=== PATIENT | male | born 1960 | race Caucasian/White ===

== ENCOUNTER 2016-06-20 21:42 | Emergency (ER) | payer BC ==
[2016-06-20] MEDS ORDERED: Phenergan 25 MG INJ IV ONE (21:59)
[2016-06-20] MEDS ORDERED: Hydromorphone 1 mg/ml Ampule IV ONE (21:59)
[2016-06-20] MEDS ORDERED: Sodium Chloride 0.9% 1000 ML 1,000 ML IV SCH (22:00)
--- NOTE | 2016-06-20 22:06 | ERPHSYRPT ---
- History of Present Illness Time Seen by Provider: 06/20/16 21:51 Source: patient Exam Limitations: no limitations Patient Subjective Stated Complaint: pt c/o pain in rt flank. states pain is sharp and intermittent to rt flank. Triage Nursing Assessment: pt alert and oriented, answers questions approp. skin pink warm and dry. respirations nonlabored with lungs cta. pt ambulatory with steady gait noted. bowel sounds present in all 4 quads with hypo bowel sounds. tenderness noted to rt lower back. Physician History: SINCE YESTERDAY PT HAS HAD CONSTANT SHARP/DULL RIGHT LOWER BACK/FLANK PAIN; DENIES RECENT INJURY, FEVER, CHEST PAIN, VOMITING, DIARRHEA. LAST BM WAS 2 DAYS AGO & WNL. PT ALSO C/O A SCRATCHY THROAT AND NASAL CONGESTION FOR THE PAST 2 WEEKS AND EAR FULLNESS FOR THE PAST 4 DAYS. Allergies/Adverse Reactions: cetirizine HCl [From Zyrtec] Allergy (Severe, Verified 12/01/15 18:19) Swelling of Face niacin Allergy (Intermediate, Verified 12/01/15 18:19) Hives Home Medications: Allopurinol 100 mg [Zyloprim 100 mg] 300 mg PO DAILY 09/02/12 [History] Insulin Aspart [NovoLOG Insulin] 30 unit SQ BID 09/02/12 [History] Insulin Detemir [Levemir] 75 unit SQ BID 09/02/12 [History] Lisinopril 10 mg [Zestril 10 MG] 10 mg PO DAILY 09/02/12 [History] Metformin HCl 500 mg [Glucophage 500 MG] 1,000 mg PO BID 09/02/12 [History ] Aspirin 325 mg PO DAILY 02/27/14 [History] Omeprazole [Prilosec] 40 mg PO DAILY 02/27/14 [History] Pravastatin Sodium 80 mg PO DAILY 05/29/14 [History] Hx Tetanus, Diphtheria Vaccination/Date Given: Yes Hx Influenza Vaccination/Date Given: No Hx Pneumococcal Vaccination/Date Given: No Immunizations Up to Date: Yes - Review of Systems Constitutional: No Fever Ears, Nose, & Throat: Nose Congestion, Other (SCRATCHY THROAT AND EAR FULLNESS.) Abdominal/Gastrointestinal: Other (RIGHT FLANK PAIN) Musculoskeletal: Back Pain (RIGHT LOWER BACK PAIN), Joint Swelling (ANKLE SWELLING FOR YEARS.) All Other Systems: Reviewed and Negative - Past Medical History Pertinent Past Medical History: Yes Neurological History: No Pertinent History ENT History: No Pertinent History Cardiac History: High Cholesterol, Hypertension Respiratory History: Asthma, Sleep Apnea Endocrine Medical History: Diabetes Type II Musculoskeletal History: Arthritis GI Medical History: No Pertinent History History: No Pertinent History Psycho-Social History: No Pertinent History Male Reproductive Disorders: No Pertinent History Other Medical History: IDDM - Past Surgical History Past Surgical History: No Neuro Surgical History: No Pertinent History Cardiac: No Pertinent History Respiratory: No Pertinent History Gastrointestinal: No Pertinent History Genitourinary: No Pertinent History Musculoskeletal: No Pertinent History Male Surgical History: No Pertinent History - Social History Smoking Status: Current every day smoker How long have you smoked: 40 YEARS Exposure to second hand smoke: Yes Alcohol Use: None (quit 1 month ago) Drug Use: none Patient Lives Alone: No Significant Family History: diabetes - Nursing Vital Signs Nursing Vital Signs: Initial Vital Signs Temperature 97.8 F Temperature Source Oral Pulse Rate 79 Respiratory Rate 20 Blood Pressure [Right Arm] 144/83 Pain Intensity 8 - Physical Exam General Appearance: alert Eye Exam: PERRL/EOMI Ears, Nose, Throat Exam: TMs normal, pharynx normal, moist mucous membranes Neck Exam: normal inspection Respiratory Exam: lungs clear Cardiovascular Exam: normal heart sounds Gastrointestinal/Abdomen Exam: soft, normal bowel sounds, No tenderness Back Exam: normal range of motion, other (MILD TENDERNESS OF THE RIGHT LOWER BACK WITHOUT RASH OR EDEMA) Extremity Exam: pedal edema (+1 ANKLE EDEMA BILATERALLY) Neurologic Exam: alert, cooperative Skin Exam: warm, dry SpO2 Interpretation: normal SpO2: 95 Oxygen Delivery: Room Air - Course Nursing assessment & vital signs reviewed: Yes Ordered Tests: Active Orders 24 hr Category Date Time Status Clean Catch Urine Specimen STAT Care 06/20/16 21:59 Active IV Insertion STAT Care 06/20/16 21:59 Active ABDOMEN AND PELVIS W/0 CONTRAS [CT] Stat Exams 06/20/16 22:00 Taken AMYLASE Stat Lab 06/20/16 22:08 Completed CBC W DIFF Stat Lab 06/20/16 22:08 Completed CMP Stat Lab 06/20/16 22:08 Completed LIPASE Stat Lab 06/20/16 22:08 Completed UA Stat Lab 06/20/16 22:08 Completed Medication Summary Generic Name Dose Route Start Last Admin Trade Name Freq PRN Reason Stop Dose Admin Sodium Chloride 1,000 mls @ 100 mls/hr 06/20/16 22:00 06/20/16 22:12 Sodium Chloride 0.9% 1000 Ml IV 07/20/16 21:59 100 mls/hr .Q10H DO Administration Discontinued Medications Generic Name Dose Route Start Last Admin Trade Name Sang PRN Reason Stop Dose Admin Hydromorphone HCl 1 mg 06/20/16 21:59 06/20/16 22:12 Hydromorphone 1 Mg/Ml Ampule IV 06/20/16 22:00 1 mg STAT ONE Administration Hydromorphone HCl Confirm 06/20/16 22:09 Hydromorphone 1 Mg/Ml Ampule Administered 06/20/16 22:10 Dose 1 mg .ROUTE .STK-MED ONE Sodium Chloride Confirm 06/20/16 22:09 Sodium Chloride 0.9% 1000 Ml Administered 06/20/16 22:10 Dose 1,000 mls @ ud .ROUTE .STK-MED ONE Promethazine HCl 12.5 mg 06/20/16 21:59 06/20/16 22:12 Phenergan 25 Mg Inj IV 06/20/16 22:00 12.5 mg STAT ONE Administration Promethazine HCl Confirm 06/20/16 22:09 Phenergan 25 Mg Inj Administered 06/20/16 22:10 Dose 25 mg .ROUTE .STK-MED ONE Lab/Rad Data: Laboratory Result Diagrams 06/20/16 22:08 06/20/16 22:08 Laboratory Results 06/20/16 06/20/16 06/20/16 Range/Units 22:08 22:08 22:08 WBC 12.7 H (4.0-10.5) K/mm3 RBC 5.39 (4.1-5.6) M/mm3 Hgb 16.1 (12.5-18.0) gm/dl Hct 47.6 (42-50) % MCV 88.3 (78-100) fl MCH 29.9 (26-32) pg MCHC 33.8 (32-36) g/dl RDW 14.7 H (11.5-14.0) % Plt Count 224 (150-450) K/mm3 MPV 11.9 H (6-9.5) fl Gran % 59.1 (36.0-66.0) % Lymphocytes % 30.5 (24.0-44.0) % Monocytes % 7.0 (0.0-12.0) % Eosinophils % 3.2 (0.00-5.0) % Basophils % 0.2 (0.0-0.4) % Basophils # 0.03 (0-0.4) Sodium 140 (136-145) mEq/L Potassium 4.4 (3.5-5.1) mEq/L Chloride 102 (98-107) mEq/L Carbon Dioxide 27.7 (21-32) mEq/L Anion Gap 14.8 (5-15) MEQ/L BUN 13 (9-20) mg/dL Creatinine 0.78 (0.55-1.30) mg/dl Estimated GFR > 60 ML/MIN Glucose 188 H (70-110) MG/DL Calcium 9.6 (8.5-10.1) mg/dL Total Bilirubin 0.4 (0.2-1.0) mg/dL AST 20 (15-37) U/L ALT 33 (12-78) U/L Alkaline Phosphatase 104 (46-116) U/L Serum Total Protein 7.5 (6.4-8.2) gm/dL Albumin 3.7 (3.4-5.0) g/dL Amylase 45 (25-115) U/L Lipase 221 (73-393) U/L Ur Collection Type CLEAN CATCH Urine Color YELLOW (YELLOW) Urine Appearance CLEAR (CLEAR) Urine pH 5.5 (5-6) Ur Specific [place] >=1.030 (1.005-1.025) Urine Protein NEGATIVE (Negative) Urine Glucose (UA) NEGATIVE (NEGATIVE) mg/dL Urine Ketones NEGATIVE (NEGATIVE) Urine Nitrite NEGATIVE (NEGATIVE) Urine Bilirubin NEGATIVE (NEGATIVE) Urine Urobilinogen 0.2 (0-1) mg/dL Urine WBC (Auto) NEGATIVE (NEGATIVE) Urine RBC (Auto) NEGATIVE (0-5) Lucius/ul Specimen Received 06/20/16 2200 - Departure Time of Disposition: 23:37 Departure Disposition: Home Clinical Impression: RIGHT LOWER BACK/FLANK PAIN Condition: Fair Critical Care Time: No Instructions: Abdominal Pain-Adult Additional Instructions: FOLLOW UP WITH PRIVATE DOCTOR TOMORROW. Prescriptions: Naproxen [Naprosyn] 500 mg PO [id number] PRN #20 tablet PRN Reason: Pain Cyclobenzaprine HCl [Flexeril] 10 mg PO TID #20 tablet
[2016-06-20] MEDS ORDERED: Sodium Chloride 0.9% 1000 ML 1,000 ML ONE (22:09)
[2016-06-20] MEDS ORDERED: Phenergan 25 MG INJ ONE (22:09)
[2016-06-20] MEDS ORDERED: Hydromorphone 1 mg/ml Ampule ONE (22:09)
[2016-06-20 22:11] LABS: BASOPHIL % 0.2 % (0.0-0.4); Eosinophil % 3.2 % (0.00-5.0); Granulocytes % 59.1 % (36.0-66.0); Lymphocytes % 30.5 % (24.0-44.0); Mean Cell Volume 88.3 fl (78-100); Mean Corpuscular Hemoglobin 29.9 pg (26-32); Mean Platelet Volume 11.9 fl (6-9.5); Platelet Count 224 K/mm3 (150-450); Red Blood Count 5.39 M/mm3 (4.1-5.6); Red Cell Distribution Width 14.7 % (11.5-14.0); White Blood Count 12.7 K/mm3 (4.0-10.5)
[2016-06-20 22:28] LABS: Collection Type CLEAN CATCH
[2016-06-20 22:29] LABS: COMPLETE URINE MICROSCOPIC? NO; Ph 5.5 (5-6)
[2016-06-20 22:33] LABS: ALBUMIN 3.7 g/dL (3.4-5.0); ALKALINE PHOSPHATASE 104 U/L (46-116); ANION GAP 14.8 MEQ/L (5-15); BILIRUBIN,TOTAL 0.4 mg/dL (0.2-1.0); BLOOD UREA NITROGEN 13 mg/dL (9-20); CHLORIDE 102 mEq/L (98-107); Carbon Dioxide 27.7 mEq/L (21-32); Glucose 188 MG/DL (70-110); LIPASE 221 U/L (73-393); Potassium 4.4 mEq/L (3.5-5.1); SGOT/AST 20 U/L (15-37); SGPT/ALT 33 U/L (12-78); SODIUM 140 mEq/L (136-145); Total Protein 7.5 gm/dL (6.4-8.2)
[2016-06-20] MEDS ORDERED: TORAdol 30 mg Injection IV ONE (23:38)
[2016-06-20] MEDS ORDERED: TORAdol 30 mg Injection ONE (23:41)
[2016-06-20 23:49] VITALS: BP 146/69; PULSE 67; O2SAT 97
--- NOTE | 2016-06-21 09:46 | XRAY ---
Indication: Right back pain. Multiple contiguous axial images obtained through the abdomen and pelvis without contrast using renal stone protocol. Comparison: February 27, 2014. Lung bases again demonstrates stable noncalcified nodules presumed granulomatous in this demographic. Stable right middle lobe fibrosis/scarring and old left rib fractures. Heart is not enlarged. No renal calculus or evidence for obstructive uropathy in either system. Noncontrasted stomach and bowel loops appear nonobstructed. There is now mild scattered colonic fecal debris throughout. Normal appendix. No free fluid/air. There remains scattered tiny mesenteric nodes with minimal stranding, favoring adenitis. Remaining liver, gallbladder, pancreas, spleen, adrenal glands, kidneys, ureters, and bladder appear unremarkable for noncontrast exam. There remains minimal aortoiliac calcifications without AAA. Osseous structures intact again with degenerative changes throughout the spine. Impression: 1. Negative for renal calculus or evidence for obstructive uropathy. 2. Fecal stasis without obstruction. 3. Stable tiny mesenteric nodes with minimal stranding favoring mesenteric adenitis. 4. Stable bibasilar pulmonary nodules presumed granulomatous. Comment: Preliminary interpretation was made by [facility]. No critical discrepancy. CTDI 28.13
== END 2016-06-21 00:05 | disposition home or self-care (01) ==
LOC: ED 21:42
DX: M54.5 Low back pain (principal); R10.9 Unspecified abdominal pain; R09.81 Nasal congestion
CPT/HCPCS: 36000; 36415; 74176; 80053; 81002; 82150; 83690; 85025; 96360; 96374; 96375; 99283; 99284; J1170; J1885; J2550

== ENCOUNTER 2016-09-08 21:10 | Emergency (ER) | payer BC ==
[2016-09-08] MEDS ORDERED: Sodium Chloride 0.9% 1000 ML 1,000 ML IV STA (21:54)
--- NOTE | 2016-09-08 21:59 | ERPHSYRPT ---
- History of Present Illness Time Seen by Provider: 09/08/16 21:55 Source: patient Exam Limitations: no limitations Patient Subjective Stated Complaint: states that he has had some sinus drainage and congestion for the last few weeks since having his teeth pulled and since that time has had some c/o intermittent dizzienss - reports some aching pain in the ears and nausea with dry heaving Triage Nursing Assessment: ambulatory to treatment area - steady gait to cart - moves all extremities with equal strength. alert/oriented - appropriate affect. skin pwd - no rash/injury. resps easy - non-labored Physician History: 56-year-old white male arrives with complaint of feeling dizzy for approximately 3 weeks after having his teeth pulled,. Patient states then today he's been very dizzy all day long is not having any problems moving he just feels dizzy "like he is drunk. He does state that he has been having pressure in the maxillary area bilaterally like he has a sinus infection. He has has had some nausea he has no fevers, Past medical history includes diabetes, asthma, sleep apnea, hyperlipidemia, high blood pressure. Patient states he has had a stroke in the past also history of arthritis, Past surgical history is negative. Social history occasional alcohol use Timing/Duration: week(s) (symptoms for 3 weeks worse today) Severity: moderate Modifying Factors: Improves With: nothing Associated Symptoms: nausea, other (dizziness), No vomiting, No abdominal pain, No shortness of breath, No heartburn, No diaphoresis, No cough, No chills, No chest pain, No fever, No headaches, No loss of appetite, No malaise, No rash, No syncope, No seizure, No weakness Allergies/Adverse Reactions: cetirizine HCl [From Zyrtec] Allergy (Severe, Verified 09/08/16 21:20) Swelling of Face niacin Allergy (Intermediate, Verified 09/08/16 21:20) Hives Home Medications: Allopurinol 100 mg [Zyloprim 100 mg] 300 mg PO DAILY 09/02/12 [History] Insulin Aspart [NovoLOG Insulin] 30 unit SQ BID 09/02/12 [History] Insulin Detemir [Levemir] 75 unit SQ BID 09/02/12 [History] Lisinopril 10 mg [Zestril 10 MG] 10 mg PO DAILY 09/02/12 [History] Metformin HCl 500 mg [Glucophage 500 MG] 1,000 mg PO BID 09/02/12 [History ] Aspirin 325 mg PO DAILY 02/27/14 [History] Omeprazole [Prilosec] 40 mg PO DAILY 02/27/14 [History] Pravastatin Sodium 80 mg PO DAILY 05/29/14 [History] Hx Tetanus, Diphtheria Vaccination/Date Given: No Hx Influenza Vaccination/Date Given: No Hx Pneumococcal Vaccination/Date Given: No Immunizations Up to Date: Yes - Review of Systems Constitutional: No Fever, No Chills Eyes: No Symptoms, No Discharge, No Eye Pain, No Eye Redness, No Itchy, No Photophobia, No Tearing, No Vision Changes, No Double Vision, No Foreign Body Sensation Ears, Nose, & Throat: Nose Congestion, Sinus Drainage, Other (tenderness in the maxillary sinuses), No Ear Pain, No Ear Discharge, No Hearing Changes, No Tinnitus, No Nose Pain, No Nose Discharge, No Epistaxis, No Mouth Pain, No Mouth Swelling, No Loose Teeth, No Throat Pain, No Throat Swelling, No Hoarse, No Painful Swallowing, No Snoring, No Stridor Respiratory: No Cough, No Dyspnea Cardiac: No Chest Pain, No Edema, No Syncope Abdominal/Gastrointestinal: No Abdominal Pain, No Nausea, No Vomiting, No Diarrhea Genitourinary Symptoms: No Dysuria Musculoskeletal: No Back Pain, No Neck Pain Skin: No Rash Neurological: Dizziness, No Focal Weakness, No Gait Changes, No Headache, No Irritability, No Lethargy, No Paralysis, No Parasthesia, No Seizure, No Sensory Changes, No Speech Changes, No Tics, No Tremors, No Vertigo Psychological: No Symptoms Endocrine: No Symptoms All Other Systems: Reviewed and Negative - Past Medical History Pertinent Past Medical History: Yes Neurological History: No Pertinent History ENT History: No Pertinent History Cardiac History: High Cholesterol, Hypertension Respiratory History: Asthma, Sleep Apnea Endocrine Medical History: Diabetes Type II Musculoskeletal History: Arthritis GI Medical History: No Pertinent History History: No Pertinent History Psycho-Social History: No Pertinent History Male Reproductive Disorders: No Pertinent History Other Medical History: IDDM - Past Surgical History Past Surgical History: No Neuro Surgical History: No Pertinent History Cardiac: No Pertinent History Respiratory: No Pertinent History Gastrointestinal: No Pertinent History Genitourinary: No Pertinent History Musculoskeletal: No Pertinent History Male Surgical History: No Pertinent History - Social History Smoking Status: Never smoker How long have you smoked: 40 YEARS Exposure to second hand smoke: No Alcohol Use: None (quit 1 month ago) Drug Use: none Patient Lives Alone: No Significant Family History: diabetes - Nursing Vital Signs Nursing Vital Signs: Initial Vital Signs Temperature 97.2 F Temperature Source Oral Pulse Rate 68 Respiratory Rate 20 Blood Pressure [] 131/53 Pain Intensity 0 - Physical Exam General Appearance: no apparent distress Eye Exam: PERRL/EOMI, eyes nml inspection Ears, Nose, Throat Exam: TMs normal, pharynx normal, moist mucous membranes, other (erythematous nasal mucosa, tenderness with percussion maxillary sinuses) , No dry mucous membranes, No TM abnormal (R), No TM abnormal (L), No pharyngeal erythema, No tonsillar exudate Neck Exam: normal inspection, non-tender, supple, full range of motion Respiratory Exam: normal breath sounds, lungs clear, No respiratory distress Cardiovascular Exam: regular rate/rhythm, normal heart sounds, normal peripheral pulses Gastrointestinal/Abdomen Exam: soft, normal bowel sounds, No tenderness, No mass Back Exam: normal inspection, normal range of motion, No CVA tenderness, No vertebral tenderness Extremity Exam: normal inspection, normal range of motion, pelvis stable Neurologic Exam: alert, oriented x 3, cooperative, normal mood/affect, nml cerebellar function, nml station & gait, sensation nml, No motor deficits Skin Exam: normal color, warm, dry, No rash Lymphatic Exam: No adenopathy SpO2 Interpretation: normal (96%) SpO2: 96 Oxygen Delivery: Room Air - Course Nursing assessment & vital signs reviewed: Yes EKG Interpreted by Me: RATE (64 bpm), NORMAL AXIS, Other (EKG: sinus arrhythmia , 64 bpm, axisSI/QIII pattern no acute ST or T wave changes, no acute changes as compared to December 01, 2015) - CT Exams Head CT Interpretation: Tele-radiologist Report (head CT: Impression: 1. No acute intracranial abnormality) Ordered Tests: Active Orders 24 hr Category Date Time Status Accucheck STAT Care 09/08/16 21:54 Active EKG-ER Only STAT Care 09/08/16 23:06 Active IV Insertion STAT Care 09/08/16 21:54 Active Orthostatic Vital Signs STAT Care 09/08/16 21:54 Active HEAD WITHOUT CONTRAST [CT] Stat Exams 09/08/16 21:54 Taken CBC W DIFF Stat Lab 09/08/16 22:05 Completed CMP Stat Lab 09/08/16 22:05 Completed TROPONIN Stat Lab 09/08/16 22:05 Completed Medication Summary Discontinued Medications Generic Name Dose Route Start Last Admin Trade Name Sang PRN Reason Stop Dose Admin Sodium Chloride 1,000 mls @ 999 mls/hr 09/08/16 21:54 09/08/16 22:07 Sodium Chloride 0.9% 1000 Ml IV 09/08/16 22:54 999 mls/hr .Q1H1M STA Administration Sodium Chloride Confirm 09/08/16 22:06 Sodium Chloride 0.9% 1000 Ml Administered 09/08/16 22:07 Dose 1,000 mls @ ud .ROUTE .STK-MED ONE Lab/Rad Data: Laboratory Result Diagrams 09/08/16 22:05 09/08/16 22:05 Laboratory Results 09/08/16 09/08/16 Range/Units 22:05 22:05 WBC 11.5 H (4.0-10.5) K/mm3 RBC 5.13 (4.1-5.6) M/mm3 Hgb 15.2 (12.5-18.0) gm/dl Hct 45.7 (42-50) % MCV 89.1 (78-100) fl MCH 29.6 (26-32) pg MCHC 33.3 (32-36) g/dl RDW 13.9 (11.5-14.0) % Plt Count 188 (150-450) K/mm3 MPV 11.2 H (6-9.5) fl Gran % 54.7 (36.0-66.0) % Lymphocytes % 34.6 (24.0-44.0) % Monocytes % 6.2 (0.0-12.0) % Eosinophils % 4.2 (0.00-5.0) % Basophils % 0.3 (0.0-0.4) % Basophils # 0.04 (0-0.4) Sodium 141 (136-145) mEq/L Potassium 3.3 L (3.5-5.1) mEq/L Chloride 103 (98-107) mEq/L Carbon Dioxide 27.2 (21-32) mEq/L Anion Gap 14.2 (5-15) MEQ/L BUN 16 (9-20) mg/dL Creatinine 0.86 (0.55-1.30) mg/dl Estimated GFR > 60 ML/MIN Glucose 117 H (70-110) MG/DL Calcium 9.5 (8.5-10.1) mg/dL Total Bilirubin 0.3 (0.2-1.0) mg/dL AST 23 (15-37) U/L ALT 35 (12-78) U/L Alkaline Phosphatase 85 (46-116) U/L Troponin I < 0.017 (0.000-0.056) ng/ml Serum Total Protein 6.7 (6.4-8.2) gm/dL Albumin 3.2 L (3.4-5.0) g/dL - Progress Progress: improved Progress Note: 09/08/16 23:[address] is normal EKG no acute changes chemistry was normal patient mildly orthostatic on orthostatic vital signs Patient improved after 1 L of normal saline Patient has had maxillary sinus tenderness for 2-[address] weeks[address] go ahead place patient on Zithromax Z-Derrick and Antivert. And plenty of fluids. 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 Will give patient aspirin 162 mg orally daily. 09/08/16 23:29 I had considered placing patient on Antivert however patient had a reaction with facial swelling with cetirizine so will avoid this medication - Departure Time of Disposition: 23:27 Departure Disposition: Home Clinical Impression: Dizziness Sinusitis Qualifiers: Sinusitis location: unspecified location Chronicity: unspecified Qualified Code (s): J32.9 - Chronic sinusitis, unspecified Condition: Fair Critical Care Time: No Instructions: Vertigo Additional Instructions: Return home. Plenty of fluids. Zithromax Z-DERRIKC as directed. Follow-up with your family doctor. Return for acute distress or for severe symptoms. Prescriptions: Azithromycin 250 mg [Zithromax 250 MG TABLET] 0 mg PO ZPACK #6 tablet
[2016-09-08] MEDS ORDERED: Sodium Chloride 0.9% 1000 ML 1,000 ML ONE (22:06)
[2016-09-08 22:10] LABS: BASOPHIL % 0.3 % (0.0-0.4); Eosinophil % 4.2 % (0.00-5.0); Granulocytes % 54.7 % (36.0-66.0); Lymphocytes % 34.6 % (24.0-44.0); Mean Cell Volume 89.1 fl (78-100); Mean Corpuscular Hemoglobin 29.6 pg (26-32); Mean Platelet Volume 11.2 fl (6-9.5); Monocytes % 6.2 % (0.0-12.0); Platelet Count 188 K/mm3 (150-450); Red Blood Count 5.13 M/mm3 (4.1-5.6); Red Cell Distribution Width 13.9 % (11.5-14.0); White Blood Count 11.5 K/mm3 (4.0-10.5)
[2016-09-08 22:12] VITALS: BP 131/53
[2016-09-08 22:43] LABS: ALBUMIN 3.2 g/dL (3.4-5.0); ALKALINE PHOSPHATASE 85 U/L (46-116); ANION GAP 14.2 MEQ/L (5-15); BILIRUBIN,TOTAL 0.3 mg/dL (0.2-1.0); BLOOD UREA NITROGEN 16 mg/dL (9-20); CHLORIDE 103 mEq/L (98-107); Carbon Dioxide 27.2 mEq/L (21-32); Glucose 117 MG/DL (70-110); Potassium 3.3 mEq/L (3.5-5.1); SGOT/AST 23 U/L (15-37); SGPT/ALT 35 U/L (12-78); SODIUM 141 mEq/L (136-145); Total Protein 6.7 gm/dL (6.4-8.2)
[2016-09-08 22:44] LABS: TROPONIN < 0.017 ng/ml (0.000-0.056)
[2016-09-08 23:17] VITALS: PULSE 68
[2016-09-08 23:19] VITALS: O2SAT 96
[2016-09-08] MEDS ORDERED: BABY ASPIRIN 81 MG CHEW PO ONE (23:30)
[2016-09-09] MEDS ORDERED: BABY ASPIRIN 81 MG CHEW ONE (01:25)
--- NOTE | 2016-09-09 08:46 | XRAY ---
Indication: Dizziness following dental procedure. Previous CVA. Multiple contiguous axial images obtained through the head without contrast. Comparison: December 31, 2015. Stable old right parietal infarct. No acute intracranial hemorrhage, hydrocephalus, or mass effect. Bony calvarium intact. Stable small left maxillary sinus polyp/retention cyst. Remaining visualized paranasal sinuses and mastoid air cells are pneumatized and clear. Impression: Stable old right parietal infarct. No new/acute intracranial abnormalities. Comment: Preliminary interpretation was made by [facility]. No discrepancy. CT DI 68.51
== END 2016-09-08 23:41 | disposition home or self-care (01) ==
LOC: ED 21:10
DX: J32.9 Chronic sinusitis, unspecified (principal); R42 Dizziness and giddiness
CPT/HCPCS: 36000; 36415; 70450; 80053; 82962; 84484; 85025; 93005; 96360; 99284; 99285; A9270-GY

== ENCOUNTER 2016-10-17 10:57 | Emergency (ER) | payer BC ==
[2016-10-17 11:10] VITALS: O2SAT 97
[2016-10-17] MEDS ORDERED: MORPHINE SULFATE 4 MG INJ IM ONE (11:18)
--- NOTE | 2016-10-17 11:22 | ERPHSYRPT ---
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 Patient states he fell over a lawnmower striking his ribs on the lawn more yesterday. He has pain as described as above. He has no shortness of breath he has no nausea no vomiting no fevers no other complaints. Past medical history includes high blood pressure, hypercholesterolemia, sleep apnea, asthma, diabetes, arthritis. Past surgical history is negative Timing/Duration: yesterday Severity: moderate Modifying Factors: Improves With: movement Associated Symptoms: chest pain (pain right anterior ribs with moving and deep breathing), No nausea, No vomiting, No abdominal pain, No shortness of breath, No heartburn, No diaphoresis, No cough, No chills, No fever, No headaches, No loss of appetite, No malaise, No rash, No syncope, No seizure, No weakness Allergies/Adverse Reactions: cetirizine HCl [From Zyrte] Allergy (Severe, Verified 10/17/16 11:10) Swelling of Face niacin Allergy (Intermediate, Verified 10/17/16 11:10) Hives Home Medications: Allopurinol 100 mg [Zyloprim 100 mg] 300 mg PO DAILY 09/02/12 [History] Insulin Aspart [NovoLOG Insulin] 30 unit SQ BID 09/02/12 [History] Insulin Detemir [Levemir] 75 unit SQ BID 09/02/12 [History] Lisinopril 10 mg [Zestril 10 MG] 10 mg PO DAILY 09/02/12 [History] Metformin HCl 500 mg [Glucophage 500 MG] 1,000 mg PO BID 09/02/12 [History ] Aspirin 325 mg PO DAILY 02/27/14 [History] Omeprazole [Prilosec] 40 mg PO DAILY 02/27/14 [History] Pravastatin Sodium 80 mg PO DAILY 05/29/14 [History] Hx Tetanus, Diphtheria Vaccination/Date Given: No Hx Influenza Vaccination/Date Given: No Hx Pneumococcal Vaccination/Date Given: No Immunizations Up to Date: Yes - Review of Systems Constitutional: No Fever, No Chills Eyes: No Symptoms Ears, Nose, & Throat: No Symptoms Respiratory: Other (pain right anterior chest with deep breathing and movement) , No Cough, No Dyspnea Cardiac: No Symptoms, Chest Pain (Pain right anterior chest sharp worse with deep breathing and movement), No Edema, No Syncope Abdominal/Gastrointestinal: No Abdominal Pain, No Nausea, No Vomiting, No Diarrhea Genitourinary Symptoms: No Dysuria Musculoskeletal: No Back Pain, No Neck Pain Skin: No Rash Neurological: No Dizziness, No Focal Weakness, No Sensory Changes Psychological: No Symptoms Endocrine: No Symptoms All Other Systems: Reviewed and Negative - Past Medical History Pertinent Past Medical History: Yes Neurological History: No Pertinent History ENT History: No Pertinent History Cardiac History: High Cholesterol, Hypertension Respiratory History: Asthma, Sleep Apnea Endocrine Medical History: Diabetes Type II Musculoskeletal History: Arthritis GI Medical History: No Pertinent History History: No Pertinent History Psycho-Social History: No Pertinent History Male Reproductive Disorders: No Pertinent History Other Medical History: IDDM - Past Surgical History Past Surgical History: No Neuro Surgical History: No Pertinent History Cardiac: No Pertinent History Respiratory: No Pertinent History Gastrointestinal: No Pertinent History Genitourinary: No Pertinent History Musculoskeletal: No Pertinent History Male Surgical History: No Pertinent History - Social History Smoking Status: Current every day smoker How long have you smoked: YRS Exposure to second hand smoke: Yes Alcohol Use: None (quit 1 month ago) Drug Use: none Patient Lives Alone: No Significant Family History: diabetes - Nursing Vital Signs Nursing Vital Signs: Initial Vital Signs Pulse Rate 92 Respiratory Rate 18 Blood Pressure [] 165/99 Pain Intensity 10 - Physical Exam General Appearance: mild distress Eye Exam: PERRL/EOMI, eyes nml inspection Ears, Nose, Throat Exam: normal ENT inspection, TMs normal, pharynx normal, moist mucous membranes Neck Exam: normal inspection, non-tender, supple, full range of motion Respiratory Exam: normal breath sounds, chest tenderness (tender right anterior chest with deep breathing and movement), lungs clear, airway intact, No respiratory distress, No diminished breath sounds, No accessory muscle use, No prolonged expirations, No crackles/rales, No rhonchi, No wheezing, No stridor, No pleural rub Cardiovascular Exam: regular rate/rhythm, normal heart sounds, normal peripheral pulses Gastrointestinal/Abdomen Exam: soft, normal bowel sounds, No tenderness, No mass Back Exam: normal inspection, normal range of motion, No CVA tenderness, No vertebral tenderness Extremity Exam: normal inspection, normal range of motion, pelvis stable Neurologic Exam: alert, oriented x 3, cooperative, normal mood/affect, nml cerebellar function, nml station & gait, sensation nml, No motor deficits Skin Exam: normal color, warm, dry, No rash Lymphatic Exam: No adenopathy SpO2 Interpretation: normal (97%) SpO2: 97 Oxygen Delivery: Room Air - Course Nursing assessment & vital signs reviewed: Yes - Radiology Exams Chest X-ray Interpretation: Interpreted by me, Negative, No Fracture, No Pneumonia, No Pneumothorax Right Ribs X-ray Interpretation: Interpreted by me, Negative, No Fracture Ordered Tests: Active Orders 24 hr Category Date Time Status CHEST 1 VIEW (PORTABLE) Stat Exams 10/17/16 11:16 Ordered RIBS UNILATERAL Stat Exams 10/17/16 11:16 Ordered Medication Summary Discontinued Medications Generic Name Dose Route Start Last Admin Trade Name Freq PRN Reason Stop Dose Admin Morphine Sulfate 4 mg 10/17/16 11:18 10/17/16 11:37 Morphine Sulfate 4 Mg Inj IM 10/17/16 11:19 4 mg STAT ONE Administration Morphine Sulfate Confirm 10/17/16 11:30 Morphine Sulfate 4 Mg Inj Administered 10/17/16 11:31 Dose 4 mg .ROUTE .STK-MED ONE - Progress Progress: improved Progress Note: 10/17/16 12:16 56-year-old white male arrives with complaint of right rib pain since falling over a lawnmower yesterday. Patient's x-ray right ribs negative x-ray chest no pneumothorax no pneumonias. Patient is improved after morphine IM. Will discharge with prescription for Greenbrier for pain patient also advised to take Advil cold packs and limited twisting and bending. Will discharge - Departure Time of Disposition: 12:17 Departure Disposition: Home Clinical Impression: Rib pain on right side Contusion of rib on right side Qualifiers: Encounter type: initial encounter Qualified Code(s): S20.211A - Contusion of right front wall of thorax, initial encounter Condition: Fair Critical Care Time: No Instructions: Contusion, Prevent Falls Additional Instructions: Return home. Cold packs to the right rib 24-48 hours. Avoid strenuous pushing pulling lifting more than 5 pounds 48-72 hours longer if pain persists. Greenbrier as prescribed. Advil 2 tablets orally every 6 hours as needed for pain Follow-up with your family doctor if symptoms are worse, no better in 48 hours or persist longer than one week. Your x-rays have been preliminarily read they will be reread tomorrow you will be contacted if any discrepancies are noted. Prescriptions: Hydrocodone/Acetaminophen [Greenbrier 5-325 Tablet] 1 tab PO Q4-6HPRN PRN #12 tablet PRN Reason: Pain
[2016-10-17] MEDS ORDERED: MORPHINE SULFATE 4 MG INJ ONE (11:30)
[2016-10-17 12:23] VITALS: BP 140/85; PULSE 90
--- NOTE | 2016-10-17 22:45 | XRAY ---
Indication: Right-sided pain following tripping injury. Comparison: None 2 views of the right ribs demonstrates right mid lung atelectasis/scarring and multilevel spinal degenerative changes. No acute fracture, dislocation, or suspicious bony lesions.
--- NOTE | 2016-10-17 22:45 | XRAY ---
Indication: Right-sided pain following tripping injury. Comparison: December 01, 2015. Single PA chest demonstrates new linear opacities in the midlung field bilaterally favoring subsegmental atelectasis/scarring. Remaining lungs clear. Heart is not enlarged. Bony thorax intact again with spinal degenerative changes. Impression: Bilateral atelectasis/scarring. Remaining chest nonacute.
== END 2016-10-17 12:23 | disposition home or self-care (01) ==
LOC: ED 10:57
DX: S20.211A Contusion of right front wall of thorax, initial encounter (principal); W01.198A Fall on same level from slipping, tripping and stumbling with subsequent striking against other object, initial encounter; I10 Essential (primary) hypertension; E78.00 Pure hypercholesterolemia, unspecified; E11.9 Type 2 diabetes mellitus without complications; R07.89 Other chest pain; Z79.84 Long term (current) use of oral hypoglycemic drugs; Z79.4 Long term (current) use of insulin; Z79.899 Other long term (current) drug therapy
CPT/HCPCS: 71010; 71100; 96372; 99283; 99284; J2270

== ENCOUNTER 2016-11-18 15:16 | Emergency (ER) | payer BC ==
[2016-11-18 15:41] VITALS: PULSE 86; O2SAT 96
[2016-11-18] MEDS ORDERED: Fluor-I-Strip/Ful-Flo OP ONE ×2 (15:50→15:52)
[2016-11-18] MEDS ORDERED: Eye-Stream Solution OP ONE (15:50)
[2016-11-18] MEDS ORDERED: TETRACAINE 0.5% STERI-UNIT SOL OP STA (15:50)
--- NOTE | 2016-11-18 15:51 | ERPHSYRPT ---
- History of Present Illness Time Seen by Provider: 11/18/16 15:30 Source: patient Exam Limitations: clinical condition Patient Subjective Stated Complaint: woke up with red left eye today. denies any injury Triage Nursing Assessment: ambulated to room without difficulty. skin w/d, color normal. left eye swollen and red. clear drainage. Physician History: PATIENT WITH HISTORY OF TYPE 2 DIABETES, HYPERTENSION, NONCOMPLIANT WITH BLOOD PRESSURE MEDICATIONS, STATES HE SNEEZED YESTERDAY AND AWAKENED WITH LEFT EYE REDNESS. DENIES BLURRED VISION, EYE PAIN. STATES HE HAS NOT USED HIS BLOOD PRESSURE MEDICINE FOR 3 DAYS. Timing/Duration: gradual onset Severity: moderate ENT Location: ear (L) Prearrival Treatment: no prearrival treatment Modifying Factors: Improves With: other (SNEEZING) Associated Symptoms: denies symptoms Allergies/Adverse Reactions: cetirizine HCl [From Zyrtec] Allergy (Severe, Verified 11/18/16 15:36) Swelling of Face niacin Allergy (Intermediate, Verified 11/18/16 15:36) Hives Home Medications: Allopurinol 100 mg [Zyloprim 100 mg] 300 mg PO DAILY 09/02/12 [History] Insulin Aspart [NovoLOG Insulin] 30 unit SQ BID 09/02/12 [History] Insulin Detemir [Levemir] 75 unit SQ BID 09/02/12 [History] Lisinopril 10 mg [Zestril 10 MG] 10 mg PO DAILY 09/02/12 [History] Metformin HCl 500 mg [Glucophage 500 MG] 1,000 mg PO BID 09/02/12 [History ] Aspirin 325 mg PO DAILY 02/27/14 [History] Omeprazole [Prilosec] 40 mg PO DAILY 02/27/14 [History] Pravastatin Sodium 80 mg PO DAILY 05/29/14 [History] Carvedilol 12.5 mg [Coreg 12.5 mg] 12.5 mg PO BID 11/18/16 [History] Hx Tetanus, Diphtheria Vaccination/Date Given: Yes Hx Influenza Vaccination/Date Given: No Hx Pneumococcal Vaccination/Date Given: No - Review of Systems Constitutional: No Fever, No Chills Eyes: No Symptoms, Eye Redness Ears, Nose, & Throat: No Symptoms Respiratory: No Cough, No Dyspnea Cardiac: No Chest Pain, No Edema, No Syncope Abdominal/Gastrointestinal: No Abdominal Pain, No Nausea, No Vomiting, No Diarrhea Genitourinary Symptoms: No Dysuria Musculoskeletal: No Back Pain, No Neck Pain Skin: No Rash Neurological: No Dizziness, No Focal Weakness, No Sensory Changes Psychological: No Symptoms Endocrine: No Symptoms All Other Systems: Reviewed and Negative - Past Medical History Pertinent Past Medical History: Yes Neurological History: No Pertinent History ENT History: No Pertinent History Cardiac History: High Cholesterol, Hypertension Respiratory History: Asthma, Sleep Apnea Endocrine Medical History: Diabetes Type II Musculoskeletal History: Arthritis GI Medical History: No Pertinent History History: No Pertinent History Psycho-Social History: No Pertinent History Male Reproductive Disorders: No Pertinent History Other Medical History: IDDM - Past Surgical History Past Surgical History: No Neuro Surgical History: No Pertinent History Cardiac: No Pertinent History Respiratory: No Pertinent History Gastrointestinal: No Pertinent History Genitourinary: No Pertinent History Musculoskeletal: No Pertinent History Male Surgical History: No Pertinent History - Social History Smoking Status: Current every day smoker How long have you smoked: 50 Exposure to second hand smoke: No Alcohol Use: None (quit 1 month ago) Drug Use: none Patient Lives Alone: No Significant Family History: diabetes - Nursing Vital Signs Nursing Vital Signs: Initial Vital Signs Temperature 97.6 F Temperature Source Oral Pulse Rate 86 Respiratory Rate 18 Blood Pressure [Left Arm] 182/91 Pain Intensity 0 - Physical Exam General Appearance: no apparent distress, alert Eye Exam: left eye: conjunctival hemorrhage (COMPLETELY SURROUNDING THE CORNEA) , bilateral eye: PERRL Ear Exam: bilateral ear: auricle normal, canal normal, TM normal Nasal Exam: normal inspection Cardiovascular/Respiratory Exam: chest non-tender, normal breath sounds SpO2 Interpretation: normal SpO2: 96 Oxygen Delivery: Room Air Ordered Tests: Active Orders 24 hr Category Date Time Status Visual Acuity STAT Care 11/18/16 15:50 Active Medication Summary Discontinued Medications Generic Name Dose Route Start Last Admin Trade Name Freq PRN Reason Stop Dose Admin Clonidine 0.2 mg 11/18/16 16:00 11/18/16 16:13 Catapres 0.1 Mg PO 11/18/16 16:01 0.2 mg STAT ONE Administration Clonidine Confirm 11/18/16 16:12 Catapres 0.1 Mg Administered 11/18/16 16:13 Dose 0.2 mg .ROUTE .STK-MED ONE Eye Irrigation Solution 15 ml 11/18/16 15:50 11/18/16 15:53 Eye-Stream Solution OP 11/18/16 15:51 15 ml STAT ONE Administration Eye Irrigation Solution Confirm 11/18/16 15:53 Eye-Stream Solution Administered 11/18/16 15:54 Dose 30 ml .ROUTE .STK-MED ONE Fluorescein Sodium 1 mg 11/18/16 15:50 11/18/16 15:53 Mypsd-J-Xmoop/Ful-David OP 11/18/16 15:51 1 mg STAT ONE Administration Fluorescein Sodium Confirm 11/18/16 15:52 Ygfuw-S-Zbjpc/Ful-David Administered 11/18/16 15:53 Dose 1 mg OP .STK-MED ONE Tetracaine HCl 4 ml 11/18/16 15:50 11/18/16 15:53 Tetracaine 0.5% Steri-Unit Paulette OP 11/18/16 15:51 4 ml STAT STA Administration Tetracaine HCl Confirm 11/18/16 15:52 Tetracaine 0.5% Steri-Unit Paulette Administered 11/18/16 15:53 Dose 4 ml OP .STK-MED ONE - Progress Progress Note: 11/18/16 VISUAL ACUITY WITHOUT CORRECTIVE LENSES OD 20/20, OS 20/30 OU 20/25 TETRACAINE OPHTH PAULETTE 2GTTS OS, EVERTED UPPER EYE LID, NO EVIDENCE OF FOREIGN BODY, FLURO STRIP WITHOUT EVIDENCE OF FOREIGN BODY, EYE STREAM 30ML TO LEFT EYE 11/18/16 16:42 PATIENT GIVEN CATAPRES 0.2MG ORALLY, BP 196/91 IMPROVED TO BP 182 /91 Counseled pt/family regarding: diagnosis, need for follow-up - Departure Time of Disposition: 16:45 Departure Disposition: Home Clinical Impression: LEFT SUBCONJUNCTIVAL HEMORRHAGE, HYPERTENSION Condition: Stable Critical Care Time: No Referrals: MELI HANCOCK [Primary Care Provider] - Additional Instructions: AVOID TAKING ADULT ASPIRIN FOR 1 WEEK. BEGIN TAKING YOUR BLOOD PRESSURE DAILY. HAVE YOUR BLOOD PRESSURE RECHECKED BY YOUR FAMILY PHYSICIAN THIS WEEK.
[2016-11-18] MEDS ORDERED: TETRACAINE 0.5% STERI-UNIT SOL OP ONE (15:52)
[2016-11-18] MEDS ORDERED: Eye-Stream Solution ONE (15:53)
[2016-11-18] MEDS ORDERED: Catapres 0.1 MG PO ONE (16:00)
[2016-11-18] MEDS ORDERED: Catapres 0.1 MG ONE (16:12)
[2016-11-18 16:40] VITALS: BP 182/91
== END 2016-11-18 16:52 | disposition home or self-care (01) ==
LOC: ED 15:16
DX: H11.32 Conjunctival hemorrhage, left eye (principal); I10 Essential (primary) hypertension; Z79.84 Long term (current) use of oral hypoglycemic drugs
CPT/HCPCS: 99283; A9270-GY

== ENCOUNTER 2019-05-27 00:42 | Emergency (ER) | payer BC ==
--- NOTE | 2019-05-27 01:41 | ERPHSYRPT ---
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 He complains of pain in the right lateral ribs which is well localized. Pain is worse with certain movements and with deep breathing. Occurred: yesterday Reason for Fall: unknown Injuries/Pain Location: chest Loss of Consciousness: no loss of consciousness Associated Symptoms (Fall): denies symptoms Allergies/Adverse Reactions: cetirizine HCl [From Zyrtec] Allergy (Severe, Verified 05/27/19 00:59) Swelling of Face niacin Allergy (Intermediate, Verified 05/27/19 00:59) Hives Home Medications: Allopurinol 100 mg [Zyloprim 100 mg] 300 mg PO DAILY 09/02/12 [History] Insulin Aspart [NovoLOG Insulin] 47 unit SQ BID 09/02/12 [History] Insulin Detemir [Levemir] 80 unit SQ BID 09/02/12 [History] Lisinopril 10 mg [Zestril 10 MG] 30 mg PO DAILY 09/02/12 [History] Metformin HCl 500 mg [Glucophage 500 MG] 1,000 mg PO BID 09/02/12 [History ] Aspirin 325 mg PO DAILY 02/27/14 [History] Omeprazole [Prilosec] 40 mg PO DAILY 02/27/14 [History] Pravastatin Sodium 30 mg PO DAILY 05/29/14 [History] Carvedilol 12.5 mg [Coreg 12.5 mg] 3.125 mg PO BID 11/18/16 [History] Amlodipine Besylate 10 mg PO DAILY 05/27/19 [History] Calcium Carbonate/Vitamin D3 [Oysco 500-Vit D3 200 Tablet] 1 tab PO BID [History] Docusate Sodium [Stool Softener] 100 mg PO DAILY 05/27/19 [History] Ezetimibe 10 mg PO DAILY 05/27/19 [History] Hydrochlorothiazide 25 mg PO DAILY 05/27/19 [History] Elfrida-3 Fatty Acids/Fish Oil [Fish Oil 1,000 mg Capsule] 1 cap PO DAILY [History] Piroxicam 20 mg PO DAILY 05/27/19 [History] Pyridoxine HCl (Vitamin B6) [Vitamin B-6] 100 mg PO DAILY 05/27/19 [History] Hx Tetanus, Diphtheria Vaccination/Date Given: Yes (unknown) Hx Influenza Vaccination/Date Given: No Hx Pneumococcal Vaccination/Date Given: No - Review of Systems Constitutional: No Fever, No Chills Eyes: No Symptoms Ears, Nose, & Throat: No Symptoms Respiratory: No Cough, No Dyspnea Cardiac: Chest Pain, No Edema, No Syncope Abdominal/Gastrointestinal: No Abdominal Pain, No Nausea, No Vomiting, No Diarrhea Genitourinary Symptoms: No Dysuria Musculoskeletal: No Back Pain, No Neck Pain Skin: No Rash Neurological: No Dizziness, No Focal Weakness, No Sensory Changes Psychological: No Symptoms Endocrine: No Symptoms All Other Systems: Reviewed and Negative - Past Medical History Pertinent Past Medical History: Yes Neurological History: No Pertinent History ENT History: No Pertinent History Cardiac History: High Cholesterol, Hypertension Respiratory History: Asthma, Sleep Apnea Endocrine Medical History: Diabetes Type II Musculoskeletal History: Arthritis GI Medical History: No Pertinent History History: No Pertinent History Psycho-Social History: No Pertinent History Male Reproductive Disorders: No Pertinent History Other Medical History: IDDM - Past Surgical History Past Surgical History: Yes Neuro Surgical History: No Pertinent History Cardiac: No Pertinent History Respiratory: No Pertinent History Gastrointestinal: No Pertinent History Genitourinary: No Pertinent History Musculoskeletal: No Pertinent History Male Surgical History: No Pertinent History Other Surgical History: left scrotom surgery - Social History Smoking Status: Current every day smoker How long have you smoked: 50 Exposure to second hand smoke: Yes Alcohol Use: None (quit 1 month ago) Drug Use: none Patient Lives Alone: No Significant Family History: diabetes - Nursing Vital Signs Nursing Vital Signs: Initial Vital Signs Temperature 97.6 F 05/27/19 00:46 Pulse Rate 91 H 05/27/19 00:46 Respiratory Rate 13 05/27/19 00:46 Blood Pressure 162/65 05/27/19 00:46 O2 Sat by Pulse Oximetry 96 05/27/19 00:46 Pain Scale Pain Intensity 0 - [place] Coma Score Best Eye Response ([place]): (4) open spontaneously Best Verbal Response (Jj): (5) oriented Best Motor Response ([place]): (6) obeys commands Jj Total: 15 - Physical Exam General Appearance: no apparent distress Head Injury: no evidence of injury Eye Exam: PERRL/EOMI, eyes nml inspection ENT Exam: airway nml, nml ext.inspection Neck Exam: supple, trachea midline Respiratory/Chest Exam: chest tenderness Cardiovascular Exam: normal heart sounds Gastrointestinal Exam: soft, normal bowel sounds Back Exam: normal inspection Extremity Exam: normal inspection Neurologic Exam: alert, oriented x 3 Skin Exam: normal color, warm, dry SpO2 Interpretation: normal SpO2: 96 O2 Delivery: Room Air - Course Nursing assessment & vital signs reviewed: Yes - Radiology Exams Ribs X-ray Interpretation: Interpreted by me, Other (questionable minimally displaced right fifth rib fracture) Ordered Tests: Active Orders 24 hr Category Date Time Status RIBS UNILATERAL Stat Exams 05/27/19 01:00 Taken - Progress Progress: unchanged - Departure Departure Disposition: Home Clinical Impression: Rib fracture Condition: Stable Critical Care Time: No Referrals: MELI HANCOCK [ACTIVE STAFF] - Instructions: Rib Fracture (DC)
[2019-05-27 01:50] VITALS: BP 146/92; PULSE 82; O2SAT 95
--- NOTE | 2019-05-27 08:51 | XRAY ---
Indication: Chest wall pain following injury. Comparison: October 17, 2016. 2 views of the right ribs again demonstrates right mid lung subsegmental atelectasis/scarring, right shoulder degenerative arthropathy, and multilevel degenerative changes throughout the spine. No new/acute bony, articular, or soft tissue abnormalities.
== END 2019-05-27 01:50 | disposition home or self-care (01) ==
LOC: ED 00:42
DX: S22.31XA Fracture of one rib, right side, initial encounter for closed fracture (principal); Z79.899 Other long term (current) drug therapy; Z79.4 Long term (current) use of insulin; Z79.84 Long term (current) use of oral hypoglycemic drugs; R07.9 Chest pain, unspecified; E78.00 Pure hypercholesterolemia, unspecified; I10 Essential (primary) hypertension; E11.9 Type 2 diabetes mellitus without complications
CPT/HCPCS: 71100; 99283

== ENCOUNTER 2019-07-08 10:26 | Emergency (ER) | payer BC ==
[2019-07-08 10:31] VITALS: BP 179/92; PULSE 89; O2SAT 97
--- NOTE | 2019-07-08 11:12 | ERPHSYRPT ---
- History of Present Illness Time Seen by Provider: 07/08/19 10:50 Source: patient Patient Subjective Stated Complaint: Pt states that back in February he got something in his right palm of his hand and it has continued to hurt and is now bothering his fingers and causing his hand to lock up Triage Nursing Assessment: Pt walked into the ER, has been drinking heavily and drove himself to the ER, hypertensive, rates pain in right hand 01/17, right hand locking up, painful to touch, no other issues at this time Physician History: 58 years old male with history of heavy alcohol use every day after work presented in the ER with chief complaint of right hand palm thickening and nodule formation for the last few weeks to months which is progressively worsening associated with dull aching to sharp mild to moderate pain and flexion of ring finger where he has to snap it and hears a click before it straightens up. 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 Denies any weakness in the hand or fingers. No numbness or tingling in the fingers. No swelling of hand or finger noticed. No fever or chills reported. Timing/Duration: week(s), gradual onset, worse Severity: moderate Modifying Factors: Improves With: movement Associated Symptoms: denies symptoms Allergies/Adverse Reactions: cetirizine HCl [From Zyrtec] Allergy (Severe, Verified 07/08/19 10:36) Swelling of Face niacin Allergy (Intermediate, Verified 07/08/19 10:36) Hives Home Medications: Allopurinol 100 mg [Zyloprim 100 mg] 300 mg PO DAILY 09/02/12 [History] Insulin Aspart [NovoLOG Insulin] 47 unit SQ BID 09/02/12 [History] Insulin Detemir [Levemir] 80 unit SQ BID 09/02/12 [History] Lisinopril 10 mg [Zestril 10 MG] 30 mg PO DAILY 09/02/12 [History] Metformin HCl 500 mg [Glucophage 500 MG] 1,000 mg PO BID 09/02/12 [History ] Aspirin 325 mg PO DAILY 02/27/14 [History] Omeprazole [Prilosec] 40 mg PO DAILY 02/27/14 [History] Pravastatin Sodium 30 mg PO DAILY 05/29/14 [History] Carvedilol 12.5 mg [Coreg 12.5 mg] 3.125 mg PO BID 11/18/16 [History] Amlodipine Besylate 10 mg PO DAILY 05/27/19 [History] Calcium Carbonate/Vitamin D3 [[place] 500-Vit D3 200 Tablet] 1 tab PO BID [History] Docusate Sodium [Stool Softener] 100 mg PO DAILY 05/27/19 [History] Ezetimibe 10 mg PO DAILY 05/27/19 [History] Hydrochlorothiazide 25 mg PO DAILY 05/27/19 [History] [place]-3 Fatty Acids/Fish Oil [Fish Oil 1,000 mg Capsule] 1 cap PO DAILY [History] Piroxicam 20 mg PO DAILY 05/27/19 [History] Pyridoxine HCl (Vitamin B6) [Vitamin B-6] 100 mg PO DAILY 05/27/19 [History] Hx Tetanus, Diphtheria Vaccination/Date Given: Yes (unknown) Hx Influenza Vaccination/Date Given: No Hx Pneumococcal Vaccination/Date Given: No - Review of Systems Constitutional: No Symptoms Eyes: No Symptoms Ears, Nose, & Throat: No Symptoms Respiratory: No Symptoms Cardiac: No Symptoms Abdominal/Gastrointestinal: No Symptoms Skin: No Symptoms Neurological: No Symptoms Psychological: No Symptoms Endocrine: No Symptoms Hematologic/Lymphatic: No Symptoms - Past Medical History Pertinent Past Medical History: Yes Neurological History: No Pertinent History ENT History: No Pertinent History Cardiac History: High Cholesterol, Hypertension Respiratory History: Asthma, Sleep Apnea Endocrine Medical History: Diabetes Type II Musculoskeletal History: Arthritis GI Medical History: No Pertinent History History: No Pertinent History Psycho-Social History: No Pertinent History Male Reproductive Disorders: No Pertinent History Other Medical History: IDDM - Past Surgical History Past Surgical History: Yes Neuro Surgical History: No Pertinent History Cardiac: No Pertinent History Respiratory: No Pertinent History Gastrointestinal: No Pertinent History Genitourinary: No Pertinent History Musculoskeletal: No Pertinent History Male Surgical History: No Pertinent History Other Surgical History: left scrotom surgery - Social History Smoking Status: Current every day smoker How long have you smoked: 50 Exposure to second hand smoke: Yes Alcohol Use: None (quit 1 month ago) Drug Use: none Patient Lives Alone: No Significant Family History: diabetes - Nursing Vital Signs Nursing Vital Signs: Initial Vital Signs Pulse Rate 89 07/08/19 10:27 Blood Pressure 179/92 07/08/19 10:27 O2 Sat by Pulse Oximetry 97 07/08/19 10:27 Pain Scale Pain Intensity 9 - Physical Exam General Appearance: no apparent distress Eye Exam: eyes nml inspection Ears, Nose, Throat Exam: normal ENT inspection Neck Exam: normal inspection Respiratory Exam: normal breath sounds, lungs clear Cardiovascular Exam: regular rate/rhythm, normal heart sounds Gastrointestinal/Abdomen Exam: soft Back Exam: normal inspection Extremity Exam: swelling (Nodular swelling in the palm in flexor tendon sheath of fourth finger with some tenderness, firm to hard on palpation. Fourth finger is partially flexed. Intact distal neurovascular.), tenderness Neurologic Exam: alert, cooperative Skin Exam: normal color SpO2 Interpretation: normal SpO2: 97 O2 Delivery: Room Air Ordered Tests: Active Orders 24 hr Category Date Time Status HAND (2 VIEW) Stat Exams 07/08/19 11:09 Taken WRIST (2 VIEW) Stat Exams 07/08/19 11:09 Taken - Progress Progress: pain not gone completely Progress Note: 07/08/19 x-rays ruled out any foreign body, fracture or dislocation. Patient drinks alcohol heavily which is a risk factor for Dupuytren contracture which patient is developing. Recommended outpatient follow-up with orthopedic/hand surgery for reevaluation and further management. Patient did drink prior to arrival but no signs of alteration. Patient does admit drinking every day. We have called family member and patient is leaving with the family not driving himself back home. Counseled on alcohol drinking. - Departure Departure Disposition: Home Clinical Impression: Dupuytren's contracture of hand, Alcohol abuse Condition: Stable Critical Care Time: No Referrals: DOCTOR,NO FAMILY [Primary Care Provider] - WES CESAR [ACTIVE STAFF] - Follow Up with PCP/3 days MANISH SWIFT MD [COURTESY STAFF] - (call for appointment/re evaluation and management) Instructions: Contractures (DC) Additional Instructions: Take Tylenol/ibuprofen as needed. Follow-up with orthopedic surgery for reevaluation and may need injection therapy are surgical intervention. Cut down on your drinking. Return to ER for any worsening.
--- NOTE | 2019-07-08 19:08 | XRAY ---
Indication: Pain since February 08. No known injury. Comparison: None 2 views of the right wrist demonstrates mild radiocarpal joint space narrowing. No other bony, articular, or soft tissue abnormalities.
--- NOTE | 2019-07-08 19:10 | XRAY ---
Indication: Pain since February 08. No known injury. Comparison: None 2 views of the right hand demonstrates mild radiocarpal joint space narrowing. No other bony, articular, or soft tissue abnormalities.
== END 2019-07-08 11:20 | disposition home or self-care (01) ==
LOC: ED 10:26
DX: M72.0 Palmar fascial fibromatosis [Dupuytren] (principal); F10.10 Alcohol abuse, uncomplicated; M79.641 Pain in right hand; Z79.899 Other long term (current) drug therapy; E78.00 Pure hypercholesterolemia, unspecified; I10 Essential (primary) hypertension
CPT/HCPCS: 73100; 73120; 99283

== ENCOUNTER 2020-08-16 13:01 | Emergency (ER) | payer BC ==
--- NOTE | 2020-08-16 13:06 | ERPHSYRPT ---
- History of Present Illness Time Seen by Provider: 08/16/20 13:06 Source: patient Exam Limitations: no limitations Physician History: This is a 60-year-old morbidly obese white male who is diabetic, has hypertension and gastroesophageal reflux disease who fell and hit his head 2 days ago. He did not lose consciousness but he has left facial numbness and bruising present since his fall. He also complains of neck pain left shoulder pain and left knee pain. He is able to move about but has the pain in those locations. He is not on any anticoagulation therapy. Occurred: days ago (2) Reason for Fall: slipped Injuries/Pain Location: head, face, neck, upper extremity (Left shoulder), lower extremity (Left anterior knee) Loss of Consciousness: no loss of consciousness Quality: aching Severity of Pain-Max: moderate Severity of Pain-Current: moderate Modifying Factors: Improves With: nothing Associated Symptoms (Fall): denies symptoms, extremity injury (Left shoulder and left knee) Allergies/Adverse Reactions: cetirizine HCl [From Zyrtec] Allergy (Severe, Verified 08/16/20 13:13) Swelling of Face niacin Allergy (Intermediate, Verified 08/16/20 13:13) Hives Home Medications: Allopurinol 100 mg [Zyloprim 100 mg] 300 mg PO DAILY 09/02/12 [History] Insulin Aspart [NovoLOG Insulin] 47 unit SQ BID 09/02/12 [History] Insulin Detemir [Levemir] 80 unit SQ BID 09/02/12 [History] Lisinopril 10 mg [Zestril 10 MG] 30 mg PO DAILY 09/02/12 [History] Metformin HCl 500 mg [Glucophage 500 MG] 1,000 mg PO BID 09/02/12 [History] Aspirin 325 mg PO DAILY 02/27/14 [History] Omeprazole [Prilosec] 40 mg PO DAILY 02/27/14 [History] Pravastatin Sodium 30 mg PO DAILY 05/29/14 [History] Carvedilol 12.5 mg [Coreg 12.5 mg] 3.125 mg PO BID 11/18/16 [History] Amlodipine Besylate 10 mg PO DAILY 05/27/19 [History] Calcium Carbonate/Vitamin D3 [[place] 500-Vit D3 200 Tablet] 1 tab PO BID 05/27/19 [History] Docusate Sodium [Stool Softener] 100 mg PO DAILY 05/27/19 [History] Ezetimibe 10 mg PO DAILY 05/27/19 [History] Hydrochlorothiazide 25 mg PO DAILY 05/27/19 [History] [place]-3 Fatty Acids/Fish Oil [Fish Oil 1,000 mg Capsule] 1 cap PO DAILY 05/27/19 [History] Piroxicam 20 mg PO DAILY 05/27/19 [History] Pyridoxine HCl (Vitamin B6) [Vitamin B-6] 100 mg PO DAILY 05/27/19 [History] Hx Tetanus, Diphtheria Vaccination/Date Given: Yes (unknown) Hx Influenza Vaccination/Date Given: No Hx Pneumococcal Vaccination/Date Given: No Travel Risk - International Travel Have you traveled outside of the country in past 3 weeks: No - Coronavirus Screening Are you exhibiting any of the following symptoms?: No Close contact with a COVID-19 positive Pt in past 14-21 Days: No - Vaccine Status Have you recieved a Covid-19 vaccination: No - Review of Systems Constitutional: No Symptoms Eyes: No Symptoms Ears, Nose, & Throat: Other (Left facial numbness after the fall) Respiratory: No Symptoms Cardiac: No Symptoms Abdominal/Gastrointestinal: No Symptoms Genitourinary Symptoms: No Symptoms Musculoskeletal: Injury (Left shoulder and left knee) Skin: No Symptoms Neurological: Other (Left facial numbness after the fall) Psychological: No Symptoms Endocrine: No Symptoms Hematologic/Lymphatic: No Symptoms Immunological/Allergic: No Symptoms All Other Systems: Reviewed and Negative - Past Medical History Pertinent Past Medical History: Yes Neurological History: No Pertinent History ENT History: No Pertinent History Cardiac History: High Cholesterol, Hypertension Respiratory History: Asthma, Sleep Apnea Endocrine Medical History: Diabetes Type II Musculoskeletal History: Arthritis GI Medical History: No Pertinent History History: No Pertinent History Psycho-Social History: No Pertinent History Male Reproductive Disorders: No Pertinent History Other Medical History: IDDM - Past Surgical History Past Surgical History: Yes Neuro Surgical History: No Pertinent History Cardiac: No Pertinent History Respiratory: No Pertinent History Gastrointestinal: No Pertinent History Genitourinary: No Pertinent History Musculoskeletal: No Pertinent History Male Surgical History: No Pertinent History Other Surgical History: left scrotom surgery - Social History Smoking Status: Current every day smoker How long have you smoked: 50 Exposure to second hand smoke: Yes Alcohol Use: None (quit 1 month ago) Drug Use: none Patient Lives Alone: No Significant Family History: diabetes - Nursing Vital Signs Nursing Vital Signs: Initial Vital Signs Temperature 98.2 F 08/16/20 13:14 Pulse Rate 86 08/16/20 13:14 Respiratory Rate 19 08/16/20 13:14 Blood Pressure 197/86 08/16/20 13:14 O2 Sat by Pulse Oximetry 95 08/16/20 13:14 Pain Scale Pain Intensity 0 - [place] Coma Score Best Eye Response (Jj): (4) open spontaneously Best Verbal Response (Jj): (5) oriented Best Motor Response ([place]): (6) obeys commands [place] Total: 15 - Physical Exam General Appearance: no apparent distress, alert, anxiety, obese Head Injury: contusions (Left cheek left infraorbital region) Eye Exam: PERRL/EOMI, eyes nml inspection ENT Exam: airway nml, nml ext.inspection, No evidence of ENT injury Neck Exam: supple, trachea midline, full range of motion, normal alignment, normal inspection Respiratory/Chest Exam: normal breath sounds, No chest tenderness, No respiratory distress, No ecchymosis, No crepitus Cardiovascular Exam: normal heart sounds, regular rate/rhythm, normal peripheral pulses Gastrointestinal Exam: soft, normal bowel sounds, No tenderness Rectal Exam: not done Back Exam: normal inspection, normal range of motion, No CVA tenderness, No vertebral tenderness Extremity Exam: normal inspection, normal range of motion, capillary refill <3 sec, pelvis stable, tenderness (Anterior knee and the left shoulder) Neurologic Exam: alert, oriented x 3, cooperative, social media editor II-XII nml as tested, normal mood/affect, nml cerebellar function, nml station & gait, sensation nml Skin Exam: normal color, warm, dry SpO2 Interpretation: normal O2 Delivery: Room Air Ordered Tests: Active Orders 24 hr Category Date Time Status CERVICAL SPINE WO CONTRAST [CT] Stat Exams 08/16/20 13:24 Completed CLAVICLE Stat Exams 08/16/20 14:00 Completed FACIAL BONES WO CONTRAST [CT] Stat Exams 08/16/20 13:24 Completed HEAD WITHOUT CONTRAST [CT] Stat Exams 08/16/20 13:24 Completed SHOULDER Stat Exams 08/16/20 13:25 Completed POCT GLUCOSE Stat Lab 08/16/20 13:26 Completed POCT GLUCOSE Stat Lab 08/16/20 13:28 Completed Lab/Rad Data: Laboratory Results 08/16/20 08/16/20 Range/Units 13:28 13:26 POC Glucometer 93 94 (74 to 106) mg/dL - Progress Progress: unchanged, pain not gone completely, re-examined Progress Note: 08/16/20 14:23 Patient refused left knee x-ray Left shoulder x-ray shows degenerative changes but no acute fracture or dislocation. 08/16/20 14:25 Left clavicle x-ray shows degenerative changes but no acute fracture or dislocation. CAT scan of the cervical spine shows no acute fracture or subluxation. CAT scan of the head without contrast shows no acute intracranial abnormality. No bony cranial fractures. CAT scan of the facial bones shows minimally depressed left orbital floor fracture. Medical decision making: This patient does not want any narcotic pain medicine. Patient does not have any clinical evidence of any nerve entrapment. His left eye and extraocular muscles appear to be intact and moving fine. He does complain of some numbness. Will refer him to a plastic surgeon for further evaluation and management. Counseled pt/family regarding: diagnosis, need for follow-up, rad results - Departure Departure Disposition: Home Clinical Impression: Fall with injury, Fracture of left orbital floor Condition: Stable Critical Care Time: No Referrals: KRISTINA MCCLELLAN RESEARCH NUTRITIONIST [Primary Care Provider] - Additional Instructions: Ice pack to area 3 times a day for the next 48 hours. Follow-up with plastic surgeon at the appointment time in place arranged for you. Use Tylenol and ibuprofen for pain control.
--- NOTE | 2020-08-16 14:01 | XRAY ---
Indication: Left head/face trauma following fall 2 days ago. Multiple contiguous axial images obtained through the head without contrast. Comparison: September 08, 2016. 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 No acute intracranial hemorrhage, hydrocephalus, or mass effect. Remaining faulkner-white matter differentiation is preserved. Fourth ventricle is midline. Bony calvarium intact. Visualized paranasal sinuses and mastoid air cells are clear. 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 No new or acute intracranial abnormalities.
--- NOTE | 2020-08-16 14:07 | XRAY ---
Indication: Left head/face trauma following fall 2 days ago. Multiple contiguous axial images obtained through the facial bones. Sagittal and coronal reformatted images obtained. Comparison: September 07, 2012. Again no acute fracture, suspicious bony lesions, or radiopaque foreign body. Floor left orbit demonstrates new minimally depressed fracture without extraocular muscular entrapment. Remaining orbits including roof, price, and floors intact. There is minimal/mild mucosal thickening of both ethmoid and both maxillary sinuses without fluid leveling. Nasal passages are clear. Stable minimal nasoseptal deviation to the left. Visualized noncontrasted soft tissues including orbits are unremarkable. CT head and CT cervical spine reported separately. Impression: 1. New minimally depressed left orbit floor fracture. 2. Incidental paranasal sinus disease.
--- NOTE | 2020-08-16 14:11 | XRAY ---
Indication: Neck pain. Left head/face trauma following fall 2 days ago. Multiple contiguous axial images obtained through the cervical spine. Sagittal and coronal reformatted images obtained. Comparison: October 02, 2010. Axial images negative for acute fracture, suspicious bony lesions, or spinal canal stenosis. There remains minimal multilevel endplate spurring, mild multilevel bilateral degenerative facet arthropathy, and mild atlantoaxial degenerative arthropathy. Sagittal and coronal reformatted images again demonstrate lordotic straightening, positional versus paraspinal spasm. Vertebral body heights/disc spaces maintained. No acute compression fracture, sublocation, or jumped facet. Normal appearing craniocervical junction. Visualized noncontrasted soft tissues demonstrates worsening moderate bilateral carotid calcifications. CT head and CT facial bones reported separately. Impression: 1. Again cervical lordotic straightening, positional versus paraspinal spasm. 2. Continue negative for acute fracture/subluxation. 3. Again incidental multilevel degenerative spondylosis.
--- NOTE | 2020-08-16 14:16 | XRAY ---
Indication: Pain following fall 2 days ago. Comparison: March 10, 2016 3 view left shoulder demonstrates worsening moderate AC degenerative and mild glenohumeral degenerative arthropathy. No other bony, articular, or soft tissue abnormalities.
--- NOTE | 2020-08-16 14:16 | XRAY ---
Indication: Pain following fall 2 days ago. Comparison: None 2 view left clavicle demonstrates moderate AC degenerative and mild glenohumeral degenerative arthropathy. No other bony, articular, or soft tissue abnormalities.
[2020-08-16 14:17] VITALS: BP 176/84; PULSE 67; O2SAT 94
== END 2020-08-16 14:59 | disposition home or self-care (01) ==
LOC: ED 13:01
DX: S02.32XA Fracture of orbital floor, left side, initial encounter for closed fracture (principal); M54.2 Cervicalgia; M25.512 Pain in left shoulder; W19.XXXA Unspecified fall, initial encounter; I10 Essential (primary) hypertension; E11.9 Type 2 diabetes mellitus without complications; E66.01 Morbid (severe) obesity due to excess calories; K21.9 Gastro-esophageal reflux disease without esophagitis; R52 Pain, unspecified; M25.562 Pain in left knee; Z79.4 Long term (current) use of insulin; Z79.810 Long term (current) use of selective estrogen receptor modulators (SERMs); R20.0 Anesthesia of skin
CPT/HCPCS: 70450; 70486; 72125; 73000; 73030; 82947; 99284

== ENCOUNTER 2020-08-21 05:22 | Emergency (ER) | payer BC ==
[2020-08-21] MEDS ORDERED: Sodium Chloride 0.9% 1000 ML 1,000 ML IV SCH (06:00)
[2020-08-21] MEDS ORDERED: Sodium Chloride 0.9% 1000 ML 1,000 ML ONE (06:01)
--- NOTE | 2020-08-21 06:05 | ERPHSYRPT ---
- History of Present Illness Time Seen by Provider: 08/21/20 05:45 Source: patient Exam Limitations: no limitations Patient Subjective Stated Complaint: pt states, "I was at work, about 15 minutes before quiiting time, and I got light headed and tunnel vision, and felt like I was going to pass out". Triage Nursing Assessment: pt arrived via ambulance, pt was at work, c/o feeling light headed and had tunnel vision, felt like going to pass out. 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 Pt denies any loss of consciousness. Pt denies headache, but c/o soreness to the top of his head, but fell last week and hit his head on a concrete step, was treated in this ER on Wednesday. Physician History: Patient is a 60-year-old male presents to our ED via EMS for evaluation of a near syncopal episode. Patient has a history of a stroke. 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 Patient became very lightheaded he stated he felt a coldness sensation in his head and became acutely weak but states he did not collapse. The episode was not associated with chest pain. No shortness of breath. No nausea or vomiting. No diaphoresis. Symptoms lasted less than a minute. Patient advises that he was in our ED last Wednesday. He had a fall which he attributed to d rinking alcohol. Patient states that he is an alcoholic. No history of withdrawals. Patient has history of diabetes. Patient states he had a stroke in 2014. Patient does not have a primary care doctor that he follows up with at this time. No associated numbness tingling or weakness at this time. Patient voices no other complaints at this time. Timing/Duration: today Severity: moderate Modifying Factors: Improves With: nothing Associated Symptoms: denies symptoms Allergies/Adverse Reactions: cetirizine HCl [From Zyrtec] Allergy (Severe, Verified 08/21/20 05:38) Swelling of Face niacin Allergy (Intermediate, Verified 08/21/20 05:38) Hives Home Medications: Allopurinol 100 mg [Zyloprim 100 mg] 300 mg PO DAILY 09/02/12 [History] Insulin Aspart [NovoLOG Insulin] 47 unit SQ BID 09/02/12 [History] Insulin Detemir [Levemir] 80 unit SQ BID 09/02/12 [History] Lisinopril 10 mg [Zestril 10 MG] 30 mg PO BID 09/02/12 [History] Metformin HCl 500 mg [Glucophage 500 MG] 1,000 mg PO BID 09/02/12 [History] Aspirin 325 mg PO DAILY 02/27/14 [History] Omeprazole [Prilosec] 40 mg PO DAILY 02/27/14 [History] Pravastatin Sodium 30 mg PO DAILY 05/29/14 [History] Carvedilol 12.5 mg [Coreg 12.5 mg] 3.125 mg PO BID 11/18/16 [History] Amlodipine Besylate 10 mg PO DAILY 05/27/19 [History] Calcium Carbonate/Vitamin D3 [Oysco 500-Vit D3 200 Tablet] 1 tab PO BID 05/27/19 [History] Docusate Sodium [Stool Softener] 100 mg PO BID 05/27/19 [History] Ezetimibe 10 mg PO DAILY 05/27/19 [History] Hydrochlorothiazide 25 mg PO DAILY 05/27/19 [History] Piroxicam 20 mg PO DAILY 05/27/19 [History] Pyridoxine HCl (Vitamin B6) [Vitamin B-6] 100 mg PO DAILY 05/27/19 [History] Hx Tetanus, Diphtheria Vaccination/Date Given: Yes Hx Influenza Vaccination/Date Given: No Hx Pneumococcal Vaccination/Date Given: No Immunizations Up to Date: Yes Travel Risk - International Travel Have you traveled outside of the country in past 3 weeks: No - Coronavirus Screening Are you exhibiting any of the following symptoms?: No Close contact with a COVID-19 positive Pt in past 14-21 Days: No - Vaccine Status Have you recieved a Covid-19 vaccination: No - Review of Systems Constitutional: No Symptoms, No Fever, No Chills Eyes: No Symptoms Ears, Nose, & Throat: No Symptoms Respiratory: No Symptoms, No Cough, No Dyspnea Cardiac: No Symptoms, No Chest Pain, No Edema, No Syncope Abdominal/Gastrointestinal: No Symptoms, No Abdominal Pain, No Nausea, No Vomiting, No Diarrhea Genitourinary Symptoms: No Symptoms, No Dysuria Musculoskeletal: No Symptoms, No Back Pain, No Neck Pain Skin: No Symptoms, No Rash Neurological: No Symptoms, No Dizziness, No Focal Weakness, No Sensory Changes Psychological: No Symptoms Endocrine: No Symptoms Hematologic/Lymphatic: No Symptoms Immunological/Allergic: No Symptoms All Other Systems: Reviewed and Negative - Past Medical History Pertinent Past Medical History: Yes Neurological History: No Pertinent History ENT History: No Pertinent History Cardiac History: High Cholesterol, Hypertension Respiratory History: Asthma, Sleep Apnea Endocrine Medical History: Diabetes Type II Musculoskeletal History: Arthritis GI Medical History: No Pertinent History History: No Pertinent History Psycho-Social History: No Pertinent History Male Reproductive Disorders: No Pertinent History Other Medical History: IDDM - Past Surgical History Past Surgical History: Yes Neuro Surgical History: No Pertinent History Cardiac: No Pertinent History Respiratory: No Pertinent History Gastrointestinal: No Pertinent History Genitourinary: No Pertinent History Musculoskeletal: No Pertinent History Male Surgical History: No Pertinent History Other Surgical History: left scrotom surgery - Social History Smoking Status: Current every day smoker How long have you smoked: 50 Exposure to second hand smoke: Yes Alcohol Use: None (quit 1 month ago) Drug Use: none Patient Lives Alone: No Significant Family History: diabetes - Nursing Vital Signs Nursing Vital Signs: Initial Vital Signs Temperature 97.9 F 08/21/20 05:26 Pulse Rate 84 08/21/20 05:26 Respiratory Rate 22 08/21/20 05:26 Blood Pressure 184/99 08/21/20 05:26 O2 Sat by Pulse Oximetry 95 08/21/20 05:26 Pain Scale Pain Intensity 0 - Physical Exam General Appearance: no apparent distress, alert Eye Exam: PERRL/EOMI, eyes nml inspection Ears, Nose, Throat Exam: normal ENT inspection, TMs normal, pharynx normal, moist mucous membranes Neck Exam: normal inspection, non-tender, supple, full range of motion Respiratory Exam: normal breath sounds, lungs clear, No respiratory distress Cardiovascular Exam: regular rate/rhythm, normal heart sounds, normal peripheral pulses Gastrointestinal/Abdomen Exam: soft, normal bowel sounds, No tenderness, No mass Back Exam: normal inspection, normal range of motion, No CVA tenderness, No vertebral tenderness Extremity Exam: normal inspection, normal range of motion, pelvis stable Neurologic Exam: alert, oriented x 3, cooperative, normal mood/affect, nml cerebellar function, No motor deficits Skin Exam: normal color, warm, dry, No rash Lymphatic Exam: No adenopathy SpO2 Interpretation: normal SpO2: 95 O2 Delivery: Room Air - Course Nursing assessment & vital signs reviewed: Yes EKG Interpreted by Me: RATE, Sinus Rhythm, NORMAL AXIS, NORMAL INTERVALS - CT Exams Head CT Interpretation: Tele-radiologist Report (No intracranial hemorrhage. No CT findings of acute territorial infarct.) Ordered Tests: Active Orders 24 hr Category Date Time Status Turbine Subassembler STAT Care 08/21/20 05:54 Active EKG-ER Only STAT Care 08/21/20 05:53 Active IV Insertion STAT Care 08/21/20 05:53 Active Pulse Oximetry (ED) STAT Care 08/21/20 05:53 Active HEAD WITHOUT CONTRAST [CT] Stat Exams 08/21/20 06:14 Taken CBC W DIFF Stat Lab 08/21/20 06:05 Completed CMP Stat Lab 08/21/20 06:05 Completed ETHYL ALCOHOL Stat Lab 08/21/20 06:05 Completed MAGNESIUM Stat Lab 08/21/20 06:05 Completed NT PRO BNP Stat Lab 08/21/20 06:05 Completed TROPONIN Q3H Lab 08/21/20 06:05 Received TROPONIN Q3H Lab 08/21/20 09:00 Ordered TROPONIN Q3H Lab 08/21/20 12:00 Ordered TROPONIN Q3H Lab 08/21/20 15:00 Ordered TROPONIN Q3H Lab 08/21/20 18:00 Ordered UA W/RFX UR CULTURE Stat Lab 08/21/20 06:35 Received Urine Triage Profile Stat Lab 08/21/20 06:35 Completed Medication Summary Generic Name Dose Route Start Last Admin Trade Name Freq PRN Reason Stop Dose Admin Sodium Chloride 1,000 mls @ 75 mls/hr 08/21/20 06:00 08/21/20 06:03 Sodium Chloride 0.9% 1000 Ml IV 09/20/20 05:59 75 mls/hr .[id number] DO Administration Lab/Rad Data: Laboratory Result Diagrams 08/21/20 06:05 08/21/20 06:05 Laboratory Results 08/21/20 08/21/20 Range/Units 06:05 06:05 WBC 13.6 H (4.0-10.5) K/mm3 RBC 5.36 (4.1-5.6) M/mm3 Hgb 15.6 (12.5-18.0) gm/dl Hct 47.8 (42-50) % MCV 89.2 (78-100) fl MCH 29.1 (26-32) pg MCHC 32.6 (32-36) g/dl RDW 14.3 H (11.5-14.0) % Plt Count 170 (150-450) K/mm3 MPV 11.9 H (7.5-11.0) fl Gran % 75.8 H (36.0-66.0) % Eos # (Auto) 0.32 (0-0.5) Absolute Lymphs (auto) 2.15 (1.0-4.6) Absolute Monos (auto) 0.77 (0.0-1.3) Lymphocytes % 15.8 L (24.0-44.0) % Monocytes % 5.7 (0.0-12.0) % Eosinophils % 2.4 (0.00-5.0) % Basophils % 0.3 (0.0-0.4) % Absolute Granulocytes 10.33 H (1.4-6.9) Basophils # 0.04 (0-0.4) Sodium 137 (137-145) mmol/L Potassium 4.0 (3.5-5.1) mmol/L Chloride 95 L (98-107) mmol/L Carbon Dioxide 34 H (22-30) mmol/L Anion Gap 11.8 (5-15) MEQ/L BUN 15 (9-20) mg/dL Creatinine 0.60 L (0.66-1.25) mg/dL Estimated GFR > 60.0 ML/MIN Glucose 212 H (74-106) mg/dL Calcium 9.6 (8.4-10.2) mg/dL Magnesium 1.5 L (1.6-2.3) mg/dL Total Bilirubin 0.50 (0.2-1.3) mg/dL AST 40 (17-59) U/L ALT 33 (0-50) U/L Alkaline Phosphatase 89 (38-126) U/L NT-Pro-B Natriuret Pep 196 (0-900) pg/mL Serum Total Protein 7.3 (6.3-8.2) g/dL Albumin 4.1 (3.5-5.0) g/dL Ethyl Alcohol < 10 (0-10) mg/dL - Progress Progress: improved Progress Note: Patient reassessed. Repeat neuro exam within normal limits. NIH score is 0. Labs pending. Patient will likely require admission for possible syncope versus TIA. Patient endorsed to Dr. Grossman for final disposition. 08/21/20 06:53 08/21/20 07:01 Counseled pt/family regarding: lab results, diagnosis, rad results - Departure Clinical Impression: TIA (transient ischemic attack), Near syncope Condition: Stable Critical Care Time: No Referrals: KRISTINA MCCLELLAN [facility]PER[facility] [Primary Care Provider] -
[2020-08-21 06:15] LABS: Absolute Neutrophil Ct (ANC) 10.33 (1.4-6.9); BASOPHIL % 0.3 % (0.0-0.4); Basophil (Absolute #) 0.04 (0-0.4); Eosinophil % 2.4 % (0.00-5.0); Eosinophil (Absolute #) 0.32 (0-0.5); Hematocrit 47.8 % (42-50); Hemoglobin 15.6 gm/dl (12.5-18.0); Lymphocyte (Absolute #) 2.15 (1.0-4.6); Lymphocytes % 15.8 % (24.0-44.0); Mean Cell Volume 89.2 fl (78-100); Mean Corpuscular Hemoglobin 29.1 pg (26-32); Mean Corpuscular Hgb Concent. 32.6 g/dl (32-36); Mean Platelet Volume 11.9 fl (7.5-11.0); Monocyte (Absolute #) 0.77 (0.0-1.3); Monocytes % 5.7 % (0.0-12.0); Neutrophil % 75.8 % (36.0-66.0); Platelet Count 170 K/mm3 (150-450); Red Blood Count 5.36 M/mm3 (4.1-5.6); Red Cell Distribution Width 14.3 % (11.5-14.0); White Blood Count 13.6 K/mm3 (4.0-10.5)
[2020-08-21 06:51] LABS: ALBUMIN 4.1 g/dL (3.5-5.0); ALKALINE PHOSPHATASE 89 U/L (38-126); ANION GAP 11.8 MEQ/L (5-15); BLOOD UREA NITROGEN 15 mg/dL (9-20); CHLORIDE 95 mmol/L (98-107); Calcium 9.6 mg/dL (8.4-10.2); Carbon Dioxide 34 mmol/L (22-30); EST GLOMERULAR FILTRATION RATE > 60.0 ML/MIN; ETHYL ALCOHOL < 10 mg/dL (0-10); Glucose 212 mg/dL (74-106); MAGNESIUM 1.5 mg/dL (1.6-2.3); NT PRO BNP 196 pg/mL (0-900); SGOT/AST 40 U/L (17-59); SGPT/ALT 33 U/L (0-50); SODIUM 137 mmol/L (137-145); Total Protein 7.3 g/dL (6.3-8.2)
[2020-08-21 07:00] LABS: Amphetamine,Urine NEGATIVE (NEGATIVE); Barbiturate,Urine NEGATIVE (NEGATIVE); Benzodiazepine,Urine NEGATIVE (NEGATIVE); Cocaine,Urine NEGATIVE (NEGATIVE); Methadone,Urine NEGATIVE (NEGATIVE); Opiate,Urine NEGATIVE (NEGATIVE); PCP,Urine NEGATIVE (NEGATIVE); THC,Urine NEGATIVE (NEGATIVE)
[2020-08-21 07:02] LABS: Appearance CLEAR (CLEAR); Bilirubin NEGATIVE (NEGATIVE); Blood NEGATIVE Ery/ul (0-5); Glucose 150 mg/dL (NEGATIVE); Ketones TRACE (NEGATIVE); Leukocyte Esterase NEGATIVE (NEGATIVE); Mucus SLIGHT /HPF (NEGATIVE); Nitrite NEGATIVE (NEGATIVE); Protein,Urine Dip 100 (Negative); RBC 0-2 /HPF (0-2); Specific Gravity 1.019 (1.005-1.025); Urobilinogen NEGATIVE mg/dL (0-1); WBC 0-2 /HPF (0-5)
[2020-08-21] MEDS ORDERED: BABY ASPIRIN 81 MG CHEW PO ONE (07:27)
[2020-08-21] MEDS ORDERED: BABY ASPIRIN 81 MG CHEW ONE (07:29)
[2020-08-21] MEDS ORDERED: Heparin 5000 UNITS/0.5 ML (HIGH RISK MED) ONE (07:30)
[2020-08-21] MEDS ORDERED: Magnesium 1 Gm / 100 Ml D5W*** 100 ML IV ONE ×2 (07:30→07:48)
[2020-08-21] MEDS ORDERED: Heparin 25,000 units/D5W 250ML PREMIX 25,000 UNITS/250 ML BAG IV ONE (07:30)
[2020-08-21] MEDS ORDERED: Ntg 0.2MG/Ml in D5W GLASS*** 250 ML IV PRN (07:30)
[2020-08-21] MEDS: Magnesium 1 Gm / 100 Ml D5W*** 100 ML IV SCH ×2 (07:31→07:49)
[2020-08-21 07:38] VITALS: O2SAT 98
[2020-08-21] MEDS ORDERED: Ntg 0.2MG/Ml in D5W GLASS*** 250 ML IV ONE (08:36)
[2020-08-21 08:48] VITALS: BP 190/81; PULSE 81
--- NOTE | 2020-08-21 09:02 | XRAY ---
Indication: Dizziness. High blood pressure. History stroke 2015. Multiple contiguous axial images obtained through the head without contrast. Comparison: August 16, 2020. Stable old right temporoparietal infarct. Again no acute intracranial hemorrhage, hydrocephalus, or mass effect. Fourth ventricle is midline without hydrocephalus. Bony calvarium intact. Visualized paranasal sinuses and mastoid air cells are clear. Impression: Stable old right temporoparietal infarct. No new or acute intracranial abnormalities. Comment: Preliminary interpretation was made by [facility]. No critical discrepancy.
== END 2020-08-21 09:19 | disposition short-term general hospital (02) ==
LOC: ED 05:22
DX: G45.9 Transient cerebral ischemic attack, unspecified (principal)
CPT/HCPCS: 36000; 36415; 70450; 80053; 80307; 81001; 83735; 83880; 84484; 85025; 93005; 93041; 94760; 96360; 96361; 96365; 96366; 99285; J1644; J3475; A9270-GY; G0480

== ENCOUNTER 2021-09-27 18:48 | Emergency (ER) | payer BC ==
[2021-09-27] MEDS ORDERED: Sodium Chloride 0.9% 1000 ML 1,000 ML ONE (18:56)
[2021-09-27] MEDS ORDERED: Cardizem IV 50 MG/10 ML IV ONE ×2 (19:00→19:08)
[2021-09-27] MEDS ORDERED: Sodium Chloride 0.9% 1000 ML 1,000 ML IV SCH (19:00)
--- NOTE | 2021-09-27 19:06 | ERPHSYRPT ---
- History of Present Illness Time Seen by Provider: 09/27/21 19:03 Source: patient Exam Limitations: no limitations Patient Subjective Stated Complaint: SOB Triage Nursing Assessment: Patient ambulated back to ED and transferred self to bed per self. Patient A+O X3. Patient's skin pink, warm and dry. Patient complains of SOB for the past 3 days. Patient complains of non productive cough. Lungs noted to be dimininshed throughout. Patient denies pain or discomfort. Physician History: Patient is 61-year-old male morbidly obese has been getting short of breath for last 3 days. He could not catch the breath but he continued to work and today was at work he got extremely short of breath as well as he started feeling palpitations so he came to the emergency room. He denies any chest pain nausea vomiting headache. Patient did not have the same type of problem before. Timing/Duration: day(s) (three days) Severity of Dyspnea-Max: moderate Severity of Dyspnea-Current: moderate Possible Cause: no prior episodes Associated Symptoms: denies symptoms, No chest pain/discomfort, No lightheaded ness, No leg swelling, No muscle spasms feet, No productive cough, No tightness Allergies/Adverse Reactions: cetirizine HCl [From Zyrtec] Allergy (Severe, Verified 09/27/21 18:53) Swelling of Face niacin Allergy (Intermediate, Verified 09/27/21 18:53) Hives Home Medications: Allopurinol 100 mg [Zyloprim 100 mg] 300 mg PO DAILY 09/02/12 [History] Insulin Aspart [NovoLOG Insulin] 47 unit SQ BID 09/02/12 [History] Insulin Detemir [Levemir] 80 unit SQ BID 09/02/12 [History] Lisinopril 10 mg [Zestril 10 MG] 30 mg PO BID 09/02/12 [History] Metformin HCl 500 mg [Glucophage 500 MG] 1,000 mg PO BID 09/02/12 [History] Aspirin 325 mg PO DAILY 02/27/14 [History] Omeprazole [Prilosec] 40 mg PO DAILY 02/27/14 [History] Pravastatin Sodium 30 mg PO DAILY 05/29/14 [History] Carvedilol 12.5 mg [Coreg 12.5 mg] 3.125 mg PO BID 11/18/16 [History] Amlodipine Besylate 10 mg PO DAILY 05/27/19 [History] Calcium Carbonate/Vitamin D3 [Oysco 500-Vit D3 200 Tablet] 1 tab PO BID 05/27/19 [History] Docusate Sodium [Stool Softener] 100 mg PO BID 05/27/19 [History] Ezetimibe 10 mg PO DAILY 05/27/19 [History] Piroxicam 20 mg PO DAILY 05/27/19 [History] Pyridoxine HCl (Vitamin B6) [Vitamin B-6] 100 mg PO DAILY 05/27/19 [History] hydroCHLOROthiazide [Hydrochlorothiazide] 25 mg PO DAILY 05/27/19 [History] Hx Tetanus, Diphtheria Vaccination/Date Given: Yes Hx Influenza Vaccination/Date Given: No Hx Pneumococcal Vaccination/Date Given: No Immunizations Up to Date: Yes Travel Risk - International Travel Have you traveled outside of the country in past 3 weeks: No - Coronavirus Screening Are you exhibiting any of the following symptoms?: No Close contact with a COVID-19 positive Pt in past 14-21 Days: No - Vaccine Status Have you recieved a Covid-19 vaccination: No - Review of Systems Constitutional: No Fever, No Chills Eyes: No Symptoms Ears, Nose, & Throat: No Symptoms Respiratory: Dyspnea, Dyspnea on Exertion (NAIR), No Cough Cardiac: Palpitations, No Chest Pain, No Edema, No Syncope Abdominal/Gastrointestinal: No Abdominal Pain, No Nausea, No Vomiting, No Diarrhea Genitourinary Symptoms: No Dysuria Musculoskeletal: No Back Pain, No Neck Pain Skin: No Rash Neurological: No Dizziness, No Focal Weakness, No Sensory Changes Psychological: No Symptoms Endocrine: No Symptoms All Other Systems: Reviewed and Negative - Past Medical History Pertinent Past Medical History: Yes Neurological History: No Pertinent History ENT History: No Pertinent History Cardiac History: High Cholesterol, Hypertension Respiratory History: Asthma, Sleep Apnea Endocrine Medical History: Diabetes Type II Musculoskeletal History: Arthritis GI Medical History: No Pertinent History History: No Pertinent History Psycho-Social History: No Pertinent History Male Reproductive Disorders: No Pertinent History Other Medical History: IDDM - Past Surgical History Past Surgical History: Yes Neuro Surgical History: No Pertinent History Cardiac: No Pertinent History Respiratory: No Pertinent History Gastrointestinal: No Pertinent History Genitourinary: No Pertinent History Musculoskeletal: No Pertinent History Male Surgical History: No Pertinent History Other Surgical History: left scrotom surgery - Social History Smoking Status: Current every day smoker How long have you smoked: 50 Exposure to second hand smoke: Yes Alcohol Use: None (quit 1 month ago) Drug Use: none Patient Lives Alone: No Significant Family History: diabetes - Nursing Vital Signs Nursing Vital Signs: Initial Vital Signs Temperature 96.5 F 09/27/21 18:54 Pulse Rate 146 H 09/27/21 18:54 Respiratory Rate 24 09/27/21 18:54 Blood Pressure 169/100 09/27/21 18:54 O2 Sat by Pulse Oximetry 95 09/27/21 18:54 Pain Scale Pain Intensity 0 - Physical Exam General Appearance: moderate distress, alert Eye Exam: PERRL/EOMI Neck Exam: normal inspection, supple Respiratory Exam: diminished breath sounds Cardiovascular/Chest Exam: tachycardia Abdominal/Gastrointestinal Exam: soft, No tenderness, No distention, No mass Extremity Exam: non-tender, normal range of motion, normal inspection, no calf tenderness, no pedal edema Neurologic Exam: alert, oriented x 3, cooperative, cutter plastics rolls II-XII nml as tested, sensation nml, No motor deficits Skin Exam: normal color, warm, No dry SpO2 Interpretation: normal SpO2: 95 O2 Delivery: Room Air - Course Nursing assessment & vital signs reviewed: Yes EKG Interpreted by Me: Sinus Tach Rhythm Strip: Atrial Flutter, Sinus Tachycardia - Radiology Exams Chest X-ray Interpretation: Reviewed by me Ordered Tests: Active Orders 24 hr Category Date Time Status EKG-ER Only STAT Care 09/27/21 18:52 Active Oxygen-ED Only Nasal Cannula 2 lpm Care 09/27/21 18:52 Active CHEST 1 VIEW (PORTABLE) Stat Exams 09/27/21 18:52 Ordered BLOOD CULTURE Stat Lab 09/27/21 18:52 Received CBC W DIFF Stat Lab 09/27/21 19:14 Completed CMP Stat Lab 09/27/21 19:14 Completed D-DIMER QUANTITATIVE Stat Lab 09/27/21 19:14 Completed NT PRO BNP Stat Lab 09/27/21 19:14 Completed TROPONIN Q3H Lab 09/27/21 19:14 Completed TROPONIN Q3H Lab 09/27/21 22:00 Ordered TROPONIN Q3H Lab 09/28/21 01:00 Ordered TROPONIN Q3H Lab 09/28/21 04:00 Ordered TROPONIN Q3H Lab 09/28/21 07:00 Ordered Medication Summary Generic Name Dose Route Start Last Admin Trade Name Sang PRN Reason Stop Dose Admin Sodium Chloride 1,000 mls @ 100 mls/hr 09/27/21 19:00 09/27/21 18:58 Sodium Chloride 0.9% 1000 Ml IV 10/27/21 18:59 100 mls/hr .Q10H DO Administration Diltiazem HCl 100 mls @ 10 mls/hr 09/27/21 19:24 09/27/21 19:34 Cardizem Drip 100 Mg/100 Ml D5w IV 10/27/21 19:23 10 mg/hr .Q10H PRN 10 mls/hr HEART RATE/ A-FIB Titration Protocol 10 MG/HR Discontinued Medications Generic Name Dose Route Start Last Admin Trade Name Sang PRN Reason Stop Dose Admin Adenosine 6 mg 09/27/21 19:44 09/27/21 19:45 Adenosine 6 Mg/2 Ml Vial IV 09/27/21 19:45 6 mg STAT ONE Administration Adenosine Confirm 09/27/21 19:44 Adenosine 6 Mg/2 Ml Vial Administered 09/27/21 19:45 Dose 6 mg IV .STK-MED ONE Diltiazem HCl 10 mg 09/27/21 19:00 09/27/21 19:09 Diltiazem Hcl Iv 5 Mg/Ml Vial IV 09/27/21 19:01 10 mg STAT ONE Administration Diltiazem HCl Confirm 09/27/21 19:08 Diltiazem Hcl Iv 5 Mg/Ml Vial Administered 09/27/21 19:09 Dose 50 mg IV .STK-MED ONE Labetalol HCl 10 mg 09/27/21 19:24 09/27/21 19:30 Labetalol Hcl 20 Mg/4 Ml Disp.Syringe IV 09/27/21 19:25 10 mg STAT ONE Administration Labetalol HCl Confirm 09/27/21 19:27 Labetalol Hcl 20 Mg/4 Ml Disp.Syringe Administered 09/27/21 19:28 Dose 20 mg IV .STK-MED ONE Lab/Rad Data: Laboratory Result Diagrams 09/27/21 19:14 09/27/21 19:14 Laboratory Results 05/21/22 05/21/22 05/21/22 Range/Units 19:14 19:14 19:14 WBC (4.0-10.5) x10^3/uL RBC (4.1-5.6) x10^6/uL Hgb (12.5-18.0) g/dL Hct (42-50) % MCV (78-100) fL MCH (26-32) pg MCHC (32-36) g/dL RDW (11.5-14.0) % Plt Count (150-450) x10^3/uL MPV (7.5-11.0) fL Gran % (36.0-66.0) % Immature Gran % (Auto) (0.00-0.4) % Nucleat RBC Rel Count (0.00-0.1) % Eos # (Auto) (0-0.5) x10^3/uL Immature Gran # (Auto) (0.00-0.03) x10^3u/L Absolute Lymphs (auto) (1.0-4.6) x10^3/uL Absolute Monos (auto) (0.0-1.3) x10^3/uL Absolute Nucleated RBC (0.00-0.01) x10^3u/L Lymphocytes % (24.0-44.0) % Monocytes % (0.0-12.0) % Eosinophils % (0.00-5.0) % Basophils % (0.0-0.4) % Absolute Granulocytes (1.4-6.9) x10^3/uL Basophils # (0-0.4) x10^3/uL D-Dimer 0.57 H (0.0-0.50) ng/mL Sodium 134 L (137-145) mmol/L Potassium 4.1 (3.5-5.1) mmol/L Chloride 98 (98-107) mmol/L Carbon Dioxide 26 (22-30) mmol/L Anion Gap 14.2 (5-15) MEQ/L BUN 17 (9-20) mg/dL Creatinine 0.77 (0.66-1.25) mg/dL Estimated GFR > 60.0 ML/MIN Glucose 199 H (74-106) mg/dL Calcium 9.4 (8.4-10.2) mg/dL Total Bilirubin 1.40 H (0.2-1.3) mg/dL AST 28 (17-59) U/L ALT 25 (0-50) U/L Alkaline Phosphatase 81 (38-126) U/L Troponin I 0.050 H* (0.000-0.034) ng/mL NT-Pro-B Natriuret Pep 1210 H (0-900) pg/mL Serum Total Protein 6.4 (6.3-8.2) g/dL Albumin 3.5 (3.5-5.0) g/dL Influenza Type A Ag (NEGATIVE) Influenza Type B Ag (NEGATIVE) RSV (PCR) (Negative) SARS-CoV-2 (PCR) (NEGATIVE) 09/27/21 09/27/21 Range/Units 19:14 19:03 WBC 9.7 (4.0-10.5) x10^3/uL RBC 4.79 (4.1-5.6) x10^6/uL Hgb 13.8 (12.5-18.0) g/dL Hct 42.2 (42-50) % MCV 88.1 (78-100) fL MCH 28.8 (26-32) pg MCHC 32.7 (32-36) g/dL RDW 13.4 (11.5-14.0) % Plt Count 203 (150-450) x10^3/uL MPV 12.3 H (7.5-11.0) fL Gran % 60.7 (36.0-66.0) % Immature Gran % (Auto) 0.2 (0.00-0.4) % Nucleat RBC Rel Count 0.0 (0.00-0.1) % Eos # (Auto) 0.17 (0-0.5) x10^3/uL Immature Gran # (Auto) 0.02 (0.00-0.03) x10^3u/L Absolute Lymphs (auto) 2.76 (1.0-4.6) x10^3/uL Absolute Monos (auto) 0.80 (0.0-1.3) x10^3/uL Absolute Nucleated RBC 0.00 (0.00-0.01) x10^3u/L Lymphocytes % 28.4 (24.0-44.0) % Monocytes % 8.2 (0.0-12.0) % Eosinophils % 1.8 (0.00-5.0) % Basophils % 0.7 (0.0-0.4) % Absolute Granulocytes 5.89 (1.4-6.9) x10^3/uL Basophils # 0.07 (0-0.4) x10^3/uL D-Dimer (0.0-0.50) ng/mL Sodium (137-145) mmol/L Potassium (3.5-5.1) mmol/L Chloride (98-107) mmol/L Carbon Dioxide (22-30) mmol/L Anion Gap (5-15) MEQ/L BUN (9-20) mg/dL Creatinine (0.66-1.25) mg/dL Estimated GFR ML/MIN Glucose (74-106) mg/dL Calcium (8.4-10.2) mg/dL Total Bilirubin (0.2-1.3) mg/dL AST (17-59) U/L ALT (0-50) U/L Alkaline Phosphatase (38-126) U/L Troponin I (0.000-0.034) ng/mL NT-Pro-B Natriuret Pep (0-900) pg/mL Serum Total Protein (6.3-8.2) g/dL Albumin (3.5-5.0) g/dL Influenza Type A Ag NEGATIVE (NEGATIVE) Influenza Type B Ag NEGATIVE (NEGATIVE) RSV (PCR) NEGATIVE (Negative) SARS-CoV-2 (PCR) NEGATIVE (NEGATIVE) - Progress Progress: improved Air Movement: good Progress Note: 09/27/21 19:53 Patient initially given 10 mg IV Cardizem. Patient heart rate did not change remained in the range of 140. Afterward patient was given Cardizem IV drip 10 mg/h after 5 to 10 minutes heart rate did not improve. Patient was given labetalol 10 mg IV push x1 and that also did not decrease his heart rate so patient was given Adenocard 6 mg IV push with date change patient rhythm into atrial flutter with heart rate around 120s. Given the patient's heart rate has been high but patient is feeling much better since he came in and his shortness of breath has improved. Blood Culture(s) Obtained: Yes Discussed with .: Other (Dr Escobar at [facility]) Counseled pt/family regarding: lab results, diagnosis, need for follow-up, rad results, smoking cessation - Departure Departure Disposition: Transfer ([facility]) Clinical Impression: New onset atrial flutter, Non-ST elevation [place] (NSTEMI) Condition: Stable Critical Care Time: Yes Critical Care Time(excluding separately billable procedures): Critical 30-74 mins Referrals: KRISTINA MCCLELLAN, MERCHANDISE DIRECTOR [Primary Care Provider] - Follow up/PCP as directed
[2021-09-27 19:18] LABS: Absolute Neutrophil Ct (ANC) 5.89 x10^3/uL (1.4-6.9); Basophil (Absolute #) 0.07 x10^3/uL (0-0.4); Eosinophil % 1.8 % (0.00-5.0); Eosinophil (Absolute #) 0.17 x10^3/uL (0-0.5); Hematocrit 42.2 % (42-50); Hemoglobin 13.8 g/dL (12.5-18.0); Lymphocyte (Absolute #) 2.76 x10^3/uL (1.0-4.6); Lymphocytes % 28.4 % (24.0-44.0); Mean Cell Volume 88.1 fL (78-100); Mean Corpuscular Hemoglobin 28.8 pg (26-32); Mean Corpuscular Hgb Concent. 32.7 g/dL (32-36); Mean Platelet Volume 12.3 fL (7.5-11.0); Monocytes % 8.2 % (0.0-12.0); Neutrophil % 60.7 % (36.0-66.0); Platelet Count 203 x10^3/uL (150-450); Red Blood Count 4.79 x10^6/uL (4.1-5.6); Red Cell Distribution Width 13.4 % (11.5-14.0); White Blood Count 9.7 x10^3/uL (4.0-10.5)
[2021-09-27] MEDS ORDERED: TRANDATE 20 MG/4 ML SYRINGE IV ONE ×2 (19:24→19:27)
[2021-09-27] MEDS ORDERED: CARDIZEM DRIP 100 MG/100 ML D5W 100 ML IV PRN (19:24)
[2021-09-27] MEDS ORDERED: Adenocard IV 6 MG/2 ML IV ONE ×2 (19:44)
[2021-09-27 19:57] LABS: ALBUMIN 3.5 g/dL (3.5-5.0); ALKALINE PHOSPHATASE 81 U/L (38-126); ANION GAP 14.2 MEQ/L (5-15); BLOOD UREA NITROGEN 17 mg/dL (9-20); CHLORIDE 98 mmol/L (98-107); Calcium 9.4 mg/dL (8.4-10.2); Carbon Dioxide 26 mmol/L (22-30); Creatinine 1 0.77 mg/dL (0.66-1.25); EST GLOMERULAR FILTRATION RATE > 60.0 ML/MIN; Glucose 199 mg/dL (74-106); NT PRO BNP 1210 pg/mL (0-900); Potassium 4.1 mmol/L (3.5-5.1); SGOT/AST 28 U/L (17-59); SGPT/ALT 25 U/L (0-50); SODIUM 134 mmol/L (137-145); Total Protein 6.4 g/dL (6.3-8.2)
[2021-09-27 19:59] LABS: INFLUENZA A NEGATIVE (NEGATIVE); INFLUENZA B NEGATIVE (NEGATIVE); RESPIRATORY SYNCTIAL VIRUS NEGATIVE (Negative); SARS-CoV-2 Xpert Express NEGATIVE (NEGATIVE)
[2021-09-27 20:05] VITALS: BP 147/67; PULSE 101
[2021-09-27 20:17] VITALS: O2SAT 95
[2021-09-27] MEDS ORDERED: ENOXAPARIN SODIUM SQ STA (20:22)
[2021-09-27] MEDS ORDERED: ENOXAPARIN SODIUM SQ ONE (20:25)
--- NOTE | 2021-09-28 08:24 | XRAY ---
Indication: Short of breath and chest pain. Comparison: March 24, 2018. Portable apical lordotic chest now demonstrates cardiomegaly and mild central vascular prominence possible mild cardiac decompensation/CHF. Superimposed pneumonia not completely excluded. Bony thorax intact again with mild degenerative changes.
== END 2021-09-27 20:55 | disposition short-term general hospital (02) ==
LOC: ED 18:48
DX: I21.4 Non-ST elevation (NSTEMI) myocardial infarction (principal); I48.92 Unspecified atrial flutter; R06.02 Shortness of breath; E78.5 Hyperlipidemia, unspecified; I10 Essential (primary) hypertension; E11.9 Type 2 diabetes mellitus without complications; Z72.0 Tobacco use; Z79.4 Long term (current) use of insulin; Z79.899 Other long term (current) drug therapy
CPT/HCPCS: 0241U; 36000; 36415; 71045; 80053; 83880; 84484; 85025; 85379; 87040; 93005; 96365; 96372; 96374; 96375; 99285; 99291; J0153; J1650

== ENCOUNTER 2022-04-14 14:37 | Emergency (ER) | payer BC ==
[2022-04-14 14:50] VITALS: BP 180/82; PULSE 96; O2SAT 95
--- NOTE | 2022-04-14 15:06 | XRAY ---
Indication: Pain and swelling. Comparison: None 3 view left hand demonstrates mild 1st metacarpal multangular degenerative changes. No other bony, articular, or soft tissue abnormalities.
--- NOTE | 2022-04-14 15:06 | XRAY ---
Indication: Pain and swelling. Comparison: None 3 view left wrist demonstrates mild 1st metacarpal multangular degenerative changes. No other bony, articular, or soft tissue abnormalities.
--- NOTE | 2022-04-14 15:22 | ERPHSYRPT ---
- History of Present Illness Time Seen by Provider: 04/14/22 15:15 Source: patient Exam Limitations: no limitations Patient Subjective Stated Complaint: Left hand/wrist injury Triage Nursing Assessment: Patient ambulated back to ED and transferred self to bed. Patient A+O x 3. Patient's skin pink, warm and dry. Patient complains of left hand/wrist pain. 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 Patient complains of pain 2/10 when moving it. 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 He has had pain throughout the day. Occurred: this morning Quality: constant, aching Severity of Pain-Max: mild (To moderate) Severity of Pain-Current: mild (To moderate) Extremities Pain Location: wrist: left, hand: left Modifying Factors: Improves With: movement Associated Symptoms: none Allergies/Adverse Reactions: cetirizine HCl [From Zyrtec] Allergy (Severe, Verified 04/14/22 14:44) Swelling of Face niacin Allergy (Intermediate, Verified 04/14/22 14:44) Hives Home Medications: Allopurinol 100 mg [Zyloprim 100 mg] 300 mg PO DAILY 09/02/12 [History] Insulin Aspart [NovoLOG Insulin] 47 unit SQ BID 09/02/12 [History] Insulin Detemir [Levemir] 80 unit SQ BID 09/02/12 [History] Lisinopril 10 mg [Zestril 10 MG] 30 mg PO BID 09/02/12 [History] Metformin HCl 500 mg [Glucophage 500 MG] 1,000 mg PO BID 09/02/12 [H istory] Aspirin 325 mg PO DAILY 02/27/14 [History] Omeprazole [Prilosec] 40 mg PO DAILY 02/27/14 [History] Pravastatin Sodium 30 mg PO DAILY 05/29/14 [History] Carvedilol 12.5 mg [Coreg 12.5 mg] 3.125 mg PO BID 11/18/16 [History] Amlodipine Besylate 10 mg PO DAILY 05/27/19 [History] Calcium Carbonate/Vitamin D3 [Oysco 500-Vit D3 200 Tablet] 1 tab PO BID 05/27/19 [History] Docusate Sodium [Stool Softener] 100 mg PO BID 05/27/19 [History] Ezetimibe 10 mg PO DAILY 05/27/19 [History] Piroxicam 20 mg PO DAILY 05/27/19 [History] Pyridoxine HCl (Vitamin B6) [Vitamin B-6] 100 mg PO DAILY 05/27/19 [History] hydroCHLOROthiazide [Hydrochlorothiazide] 25 mg PO DAILY 05/27/19 [History] Hx Tetanus, Diphtheria Vaccination/Date Given: Yes Hx Influenza Vaccination/Date Given: No Hx Pneumococcal Vaccination/Date Given: No Immunizations Up to Date: Yes Travel Risk - International Travel Have you traveled outside of the country in past 3 weeks: No - Coronavirus Screening Are you exhibiting any of the following symptoms?: No Close contact with a COVID-19 positive Pt in past 14-21 Days: No - Vaccine Status Have you recieved a Covid-19 vaccination: No - Review of Systems Constitutional: No Symptoms Eyes: No Symptoms Ears, Nose, & Throat: No Symptoms Respiratory: No Symptoms Cardiac: No Symptoms Abdominal/Gastrointestinal: No Symptoms Genitourinary Symptoms: No Symptoms Musculoskeletal: Injury (Left hand and wrist) Skin: No Symptoms Neurological: No Symptoms Psychological: No Symptoms Endocrine: No Symptoms Hematologic/Lymphatic: No Symptoms Immunological/Allergic: No Symptoms All Other Systems: Reviewed and Negative - Past Medical History Pertinent Past Medical History: Yes Neurological History: No Pertinent History ENT History: No Pertinent History Cardiac History: High Cholesterol, Hypertension Respiratory History: Asthma, Sleep Apnea Endocrine Medical History: Diabetes Type II Musculoskeletal History: Arthritis GI Medical History: No Pertinent History History: No Pertinent History Psycho-Social History: No Pertinent History Male Reproductive Disorders: No Pertinent History Other Medical History: IDDM - Past Surgical History Past Surgical History: Yes Neuro Surgical History: No Pertinent History Cardiac: No Pertinent History Respiratory: No Pertinent History Gastrointestinal: No Pertinent History Genitourinary: No Pertinent History Musculoskeletal: No Pertinent History Male Surgical History: No Pertinent History Other Surgical History: left scrotom surgery - Social History Smoking Status: Current every day smoker How long have you smoked: 50 Exposure to second hand smoke: Yes Alcohol Use: None (quit 1 month ago) Drug Use: none Patient Lives Alone: No Significant Family History: diabetes - Nursing Vital Signs Nursing Vital Signs: Initial Vital Signs Temperature 97.9 F 04/14/22 14:45 Pulse Rate 96 H 04/14/22 14:45 Respiratory Rate 18 04/14/22 14:45 Blood Pressure 180/82 04/14/22 14:45 O2 Sat by Pulse Oximetry 95 04/14/22 14:45 Pain Scale Pain Intensity 2 - Physical Exam General Appearance: no apparent distress, alert Eyes, Ears, Nose, Throat Exam: normal ENT inspection, moist mucous membranes Neck Exam: normal inspection, non-tender, supple, full range of motion Cardiovascular/Respiratory Exam: chest non-tender, no respiratory distress Abdominal Exam: non-tender Back Exam: normal inspection, normal range of motion, No CVA tenderness, No vertebral tenderness Shoulder Exam: normal inspection, non-tender, no evidence of injury, normal ROM Elbow/Forearm Exam: normal inspection, non-tender, no evidence of injury, normal ROM Wrist Exam: normal inspection, no evidence of injury, normal ROM, soft tissue tenderness (Left wrist) Hand Exam: normal inspection, no evidence of injury, normal ROM, soft tissue tenderness (Left thenar eminence) Neuro/Tendon Exam: normal sensation, normal motor functions, normal tendon functions, no evidence tendon injury Mental Status Exam: alert, oriented x 3, cooperative Skin Exam: normal color, warm, dry SpO2 Interpretation: normal SpO2: 95 O2 Delivery: Room Air - Course Nursing assessment & vital signs reviewed: Yes Ordered Tests: Active Orders 24 hr Category Date Time Status HAND (MINIMUM 3 VIEWS) Stat Exams 04/14/22 14:58 Completed WRIST (MIN 3 VIEWS) Stat Exams 04/14/22 14:43 Completed - Progress Progress: unchanged Progress Note: 04/14/22 15:33 X-ray left wrist shows no acute fracture or dislocation. X-ray left hand shows no acute fracture or dislocation Counseled pt/family regarding: diagnosis, need for follow-up, rad results - Departure Departure Disposition: Home Clinical Impression: Sprain of left hand, Left wrist sprain Condition: Stable Critical Care Time: No Referrals: KRISTINA MCCLELLAN [facility] CONSULT[facility] [Primary Care Provider] - Follow up/PCP as directed Additional Instructions: Use ice bath/pack 3 times a day for next 48 hours. Take your medication as prescribed. Follow-up with your primary care physician for persistent symptoms. Prescriptions: Oxycodone HCl/Acetaminophen [Percocet 5-325 mg Tablet] 1 each PO Q8H PRN PRN #6 tablet MDD 3 PRN Reason: Moderate To Severe Pain
== END 2022-04-14 15:51 | disposition home or self-care (01) ==
LOC: ED 14:37
DX: S63.92XA Sprain of unspecified part of left wrist and hand, initial encounter (principal); S63.502A Unspecified sprain of left wrist, initial encounter; X50.0XXA Overexertion from strenuous movement or load, initial encounter; Y99.0 Civilian activity done for income or pay; E78.5 Hyperlipidemia, unspecified; I10 Essential (primary) hypertension; E11.9 Type 2 diabetes mellitus without complications; Z79.4 Long term (current) use of insulin; Z79.84 Long term (current) use of oral hypoglycemic drugs; Z79.891 Long term (current) use of opiate analgesic; Z79.899 Other long term (current) drug therapy; Z28.310 Unvaccinated for COVID-19; Z72.0 Tobacco use
CPT/HCPCS: 73110; 73130; 99283

== ENCOUNTER 2022-06-07 11:14 | Emergency (ER) | payer BC ==
[2022-06-07 11:29] VITALS: BP 177/97; PULSE 84; O2SAT 97
--- NOTE | 2022-06-07 11:34 | ERPHSYRPT ---
- History of Present Illness Time Seen by Provider: 06/07/22 11:30 Source: patient Exam Limitations: no limitations Patient Subjective Stated Complaint: Right sided flank pain Triage Nursing Assessment: Patient ambulated back to ED and transferred self to bed. Patient A+O X3. Patient's skin pink, warm and dry. Patient complains of right sided flank/back pain for one week. Patient denies dysuria, frequency or urgency, N/V. Patient complains of intermittent sharp pain 5/[address] Physician History: Patient complains of right sided flank/back pain for one week. Patient denies dysuria, frequency or urgency, N/V. Patient complains of intermittent sharp pain 5/[address] Timing/Duration: day(s) (3-4 days) Method of Injury: twisted Quality: cramping Back Pain Location: lumbar spine Severity of Pain-Max: mild Severity of Pain-Current: mild Modifying Factors: Improves With: other (hot bath) Associated Symptoms: denies symptoms, muscle spasms (right side), No fever, No chills, No sweating, No urinary incontinence, No loss of bowel control, No constipation, No nausea, No vomiting, No problems urinating, No light- headedness, No dizziness, No numbness in legs/feet, No weakness, No sensory/motor loss, No tingling in legs/feet Allergies/Adverse Reactions: cetirizine HCl [From Zyrtec] Allergy (Severe, Verified 06/07/22 11:19) Swelling of Face niacin Allergy (Intermediate, Verified 06/07/22 11:19) Hives Home Medications: Allopurinol 100 mg [Zyloprim 100 mg] 300 mg PO DAILY 09/02/12 [History] Insulin Aspart [NovoLOG Insulin] 47 unit SQ BID 09/02/12 [History] Insulin Detemir [Levemir] 80 unit SQ BID 09/02/12 [History] Lisinopril 10 mg [Zestril 10 MG] 30 mg PO BID 09/02/12 [History] Metformin HCl 500 mg [Glucophage 500 MG] 1,000 mg PO BID 09/02/12 [History] Aspirin 325 mg PO DAILY 02/27/14 [History] Omeprazole [Prilosec] 40 mg PO DAILY 02/27/14 [History] Pravastatin Sodium 30 mg PO DAILY 05/29/14 [History] Carvedilol 12.5 mg [Coreg 12.5 mg] 3.125 mg PO BID 11/18/16 [History] Amlodipine Besylate 10 mg PO DAILY 05/27/19 [History] Calcium Carbonate/Vitamin D3 [Oysco 500-Vit D3 200 Tablet] 1 tab PO BID 05/27/19 [History] Docusate Sodium [Stool Softener] 100 mg PO BID 05/27/19 [History] Ezetimibe 10 mg PO DAILY 05/27/19 [History] Piroxicam 20 mg PO DAILY 05/27/19 [History] Pyridoxine HCl (Vitamin B6) [Vitamin B-6] 100 mg PO DAILY 05/27/19 [History] hydroCHLOROthiazide [Hydrochlorothiazide] 25 mg PO DAILY 05/27/19 [History] Hx Tetanus, Diphtheria Vaccination/Date Given: Yes Hx Influenza Vaccination/Date Given: No Hx Pneumococcal Vaccination/Date Given: No Immunizations Up to Date: Yes Travel Risk - International Travel Have you traveled outside of the country in past 3 weeks: No - Coronavirus Screening Are you exhibiting any of the following symptoms?: No Close contact with a COVID-19 positive Pt in past 14-21 Days: No - Vaccine Status Have you recieved a Covid-19 vaccination: No - Review of Systems Constitutional: No Fever, No Chills Eyes: No Symptoms Ears, Nose, & Throat: No Symptoms Respiratory: No Cough, No Dyspnea Cardiac: No Chest Pain, No Edema, No Syncope Abdominal/Gastrointestinal: No Abdominal Pain, No Nausea, No Vomiting, No Diarrhea Genitourinary Symptoms: No Dysuria Musculoskeletal: Back Pain, No Neck Pain, No Deformity, No Fall, No Injury, No Joint Redness, No Joint Pain Skin: No Rash Neurological: No Dizziness, No Focal Weakness, No Sensory Changes Psychological: No Symptoms Endocrine: No Symptoms All Other Systems: Reviewed and Negative - Past Medical History Pertinent Past Medical History: Yes Neurological History: No Pertinent History ENT History: No Pertinent History Cardiac History: High Cholesterol, Hypertension Respiratory History: Asthma, Sleep Apnea Endocrine Medical History: Diabetes Type II Musculoskeletal History: Arthritis GI Medical History: No Pertinent History History: No Pertinent History Psycho-Social History: No Pertinent History Male Reproductive Disorders: No Pertinent History Other Medical History: IDDM - Past Surgical History Past Surgical History: Yes Neuro Surgical History: No Pertinent History Cardiac: No Pertinent History Respiratory: No Pertinent History Gastrointestinal: No Pertinent History Genitourinary: No Pertinent History Musculoskeletal: No Pertinent History Male Surgical History: No Pertinent History Other Surgical History: left scrotom surgery - Social History Smoking Status: Current every day smoker How long have you smoked: 50 Exposure to second hand smoke: Yes Alcohol Use: None (quit 1 month ago) Drug Use: none Patient Lives Alone: No Significant Family History: diabetes - Nursing Vital Signs Nursing Vital Signs: Initial Vital Signs Temperature 96.8 F 06/07/22 11:20 Pulse Rate 84 06/07/22 11:20 Respiratory Rate 19 06/07/22 11:20 Blood Pressure 177/97 06/07/22 11:20 O2 Sat by Pulse Oximetry 97 06/07/22 11:20 Pain Scale Pain Intensity 5 - Physical Exam General Appearance: no apparent distress, alert Eye Exam: PERRL/EOMI, eyes nml inspection Neck Exam: normal inspection, non-tender, supple, full range of motion, No meningismus, No midline tenderness Respiratory Exam: normal breath sounds, lungs clear, No respiratory distress Cardiovascular Exam: regular rate/rhythm, normal heart sounds Gastrointestinal Exam: soft, No tenderness, No mass Back Exam: muscle spasm (right side mid back) Extremity Exam: normal inspection, normal range of motion, No calf tenderness, No pedal edema Neurologic Exam: alert, oriented x 3, 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, 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, normal mood/affect, nml station & gait, sensation nml, No motor deficits Skin Exam: normal color, warm, dry, No rash SpO2: 97 - Course Nursing assessment & vital signs reviewed: Yes - Progress Progress: unchanged Counseled pt/family regarding: diagnosis, need for follow-up - Departure Departure Disposition: Home Clinical Impression: Lumbalgia Qualifiers: Chronicity: acute Back pain laterality: right Sciatica presence: without sciatica Qualified Code(s): M54.50 - Low back pain, unspecified Condition: Stable Critical Care Time: No Referrals: KRISTINA MCCLELLAN COUPLES THERAPIST [Primary Care Provider] - Follow up/PCP as directed Instructions: Back Muscle Strain (DC) Additional Instructions: Discharge/Care Plan PRIMO ROUSSEAU was seen on 06/07/22 in the Emergency Room. The patient was counseled regarding Diagnosis,Lab results, Imaging studies, need for follow up and when to return to the Emergency Room. Prescriptions given: Discharge Note I have spoken with the patient and/or caregivers. I have explained the patient's condition, diagnosis and treatment plan based on the information available to me at this time. I have answered the patient's and/or caregiver's questions and addressed any concerns. The patient and/or caregivers have as good understanding of the patient's diagnosis, condition and treatment plan as can be expected at this point. The vital signs have been stable. The patient's condition is stable and appropriate for discharge from the emergency department. The patient will pursue further outpatient evaluation with the primary care physician or other designated or consulting physician as outlined in the discharge instructions. The patient and/or caregivers are agreeable to this plan of care and follow-up instructions have been explained in detail. The patient and/or caregivers have received these instruction. The patient/and or caregivers are aware that any significant change in condition or worsening of symptoms should prompt an immediate return to this or the closest emergency department or call 911. PRIMO ROUSSEAU was seen on 06/07/22 n the Emergency Room. At that time you were treated for an emergent condition, during your visit Laboratory, Radiology and/or other procedures may have been ordered. It is very important that you follow-up with your Primary Care Physician KRISTINA MCCLELLAN within the next 24-48 hours to review your Emergency Room visit and the final results of testing that was ordered. Some test results such as Urine Cultures, Blood Cultures, and other cultures if ordered will not be finalized for 24-48 hours. If you do not have a Primary Care Provider please call the medical records department at [phone] to obtain a copy of your results or you may sign into our patient portal to obtain these results by visiting us @ [email or web address] and completing the following steps: 1. Click on the Patient Portal link 2. Click the Patient Self Enrollment Link to complete the enrollment form and entering your 3. Once the enrollment form is completed you will receive an email with a temporary ID and password at the email address you provided. 4. Next choose a user name and password. Your user name must be at least 4 c haracters long and your password must be at least 4 characters long. 5. Choose a security question from the list and provide your answer to the question. If you already have signed into the Health Portal you may access your Health Care Information 30/11 by the following steps: 1. Login to our website @ [email or web address] 2. Enter your original user name and password. FAQS The [facility] Health Portal is an online tool that contains your Lab Results, Radiology Reports, Visit History, Discharge Instructions and Health Summary Lab and Radiology Results will not be available for 72 hours on the portal. The Portal is a secure site, passwords are encryted and URLs are re-written so they cannot be copied and pasted. You and authorized family members are the only ones who can access your Portal. Also there is a timeout feature that protects your information if you leave the Portal page open. If you have technical difficulty please use the Contact Us link on the page this will allow you to submit any questions you have regarding the Portal or you may contact the Medical Record Department at [phone]. Prescriptions: Tizanidine HCl 4 mg [Zanaflex 4 MG] 4 mg PO QHS #10 tablet
== END 2022-06-07 11:40 | disposition home or self-care (01) ==
LOC: ED 11:14
DX: M54.50 Low back pain, unspecified (principal); R10.9 Unspecified abdominal pain; E78.5 Hyperlipidemia, unspecified; I10 Essential (primary) hypertension; E11.9 Type 2 diabetes mellitus without complications; Z79.4 Long term (current) use of insulin; Z79.84 Long term (current) use of oral hypoglycemic drugs; Z79.899 Other long term (current) drug therapy; Z28.310 Unvaccinated for COVID-19; Z72.0 Tobacco use
CPT/HCPCS: 99281

== ENCOUNTER 2023-05-16 17:02 | Inpatient (IN) | payer BC ==
[2023-05-16 17:27] LABS: A-aADO2 182; ABG HEMOGLOBIN 14.9; ABG POTASSIUM 4.1 (3.5-5.1); ARTERIAL BLD GAS O2 SATURATION 87.5 % (95-100); ARTERIAL BLOOD GAS BASE EXCESS 4.1 (-2.0-2.0); ARTERIAL BLOOD GAS FIO2 40 %; ARTERIAL BLOOD GAS PCO2 36 mmHg (35-45); ARTERIAL BLOOD GAS PO2 58 mmHg (75-100); ARTERIAL BLOOD GAS pH 7.49 (7.35-7.45); CARBOXYHEMOGLOBIN 1.8 % THgb (0.0-6.9); HCO3- 27.4 (22-28); HGB O2 SAT 85.2 g/dF (94-100); Methhemoglobin 0.8 % (1.4-1.5); paO2 pAO1 0.24
[2023-05-16 17:28] LABS: ABG SITE RIGHT RADIAL; ALLEN TEST OK? YES
[2023-05-16 17:29] LABS: Absolute Neutrophil Ct (ANC) 7.64 x10^3/uL (1.4-6.9); BASOPHIL % 0.5 % (0.0-0.4); Basophil (Absolute #) 0.05 x10^3/uL (0-0.4); Eosinophil % 0.1 % (0.00-5.0); Eosinophil (Absolute #) 0.01 x10^3/uL (0-0.5); Hemoglobin 15.1 g/dL (12.5-18.0); IMMATURE GRAN # 0.09 x10^3u/L (0.00-0.03); IMMATURE GRAN % 0.9 % (0.00-0.4); Lymphocyte (Absolute #) 1.77 x10^3/uL (1.0-4.6); Lymphocytes % 16.8 % (24.0-44.0); Mean Cell Volume 92.5 fL (78-100); Mean Corpuscular Hemoglobin 29.7 pg (26-32); Mean Corpuscular Hgb Concent. 32.1 g/dL (32-36); Mean Platelet Volume 11.6 fL (7.5-11.0); Monocyte (Absolute #) 0.98 x10^3/uL (0.0-1.3); Monocytes % 9.3 % (0.0-12.0); Neutrophil % 72.4 % (36.0-66.0); Platelet Count 165 x10^3/uL (150-450); Red Blood Count 5.08 x10^6/uL (4.1-5.6); Red Cell Distribution Width 13.1 % (11.5-14.0); White Blood Count 10.5 x10^3/uL (4.0-10.5)
--- NOTE | 2023-05-16 17:39 | ERPHSYRPT ---
- History of Present Illness Source: patient Exam Limitations: no limitations Patient Subjective Stated Complaint: shortness of breath since last night, sick since Apr 18 Triage Nursing Assessment: Pt was brought to the ER by EMS, hypoxic, hypertensive, denies pain, medics stated that pt oxygen was in the 70's upon arrival, pt began getting SOB last night and states that he couldn't sleep due to not having any air, lungs are wheezy, pulses normal, skin n/w/d Timing/Duration: yesterday, worse Cough Quality/Degree: moderate, dry cough Possible Cause: occasional episodes Modifying Factors: Improves With: activity, deep breath, exertion Associated Symptoms: cough, nasal congestion, nasal drainage, shortness of breath, No fever, No chills, No chest pain/soreness Hx Tetanus, Diphtheria Vaccination/Date Given: Yes Hx Influenza Vaccination/Date Given: No Hx Pneumococcal Vaccination/Date Given: No <Jose Greenberg - Last Filed: 05/16/23 19:05> <GEOVANNA VILLAVICENCIO - Last Filed: 05/16/23 21:54> - History of Present Illness Time Seen by Provider: 05/16/23 17:05 Physician History: 62yo m pmhx afib on eliquis, COPD, presents for SOB x 1d, progressively worsening. Pt reports conversational dyspnea at home, per EMS - pt O2 sat in 70s at home, pt received 125 solumedrol en route, 1 duoneb tx as well. Pt reports recent URI sx of sinus congestion, cough. Pt denies wearing O2 at home but states "he was supposed to get some 2 yrs ago." Pt denies cp, n/v/abdominal pain, denies sick contacts. (Jose Greenberg) Allergies/Adverse Reactions: cetirizine HCl [From Zyrtec] Allergy (Severe, Verified 05/16/23 17:16) Swelling of Face niacin Allergy (Intermediate, Verified 05/16/23 17:16) Hives Home Medications: Allopurinol 100 mg [Zyloprim 100 mg] 300 mg PO DAILY 09/02/12 [History] Insulin Aspart [NovoLOG Insulin] 47 unit SQ BID 09/02/12 [History] Insulin Detemir [Levemir] 80 unit SQ BID 09/02/12 [History] Lisinopril 10 mg [Zestril 10 MG] 20 mg PO BID 09/02/12 [History] Metformin HCl 500 mg [Glucophage 500 MG] 1,000 mg PO BID 09/02/12 [History] Aspirin 325 mg PO DAILY 02/27/14 [History] Omeprazole [Prilosec] 40 mg PO DAILY 02/27/14 [History] Pravastatin Sodium 30 mg PO DAILY 05/29/14 [History] Carvedilol 12.5 mg [Coreg 12.5 mg] 3.125 mg PO BID 11/18/16 [History] Amlodipine Besylate 10 mg PO DAILY 05/27/19 [History] Calcium Carbonate/Vitamin D3 [Oysco 500-Vit D3 200 Tablet] 1 tab PO BID 05/27/19 [History] Docusate Sodium [Stool Softener] 100 mg PO BID 05/27/19 [History] Ezetimibe 10 mg PO DAILY 05/27/19 [History] Piroxicam 20 mg PO DAILY 05/27/19 [History] Pyridoxine HCl (Vitamin B6) [Vitamin B-6] 100 mg PO DAILY 05/27/19 [History] hydroCHLOROthiazide [Hydrochlorothiazide] 25 mg PO DAILY 05/27/19 [History] Apixaban [Eliquis] 5 mg PO BID 05/16/23 [History] Clonidine HCl 0.1 mg [Clonidine 0.1 mg Tablet] 0.1 mg PO BID 05/16/23 [History] Folic Acid 1 mg [Folate 1 mg] 1 mg PO DAILY 05/16/23 [History] Furosemide 40 mg [Lasix 40 MG] 40 mg PO BID 05/16/23 [History] HydrALAzine HCL 25 MG TAB [Apresoline 25 MG TABLET] 25 mg PO TID 05/16/23 [History] Potassium Chloride [Klor-Con M20] 20 meq PO DAILY 05/16/23 [History] Travel Risk - International Travel Have you traveled outside of the country in past 3 weeks: No - Coronavirus Screening Are you exhibiting any of the following symptoms?: Yes Symptoms: Cough: New Onset, Shortness of Breath Close contact with a COVID-19 positive Pt in past 14-21 Days: No - Vaccine Status Have you recieved a Covid-19 vaccination: No <Jose Greenberg - Last Filed: 05/16/23 19:05> - Review of Systems Constitutional: No Fever, No Chills, No Fatigue Respiratory: Cough, Dyspnea, Dyspnea on Exertion (NAIR), Wheezing Cardiac: No Symptoms, No Chest Pain, No Edema, No Syncope Abdominal/Gastrointestinal: No Symptoms Neurological: No Symptoms <Jose Greenberg - Last Filed: 05/16/23 19:05> - Past Medical History Pertinent Past Medical History: Yes Neurological History: No Pertinent History ENT History: No Pertinent History Cardiac History: High Cholesterol, Hypertension Respiratory History: Asthma, Sleep Apnea Endocrine Medical History: Diabetes Type II Musculoskeletal History: Arthritis GI Medical History: No Pertinent History History: No Pertinent History Psycho-Social History: No Pertinent History Male Reproductive Disorders: No Pertinent History Other Medical History: IDDM - Past Surgical History Past Surgical History: Yes Neuro Surgical History: No Pertinent History Cardiac: No Pertinent History Respiratory: No Pertinent History Gastrointestinal: No Pertinent History Genitourinary: No Pertinent History Musculoskeletal: No Pertinent History Male Surgical History: No Pertinent History Other Surgical History: left scrotom surgery - Social History Smoking Status: Current every day smoker How long have you smoked: 50 Exposure to second hand smoke: Yes Alcohol Use: None (quit 1 month ago) Drug Use: none Patient Lives Alone: No Significant Family History: diabetes <Jose Greenberg - Last Filed: 05/16/23 19:05> - Physical Exam General Appearance: no apparent distress, obese (on venti mask 10L, seated upright talking to staff) Respiratory Exam: prolonged expirations, rhonchi, wheezing (diffusely) Cardiovascular Exam: normal heart sounds, normal peripheral pulses SpO2 Interpretation: hypoxic, ABG ordered, O2 applied SpO2: 81 O2 Delivery: Venti-Mask <Jose Greenberg Last Filed: 05/16/23 19:05> - Nursing Vital Signs Nursing Vital Signs: Initial Vital Signs Temperature 98.6 F 05/16/23 17:05 Pulse Rate 88 05/16/23 17:05 Blood Pressure 149/75 05/16/23 17:05 O2 Sat by Pulse Oximetry 88 L 05/16/23 17:05 Pain Scale Pain Intensity 0 - Course EKG Interpreted by Me: RATE (81), Sinus Rhythm, NORMAL AXIS, NORMAL INTERVALS, Other (not suggestive of ischemia) <Jose Greenberg - Last Filed: 05/16/23 19:05> - Course Nursing assessment & vital signs reviewed: Yes <RABIA VILLAVICENCIOJANNET - Last Filed: 05/16/23 21:54> Ordered Tests: Active Orders 24 hr Category Date Time Status EKG-ER Only STAT Care 05/16/23 17:06 Completed IV Insertion STAT Care 05/16/23 17:32 Completed Pulse Oximetry (ED) STAT Care 05/16/23 17:06 Completed CHEST 1 VIEW (PORTABLE) Stat Exams 05/16/23 17:50 Taken ARTERIAL BLOOD GASES Urgent Lab 05/16/23 17:23 Completed CBC W DIFF Stat Lab 05/16/23 17:15 Completed CMP Stat Lab 05/16/23 17:15 Completed PROCALCITONIN Stat Lab 05/16/23 17:15 Completed TROPONIN Q4H Lab 05/16/23 17:15 Completed TROPONIN Q4H Lab 05/16/23 20:00 Completed TROPONIN Q4H Lab 05/17/23 01:15 Ordered Medication Summary Discontinued Medications Generic Name Dose Route Start Last Admin Trade Name Freq PRN Reason Stop Dose Admin Ceftriaxone Sodium/Dextrose 1 g in 50 mls @ 100 mls/hr 05/17/23 10:00 05/16/23 18:48 Rocephin 1 Gm-D5w 50 Ml Bag IV 05/20/23 09:59 Infused Q24H10 DO Infusion Ceftriaxone Sodium/Dextrose Confirm 05/16/23 18:16 Rocephin 1 Gm-D5w 50 Ml Bag Administered 05/16/23 18:17 Dose 1 g in 50 mls @ ud IV .STK-MED ONE Lab/Rad Data: Laboratory Result Diagrams 05/16/23 17:15 05/16/23 17:15 Laboratory Results 05/16/23 05/16/23 05/16/23 Range/Units 17:23 17:15 17:15 WBC (4.0-10.5) x10^3/uL RBC (4.1-5.6) x10^6/uL Hgb (12.5-18.0) g/dL Hct (42-50) % MCV (78-100) fL MCH (26-32) pg MCHC (32-36) g/dL RDW (11.5-14.0) % Plt Count (150-450) x10^3/uL MPV (7.5-11.0) fL Gran % (36.0-66.0) % Immature Gran % (Auto) (0.00-0.4) % Nucleat RBC Rel Count (0.00-0.1) % Eos # (Auto) (0-0.5) x10^3/uL Immature Gran # (Auto) (0.00-0.03) x10^3u/L Absolute Lymphs (auto) (1.0-4.6) x10^3/uL Absolute Monos (auto) (0.0-1.3) x10^3/uL Absolute Nucleated RBC (0.00-0.01) x10^3u/L Lymphocytes % (24.0-44.0) % Monocytes % (0.0-12.0) % Eosinophils % (0.00-5.0) % Basophils % (0.0-0.4) % Absolute Granulocytes (1.4-6.9) x10^3/uL Basophils # (0-0.4) x10^3/uL Puncture Site RIGHT RADIAL pCO2 36 (35-45) mmHg pO2 58 L (75-100) mmHg Base Excess 4.1 H (-2.0-2.0) O2 Saturation 85.2 L (94-100) g/dF ABG pH 7.49 H (7.35-7.45) ABG HCO3 27.4 (22-28) ABG O2 Sat (Measured) 87.5 L (95-100) % Ten Test YES A-a Gradient 182 a/A Ratio 0.24 Hemoglobin 14.9 Carboxyhemoglobin 1.8 (0.0-6.9) % THgb Methemoglobin 0.8 L (1.4-1.5) % Temperature 37.0 C POC O2 Flow Rate 40 % Sodium (137-145) mmol/L Potassium 4.1 (3.5-5.1) mmol/L Chloride (98-107) mmol/L Carbon Dioxide (22-30) mmol/L Anion Gap (5-15) MEQ/L BUN (9-20) mg/dL Creatinine (0.66-1.25) mg/dL Estimated GFR ML/MIN Glucose (74-106) mg/dL Calcium (8.4-10.2) mg/dL Total Bilirubin (0.2-1.3) mg/dL AST (17-59) U/L ALT (0-50) U/L Alkaline Phosphatase (38-126) U/L Troponin I 0.068 H* (0.000-0.034) ng/mL Serum Total Protein (6.3-8.2) g/dL Albumin (3.5-5.0) g/dL Procalcitonin (0.030-0.080) ng/mL Influenza Type A Ag NEGATIVE (NEGATIVE) Influenza Type B Ag NEGATIVE (NEGATIVE) RSV (PCR) POSITIVE (NEGATIVE) SARS-CoV-2 (PCR) NEGATIVE (NEGATIVE) 05/16/23 05/16/23 05/16/23 Range/Units 17:15 17:15 17:15 WBC 10.5 (4.0-10.5) x10^3/uL RBC 5.08 (4.1-5.6) x10^6/uL Hgb 15.1 (12.5-18.0) g/dL Hct 47.0 (42-50) % MCV 92.5 (78-100) fL MCH 29.7 (26-32) pg MCHC 32.1 (32-36) g/dL RDW 13.1 (11.5-14.0) % Plt Count 165 (150-450) x10^3/uL MPV 11.6 H (7.5-11.0) fL Gran % 72.4 H (36.0-66.0) % Immature Gran % (Auto) 0.9 H (0.00-0.4) % Nucleat RBC Rel Count 0.0 (0.00-0.1) % Eos # (Auto) 0.01 (0-0.5) x10^3/uL Immature Gran # (Auto) 0.09 H (0.00-0.03) x10^3u/L Absolute Lymphs (auto) 1.77 (1.0-4.6) x10^3/uL Absolute Monos (auto) 0.98 (0.0-1.3) x10^3/uL Absolute Nucleated RBC 0.00 (0.00-0.01) x10^3u/L Lymphocytes % 16.8 L (24.0-44.0) % Monocytes % 9.3 (0.0-12.0) % Eosinophils % 0.1 (0.00-5.0) % Basophils % 0.5 (0.0-0.4) % Absolute Granulocytes 7.64 H (1.4-6.9) x10^3/uL Basophils # 0.05 (0-0.4) x10^3/uL Puncture Site pCO2 (35-45) mmHg pO2 (75-100) mmHg Base Excess (-2.0-2.0) O2 Saturation (94-100) g/dF ABG pH (7.35-7.45) ABG HCO3 (22-28) ABG O2 Sat (Measured) (95-100) % Ten Test A-a Gradient a/A Ratio Hemoglobin Carboxyhemoglobin (0.0-6.9) % THgb Methemoglobin (1.4-1.5) % Temperature C POC O2 Flow Rate % Sodium 132 L (137-145) mmol/L Potassium 3.9 (3.5-5.1) mmol/L Chloride 99 (98-107) mmol/L Carbon Dioxide 24 (22-30) mmol/L Anion Gap 12.6 (5-15) MEQ/L BUN 12 (9-20) mg/dL Creatinine 0.80 (0.66-1.25) mg/dL Estimated GFR 100.7 ML/MIN Glucose 162 H (74-106) mg/dL Calcium 9.0 (8.4-10.2) mg/dL Total Bilirubin 1.10 (0.2-1.3) mg/dL AST 45 (17-59) U/L ALT 64 H (0-50) U/L Alkaline Phosphatase 92 (38-126) U/L Troponin I (0.000-0.034) ng/mL Serum Total Protein 7.3 (6.3-8.2) g/dL Albumin 4.0 (3.5-5.0) g/dL Procalcitonin 0.393 H (0.030-0.080) ng/mL Influenza Type A Ag (NEGATIVE) Influenza Type B Ag (NEGATIVE) RSV (PCR) (NEGATIVE) SARS-CoV-2 (PCR) (NEGATIVE) - Progress Blood Culture(s) Obtained: No Antibiotics given: Yes (rocephin) <Jose Greenberg - Last Filed: 05/16/23 19:05> - Progress Progress: improved <GEOVANNA VILLAVICENCIO - Last Filed: 05/16/23 21:54> - Progress Progress Note: 05/16/23 18:17 RSV + right sided pna on cxr - started on 1g rocephin IV trop I .068 on initial draw, repeat pending ekg normal sinus rhythm saturating 85-92% on 10L venti mask ABG showed pO2 58, basic pH, SpO2 87.5 05/16/23 19:05 pt discussed w/ and signed out to Dr Carlson (Jose Greenberg) 05/16/23 20:00 62 years old male with past medical history of type 2 diabetes, COPD not on home oxygen, tobacco use, hypertension, A-fib on Eliquis, sleep apnea, obesity. The patient was brought by EMS to the emergency room because of chief complaint of shortness of breath that he has been having for 1 day and getting progressively worse. The patient was initially seen and managed by Dr. Greenberg please refer to his detailed history and physical. The patient received DuoNeb treatment and IV steroids in route to the hospital. He had a workup including an EKG which revealed sinus rhythm at rate of 80 bpm, his initial troponin was mildly elevated 0.068. He is RSV positive, right lower lobe infiltrate. Dr. Greenberg, treated him with IV Rocephin, currently is on 10 L Ventimask saturating in the mid 90s. The patient is feeling better wishing that he can go home. Dr. Greenberg has ordered a second troponin which is still pending. 05/16/23 21:00 The patient's second troponin is up from 0.068-0.079. The patient remained stable denying any chest pain, he is breathing better with the Ventimask oxygen. The above elevated troponin findings were discussed with the news videotape editor Dr. Gu at [facility] in [place]. believes that his elevated troponin is secondary to his hypoxemia and believes that the patient should be treated at our facility. 05/16/23, 21:45 PM The case is discussed with the hospitalist on-call, Dr. Sherwood and the patient has been accepted. The patient be admitted to the hospital as a case of Dyspnea Hypoxemia requiring oxygen Right lower lobe pneumonia RSV bronchiolitis COPD exacerbation Elevated troponin. Critical care time for this patient is 60 minutes. (GEOVANNA VILLAVICENCIO) <Jose Greenberg - Last Filed: 05/16/23 19:05> - Departure Departure Disposition: In-patient Admission Critical Care Time: Yes Critical Care Time(excluding separately billable procedures): Critical 30-74 mins <GEOVANNA VILLAVICENCIO - Last Filed: 05/16/23 21:54> - Departure Clinical Impression: Dyspnea, Hypoxemia, Right lower lobe pneumonia, RSV (respiratory syncytial virus pneumonia), COPD exacerbation Condition: Stable
[2023-05-16 17:43] LABS: ANION GAP 12.6 MEQ/L (5-15); BILIRUBIN,TOTAL 1.1 mg/dL (0.2-1.3); Creatinine 1 0.8 mg/dL (0.66-1.25); EST GLOMERULAR FILTRATION RATE 100.7 ML/MIN; Potassium 3.9 mmol/L (3.5-5.1); Total Protein 7.3 g/dL (6.3-8.2)
[2023-05-16 18:06] LABS: INFLUENZA A NEGATIVE (NEGATIVE); INFLUENZA B NEGATIVE (NEGATIVE); SARS-CoV-2 Xpert Express NEGATIVE (NEGATIVE)
[2023-05-16 18:07] LABS: RESPIRATORY SYNCTIAL VIRUS POSITIVE (NEGATIVE)
[2023-05-16] MEDS ORDERED: ROCEPHIN 1 Gm-D5w 50 ml Bag** 1 G/50 ML IVPB IV ONE (18:16)
--- NOTE | 2023-05-16 22:08 | PCM.HP ---
History of Present Illness - Chief Complaint Chief Complaint: SOB, COPD Exacerbation History of Present Illness: is a 62 year old male with CHF, COPD who presented with sob, wheezing and hypoxia, consistent with a COPD exacerbation. Improved in the ED with duonebs, oxygen. Denies chest pain, nausea, vomiting, fever, chills. Medications & Allergies Home Medications: Home Medication List Allopurinol 100 mg [Zyloprim 100 mg] 300 mg PO DAILY 09/02/12 [History Confirmed 05/16/23] Insulin Aspart [NovoLOG Insulin] 47 unit SQ BID 09/02/12 [History Confirmed 05/16/23] Insulin Detemir [Levemir] 80 unit SQ BID 09/02/12 [History Confirmed 05/16/23] Lisinopril 10 mg [Zestril 10 MG] 20 mg PO BID 09/02/12 [History Confirmed 05/16/23] Metformin HCl 500 mg [Glucophage 500 MG] 1,000 mg PO BID 09/02/12 [History Confirmed 05/16/23] Aspirin 325 mg PO DAILY 02/27/14 [History Confirmed 05/16/23] Omeprazole [Prilosec] 40 mg PO DAILY 02/27/14 [History Confirmed 05/16/23] Pravastatin Sodium 30 mg PO DAILY 05/29/14 [History Confirmed 05/16/23] Carvedilol 12.5 mg [Coreg 12.5 mg] 3.125 mg PO BID 11/18/16 [History Confirmed 05/16/23] Amlodipine Besylate 10 mg PO DAILY 05/27/19 [History Confirmed 05/16/23] Calcium Carbonate/Vitamin D3 [Oysco 500-Vit D3 200 Tablet] 1 tab PO BID 05/27/19 [History Confirmed 05/16/23] Docusate Sodium [Stool Softener] 100 mg PO BID 05/27/19 [History Confirmed 05/16/23] Ezetimibe 10 mg PO DAILY 05/27/19 [History Confirmed 05/16/23] Piroxicam 20 mg PO DAILY 05/27/19 [History Confirmed 05/16/23] Pyridoxine HCl (Vitamin B6) [Vitamin B-6] 100 mg PO DAILY 05/27/19 [History Confirmed 05/16/23] hydroCHLOROthiazide [Hydrochlorothiazide] 25 mg PO DAILY 05/27/19 [History Confirmed 05/16/23] Apixaban [Eliquis] 5 mg PO BID 05/16/23 [History Confirmed 05/16/23] Clonidine HCl 0.1 mg [Clonidine 0.1 mg Tablet] 0.1 mg PO BID 05/16/23 [History Confirmed 05/16/23] Folic Acid 1 mg [Folate 1 mg] 1 mg PO DAILY 05/16/23 [History Confirmed 05/16/23] Furosemide 40 mg [Lasix 40 MG] 40 mg PO BID 05/16/23 [History Confirmed 05/16/23] HydrALAzine HCL 25 MG TAB [Apresoline 25 MG TABLET] 25 mg PO TID 05/16/23 [History Confirmed 05/16/23] Potassium Chloride [Klor-Con M20] 20 meq PO DAILY 05/16/23 [History Confirmed 05/16/23] Allergies/Adverse Reactions: Allergies Allergy/AdvReac Type Severity Reaction Status Date / Time cetirizine HCl [From [facility]] Allergy Severe Swelling Verified 05/16/23 17:16 of Face niacin Allergy Intermediate Hives Verified 05/16/23 17:16 - Past Medical History Past Medical History: Yes Neurological History: No Pertinent History ENT History: No Pertinent History Cardiac History: High Cholesterol, Hypertension Respiratory History: Asthma, Sleep Apnea Endocrine Medical History: Diabetes Type II Musculoskelatal History: Arthritis GI Medical History: No Pertinent History History: No Pertinent History Pyscho-Social History: No Pertinent History Male Reproductive Disorders: No Pertinent History Comment: IDDM - Past Surgical History Past Surgical History: Yes Neuro Surgical History: No Pertinent History Cardiac History: No Pertinent History Respiratory Surgery: No Pertinent History GI Surgical History: No Pertinent History Genitourinary Surgical Hx: No Pertinent History Musculskeletal Surgical Hx: No Pertinent History Male Surgical History: No Pertinent History Other Surgical History: left scrotom surgery - Social History Smoking Status: Current every day smoker How long have you smoked: 50 Exposure to second hand smoke: Yes Alcohol: Weekly Drug Use: none Significant Family History: diabetes - Physical Exam Vital Signs: Vital Signs - 24 hr Temp Pulse Resp BP BP Pulse Ox 05/16/23 21:31 77 14 138/69 92 L 05/16/23 21:00 79 32 H 133/61 95 05/16/23 20:30 73 26 H 129/68 93 L 05/16/23 20:00 75 30 H 124/63 93 L 05/16/23 19:30 78 30 H 118/60 93 L 05/16/23 19:05 81 L 05/16/23 19:00 78 31 H 117/58 94 L 05/16/23 18:31 63 11 L 108/54 93 L 05/16/23 18:00 83 32 H 125/61 93 L 05/16/23 17:31 80 28 H 106/65 89 L 05/16/23 17:28 81 L 05/16/23 17:07 84 17 149/75 82 L 05/16/23 17:05 98.6 F 88 149/75 89 L General Appearance: no apparent distress, alert Neurologic Exam: alert, oriented x 3, cooperative, normal mood/affect, nml cerebellar function, nml station & gait, sensation nml, No motor deficits Eye Exam: PERRL/EOMI, eyes nml inspection Ears, Nose, Throat Exam: normal ENT inspection, TMs normal, pharynx normal, moist mucous membranes Neck Exam: normal inspection, non-tender, supple, full range of motion Respiratory Exam: normal breath sounds, lungs clear, No respiratory distress Cardiovascular Exam: regular rate/rhythm, normal heart sounds, normal peripheral pulses Gastrointestinal/Abdomen Exam: soft, normal bowel sounds, No tenderness, No mass Back Exam: normal inspection, normal range of motion, No CVA tenderness, No vertebral tenderness Extremity Exam: normal inspection, normal range of motion, pelvis stable Skin Exam: normal color, warm, dry, No rash Lymphatic Exam: No adenopathy Results - Labs Lab/Micro Results: Lab Results-Last 24 Hours 05/16/23 05/16/23 05/16/23 Range/Units 17:15 17:15 17:15 WBC 10.5 (4.0-10.5) x10^3/uL RBC 5.08 (4.1-5.6) x10^6/uL Hgb 15.1 (12.5-18.0) g/dL Hct 47.0 (42-50) % MCV 92.5 (78-100) fL MCH 29.7 (26-32) pg MCHC 32.1 (32-36) g/dL RDW 13.1 (11.5-14.0) % Plt Count 165 (150-450) x10^3/uL MPV 11.6 H (7.5-11.0) fL Gran % 72.4 H (36.0-66.0) % Immature Gran % (Auto) 0.9 H (0.00-0.4) % Nucleat RBC Rel Count 0.0 (0.00-0.1) % Eos # (Auto) 0.01 (0-0.5) x10^3/uL Immature Gran # (Auto) 0.09 H (0.00-0.03) x10^3u/L Absolute Lymphs (auto) 1.77 (1.0-4.6) x10^3/uL Absolute Monos (auto) 0.98 (0.0-1.3) x10^3/uL Absolute Nucleated RBC 0.00 (0.00-0.01) x10^3u/L Lymphocytes % 16.8 L (24.0-44.0) % Monocytes % 9.3 (0.0-12.0) % Eosinophils % 0.1 (0.00-5.0) % Basophils % 0.5 (0.0-0.4) % Absolute Granulocytes 7.64 H (1.4-6.9) x10^3/uL Basophils # 0.05 (0-0.4) x10^3/uL Puncture Site pCO2 (35-45) mmHg pO2 (75-100) mmHg Base Excess (-2.0-2.0) O2 Saturation (94-100) g/dF ABG pH (7.35-7.45) ABG HCO3 (22-28) ABG O2 Sat (Measured) (95-100) % Ten Test A-a Gradient a/A Ratio Hemoglobin Carboxyhemoglobin (0.0-6.9) % THgb Methemoglobin (1.4-1.5) % Temperature C POC O2 Flow Rate % Sodium 132 L (137-145) mmol/L Potassium 3.9 (3.5-5.1) mmol/L Chloride 99 (98-107) mmol/L Carbon Dioxide 24 (22-30) mmol/L Anion Gap 12.6 (5-15) MEQ/L BUN 12 (9-20) mg/dL Creatinine 0.80 (0.66-1.25) mg/dL Estimated GFR 100.7 ML/MIN Glucose 162 H (74-106) mg/dL Calcium 9.0 (8.4-10.2) mg/dL Total Bilirubin 1.10 (0.2-1.3) mg/dL AST 45 (17-59) U/L ALT 64 H (0-50) U/L Alkaline Phosphatase 92 (38-126) U/L Troponin I (0.000-0.034) ng/mL Serum Total Protein 7.3 (6.3-8.2) g/dL Albumin 4.0 (3.5-5.0) g/dL Procalcitonin 0.393 H (0.030-0.080) ng/mL Influenza Type A Ag (NEGATIVE) Influenza Type B Ag (NEGATIVE) RSV (PCR) (NEGATIVE) SARS-CoV-2 (PCR) (NEGATIVE) 05/16/23 05/16/23 05/16/23 Range/Units 17:15 17:15 17:23 WBC (4.0-10.5) x10^3/uL RBC (4.1-5.6) x10^6/uL Hgb (12.5-18.0) g/dL Hct (42-50) % MCV (78-100) fL MCH (26-32) pg MCHC (32-36) g/dL RDW (11.5-14.0) % Plt Count (150-450) x10^3/uL MPV (7.5-11.0) fL Gran % (36.0-66.0) % Immature Gran % (Auto) (0.00-0.4) % Nucleat RBC Rel Count (0.00-0.1) % Eos # (Auto) (0-0.5) x10^3/uL Immature Gran # (Auto) (0.00-0.03) x10^3u/L Absolute Lymphs (auto) (1.0-4.6) x10^3/uL Absolute Monos (auto) (0.0-1.3) x10^3/uL Absolute Nucleated RBC (0.00-0.01) x10^3u/L Lymphocytes % (24.0-44.0) % Monocytes % (0.0-12.0) % Eosinophils % (0.00-5.0) % Basophils % (0.0-0.4) % Absolute Granulocytes (1.4-6.9) x10^3/uL Basophils # (0-0.4) x10^3/uL Puncture Site RIGHT RADIAL pCO2 36 (35-45) mmHg pO2 58 L (75-100) mmHg Base Excess 4.1 H (-2.0-2.0) O2 Saturation 85.2 L (94-100) g/dF ABG pH 7.49 H (7.35-7.45) ABG HCO3 27.4 (22-28) ABG O2 Sat (Measured) 87.5 L (95-100) % Ten Test YES A-a Gradient 182 a/A Ratio 0.24 Hemoglobin 14.9 Carboxyhemoglobin 1.8 (0.0-6.9) % THgb Methemoglobin 0.8 L (1.4-1.5) % Temperature 37.0 C POC O2 Flow Rate 40 % Sodium (137-145) mmol/L Potassium 4.1 (3.5-5.1) mmol/L Chloride (98-107) mmol/L Carbon Dioxide (22-30) mmol/L Anion Gap (5-15) MEQ/L BUN (9-20) mg/dL Creatinine (0.66-1.25) mg/dL Estimated GFR ML/MIN Glucose (74-106) mg/dL Calcium (8.4-10.2) mg/dL Total Bilirubin (0.2-1.3) mg/dL AST (17-59) U/L ALT (0-50) U/L Alkaline Phosphatase (38-126) U/L Troponin I 0.068 H* (0.000-0.034) ng/mL Serum Total Protein (6.3-8.2) g/dL Albumin (3.5-5.0) g/dL Procalcitonin (0.030-0.080) ng/mL Influenza Type A Ag NEGATIVE (NEGATIVE) Influenza Type B Ag NEGATIVE (NEGATIVE) RSV (PCR) POSITIVE (NEGATIVE) SARS-CoV-2 (PCR) NEGATIVE (NEGATIVE) 05/16/23 Range/Units 20:00 WBC (4.0-10.5) x10^3/uL RBC (4.1-5.6) x10^6/uL Hgb (12.5-18.0) g/dL Hct (42-50) % MCV (78-100) fL MCH (26-32) pg MCHC (32-36) g/dL RDW (11.5-14.0) % Plt Count (150-450) x10^3/uL MPV (7.5-11.0) fL Gran % (36.0-66.0) % Immature Gran % (Auto) (0.00-0.4) % Nucleat RBC Rel Count (0.00-0.1) % Eos # (Auto) (0-0.5) x10^3/uL Immature Gran # (Auto) (0.00-0.03) x10^3u/L Absolute Lymphs (auto) (1.0-4.6) x10^3/uL Absolute Monos (auto) (0.0-1.3) x10^3/uL Absolute Nucleated RBC (0.00-0.01) x10^3u/L Lymphocytes % (24.0-44.0) % Monocytes % (0.0-12.0) % Eosinophils % (0.00-5.0) % Basophils % (0.0-0.4) % Absolute Granulocytes (1.4-6.9) x10^3/uL Basophils # (0-0.4) x10^3/uL Puncture Site pCO2 (35-45) mmHg pO2 (75-100) mmHg Base Excess (-2.0-2.0) O2 Saturation (94-100) g/dF ABG pH (7.35-7.45) ABG HCO3 (22-28) ABG O2 Sat (Measured) (95-100) % Ten Test A-a Gradient a/A Ratio Hemoglobin Carboxyhemoglobin (0.0-6.9) % THgb Methemoglobin (1.4-1.5) % Temperature C POC O2 Flow Rate % Sodium (137-145) mmol/L Potassium (3.5-5.1) mmol/L Chloride (98-107) mmol/L Carbon Dioxide (22-30) mmol/L Anion Gap (5-15) MEQ/L BUN (9-20) mg/dL Creatinine (0.66-1.25) mg/dL Estimated GFR ML/MIN Glucose (74-106) mg/dL Calcium (8.4-10.2) mg/dL Total Bilirubin (0.2-1.3) mg/dL AST (17-59) U/L ALT (0-50) U/L Alkaline Phosphatase (38-126) U/L Troponin I 0.079 H* (0.000-0.034) ng/mL Serum Total Protein (6.3-8.2) g/dL Albumin (3.5-5.0) g/dL Procalcitonin (0.030-0.080) ng/mL Influenza Type A Ag (NEGATIVE) Influenza Type B Ag (NEGATIVE) RSV (PCR) (NEGATIVE) SARS-CoV-2 (PCR) (NEGATIVE) - Radiology Impressions Radiology Exams & Impressions: Radiology Procedures Category Date Time Status CHEST 1 VIEW (PORTABLE) Stat Exams 05/16/23 17:50 Taken Assessment/Plan (1) COPD exacerbation Current Visit: Yes Status: Acute Assessment & Plan: 1. Likely due to RSV as well. Continue Duonebs PRN 2. Supplemental oxygen 3. Can start prednisone 40 mg daily tomorrow 4. Stop abx Code(s): J44.1 - CHRONIC OBSTRUCTIVE PULMONARY DISEASE W (ACUTE) EXACERBATION Telemedicine Encounter - Telemedicine Encounter Telemedicine Encounter: The entirety of this encounter was performed via Telemedicine"
[2023-05-16] MEDS ORDERED: DUONEB 0.5-3 MG/3 ml Neb IH ONE (23:09)
[2023-05-17] MEDS: DUONEB 0.5-3 MG/3 ml Neb IH SCH ×4 (00:15→18:45)
--- NOTE | 2023-05-17 05:21 | PCM.NOTE ---
Date and Time: 05/17/23517 Subjective Assessment: Mr Brice is a 62 year old male with a pmhx of COPD, AFIB (Eliquis), HLD, HTN, JIA, SMII, and arthritis who presented to ED 05/16/23 via EMS with complaints of shortness of breath, congestion, cough with progressive worsening. On presentation to ED patient was hypoxic and hypertensive with spo2 in the 70s on RA. Patient RSV positive with CXR showing right-sided pneumonia. Patient received Rocephin in ED. Patient admitted for acute respiratory failure secondary to RSV/Pnuemonia/Copd exacerbation. Ceftriaxone/azithromycin started on the floor. 05/17/23: Met with patient bedside. Endorses continued shortness of breath and wheezing. Continues on the oxymizer 8L. Patient sees Rebecca OP, states he recommended home oxygen but was never set up. Will consult pulm during hospitalization. Discussed elevated glucose levels and poor glycemic control. A1c at 9.5. Patient states he has been unable to get his blood glucose levels under control, he mostly runs in the 300's. Advised follow up with endocrinology on discharge. Patient will need glucometer for home use on discharge as well. <CRIS COOL - Last Filed: 05/17/23 14:33> Date and Time: 05/17/232128 <LUPE DIETRICH - Last Filed: 05/17/23 21:31> - Review of Systems Constitutional: No Symptoms Eyes: No Symptoms Ears, Nose, & Throat: No Symptoms Respiratory: Cough, Short Of Breath Cardiac: No Symptoms Abdominal/Gastrointestinal: No Symptoms Genitourinary Symptoms: No Symptoms Musculoskeletal: No Symptoms Skin: No Symptoms Neurological: No Symptoms Psychological: No Symptoms Endocrine: No Symptoms Hematologic/Lymphatic: No Symptoms Immunological/Allergic: No Symptoms <CRIS COOL - Last Filed: 05/17/23 14:33> Objective Exam General Appearance: no apparent distress Neurologic Exam: alert, oriented x 3, cooperative Skin Exam: normal color Eye Exam: PERRL Ears, Nose, Throat Exam: normal ENT inspection Neck Exam: normal inspection Respiratory Exam: crackles/rales, wheezing Cardiovascular Exam: regular rate/rhythm, normal heart sounds Gastrointestinal/Abdomen Exam: soft, normal bowel sounds Extremity Exam: normal inspection Back Exam: normal inspection <CRIS COOL - Last Filed: 05/17/23 14:33> OBJECTIVE DATA Vital Signs: Vital Signs - 24 hr Temp Pulse Resp BP BP Pulse Ox 05/17/23 04:00 80 23 95 05/17/23 00:15 80 22 95 05/16/23 23:26 97.7 F 75 22 142/79 96 05/16/23 22:00 74 22 146/70 92 L 05/16/23 21:31 77 14 138/69 92 L 05/16/23 21:00 79 32 H 133/61 95 05/16/23 20:30 73 26 H 129/68 93 L 05/16/23 20:00 75 30 H 124/63 93 L 05/16/23 19:30 78 30 H 118/60 93 L 05/16/23 19:05 81 L 05/16/23 19:00 78 31 H 117/58 94 L 05/16/23 18:31 63 11 L 108/54 93 L 05/16/23 18:00 83 32 H 125/61 93 L 05/16/23 17:31 80 28 H 106/65 89 L 05/16/23 17:28 81 L 05/16/23 17:07 84 17 149/75 82 L 05/16/23 17:05 98.6 F 88 149/75 89 L Pain Assessment - Last Documented Pain Intensity 0 Intake and Output: Intake & Output 05/14/23 05/15/23 05/16/23 05/17/23 11:59 11:59 11:59 11:59 Weight 147.9 kg Lab Results: Lab Results-Last 24 Hours 05/16/23 05/16/23 05/16/23 Range/Units 17:15 17:15 17:15 WBC 10.5 (4.0-10.5) x10^3/uL RBC 5.08 (4.1-5.6) x10^6/uL Hgb 15.1 (12.5-18.0) g/dL Hct 47.0 (42-50) % MCV 92.5 (78-100) fL MCH 29.7 (26-32) pg MCHC 32.1 (32-36) g/dL RDW 13.1 (11.5-14.0) % Plt Count 165 (150-450) x10^3/uL MPV 11.6 H (7.5-11.0) fL Gran % 72.4 H (36.0-66.0) % Immature Gran % (Auto) 0.9 H (0.00-0.4) % Nucleat RBC Rel Count 0.0 (0.00-0.1) % Eos # (Auto) 0.01 (0-0.5) x10^3/uL Immature Gran # (Auto) 0.09 H (0.00-0.03) x10^3u/L Absolute Lymphs (auto) 1.77 (1.0-4.6) x10^3/uL Absolute Monos (auto) 0.98 (0.0-1.3) x10^3/uL Absolute Nucleated RBC 0.00 (0.00-0.01) x10^3u/L Lymphocytes % 16.8 L (24.0-44.0) % Monocytes % 9.3 (0.0-12.0) % Eosinophils % 0.1 (0.00-5.0) % Basophils % 0.5 (0.0-0.4) % Absolute Granulocytes 7.64 H (1.4-6.9) x10^3/uL Basophils # 0.05 (0-0.4) x10^3/uL Puncture Site pCO2 (35-45) mmHg pO2 (75-100) mmHg Base Excess (-2.0-2.0) O2 Saturation (94-100) g/dF ABG pH (7.35-7.45) ABG HCO3 (22-28) ABG O2 Sat (Measured) (95-100) % Ten Test A-a Gradient a/A Ratio Hemoglobin Carboxyhemoglobin (0.0-6.9) % THgb Methemoglobin (1.4-1.5) % Temperature C POC O2 Flow Rate % Sodium 132 L (137-145) mmol/L Potassium 3.9 (3.5-5.1) mmol/L Chloride 99 (98-107) mmol/L Carbon Dioxide 24 (22-30) mmol/L Anion Gap 12.6 (5-15) MEQ/L BUN 12 (9-20) mg/dL Creatinine 0.80 (0.66-1.25) mg/dL Estimated GFR 100.7 ML/MIN Glucose 162 H (74-106) mg/dL Calcium 9.0 (8.4-10.2) mg/dL Total Bilirubin 1.10 (0.2-1.3) mg/dL AST 45 (17-59) U/L ALT 64 H (0-50) U/L Alkaline Phosphatase 92 (38-126) U/L Troponin I (0.000-0.034) ng/mL Serum Total Protein 7.3 (6.3-8.2) g/dL Albumin 4.0 (3.5-5.0) g/dL Procalcitonin 0.393 H (0.030-0.080) ng/mL Influenza Type A Ag (NEGATIVE) Influenza Type B Ag (NEGATIVE) RSV (PCR) (NEGATIVE) SARS-CoV-2 (PCR) (NEGATIVE) 05/16/23 05/16/23 05/16/23 Range/Units 17:15 17:15 17:23 WBC (4.0-10.5) x10^3/uL RBC (4.1-5.6) x10^6/uL Hgb (12.5-18.0) g/dL Hct (42-50) % MCV (78-100) fL MCH (26-32) pg MCHC (32-36) g/dL RDW (11.5-14.0) % Plt Count (150-450) x10^3/uL MPV (7.5-11.0) fL Gran % (36.0-66.0) % Immature Gran % (Auto) (0.00-0.4) % Nucleat RBC Rel Count (0.00-0.1) % Eos # (Auto) (0-0.5) x10^3/uL Immature Gran # (Auto) (0.00-0.03) x10^3u/L Absolute Lymphs (auto) (1.0-4.6) x10^3/uL Absolute Monos (auto) (0.0-1.3) x10^3/uL Absolute Nucleated RBC (0.00-0.01) x10^3u/L Lymphocytes % (24.0-44.0) % Monocytes % (0.0-12.0) % Eosinophils % (0.00-5.0) % Basophils % (0.0-0.4) % Absolute Granulocytes (1.4-6.9) x10^3/uL Basophils # (0-0.4) x10^3/uL Puncture Site RIGHT RADIAL pCO2 36 (35-45) mmHg pO2 58 L (75-100) mmHg Base Excess 4.1 H (-2.0-2.0) O2 Saturation 85.2 L (94-100) g/dF ABG pH 7.49 H (7.35-7.45) ABG HCO3 27.4 (22-28) ABG O2 Sat (Measured) 87.5 L (95-100) % Ten Test YES A-a Gradient 182 a/A Ratio 0.24 Hemoglobin 14.9 Carboxyhemoglobin 1.8 (0.0-6.9) % THgb Methemoglobin 0.8 L (1.4-1.5) % Temperature 37.0 C POC O2 Flow Rate 40 % Sodium (137-145) mmol/L Potassium 4.1 (3.5-5.1) mmol/L Chloride (98-107) mmol/L Carbon Dioxide (22-30) mmol/L Anion Gap (5-15) MEQ/L BUN (9-20) mg/dL Creatinine (0.66-1.25) mg/dL Estimated GFR ML/MIN Glucose (74-106) mg/dL Calcium (8.4-10.2) mg/dL Total Bilirubin (0.2-1.3) mg/dL AST (17-59) U/L ALT (0-50) U/L Alkaline Phosphatase (38-126) U/L Troponin I 0.068 H* (0.000-0.034) ng/mL Serum Total Protein (6.3-8.2) g/dL Albumin (3.5-5.0) g/dL Procalcitonin (0.030-0.080) ng/mL Influenza Type A Ag NEGATIVE (NEGATIVE) Influenza Type B Ag NEGATIVE (NEGATIVE) RSV (PCR) POSITIVE (NEGATIVE) SARS-CoV-2 (PCR) NEGATIVE (NEGATIVE) 05/16/23 05/17/23 Range/Units 20:00 02:12 WBC (4.0-10.5) x10^3/uL RBC (4.1-5.6) x10^6/uL Hgb (12.5-18.0) g/dL Hct (42-50) % MCV (78-100) fL MCH (26-32) pg MCHC (32-36) g/dL RDW (11.5-14.0) % Plt Count (150-450) x10^3/uL MPV (7.5-11.0) fL Gran % (36.0-66.0) % Immature Gran % (Auto) (0.00-0.4) % Nucleat RBC Rel Count (0.00-0.1) % Eos # (Auto) (0-0.5) x10^3/uL Immature Gran # (Auto) (0.00-0.03) x10^3u/L Absolute Lymphs (auto) (1.0-4.6) x10^3/uL Absolute Monos (auto) (0.0-1.3) x10^3/uL Absolute Nucleated RBC (0.00-0.01) x10^3u/L Lymphocytes % (24.0-44.0) % Monocytes % (0.0-12.0) % Eosinophils % (0.00-5.0) % Basophils % (0.0-0.4) % Absolute Granulocytes (1.4-6.9) x10^3/uL Basophils # (0-0.4) x10^3/uL Puncture Site pCO2 (35-45) mmHg pO2 (75-100) mmHg Base Excess (-2.0-2.0) O2 Saturation (94-100) g/dF ABG pH (7.35-7.45) ABG HCO3 (22-28) ABG O2 Sat (Measured) (95-100) % Ten Test A-a Gradient a/A Ratio Hemoglobin Carboxyhemoglobin (0.0-6.9) % THgb Methemoglobin (1.4-1.5) % Temperature C POC O2 Flow Rate % Sodium (137-145) mmol/L Potassium (3.5-5.1) mmol/L Chloride (98-107) mmol/L Carbon Dioxide (22-30) mmol/L Anion Gap (5-15) MEQ/L BUN (9-20) mg/dL Creatinine (0.66-1.25) mg/dL Estimated GFR ML/MIN Glucose (74-106) mg/dL Calcium (8.4-10.2) mg/dL Total Bilirubin (0.2-1.3) mg/dL AST (17-59) U/L ALT (0-50) U/L Alkaline Phosphatase (38-126) U/L Troponin I 0.079 H* 0.045 H* (0.000-0.034) ng/mL Serum Total Protein (6.3-8.2) g/dL Albumin (3.5-5.0) g/dL Procalcitonin (0.030-0.080) ng/mL Influenza Type A Ag (NEGATIVE) Influenza Type B Ag (NEGATIVE) RSV (PCR) (NEGATIVE) SARS-CoV-2 (PCR) (NEGATIVE) Radiology Exams: Radiology Procedures Category Date Time Status CHEST 1 VIEW (PORTABLE) Stat Exams 05/16/23 17:50 Taken <CRIS COOL - Last Filed: 05/17/23 14:33> Vital Signs: Vital Signs - 24 hr Temp Pulse Resp BP BP Pulse Ox 05/17/23 19:28 97.8 F 70 20 131/66 05/17/23 18:45 80 18 93 L 05/17/23 16:00 97.8 F 56 L 16 122/50 94 L 05/17/23 13:57 56 L 16 94 L 05/17/23 12:00 97.8 F 75 26 H 122/50 96 05/17/23 08:00 69 20 129/66 96 05/17/23 05:45 76 18 93 L 05/17/23 04:00 80 23 95 05/17/23 00:15 80 22 95 05/16/23 23:26 97.7 F 75 22 142/79 96 05/16/23 22:00 74 22 146/70 92 L 05/16/23 21:31 77 14 138/69 92 L Pain Assessment - Last Documented Pain Intensity 5 Intake and Output: Intake & Output 05/15/23 05/16/23 05/17/23 05/18/23 11:59 11:59 11:59 11:59 Intake Total 120 848 Balance 120 848 Weight 147.9 kg Lab Results: Lab Results-Last 24 Hours 05/17/23 05/17/23 05/17/23 Range/Units 02:00 02:12 05:47 WBC 7.9 (4.0-10.5) x10^3/uL RBC 4.81 (4.1-5.6) x10^6/uL Hgb 14.1 (12.5-18.0) g/dL Hct 44.9 (42-50) % MCV 93.3 (78-100) fL MCH 29.3 (26-32) pg MCHC 31.4 L (32-36) g/dL RDW 13.2 (11.5-14.0) % Plt Count 172 (150-450) x10^3/uL MPV 12.4 H (7.5-11.0) fL Sodium 129 L (137-145) mmol/L Potassium 4.2 (3.5-5.1) mmol/L Chloride 97 L (98-107) mmol/L Carbon Dioxide 24 (22-30) mmol/L Anion Gap 12.2 (5-15) MEQ/L BUN 28 H (9-20) mg/dL Creatinine 0.88 (0.66-1.25) mg/dL Estimated GFR 97.8 ML/MIN Glucose 382 H (74-106) mg/dL POC Glucometer (74 to 106) mg/dL Hemoglobin A1c (4.5-6.0) % Calcium 8.3 L (8.4-10.2) mg/dL Magnesium 2.0 (1.6-2.3) mg/dL Total Bilirubin 0.80 (0.2-1.3) mg/dL AST 37 (17-59) U/L ALT 56 H (0-50) U/L Alkaline Phosphatase 80 (38-126) U/L Troponin I 0.045 H* (0.000-0.034) ng/mL Serum Total Protein 6.3 (6.3-8.2) g/dL Albumin 3.4 L (3.5-5.0) g/dL 05/17/23 05/17/23 05/17/23 Range/Units 05:47 05:47 08:41 WBC (4.0-10.5) x10^3/uL RBC (4.1-5.6) x10^6/uL Hgb (12.5-18.0) g/dL Hct (42-50) % MCV (78-100) fL MCH (26-32) pg MCHC (32-36) g/dL RDW (11.5-14.0) % Plt Count (150-450) x10^3/uL MPV (7.5-11.0) fL Sodium (137-145) mmol/L Potassium (3.5-5.1) mmol/L Chloride (98-107) mmol/L Carbon Dioxide (22-30) mmol/L Anion Gap (5-15) MEQ/L BUN (9-20) mg/dL Creatinine (0.66-1.25) mg/dL Estimated GFR ML/MIN Glucose (74-106) mg/dL POC Glucometer 339 H (74 to 106) mg/dL Hemoglobin A1c 9.50 H (4.5-6.0) % Calcium (8.4-10.2) mg/dL Magnesium (1.6-2.3) mg/dL Total Bilirubin (0.2-1.3) mg/dL AST (17-59) U/L ALT (0-50) U/L Alkaline Phosphatase (38-126) U/L Troponin I 0.031 (0.000-0.034) ng/mL Serum Total Protein (6.3-8.2) g/dL Albumin (3.5-5.0) g/dL 05/17/23 05/17/23 05/17/23 Range/Units 12:07 16:52 21:13 WBC (4.0-10.5) x10^3/uL RBC (4.1-5.6) x10^6/uL Hgb (12.5-18.0) g/dL Hct (42-50) % MCV (78-100) fL MCH (26-32) pg MCHC (32-36) g/dL RDW (11.5-14.0) % Plt Count (150-450) x10^3/uL MPV (7.5-11.0) fL Sodium (137-145) mmol/L Potassium (3.5-5.1) mmol/L Chloride (98-107) mmol/L Carbon Dioxide (22-30) mmol/L Anion Gap (5-15) MEQ/L BUN (9-20) mg/dL Creatinine (0.66-1.25) mg/dL Estimated GFR ML/MIN Glucose (74-106) mg/dL POC Glucometer 422 H 471 H 411 H (74 to 106) mg/dL Hemoglobin A1c (4.5-6.0) % Calcium (8.4-10.2) mg/dL Magnesium (1.6-2.3) mg/dL Total Bilirubin (0.2-1.3) mg/dL AST (17-59) U/L ALT (0-50) U/L Alkaline Phosphatase (38-126) U/L Troponin I (0.000-0.034) ng/mL Serum Total Protein (6.3-8.2) g/dL Albumin (3.5-5.0) g/dL Radiology Exams: Radiology Procedures Category Date Time Status CHEST 1 VIEW (PORTABLE) Stat Exams 05/16/23 17:50 Completed CHEST WITH CONTRAST [CT] Stat Exams 05/17/23 08:05 Completed <LUPE DIETRICH - Last Filed: 05/17/23 21:31> Assessment/Plan (1) RSV (respiratory syncytial virus pneumonia) Current Visit: Yes Status: Acute Assessment & Plan: -Supplemental oxygen as needed to target spo2 >92% -CT negative for PE demonstrating New patchy bilateral consolidating/nonconsolidating airspace disease. suspicious for Covid 19 pneumonia -Covid testing negative -Supportive treatments Code(s): J12.1 - RESPIRATORY SYNCYTIAL VIRUS PNEUMONIA (2) COPD exacerbation Current Visit: Yes Status: Acute Assessment & Plan: -Superimposed pneumonia showing on CT -CT findings: negative for PE demonstrating New patchy bilateral consolidating/nonconsolidating airspace disease. suspicious for Covid 19 pneumonia -Supplemental oxygen as needed to target spo2 >92% -DuoNebs Q4H prn -RT consult -Consider pulm consult -Prednisone 40mg daily -Ceftriaxone/azithromycin -CXR pending Code(s): J44.1 - CHRONIC OBSTRUCTIVE PULMONARY DISEASE W (ACUTE) EXACERBATION (3) Acute respiratory failure with hypoxia Current Visit: Yes Status: Acute Assessment & Plan: -2/2 to RSV/Pnuemonia/COPD exac -see above Code(s): J96.01 - ACUTE RESPIRATORY FAILURE WITH HYPOXIA (4) Elevated troponin Current Visit: Yes Status: Acute Assessment & Plan: -Most likely secondary to RSV/COPD exac/pneumonia, downtrending 0.045<0.079>0.068 -Repeat EKG/trops this morning Code(s): R79.89 - OTHER SPECIFIED ABNORMAL FINDINGS OF BLOOD CHEMISTRY (5) Right lower lobe pneumonia Current Visit: Yes Status: Acute Assessment & Plan: -CT chest negative for PE demonstrating New patchy bilateral consolidating/nonconsolidating airspace disease. suspicious for Covid 19 pneumonia -Procal elevated -Consider CT -Ceftriaxone/azithromycin Code(s): J18.9 - PNEUMONIA, UNSPECIFIED ORGANISM (6) Diabetes mellitus Current Visit: Yes Status: Acute Assessment & Plan: -ADA diet -A1c 9.5 -Home insulin, will hold metformin during IP, may want scan -Add high dose SSI Code(s): E11.9 - TYPE 2 DIABETES MELLITUS WITHOUT COMPLICATIONS (7) Hyponatremia Current Visit: Yes Status: Acute Assessment & Plan: -In the setting of hyperglycemia, most likely psuedohyponatremia, should correct as blood glucose levels normalize Code(s): E87.1 - HYPO-OSMOLALITY AND HYPONATREMIA <CRIS COOL - Last Filed: 05/17/23 14:33> VINCENT Encounter - VINCENT Encounter Attestation VINCENT Encounter Attestation: "[facility]PRIMO DWYER andhavediscussed pertinent aspects of their care with Cris Bustamante agree with the history, physical exam (any modifications based on my personal exam will be noted below), assessment, and plan as outlined in original note. Please see immediately below for my summary of findings and additional assessment and plan along with any meaningful corrections/explanations to the Subjective/Objective portions of the VINCENT note will be noted." My portion of the encounter took place via telemedicine. -COPD exacerbation with RSV pneumonia. On antibiotics as can not reliably rule out a secondary bacterial pneumonia in a patient with COPD and high oxygen requirement (10L). Change oral steroids to IV <LUPE DIETRICH - Last Filed: 05/17/23 21:31>
[2023-05-17 05:26] LABS: Hematocrit 44.9 % (42-50); Hemoglobin 14.1 g/dL (12.5-18.0); Mean Cell Volume 93.3 fL (78-100); Mean Corpuscular Hemoglobin 29.3 pg (26-32); Mean Corpuscular Hgb Concent. 31.4 g/dL (32-36); Mean Platelet Volume 12.4 fL (7.5-11.0); Platelet Count 172 x10^3/uL (150-450); Red Blood Count 4.81 x10^6/uL (4.1-5.6); Red Cell Distribution Width 13.2 % (11.5-14.0); White Blood Count 7.9 x10^3/uL (4.0-10.5)
[2023-05-17 06:07] LABS: ALBUMIN 3.4 g/dL (3.5-5.0); BILIRUBIN,TOTAL 0.8 mg/dL (0.2-1.3); Calcium 8.3 mg/dL (8.4-10.2); Creatinine 1 0.88 mg/dL (0.66-1.25); EST GLOMERULAR FILTRATION RATE 97.8 ML/MIN; Total Protein 6.3 g/dL (6.3-8.2)
[2023-05-17 06:37] LABS: Potassium 4.2 mmol/L (3.5-5.1)
[2023-05-17 06:38] LABS: ANION GAP 12.2 MEQ/L (5-15)
[2023-05-17] MEDS ORDERED: Glucophage 500 MG PO SCH (08:00)
--- NOTE | 2023-05-17 08:44 | XRAY ---
Indication: Hypoxia. Cough and congestion. Comparison: September 27, 2021 Portable chest demonstrates new right upper lung and lesser degree left mid to lower lung infiltrates/atelectasis. Heart remains enlarged without large effusion. Bony thorax intact again with degenerative changes. Comment: Lung findings not reported by interpreting ER clinician. Telephone report given to Dr. Acuña at 0836 hrs. on May 17, 2023.
[2023-05-17] MEDS: Lantus Insulin SQ SCH ×2 (08:49→21:36)
--- NOTE | 2023-05-17 09:48 | XRAY ---
Indication: Hypoxia. Pulmonary embolus. Multiple contiguous images obtained through the chest using 80 cc Isovue 370 contrast and PE protocol. Comparison: June 14, 2013 Adequate opacification pulmonary arteries. There is mild respiration artifact limiting evaluation of the more distal lobar and segmental branches. No pulmonary embolus. Heart not enlarged. Aorta is normal in course and caliber. There are now mild scattered prominent mediastinal lymph nodes, largest subcarinal measuring 1.5 x 1.8 cm presumed reactive. Lungs demonstrate new diffuse bilateral patchy consolidating/nonconsolidating airspace disease, greatest right upper lobe. Also new scattered bilateral discoid atelectasis/scarring. No effusion. Previous posterior left lower lobe noncalcified nodule now appears calcified favoring granulomatous etiology. Bony thorax intact with mild degenerative changes throughout the spine. Limited upper abdomen again demonstrates fatty liver. Impression: 1. Respiration artifact limits pulmonary embolus evaluation. No obvious pulmonary embolus. 2. New patchy bilateral consolidating/nonconsolidating airspace disease. Rule out Covid 19 pneumonia. 3. Prominent mediastinal lymph nodes presumed reactive. 4. Chronic findings including atelectasis/scarring, multilevel degenerative spondylosis, fatty liver, and left lower lobe calcified granuloma.
[2023-05-17] MEDS: HUMALOG SQ SCH ×2 (09:58→17:28)
[2023-05-17] MEDS ORDERED: Zestril 10 MG PO SCH (10:00)
[2023-05-17] MEDS ORDERED: DELTASONE 20 MG PO SCH (10:00)
[2023-05-17] MEDS ORDERED: NON-FORMULARY ITEM (Insulin Aspart** [Novolog Insulin**] 1 UNIT Unit) SQ SCH (10:00)
[2023-05-17] MEDS ORDERED: COREG 12.5 MG PO SCH (10:00)
[2023-05-17] MEDS ORDERED: NON-FORMULARY ITEM (Potassium Chloride [Klor-Con M20] 20 MEQ Tab.Er.Prt) PO SCH (10:00)
[2023-05-17] MEDS ORDERED: NON-FORMULARY ITEM (Pravastatin Sodium [Pravastatin Sodium] 80 MG Tablet) PO SCH (10:00)
[2023-05-17] MEDS ORDERED: ZYLOPRIM 100 MG PO SCH (10:00)
[2023-05-17] MEDS ORDERED: ROCEPHIN 1 Gm-D5w 50 ml Bag** 1 G/50 ML IVPB IV SCH (10:00)
[2023-05-17] MEDS ORDERED: NON-FORMULARY ITEM (Apixaban [Eliquis] 5 MG Tablet) PO SCH (10:00)
[2023-05-17] MEDS ORDERED: NON-FORMULARY ITEM (Amlodipine Besylate [Amlodipine Besylate] 10 MG Tablet) PO SCH (10:00)
[2023-05-17] MEDS ORDERED: NON-FORMULARY ITEM (Omeprazole [Prilosec] 40 MG Capsule.Dr) PO SCH (10:00)
[2023-05-17] MEDS ORDERED: INSULIN DETEMIR SQ SCH (10:00)
[2023-05-17] MEDS ORDERED: NON-FORMULARY ITEM (Aspirin [Aspirin] 325 MG Tablet) PO SCH (10:00)
[2023-05-17] MEDS: ELIQUIS 2.5 MG TABLET PO SCH ×2 (10:43→21:37)
[2023-05-17] MEDS: FOLATE 1 MG PO SCH (10:44)
[2023-05-17] MEDS: Apresoline 25 MG TABLET PO SCH ×3 (10:44→21:37)
[2023-05-17] MEDS: Ecotrin 325 MG PO SCH (10:44)
[2023-05-17] MEDS: Zetia 10 MG PO SCH (10:44)
[2023-05-17] MEDS: Zocor 10MG PO SCH (10:44)
[2023-05-17] MEDS: Klor Con PO SCH (10:44)
[2023-05-17] MEDS: Calcium 500MG W/Vit D Tablet PO SCH ×2 (10:45→21:37)
[2023-05-17] MEDS: Zestril 20 MG PO SCH ×2 (10:45→21:37)
[2023-05-17] MEDS: Coreg 3.125 MG PO SCH ×2 (10:45→21:37)
[2023-05-17] MEDS: CLONIDINE 0.1 MG TABLET PO SCH ×2 (10:45→21:37)
[2023-05-17] MEDS: Docusate Sodium 100 MG PO SCH ×2 (10:45→21:37)
[2023-05-17] MEDS: Protonix 40MG Tablet PO SCH (10:45)
[2023-05-17] MEDS: Lasix 40 MG PO SCH ×2 (10:45→17:27)
[2023-05-17] MEDS: NORVASC 5 MG PO SCH (10:45)
[2023-05-17] MEDS: Vitamin B-6 (Pyridoxine) 100 MG PO SCH (10:46)
[2023-05-17] MEDS: hydroDIURIL 25 MG PO SCH (10:46)
[2023-05-17] MEDS: ZYLOPRIM 300 MG PO SCH (10:46)
[2023-05-17] MEDS: ROCEPHIN 1 Gm-D5w 50 ml Bag** 1 G/50 ML IVPB IV SCH (11:03)
[2023-05-17] MEDS: Zithromax 500 MG/ 250 ML NaCl Premix 500 MG/250 ML IVPB IV SCH (11:32)
[2023-05-17] MEDS: HOLD METFORMIN PRODUCTS FOR 48 HOURS MC SCH (12:32)
[2023-05-17] MEDS ORDERED: HUMALOG SQ PRN (12:32)
[2023-05-17] MEDS ORDERED: HUMALOG ONE (21:27)
[2023-05-17] MEDS: HUMALOG SQ PRN (21:36)
[2023-05-17] MEDS: solu-MEDROL 40 MG, Sterile H2O 10 ml 1 ML IV SCH ×2 (21:37)
[2023-05-18] MEDS: DUONEB 0.5-3 MG/3 ml Neb IH SCH ×4 (01:06→18:13)
[2023-05-18 04:49] LABS: Hematocrit 42.1 % (42-50); Hemoglobin 13.1 g/dL (12.5-18.0); Mean Cell Volume 93.1 fL (78-100); Mean Corpuscular Hgb Concent. 31.1 g/dL (32-36); Mean Platelet Volume 12.1 fL (7.5-11.0); Platelet Count 190 x10^3/uL (150-450); Red Blood Count 4.52 x10^6/uL (4.1-5.6); Red Cell Distribution Width 13.3 % (11.5-14.0); White Blood Count 12.6 x10^3/uL (4.0-10.5)
[2023-05-18 05:09] LABS: ALBUMIN 3.6 g/dL (3.5-5.0); ANION GAP 12.5 MEQ/L (5-15); BILIRUBIN,TOTAL 0.7 mg/dL (0.2-1.3); Calcium 8.4 mg/dL (8.4-10.2); Creatinine 1 1.3 mg/dL (0.66-1.25); EST GLOMERULAR FILTRATION RATE 62.5 ML/MIN; MAGNESIUM 2.4 mg/dL (1.6-2.3); Total Protein 6.9 g/dL (6.3-8.2)
[2023-05-18] MEDS: solu-MEDROL 40 MG, Sterile H2O 10 ml 1 ML IV SCH ×4 (05:31→14:56)
--- NOTE | 2023-05-18 05:47 | PCM.NOTE ---
Date and Time: 05/18/23 5558 Subjective Assessment: Mr Brice is a 62 year old male with a pmhx of COPD, AFIB (Eliquis), HLD, HTN, JIA, SMII, and arthritis who presented to ED 05/16/23 via EMS with complaints of shortness of breath, congestion, cough with progressive worsening. On presentation to ED patient was hypoxic and hypertensive with spo2 in the 70s on RA. Patient RSV positive with CXR showing right-sided pneumonia. Patient received Rocephin in ED. Patient admitted for acute respiratory failure secondary to RSV/Pnuemonia/Copd exacerbation. Ceftriaxone/azithromycin started on the floor. 05/17/23: Met with patient bedside. Endorses continued shortness of breath and wheezing. Continues on the oxymizer 8L. Patient sees Rebecca OP, states he recommended home oxygen but was never set up. Will consult pulm during hospitalization. Discussed elevated glucose levels and poor glycemic control. A1c at 9.5. Patient states he has been unable to get his blood glucose levels under control, he mostly runs in the 300's. Advised follow up with endocrinology on discharge. Patient will need glucometer for home use on discharge as well. 05/18/23: Met with patient bedside. Endorses improvement of shortness of breath, no longer wheezing. Continues on oxymizer now at 6L. Pulm consult pending. RN reports that patient was refusing SSI with meal time dose. Discussed the importance of glycemic control with patient and that he may require continuation of the SSI when he returns home due to the steroid. Patient states his blood glucose levels are never under 300 and it has been that way for years. Reiterated the importance of glycemic control, advised endocrinology appt as OP, patient is agreeable to this. Reports he will allow SSI today. Denies fever, cp, abdominal pain, JADE, dizziness, N/V/D. <CRIS COOL - Last Filed: 05/18/23 09:29> Date and Time: 05/18/232154 <LUPE DIETRICH - Last Filed: 05/18/23 21:56> - Review of Systems Constitutional: No Symptoms Eyes: No Symptoms Ears, Nose, & Throat: No Symptoms Respiratory: Cough, Short Of Breath Cardiac: No Symptoms Abdominal/Gastrointestinal: No Symptoms Genitourinary Symptoms: No Symptoms Musculoskeletal: No Symptoms Skin: No Symptoms Neurological: No Symptoms Psychological: No Symptoms Endocrine: No Symptoms Hematologic/Lymphatic: No Symptoms <CRIS COOL - Last Filed: 05/18/23 09:29> Objective Exam General Appearance: no apparent distress Neurologic Exam: alert, oriented x 3, cooperative Skin Exam: normal color Eye Exam: PERRL Ears, Nose, Throat Exam: normal ENT inspection, moist mucous membranes Neck Exam: normal inspection Respiratory Exam: diminished breath sounds Cardiovascular Exam: regular rate/rhythm, normal heart sounds Gastrointestinal/Abdomen Exam: soft, normal bowel sounds Extremity Exam: normal inspection Back Exam: normal inspection <CRIS COOL - Last Filed: 05/18/23 09:29> OBJECTIVE DATA Vital Signs: Vital Signs - 24 hr Temp Pulse Resp BP Pulse Ox 05/18/23 01:06 60 18 93 L 05/18/23 00:00 97.8 F 54 L 20 134/67 94 L 05/17/23 19:28 97.8 F 70 20 131/66 05/17/23 18:45 80 18 93 L 05/17/23 16:00 97.8 F 56 L 16 122/50 94 L 05/17/23 13:57 56 L 16 94 L 05/17/23 12:00 97.8 F 75 26 H 122/50 96 05/17/23 08:00 69 20 129/66 96 Pain Assessment - Last Documented Pain Intensity 0 Intake and Output: Intake & Output 05/15/23 05/16/23 05/17/23 05/18/23 11:59 11:59 11:59 11:59 Intake Total 120 848 Balance 120 848 Weight 147.9 kg Lab Results: Lab Results-Last 24 Hours 05/17/23 05/17/23 05/17/23 Range/Units 05:47 05:47 05:47 WBC (4.0-10.5) x10^3/uL RBC (4.1-5.6) x10^6/uL Hgb (12.5-18.0) g/dL Hct (42-50) % MCV (78-100) fL MCH (26-32) pg MCHC (32-36) g/dL RDW (11.5-14.0) % Plt Count (150-450) x10^3/uL MPV (7.5-11.0) fL Sodium 129 L (137-145) mmol/L Potassium 4.2 (3.5-5.1) mmol/L Chloride 97 L (98-107) mmol/L Carbon Dioxide 24 (22-30) mmol/L Anion Gap 12.2 (5-15) MEQ/L BUN 28 H (9-20) mg/dL Creatinine 0.88 (0.66-1.25) mg/dL Estimated GFR 97.8 ML/MIN Glucose 382 H (74-106) mg/dL POC Glucometer (74 to 106) mg/dL Hemoglobin A1c 9.50 H (4.5-6.0) % Calcium 8.3 L (8.4-10.2) mg/dL Magnesium 2.0 (1.6-2.3) mg/dL Total Bilirubin 0.80 (0.2-1.3) mg/dL AST 37 (17-59) U/L ALT 56 H (0-50) U/L Alkaline Phosphatase 80 (38-126) U/L Troponin I 0.031 (0.000-0.034) ng/mL Serum Total Protein 6.3 (6.3-8.2) g/dL Albumin 3.4 L (3.5-5.0) g/dL 05/17/23 05/17/23 05/17/23 Range/Units 08:41 12:07 16:52 WBC (4.0-10.5) x10^3/uL RBC (4.1-5.6) x10^6/uL Hgb (12.5-18.0) g/dL Hct (42-50) % MCV (78-100) fL MCH (26-32) pg MCHC (32-36) g/dL RDW (11.5-14.0) % Plt Count (150-450) x10^3/uL MPV (7.5-11.0) fL Sodium (137-145) mmol/L Potassium (3.5-5.1) mmol/L Chloride (98-107) mmol/L Carbon Dioxide (22-30) mmol/L Anion Gap (5-15) MEQ/L BUN (9-20) mg/dL Creatinine (0.66-1.25) mg/dL Estimated GFR ML/MIN Glucose (74-106) mg/dL POC Glucometer 339 H 422 H 471 H (74 to 106) mg/dL Hemoglobin A1c (4.5-6.0) % Calcium (8.4-10.2) mg/dL Magnesium (1.6-2.3) mg/dL Total Bilirubin (0.2-1.3) mg/dL AST (17-59) U/L ALT (0-50) U/L Alkaline Phosphatase (38-126) U/L Troponin I (0.000-0.034) ng/mL Serum Total Protein (6.3-8.2) g/dL Albumin (3.5-5.0) g/dL 05/17/23 05/18/23 05/18/23 Range/Units 21:13 04:30 04:30 WBC 12.6 H (4.0-10.5) x10^3/uL RBC 4.52 (4.1-5.6) x10^6/uL Hgb 13.1 (12.5-18.0) g/dL Hct 42.1 (42-50) % MCV 93.1 (78-100) fL MCH 29.0 (26-32) pg MCHC 31.1 L (32-36) g/dL RDW 13.3 (11.5-14.0) % Plt Count 190 (150-450) x10^3/uL MPV 12.1 H (7.5-11.0) fL Sodium 131 L (137-145) mmol/L Potassium 4.0 (3.5-5.1) mmol/L Chloride 96 L (98-107) mmol/L Carbon Dioxide 27 (22-30) mmol/L Anion Gap 12.5 (5-15) MEQ/L BUN 52 H (9-20) mg/dL Creatinine 1.30 H (0.66-1.25) mg/dL Estimated GFR 62.5 ML/MIN Glucose 382 H (74-106) mg/dL POC Glucometer 411 H (74 to 106) mg/dL Hemoglobin A1c (4.5-6.0) % Calcium 8.4 (8.4-10.2) mg/dL Magnesium 2.4 H (1.6-2.3) mg/dL Total Bilirubin 0.70 (0.2-1.3) mg/dL AST 27 (17-59) U/L ALT 47 (0-50) U/L Alkaline Phosphatase 76 (38-126) U/L Troponin I (0.000-0.034) ng/mL Serum Total Protein 6.9 (6.3-8.2) g/dL Albumin 3.6 (3.5-5.0) g/dL Radiology Exams: Radiology Procedures Category Date Time Status CHEST 1 VIEW (PORTABLE) Stat Exams 05/16/23 17:50 Completed CHEST WITH CONTRAST [CT] Stat Exams 05/17/23 08:05 Completed <CRIS COOL - Last Filed: 05/18/23 09:29> Vital Signs: Vital Signs - 24 hr Temp Pulse Resp BP BP Pulse Ox 05/18/23 21:01 49 L 16 136/62 94 L 05/18/23 20:01 98.3 F 68 14 117/53 93 L 05/18/23 20:00 67 05/18/23 19:01 62 19 131/77 96 05/18/23 18:16 60 20 98 05/18/23 18:09 49 L 18 136/54 95 05/18/23 16:59 65 20 129/57 96 05/18/23 13:33 70 18 94 L 05/18/23 12:00 97.6 F 66 19 119/50 93 L 05/18/23 08:40 72 18 93 L 05/18/23 08:00 97.9 F 72 16 133/62 95 05/18/23 04:00 97.6 F 61 20 128/64 94 L 05/18/23 01:06 60 18 93 L 05/18/23 00:00 97.8 F 54 L 20 134/67 94 L Pain Assessment - Last Documented Pain Intensity 0 Intake and Output: Intake & Output 05/16/23 05/17/23 05/18/23 05/19/23 11:59 11:59 11:59 11:59 Intake Total 120 1628 480 Output Total 375 Balance 120 1628 105 Weight 147.9 kg 149.5 kg Lab Results: Lab Results-Last 24 Hours 05/18/23 05/18/23 05/18/23 Range/Units 04:30 04:30 07:31 WBC 12.6 H (4.0-10.5) x10^3/uL RBC 4.52 (4.1-5.6) x10^6/uL Hgb 13.1 (12.5-18.0) g/dL Hct 42.1 (42-50) % MCV 93.1 (78-100) fL MCH 29.0 (26-32) pg MCHC 31.1 L (32-36) g/dL RDW 13.3 (11.5-14.0) % Plt Count 190 (150-450) x10^3/uL MPV 12.1 H (7.5-11.0) fL Sodium 131 L (137-145) mmol/L Potassium 4.0 (3.5-5.1) mmol/L Chloride 96 L (98-107) mmol/L Carbon Dioxide 27 (22-30) mmol/L Anion Gap 12.5 (5-15) MEQ/L BUN 52 H (9-20) mg/dL Creatinine 1.30 H (0.66-1.25) mg/dL Estimated GFR 62.5 ML/MIN Glucose 382 H (74-106) mg/dL POC Glucometer 354 H (74 to 106) mg/dL Calcium 8.4 (8.4-10.2) mg/dL Magnesium 2.4 H (1.6-2.3) mg/dL Total Bilirubin 0.70 (0.2-1.3) mg/dL AST 27 (17-59) U/L ALT 47 (0-50) U/L Alkaline Phosphatase 76 (38-126) U/L Serum Total Protein 6.9 (6.3-8.2) g/dL Albumin 3.6 (3.5-5.0) g/dL 05/18/23 05/18/23 05/18/23 Range/Units 14:09 15:28 15:33 WBC (4.0-10.5) x10^3/uL RBC (4.1-5.6) x10^6/uL Hgb (12.5-18.0) g/dL Hct (42-50) % MCV (78-100) fL MCH (26-32) pg MCHC (32-36) g/dL RDW (11.5-14.0) % Plt Count (150-450) x10^3/uL MPV (7.5-11.0) fL Sodium (137-145) mmol/L Potassium (3.5-5.1) mmol/L Chloride (98-107) mmol/L Carbon Dioxide (22-30) mmol/L Anion Gap (5-15) MEQ/L BUN (9-20) mg/dL Creatinine (0.66-1.25) mg/dL Estimated GFR ML/MIN Glucose (74-106) mg/dL POC Glucometer 451 H 524 H* 462 H (74 to 106) mg/dL Calcium (8.4-10.2) mg/dL Magnesium (1.6-2.3) mg/dL Total Bilirubin (0.2-1.3) mg/dL AST (17-59) U/L ALT (0-50) U/L Alkaline Phosphatase (38-126) U/L Serum Total Protein (6.3-8.2) g/dL Albumin (3.5-5.0) g/dL 05/18/23 05/18/23 05/18/23 Range/Units 15:45 17:15 18:07 WBC (4.0-10.5) x10^3/uL RBC (4.1-5.6) x10^6/uL Hgb (12.5-18.0) g/dL Hct (42-50) % MCV (78-100) fL MCH (26-32) pg MCHC (32-36) g/dL RDW (11.5-14.0) % Plt Count (150-450) x10^3/uL MPV (7.5-11.0) fL Sodium (137-145) mmol/L Potassium (3.5-5.1) mmol/L Chloride (98-107) mmol/L Carbon Dioxide (22-30) mmol/L Anion Gap (5-15) MEQ/L BUN (9-20) mg/dL Creatinine (0.66-1.25) mg/dL Estimated GFR ML/MIN Glucose 505 H* (74-106) mg/dL POC Glucometer 471 H 411 H (74 to 106) mg/dL Calcium (8.4-10.2) mg/dL Magnesium (1.6-2.3) mg/dL Total Bilirubin (0.2-1.3) mg/dL AST (17-59) U/L ALT (0-50) U/L Alkaline Phosphatase (38-126) U/L Serum Total Protein (6.3-8.2) g/dL Albumin (3.5-5.0) g/dL 05/18/23 05/18/23 05/18/23 Range/Units 18:42 19:43 20:43 WBC (4.0-10.5) x10^3/uL RBC (4.1-5.6) x10^6/uL Hgb (12.5-18.0) g/dL Hct (42-50) % MCV (78-100) fL MCH (26-32) pg MCHC (32-36) g/dL RDW (11.5-14.0) % Plt Count (150-450) x10^3/uL MPV (7.5-11.0) fL Sodium (137-145) mmol/L Potassium (3.5-5.1) mmol/L Chloride (98-107) mmol/L Carbon Dioxide (22-30) mmol/L Anion Gap (5-15) MEQ/L BUN (9-20) mg/dL Creatinine (0.66-1.25) mg/dL Estimated GFR ML/MIN Glucose (74-106) mg/dL POC Glucometer 394 H 340 H 342 H (74 to 106) mg/dL Calcium (8.4-10.2) mg/dL Magnesium (1.6-2.3) mg/dL Total Bilirubin (0.2-1.3) mg/dL AST (17-59) U/L ALT (0-50) U/L Alkaline Phosphatase (38-126) U/L Serum Total Protein (6.3-8.2) g/dL Albumin (3.5-5.0) g/dL 05/18/23 Range/Units 21:39 WBC (4.0-10.5) x10^3/uL RBC (4.1-5.6) x10^6/uL Hgb (12.5-18.0) g/dL Hct (42-50) % MCV (78-100) fL MCH (26-32) pg MCHC (32-36) g/dL RDW (11.5-14.0) % Plt Count (150-450) x10^3/uL MPV (7.5-11.0) fL Sodium (137-145) mmol/L Potassium (3.5-5.1) mmol/L Chloride (98-107) mmol/L Carbon Dioxide (22-30) mmol/L Anion Gap (5-15) MEQ/L BUN (9-20) mg/dL Creatinine (0.66-1.25) mg/dL Estimated GFR ML/MIN Glucose (74-106) mg/dL POC Glucometer 282 H (74 to 106) mg/dL Calcium (8.4-10.2) mg/dL Magnesium (1.6-2.3) mg/dL Total Bilirubin (0.2-1.3) mg/dL AST (17-59) U/L ALT (0-50) U/L Alkaline Phosphatase (38-126) U/L Serum Total Protein (6.3-8.2) g/dL Albumin (3.5-5.0) g/dL Radiology Exams: Radiology Procedures Category Date Time Status CHEST WITH CONTRAST [CT] Stat Exams 05/17/23 08:05 Completed Multi-Disciplinary Progress Notes: Multi-Disciplinary Progress Notes 05/18/23 09:57 Case Management Note by Ruchi Simmons S/W PATIENT- HE CONTINUES TO PLAN TO DC HOME TO HIS PLF AT TIME OF DC. PATIENT NOTIFIED HE CAN USE ANY PROVIDER FOR DME AT DC. PATIENT WOULD LIKE TO USE [facility] FOR OXYGEN AT DC. PATIENT ALSO DOES NOT HAVE A NEB MACHINE- IF NEEDED THIS WILL NEED ORDERED AT DC. Initialized on 05/18/23 09:57 - END OF NOTE <LUPE DIETRICH - Last Filed: 05/18/23 21:56> Assessment/Plan (1) RSV (respiratory syncytial virus pneumonia) Current Visit: Yes Status: Acute Assessment & Plan: -Supplemental oxygen as needed to target spo2 >92% -CT negative for PE demonstrating New patchy bilateral consolidating/nonconsolidating airspace disease. suspicious for Covid 19 pneumonia -Covid testing negative -Supportive treatments Code(s): J12.1 - RESPIRATORY SYNCYTIAL VIRUS PNEUMONIA (2) COPD exacerbation Current Visit: Yes Status: Acute Assessment & Plan: -Superimposed pneumonia showing on CT -CT findings: negative for PE demonstrating New patchy bilateral consolidating/nonconsolidating airspace disease. suspicious for Covid 19 pneumonia -Supplemental oxygen as needed to target spo2 >92% -DuoNebs Q4H prn -RT consult -Consider pulm consult -Prednisone 40mg daily -Ceftriaxone/azithromycin 05/18: -Pulm consult pending, continue solumedrol, cetriaxone/azithromycin Code(s): J44.1 - CHRONIC OBSTRUCTIVE PULMONARY DISEASE W (ACUTE) EXACERBATION (3) Acute respiratory failure with hypoxia Current Visit: Yes Status: Acute Assessment & Plan: -2/2 to RSV/Pnuemonia/COPD exac -see above Code(s): J96.01 - ACUTE RESPIRATORY FAILURE WITH HYPOXIA (4) Elevated troponin Current Visit: Yes Status: Acute Assessment & Plan: -Most likely secondary to RSV/COPD exac/pneumonia, downtrending 0.045<0.079>0.068 -Repeat EKG/trops this morning Code(s): R79.89 - OTHER SPECIFIED ABNORMAL FINDINGS OF BLOOD CHEMISTRY (5) Right lower lobe pneumonia Current Visit: Yes Status: Acute Assessment & Plan: -CT chest negative for PE demonstrating New patchy bilateral consolidating/nonconsolidating airspace disease. suspicious for Covid 19 pneumonia -Procal elevated -Ceftriaxone/azithromycin 05/18: -Continue ceftriaxone/azithromycin -oxymizer now at 6L -Pulm consult pending Code(s): J18.9 - PNEUMONIA, UNSPECIFIED ORGANISM (6) Diabetes mellitus Current Visit: Yes Status: Acute Assessment & Plan: -ADA diet -A1c 9.5 -Home insulin, will hold metformin during IP, may want scan -Add high dose SSI Code(s): E11.9 - TYPE 2 DIABETES MELLITUS WITHOUT COMPLICATIONS (7) Hyponatremia Current Visit: Yes Status: Acute Assessment & Plan: -In the setting of hyperglycemia, most likely psuedohyponatremia, should correct as blood glucose levels normalize Code(s): E87.1 - HYPO-OSMOLALITY AND HYPONATREMIA Code(s): J12.1 - RESPIRATORY SYNCYTIAL VIRUS PNEUMONIA (2) COPD exacerbation Current Visit: Yes Status: Acute Code(s): J44.1 - CHRONIC OBSTRUCTIVE PULMONARY DISEASE W (ACUTE) EXACERBATION (3) Acute respiratory failure with hypoxia Current Visit: Yes Status: Acute Code(s): J96.01 - ACUTE RESPIRATORY FAILURE WITH HYPOXIA (4) Elevated troponin Current Visit: Yes Status: Acute Code(s): R79.89 - OTHER SPECIFIED ABNORMAL FINDINGS OF BLOOD CHEMISTRY (5) Right lower lobe pneumonia Current Visit: Yes Status: Acute Code(s): J18.9 - PNEUMONIA, UNSPECIFIED ORGANISM (6) Diabetes mellitus Current Visit: Yes Status: Acute Code(s): E11.9 - TYPE 2 DIABETES MELLITUS WITHOUT COMPLICATIONS (7) Hyponatremia Current Visit: Yes Status: Acute Code(s): E87.1 - HYPO-OSMOLALITY AND HYPONATREMIA <CRIS COOL - Last Filed: 05/18/23 09:29> VINCENT Encounter - VINCENT Encounter Attestation VINCENT Encounter Attestation: "PRIMO Davis andhavediscussed pertinent aspects of their care with Cris Cool and agree with the history, physical exam (any modifications based on my personal exam will be noted below), assessment, and plan as outlined in original note. Please see immediately below for my summary of findings and additional assessment and plan along with any meaningful corrections/explanations to the Subjective/Objective portions of the VINCENT note will be noted." My portion of the encounter took place via telemedicine. -RSV pneumonia, COPD exac. Now improving and on 6L. Okay to stop IV steroids given severe hyperglycemia. Will need to start IV insulin for better control of blood glucose. <LUPE DIETRICH - Last Filed: 05/18/23 21:56>
[2023-05-18] MEDS ORDERED: Sodium Chloride 0.9% 1000 ML 1,000 ML IV SCH ×2 (07:30→17:30)
[2023-05-18] MEDS: HUMALOG SQ SCH ×2 (08:33→12:36)
[2023-05-18] MEDS: HUMALOG SQ PRN ×3 (08:34→14:47)
[2023-05-18] MEDS: Zithromax 500 MG/ 250 ML NaCl Premix 500 MG/250 ML IVPB IV SCH (10:30)
[2023-05-18] MEDS: Lantus Insulin SQ SCH (10:30)
[2023-05-18] MEDS: ROCEPHIN 1 Gm-D5w 50 ml Bag** 1 G/50 ML IVPB IV SCH (10:30)
[2023-05-18] MEDS: Ecotrin 325 MG PO SCH (10:32)
[2023-05-18] MEDS: CLONIDINE 0.1 MG TABLET PO SCH ×2 (10:32→21:30)
[2023-05-18] MEDS: FOLATE 1 MG PO SCH (10:32)
[2023-05-18] MEDS: Zetia 10 MG PO SCH (10:32)
[2023-05-18] MEDS: hydroDIURIL 25 MG PO SCH (10:32)
[2023-05-18] MEDS: Coreg 3.125 MG PO SCH ×2 (10:33→21:30)
[2023-05-18] MEDS: ZYLOPRIM 300 MG PO SCH (10:33)
[2023-05-18] MEDS: NORVASC 5 MG PO SCH (10:33)
[2023-05-18] MEDS: Apresoline 25 MG TABLET PO SCH ×3 (10:33→21:29)
[2023-05-18] MEDS: Klor Con PO SCH (10:33)
[2023-05-18] MEDS: ELIQUIS 2.5 MG TABLET PO SCH ×2 (10:34→21:30)
[2023-05-18] MEDS: Zocor 10MG PO SCH (10:34)
[2023-05-18] MEDS: Zestril 20 MG PO SCH ×2 (10:34→21:29)
[2023-05-18] MEDS: Protonix 40MG Tablet PO SCH (10:34)
[2023-05-18] MEDS: Docusate Sodium 100 MG PO SCH ×2 (10:34→21:29)
[2023-05-18] MEDS: Lasix 40 MG PO SCH (10:34)
[2023-05-18] MEDS: Calcium 500MG W/Vit D Tablet PO SCH ×2 (10:34→21:29)
[2023-05-18] MEDS: Vitamin B-6 (Pyridoxine) 100 MG PO SCH (10:35)
[2023-05-18] MEDS ORDERED: HUMALOG SQ PRN (16:18)
[2023-05-18] MEDS ORDERED: MYXREDLIN 100 UNIT/100 ML BAG 100 UNIT/100 ML PLAST..BAG IV PRN (16:29)
[2023-05-19] MEDS ORDERED: HUMULIN R SQ PRN (00:55)
[2023-05-19] MEDS: DUONEB 0.5-3 MG/3 ml Neb IH SCH ×4 (01:03→18:38)
[2023-05-19 05:07] LABS: ALBUMIN 3.6 g/dL (3.5-5.0); ANION GAP 12.2 MEQ/L (5-15); BILIRUBIN,TOTAL 0.6 mg/dL (0.2-1.3); Calcium 8.7 mg/dL (8.4-10.2); Creatinine 1 0.97 mg/dL (0.66-1.25); EST GLOMERULAR FILTRATION RATE 88.8 ML/MIN; MAGNESIUM 2.7 mg/dL (1.6-2.3); Total Protein 6.8 g/dL (6.3-8.2)
[2023-05-19 05:55] LABS: Hematocrit 43.7 % (42-50); Hemoglobin 13.6 g/dL (12.5-18.0); Mean Cell Volume 94.4 fL (78-100); Mean Corpuscular Hemoglobin 29.4 pg (26-32); Mean Corpuscular Hgb Concent. 31.1 g/dL (32-36); Red Blood Count 4.63 x10^6/uL (4.1-5.6)
--- NOTE | 2023-05-19 05:55 | PCM.NOTE ---
Date and Time: 05/19/23 0554 Subjective Assessment: Mr Brice is a 62 year old male with a pmhx of COPD, AFIB (Eliquis), HLD, HTN, JIA, SMII, and arthritis who presented to ED 05/16/23 via EMS with complaints of shortness of breath, congestion, cough with progressive worsening. On presentation to ED patient was hypoxic and hypertensive with spo2 in the 70s on RA. Patient RSV positive with CXR showing right-sided pneumonia. Patient received Rocephin in ED. Patient admitted for acute respiratory failure secondary to RSV/Pnuemonia/Copd exacerbation. Ceftriaxone/azithromycin started on the floor. 05/17/23: Met with patient bedside. Endorses continued shortness of breath and wheezing. Continues on the oxymizer 8L. Patient sees Rebecca OP, states he recommended home oxygen but was never set up. Will consult pulm during hospitalization. Discussed elevated glucose levels and poor glycemic control. A1c at 9.5. Patient states he has been unable to get his blood glucose levels under control, he mostly runs in the 300's. Advised follow up with endocrinology on discharge. Patient will need glucometer for home use on discharge as well. 05/18/23: Met with patient bedside. Endorses improvement of shortness of breath, no longer wheezing. Continues on oxymizer now at 6L. Pulm consult pending. RN reports that patient was refusing SSI with meal time dose. Discussed the importance of glycemic control with patient and that he may require continuation of the SSI when he returns home due to the steroid. Patient states his blood glucose levels are never under 300 and it has been that way for years. Reiterated the importance of glycemic control, advised endocrinology appt as OP, patient is agreeable to this. Reports he will allow SSI today. Denies fever, cp, abdominal pain, JADE, dizziness, N/V/D. 05/19/23: Met with patient bedside. Feeling better today,shortness of breath improved oxymizer now down to 5L. Patient on insulin drip overnight and blood glucose levels are now in the 200's. Pulmonology to see patient today. Most likely will need home oxygen. Improved creat with holding lasix. Denies fever,cp, abdominal pain, JADE, dizziness, N/V/D. <CRIS COOL - Last Filed: 05/19/23 10:34> Date and Time: 05/19/232131 <LUPE DIETRICH - Last Filed: 05/19/23 21:33> - Review of Systems Constitutional: No Symptoms Eyes: No Symptoms Ears, Nose, & Throat: No Symptoms Respiratory: Cough, Short Of Breath Cardiac: No Symptoms Abdominal/Gastrointestinal: No Symptoms Genitourinary Symptoms: No Symptoms Musculoskeletal: No Symptoms Skin: No Symptoms Neurological: No Symptoms Psychological: No Symptoms Endocrine: No Symptoms Hematologic/Lymphatic: No Symptoms Immunological/Allergic: No Symptoms <CRIS COOL - Last Filed: 05/19/23 10:34> Objective Exam General Appearance: no apparent distress Neurologic Exam: alert, oriented x 3, cooperative Eye Exam: PERRL Ears, Nose, Throat Exam: normal ENT inspection Respiratory Exam: diminished breath sounds Cardiovascular Exam: regular rate/rhythm, normal heart sounds, murmur Gastrointestinal/Abdomen Exam: soft, normal bowel sounds Extremity Exam: normal inspection Back Exam: normal inspection Male Genitalia Exam: deferred Rectal Exam: deferred <CRIS COOL - Last Filed: 05/19/23 10:34> OBJECTIVE DATA Vital Signs: Vital Signs - 24 hr Temp Pulse Resp BP BP Pulse Ox 05/19/23 04:00 97.6 F 51 L 20 128/61 93 L 05/19/23 01:00 53 L 21 95 05/19/23 00:20 72 18 94 L 05/19/23 00:10 67 18 94 L 05/19/23 00:00 62 05/18/23 23:44 97.6 F 71 21 124/57 95 05/18/23 23:01 64 19 105/55 92 L 05/18/23 22:01 47 L 19 122/56 97 05/18/23 21:01 49 L 16 136/62 94 L 05/18/23 20:01 98.3 F 68 14 117/53 93 L 05/18/23 20:00 67 05/18/23 19:01 62 19 131/77 96 05/18/23 18:16 60 20 98 05/18/23 18:09 49 L 18 136/54 95 05/18/23 16:59 65 20 129/57 96 05/18/23 13:33 70 18 94 L 05/18/23 12:00 97.6 F 66 19 119/50 93 L 05/18/23 08:40 72 18 93 L 05/18/23 08:00 97.9 F 72 16 133/62 95 Pain Assessment - Last Documented Pain Intensity 0 Intake and Output: Intake & Output 05/16/23 05/17/23 05/18/23 05/19/23 11:59 11:59 11:59 11:59 Intake Total 120 1628 480 Output Total 1175 Balance 120 1628 -695 Weight 147.9 kg 149.5 kg Lab Results: Lab Results-Last 24 Hours 05/18/23 05/18/23 05/18/23 Range/Units 07:31 14:09 15:28 Sodium (137-145) mmol/L Potassium (3.5-5.1) mmol/L Chloride (98-107) mmol/L Carbon Dioxide (22-30) mmol/L Anion Gap (5-15) MEQ/L BUN (9-20) mg/dL Creatinine (0.66-1.25) mg/dL Estimated GFR ML/MIN Glucose (74-106) mg/dL POC Glucometer 354 H 451 H 524 H* (74 to 106) mg/dL Calcium (8.4-10.2) mg/dL Magnesium (1.6-2.3) mg/dL Total Bilirubin (0.2-1.3) mg/dL AST (17-59) U/L ALT (0-50) U/L Alkaline Phosphatase (38-126) U/L Serum Total Protein (6.3-8.2) g/dL Albumin (3.5-5.0) g/dL 05/18/23 05/18/23 05/18/23 Range/Units 15:33 15:45 17:15 Sodium (137-145) mmol/L Potassium (3.5-5.1) mmol/L Chloride (98-107) mmol/L Carbon Dioxide (22-30) mmol/L Anion Gap (5-15) MEQ/L BUN (9-20) mg/dL Creatinine (0.66-1.25) mg/dL Estimated GFR ML/MIN Glucose 505 H* (74-106) mg/dL POC Glucometer 462 H 471 H (74 to 106) mg/dL Calcium (8.4-10.2) mg/dL Magnesium (1.6-2.3) mg/dL Total Bilirubin (0.2-1.3) mg/dL AST (17-59) U/L ALT (0-50) U/L Alkaline Phosphatase (38-126) U/L Serum Total Protein (6.3-8.2) g/dL Albumin (3.5-5.0) g/dL 05/18/23 05/18/23 05/18/23 Range/Units 18:07 18:42 19:43 Sodium (137-145) mmol/L Potassium (3.5-5.1) mmol/L Chloride (98-107) mmol/L Carbon Dioxide (22-30) mmol/L Anion Gap (5-15) MEQ/L BUN (9-20) mg/dL Creatinine (0.66-1.25) mg/dL Estimated GFR ML/MIN Glucose (74-106) mg/dL POC Glucometer 411 H 394 H 340 H (74 to 106) mg/dL Calcium (8.4-10.2) mg/dL Magnesium (1.6-2.3) mg/dL Total Bilirubin (0.2-1.3) mg/dL AST (17-59) U/L ALT (0-50) U/L Alkaline Phosphatase (38-126) U/L Serum Total Protein (6.3-8.2) g/dL Albumin (3.5-5.0) g/dL 05/18/23 05/18/23 05/18/23 Range/Units 20:43 21:39 22:39 Sodium (137-145) mmol/L Potassium (3.5-5.1) mmol/L Chloride (98-107) mmol/L Carbon Dioxide (22-30) mmol/L Anion Gap (5-15) MEQ/L BUN (9-20) mg/dL Creatinine (0.66-1.25) mg/dL Estimated GFR ML/MIN Glucose (74-106) mg/dL POC Glucometer 342 H 282 H 261 H (74 to 106) mg/dL Calcium (8.4-10.2) mg/dL Magnesium (1.6-2.3) mg/dL Total Bilirubin (0.2-1.3) mg/dL AST (17-59) U/L ALT (0-50) U/L Alkaline Phosphatase (38-126) U/L Serum Total Protein (6.3-8.2) g/dL Albumin (3.5-5.0) g/dL 05/18/23 05/19/23 Range/Units 23:40 04:14 Sodium 136 L (137-145) mmol/L Potassium 4.0 (3.5-5.1) mmol/L Chloride 99 (98-107) mmol/L Carbon Dioxide 29 (22-30) mmol/L Anion Gap 12.2 (5-15) MEQ/L BUN 46 H (9-20) mg/dL Creatinine 0.97 (0.66-1.25) mg/dL Estimated GFR 88.8 ML/MIN Glucose 272 H (74-106) mg/dL POC Glucometer 223 H (74 to 106) mg/dL Calcium 8.7 (8.4-10.2) mg/dL Magnesium 2.7 H (1.6-2.3) mg/dL Total Bilirubin 0.60 (0.2-1.3) mg/dL AST 47 (17-59) U/L ALT 57 H (0-50) U/L Alkaline Phosphatase 84 (38-126) U/L Serum Total Protein 6.8 (6.3-8.2) g/dL Albumin 3.6 (3.5-5.0) g/dL Radiology Exams: Radiology Procedures Category Date Time Status CHEST WITH CONTRAST [CT] Stat Exams 05/17/23 08:05 Completed Multi-Disciplinary Progress Notes: Multi-Disciplinary Progress Notes 05/18/23 09:57 Case Management Note by Ruchi Simmons S/W PATIENT- HE CONTINUES TO PLAN TO DC HOME TO HIS PLF AT TIME OF DC. PATIENT NOTIFIED HE CAN USE ANY PROVIDER FOR DME AT DC. PATIENT WOULD LIKE TO USE [facility] FOR OXYGEN AT DC. PATIENT ALSO DOES NOT HAVE A NEB MACHINE- IF NEEDED THIS WILL NEED ORDERED AT UT. Initialized on 05/18/23 09:57 - END OF NOTE <CRIS COOL - Last Filed: 05/19/23 10:34> Vital Signs: Vital Signs - 24 hr Temp Pulse Resp BP BP Pulse Ox 05/19/23 20:22 97.3 F 76 23 120/61 92 L 05/19/23 20:17 93 L 05/19/23 18:41 80 19 96 01/10/24 17:46 97.7 F 75 17 137/71 96 05/19/23 15:40 54 L 05/19/23 13:32 74 18 91 L 05/19/23 13:23 37 L 05/19/23 12:16 40 L 05/19/23 12:00 52 L 05/19/23 11:54 97.1 F 69 16 146/69 95 05/19/23 08:00 54 L 16 114/57 94 L 05/19/23 07:08 47 L 18 94 L 05/19/23 05:57 93 L 05/19/23 04:00 97.6 F 51 L 20 128/61 93 L 05/19/23 01:00 53 L 21 95 05/19/23 00:20 72 18 94 L 05/19/23 00:10 67 18 94 L 05/19/23 00:00 62 05/18/23 23:44 97.6 F 71 21 124/57 95 05/18/23 23:01 64 19 105/55 92 L 05/18/23 22:01 47 L 19 122/56 97 Pain Assessment - Last Documented Pain Intensity 0 Intake and Output: Intake & Output 05/17/23 05/18/23 05/19/23 05/20/23 11:59 11:59 11:59 11:59 Intake Total 120 1628 1600 700 Output Total 1175 Balance 120 1628 425 700 Weight 147.9 kg 149.5 kg 149.5 kg Lab Results: Lab Results-Last 24 Hours 05/18/23 05/18/23 05/18/23 Range/Units 21:39 22:39 23:40 WBC (4.0-10.5) x10^3/uL RBC (4.1-5.6) x10^6/uL Hgb (12.5-18.0) g/dL Hct (42-50) % MCV (78-100) fL MCH (26-32) pg MCHC (32-36) g/dL Plt Count (150-450) x10^3/uL MPV (7.5-11.0) fL Sodium (137-145) mmol/L Potassium (3.5-5.1) mmol/L Chloride (98-107) mmol/L Carbon Dioxide (22-30) mmol/L Anion Gap (5-15) MEQ/L BUN (9-20) mg/dL Creatinine (0.66-1.25) mg/dL Estimated GFR ML/MIN Glucose (74-106) mg/dL POC Glucometer 282 H 261 H 223 H (74 to 106) mg/dL Calcium (8.4-10.2) mg/dL Magnesium (1.6-2.3) mg/dL Total Bilirubin (0.2-1.3) mg/dL AST (17-59) U/L ALT (0-50) U/L Alkaline Phosphatase (38-126) U/L Serum Total Protein (6.3-8.2) g/dL Albumin (3.5-5.0) g/dL Slides for Path Review 05/19/23 05/19/23 05/19/23 Range/Units 04:14 04:14 07:23 WBC 12.0 H (4.0-10.5) x10^3/uL RBC 4.63 (4.1-5.6) x10^6/uL Hgb 13.6 (12.5-18.0) g/dL Hct 43.7 (42-50) % MCV 94.4 (78-100) fL MCH 29.4 (26-32) pg MCHC 31.1 L (32-36) g/dL Plt Count 198 (150-450) x10^3/uL MPV 11.9 H (7.5-11.0) fL Sodium 136 L (137-145) mmol/L Potassium 4.0 (3.5-5.1) mmol/L Chloride 99 (98-107) mmol/L Carbon Dioxide 29 (22-30) mmol/L Anion Gap 12.2 (5-15) MEQ/L BUN 46 H (9-20) mg/dL Creatinine 0.97 (0.66-1.25) mg/dL Estimated GFR 88.8 ML/MIN Glucose 272 H (74-106) mg/dL POC Glucometer 209 H (74 to 106) mg/dL Calcium 8.7 (8.4-10.2) mg/dL Magnesium 2.7 H (1.6-2.3) mg/dL Total Bilirubin 0.60 (0.2-1.3) mg/dL AST 47 (17-59) U/L ALT 57 H (0-50) U/L Alkaline Phosphatase 84 (38-126) U/L Serum Total Protein 6.8 (6.3-8.2) g/dL Albumin 3.6 (3.5-5.0) g/dL Slides for Path Review NO 05/19/23 05/19/23 05/19/23 Range/Units 11:31 16:15 20:24 WBC (4.0-10.5) x10^3/uL RBC (4.1-5.6) x10^6/uL Hgb (12.5-18.0) g/dL Hct (42-50) % MCV (78-100) fL MCH (26-32) pg MCHC (32-36) g/dL Plt Count (150-450) x10^3/uL MPV (7.5-11.0) fL Sodium (137-145) mmol/L Potassium (3.5-5.1) mmol/L Chloride (98-107) mmol/L Carbon Dioxide (22-30) mmol/L Anion Gap (5-15) MEQ/L BUN (9-20) mg/dL Creatinine (0.66-1.25) mg/dL Estimated GFR ML/MIN Glucose (74-106) mg/dL POC Glucometer 295 H 235 H 130 H (74 to 106) mg/dL Calcium (8.4-10.2) mg/dL Magnesium (1.6-2.3) mg/dL Total Bilirubin (0.2-1.3) mg/dL AST (17-59) U/L ALT (0-50) U/L Alkaline Phosphatase (38-126) U/L Serum Total Protein (6.3-8.2) g/dL Albumin (3.5-5.0) g/dL Slides for Path Review Multi-Disciplinary Progress Notes: Multi-Disciplinary Progress Notes 05/19/23 10:20 Case Management Note by Ruchi Simmons S/W PATIENT- HE CONTINUES TO DENY ANY NEW NEEDS AT TIME OF DC. PATIENT WILL LIKELY NEED HOME OXYGEN, NEB MACHINE AND GLUCOMETER AT TIME OF DC. PATIENT CONCERNED ABOUT RETURNING TO WORK WITH OXYGEN. HE WAS ENCOURAGED TO DISCUSS THIS WITH HIS PLACE OF EMPLOYMENT. HE VERIFIED UNDERSTANDING Initialized on 05/19/23 10:20 - END OF NOTE <LUPE DIETRICH - Last Filed: 05/19/23 21:33> Assessment/Plan (1) RSV (respiratory syncytial virus pneumonia) Current Visit: Yes Status: Acute Assessment & Plan: -Supplemental oxygen as needed to target spo2 >92% -CT negative for PE demonstrating New patchy bilateral consolidating/nonconsolidating airspace disease. suspicious for Covid 19 pneumonia -Covid testing negative -Supportive treatments Code(s): J12.1 - RESPIRATORY SYNCYTIAL VIRUS PNEUMONIA (2) COPD exacerbation Current Visit: Yes Status: Acute Assessment & Plan: -Superimposed pneumonia showing on CT -CT findings: negative for PE demonstrating New patchy bilateral consolidating/nonconsolidating airspace disease. suspicious for Covid 19 pneumonia -Supplemental oxygen as needed to target spo2 >92% -DuoNebs Q4H prn -RT consult -Consider pulm consult -Prednisone 40mg daily -Ceftriaxone/azithromycin 05/18: -Pulm consult pending, continue solumedrol, cetriaxone/azithromycin 05/19: -Now on 5L oxymizer Code(s): J44.1 - CHRONIC OBSTRUCTIVE PULMONARY DISEASE W (ACUTE) EXACERBATION (3) Acute respiratory failure with hypoxia Current Visit: Yes Status: Acute Assessment & Plan: -2/2 to RSV/Pnuemonia/COPD exac -see above Code(s): J96.01 - ACUTE RESPIRATORY FAILURE WITH HYPOXIA (4) Elevated troponin Current Visit: Yes Status: Acute Assessment & Plan: -Most likely secondary to RSV/COPD exac/pneumonia, downtrending 0.045<0.079>0.068 -Repeat EKG/trops this morning 05/18/23: -repeat trops wnl Code(s): R79.89 - OTHER SPECIFIED ABNORMAL FINDINGS OF BLOOD CHEMISTRY (5) Right lower lobe pneumonia Current Visit: Yes Status: Acute Assessment & Plan: -CT chest negative for PE demonstrating New patchy bilateral consolidating/nonconsolidating airspace disease. suspicious for Covid 19 pneumonia -Procal elevated -Ceftriaxone/azithromycin 05/18: -Continue ceftriaxone/azithromycin -oxymizer now at 6L -Pulm consult pending 05/19: -Oxymizer now at 5L -Solumedrol d/cd Code(s): J18.9 - PNEUMONIA, UNSPECIFIED ORGANISM (6) Diabetes mellitus Current Visit: Yes Status: Acute Assessment & Plan: -ADA diet -A1c 9.5 -Home insulin, will hold metformin during IP, may want scan -Add high dose SSI 05/18/23: -Unable to control blood glucose levels, patient was placed on insulin drip 05/19/23: -Blood glucose levels stabilizing, drip d/cd Code(s): E11.9 - TYPE 2 DIABETES MELLITUS WITHOUT COMPLICATIONS (7) Hyponatremia Current Visit: Yes Status: Acute Assessment & Plan: -In the setting of hyperglycemia, most likely psuedohyponatremia, should correct as blood glucose levels normalize Code(s): E87.1 - HYPO-OSMOLALITY AND HYPONATREMIA #HYpermagnesemia -Mag at 2.7, will hold his daily calcium carbonate, continue to monitor Code(s): J12.1 - RESPIRATORY SYNCYTIAL VIRUS PNEUMONIA Code(s): J12.1 - RESPIRATORY SYNCYTIAL VIRUS PNEUMONIA (2) COPD exacerbation Current Visit: Yes Status: Acute Code(s): J44.1 - CHRONIC OBSTRUCTIVE PULMONARY DISEASE W (ACUTE) EXACERBATION (3) Acute respiratory failure with hypoxia Current Visit: Yes Status: Acute Code(s): J96.01 - ACUTE RESPIRATORY FAILURE WITH HYPOXIA (4) Elevated troponin Current Visit: Yes Status: Acute Code(s): R79.89 - OTHER SPECIFIED ABNORMAL FINDINGS OF BLOOD CHEMISTRY (5) Right lower lobe pneumonia Current Visit: Yes Status: Acute Code(s): J18.9 - PNEUMONIA, UNSPECIFIED ORGANISM (6) Diabetes mellitus Current Visit: Yes Status: Acute Code(s): E11.9 - TYPE 2 DIABETES MELLITUS WITHOUT COMPLICATIONS (7) Hyponatremia Current Visit: Yes Status: Acute Code(s): E87.1 - HYPO-OSMOLALITY AND HYPONATREMIA (8) Hypermagnesemia Current Visit: Yes Status: Acute Code(s): E83.41 - HYPERMAGNESEMIA <CRIS COOL - Last Filed: 05/19/23 10:34> VINCENT Encounter - VINCENT Encounter Attestation VINCENT Encounter Attestation: "PRIMO Cross andhavediscussed pertinent aspects of their care with Cris Bustamante agree with the history, physical exam (any modifications based on my personal exam will be noted below), assessment, and plan as outlined in original note. Please see immediately below for my summary of findings and additional assessment and plan along with any meaningful corrections/explanations to the Subjective/Objective portions of the VINCENT note will be noted." My portion of the encounter took place via telemedicine. -Required insulin drip initiation yesterday for severe hyperglycemia. Blood glucose better now after discontinuation of steroids. Oxygen requirements are coming down and he feels better but most likely he will be needing oxygen at discharge. Needs to follow up with his alarm installer as outpatient <LUPE DIETRICH - Last Filed: 05/19/23 21:33>
[2023-05-19 05:56] LABS: Mean Platelet Volume 11.9 fL (7.5-11.0); Platelet Count 198 x10^3/uL (150-450)
[2023-05-19 06:01] LABS: Slide Review NO
[2023-05-19] MEDS ORDERED: HUMALOG SQ SCH (08:00)
[2023-05-19] MEDS ORDERED: Lantus Insulin SQ SCH (08:00)
[2023-05-19] MEDS: HUMALOG SQ PRN ×2 (08:17→11:49)
[2023-05-19] MEDS: HOLD METFORMIN PRODUCTS FOR 48 HOURS MC SCH (08:51)
[2023-05-19] MEDS: Vitamin B-6 (Pyridoxine) 100 MG PO SCH (09:26)
[2023-05-19] MEDS: FOLATE 1 MG PO SCH (09:27)
[2023-05-19] MEDS: Zetia 10 MG PO SCH (09:27)
[2023-05-19] MEDS: Zocor 10MG PO SCH (09:27)
[2023-05-19] MEDS: ELIQUIS 2.5 MG TABLET PO SCH ×2 (09:28→20:33)
[2023-05-19] MEDS: Klor Con PO SCH (09:28)
[2023-05-19] MEDS: ZYLOPRIM 300 MG PO SCH (09:28)
[2023-05-19] MEDS: Protonix 40MG Tablet PO SCH (09:28)
[2023-05-19] MEDS: Ecotrin 325 MG PO SCH (09:28)
[2023-05-19] MEDS: ROCEPHIN 1 Gm-D5w 50 ml Bag** 1 G/50 ML IVPB IV SCH (09:29)
[2023-05-19] MEDS: Coreg 3.125 MG PO SCH ×2 (09:43→22:00)
[2023-05-19] MEDS: CLONIDINE 0.1 MG TABLET PO SCH ×2 (09:43→22:00)
[2023-05-19] MEDS: hydroDIURIL 25 MG PO SCH (09:44)
[2023-05-19] MEDS: Zestril 20 MG PO SCH ×2 (09:44→22:00)
[2023-05-19] MEDS: Apresoline 25 MG TABLET PO SCH ×3 (09:44→22:00)
[2023-05-19] MEDS: Docusate Sodium 100 MG PO SCH ×2 (09:44→20:33)
[2023-05-19] MEDS: NORVASC 5 MG PO SCH (09:44)
[2023-05-19] MEDS: Zithromax 500 MG/ 250 ML NaCl Premix 500 MG/250 ML IVPB IV SCH (09:56)
[2023-05-19] MEDS: HUMALOG SQ SCH ×2 (11:49→16:51)
[2023-05-19] MEDS ORDERED: HUMALOG SQ PRN (15:34)
[2023-05-19] MEDS: Glucophage 500 MG PO SCH (16:51)
[2023-05-19] MEDS: Lantus Insulin SQ SCH (20:32)
[2023-05-20] MEDS: DUONEB 0.5-3 MG/3 ml Neb IH SCH ×2 (02:21→06:35)
[2023-05-20 05:08] LABS: Hematocrit 44.4 % (42-50); Hemoglobin 13.8 g/dL (12.5-18.0); Mean Cell Volume 93.7 fL (78-100); Mean Corpuscular Hemoglobin 29.1 pg (26-32); Mean Corpuscular Hgb Concent. 31.1 g/dL (32-36); Mean Platelet Volume 11.4 fL (7.5-11.0); Platelet Count 210 x10^3/uL (150-450); Red Blood Count 4.74 x10^6/uL (4.1-5.6); Red Cell Distribution Width 13.7 % (11.5-14.0); White Blood Count 10.1 x10^3/uL (4.0-10.5)
--- NOTE | 2023-05-20 05:20 | PCM.DS ---
Discharge Summary Date of Admission: 05/16/23 19:02 Date of Discharge: 05/20/23 Admitting Physician: ABHINAV COCHRAN MD Consults: Consults on Case 05/17/23 14:19 Consult Pulmonology ROUTINE Primary Care Provider: KRISTINA MCCLELLAN <CRIS COOL - Last Filed: 05/20/23 11:02> Date of Admission: 05/16/23 19:02 Admitting Physician: ABHINAV COCHRAN MD Consults: Consults on Case 05/17/23 14:19 Consult Pulmonology ROUTINE Primary Care Provider: KRISTINA MCCLELLAN <LUPE DIETRICH - Last Filed: 05/20/23 21:13> Allergies <CRIS COOL - Last Filed: 05/20/23 11:02> <LUPE DIETRICH - Last Filed: 05/20/23 21:13> Allergies cetirizine HCl [From yrte] Allergy (Severe, Verified 05/16/23 17:16) Swelling of Face niacin Allergy (Intermediate, Verified 05/16/23 17:16) [facility] Summary - Hospital Course Hospital Course: Mr Brice is a 62 year old male with a pmhx of COPD, AFIB (Eliquis), HLD, HTN, JIA, SMII, and arthritis who presented to ED 05/16/23 via EMS with complaints of shortness of breath, congestion, cough with progressive worsening. On presentation to ED patient was hypoxic and hypertensive with spo2 in the 70s on RA. Patient RSV positive with CXR showing right-sided pneumonia. Patient receive d Rocephin in ED. Patient admitted for acute respiratory failure secondary to RSV/Pnuemonia/Copd exacerbation. Ceftriaxone/azithromycin started on the floor. Patient with persistent hyperglycemia during hospital course, this has improved during hospitalization and now stable. Patient reports his glucose levels previously have always run in the 300s and A1c at 9.5. Advised patient follow up with endocrinology regarding his persistent hyperglycemia, may need adjustments to current insulin regimen. Pulmonology consulted during hospitalization, patient may require noninvasive ventilation, but pt has declined this in the past. He will follow up with pulm as OP for further recommendations. He does qualify for home oxygen which we will set up. Will discharge on medrol dose pack, cepodoxime, duonebs, inhaler. Diabetic education requested by patient with diet, will provide this and glucometer. Discharge Note New Diagnosis: RSV/Pneumonia/COPD exacerbation New Medications: Cepodoxime/duonebs/symbicort/medrol dose pack Follow Up: PCP/Pulm Latest Assessment & Plan (1) RSV (respiratory syncytial virus pneumonia) Current Visit: Yes Status: Acute Assessment & Plan: -Supplemental oxygen as needed to target spo2 >92% -CT negative for PE demonstrating New patchy bilateral consolidating/nonconsolidating airspace disease. suspicious for Covid 19 pneumonia -Covid testing negative -Supportive treatments Code(s): J12.1 - RESPIRATORY SYNCYTIAL VIRUS PNEUMONIA (2) COPD exacerbation Current Visit: Yes Status: Acute Assessment & Plan: -Superimposed pneumonia showing on CT -CT findings: negative for PE demonstrating New patchy bilateral consolidating/nonconsolidating airspace disease. suspicious for Covid 19 pneumonia -Supplemental oxygen as needed to target spo2 >92% -DuoNebs Q4H prn -RT consult -Consider pulm consult -Prednisone 40mg daily -Ceftriaxone/azithromycin 05/18: -Pulm consult pending, continue solumedrol, cetriaxone/azithromycin 05/19: -Now on 5L oxymizer Code(s): J44.1 - CHRONIC OBSTRUCTIVE PULMONARY DISEASE W (ACUTE) EXACERBATION (3) Acute respiratory failure with hypoxia Current Visit: Yes Status: Acute Assessment & Plan: -2/2 to RSV/Pnuemonia/COPD exac -see above Code(s): J96.01 - ACUTE RESPIRATORY FAILURE WITH HYPOXIA (4) Elevated troponin Current Visit: Yes Status: Acute Assessment & Plan: -Most likely secondary to RSV/COPD exac/pneumonia, downtrending 0.045<0.079>0.068 -Repeat EKG/trops this morning 05/18/23: -repeat trops wnl Code(s): R79.89 - OTHER SPECIFIED ABNORMAL FINDINGS OF BLOOD CHEMISTRY (5) Right lower lobe pneumonia Current Visit: Yes Status: Acute Assessment & Plan: -CT chest negative for PE demonstrating New patchy bilateral consolidating/nonconsolidating airspace disease. suspicious for Covid 19 pneumonia -Procal elevated -Ceftriaxone/azithromycin 05/18: -Continue ceftriaxone/azithromycin -oxymizer now at 6L -Pulm consult pending 05/19: -Oxymizer now at 5L -Solumedrol d/cd Code(s): J18.9 - PNEUMONIA, UNSPECIFIED ORGANISM (6) Diabetes mellitus Current Visit: Yes Status: Acute Assessment & Plan: -ADA diet -A1c 9.5 -Home insulin, will hold metformin during IP, may want scan -Add high dose SSI 05/18/23: -Unable to control blood glucose levels, patient was placed on insulin drip 05/19/23: -Blood glucose levels stabilizing, drip d/cd Code(s): E11.9 - TYPE 2 DIABETES MELLITUS WITHOUT COMPLICATIONS (7) Hyponatremia Current Visit: Yes Status: Acute Assessment & Plan: -In the setting of hyperglycemia, most likely psuedohyponatremia, should correct as blood glucose levels normalize Code(s): E87.1 - HYPO-OSMOLALITY AND HYPONATREMIA #HYpermagnesemia -Mag at 2.7, will hold his daily calcium carbonate, continue to monitor I spent 35 minutes [id number] with the patient on the day of discharge performing discharge exam, discussing hospital stay and discharge instructions with patient and caregivers, preparation of discharge records, prescriptions & referral forms and addressing any questions/concerns the patient had as documented above. - Vitals & Intake/Output Vital Signs: Vital Signs Temperature 97 F 05/20/23 04:00 Pulse Rate 68 05/20/23 04:00 Respiratory Rate 22 05/20/23 04:00 Blood Pressure 178/88 05/20/23 04:00 O2 Sat by Pulse Oximetry 94 L 05/20/23 04:00 Intake & Output: Intake & Output 05/17/23 05/18/23 05/19/23 05/20/23 11:59 11:59 11:59 11:59 Intake Total 120 1628 1600 1420 Output Total 1175 Balance 120 2649 341 0995 Weight 147.9 kg 149.5 kg 149.5 kg - Lab Result Diagrams: 05/20/23 04:16 05/20/23 04:16 Lab Results-Last 24 Hrs: Lab Results-Last 24 Hours 05/19/23 05/19/23 05/19/23 Range/Units 04:14 04:14 07:23 WBC 12.0 H (4.0-10.5) x10^3/uL RBC 4.63 (4.1-5.6) x10^6/uL Hgb 13.6 (12.5-18.0) g/dL Hct 43.7 (42-50) % MCV 94.4 (78-100) fL MCH 29.4 (26-32) pg MCHC 31.1 L (32-36) g/dL Plt Count 198 (150-450) x10^3/uL MPV 11.9 H (7.5-11.0) fL Sodium 136 L (137-145) mmol/L Potassium 4.0 (3.5-5.1) mmol/L Chloride 99 (98-107) mmol/L Carbon Dioxide 29 (22-30) mmol/L Anion Gap 12.2 (5-15) MEQ/L BUN 46 H (9-20) mg/dL Creatinine 0.97 (0.66-1.25) mg/dL Estimated GFR 88.8 ML/MIN Glucose 272 H (74-106) mg/dL POC Glucometer 209 H (74 to 106) mg/dL Calcium 8.7 (8.4-10.2) mg/dL Magnesium 2.7 H (1.6-2.3) mg/dL Total Bilirubin 0.60 (0.2-1.3) mg/dL AST 47 (17-59) U/L ALT 57 H (0-50) U/L Alkaline Phosphatase 84 (38-126) U/L Serum Total Protein 6.8 (6.3-8.2) g/dL Albumin 3.6 (3.5-5.0) g/dL Slides for Path Review NO 05/19/23 05/19/23 05/19/23 Range/Units 11:31 16:15 20:24 WBC (4.0-10.5) x10^3/uL RBC (4.1-5.6) x10^6/uL Hgb (12.5-18.0) g/dL Hct (42-50) % MCV (78-100) fL MCH (26-32) pg MCHC (32-36) g/dL Plt Count (150-450) x10^3/uL MPV (7.5-11.0) fL Sodium (137-145) mmol/L Potassium (3.5-5.1) mmol/L Chloride (98-107) mmol/L Carbon Dioxide (22-30) mmol/L Anion Gap (5-15) MEQ/L BUN (9-20) mg/dL Creatinine (0.66-1.25) mg/dL Estimated GFR ML/MIN Glucose (74-106) mg/dL POC Glucometer 295 H 235 H 130 H (74 to 106) mg/dL Calcium (8.4-10.2) mg/dL Magnesium (1.6-2.3) mg/dL Total Bilirubin (0.2-1.3) mg/dL AST (17-59) U/L ALT (0-50) U/L Alkaline Phosphatase (38-126) U/L Serum Total Protein (6.3-8.2) g/dL Albumin (3.5-5.0) g/dL Slides for Path Review Micro Results-Entire Visit: Accuchecks Date 05/20/23 Date 05/19/23 Time 21:00 Time 16:24 - Procedures and Test Procedures and Tests throughout Hospitalization: Therapy Orders & Screens 05/17/23 00:15 Oxygen Oxymizer LPM 10 lpm Comment: Diagnosis: SOB, COPD Exacerbation Respiratory Therapy Assessment DAILY Comment: Diagnosis: SOB, COPD Exacerbation 05/17/23 05:31 EKG ROUTINE Comment: Diagnosis: SOB, COPD Exacerbation <CRIS COOL - Last Filed: 05/20/23 11:02> - Vitals & Intake/Output Vital Signs: Vital Signs Temperature 97.1 F 05/20/23 07:15 Pulse Rate 74 05/20/23 07:15 Respiratory Rate 20 05/20/23 07:15 Blood Pressure 167/78 05/20/23 07:15 O2 Sat by Pulse Oximetry 94 L 05/20/23 07:15 Intake & Output: Intake & Output 05/18/23 05/19/23 05/20/23 05/21/23 11:59 11:59 11:59 11:59 Intake Total 1628 1600 2140 Output Total 1175 Balance 6018 932 8605 Weight 149.5 kg 149.5 kg - Lab Result Diagrams: 05/20/23 04:16 05/20/23 04:16 Lab Results-Last 24 Hrs: Lab Results-Last 24 Hours 05/20/23 05/20/23 05/20/23 Range/Units 04:16 04:16 06:58 WBC 10.1 (4.0-10.5) x10^3/uL RBC 4.74 (4.1-5.6) x10^6/uL Hgb 13.8 (12.5-18.0) g/dL Hct 44.4 (42-50) % MCV 93.7 (78-100) fL MCH 29.1 (26-32) pg MCHC 31.1 L (32-36) g/dL RDW 13.7 (11.5-14.0) % Plt Count 210 (150-450) x10^3/uL MPV 11.4 H (7.5-11.0) fL Sodium 137 (137-145) mmol/L Potassium 3.7 (3.5-5.1) mmol/L Chloride 99 (98-107) mmol/L Carbon Dioxide 32 H (22-30) mmol/L Anion Gap 10.0 (5-15) MEQ/L BUN 26 H (9-20) mg/dL Creatinine 0.71 (0.66-1.25) mg/dL Estimated GFR 104.4 ML/MIN Glucose 66 L (74-106) mg/dL POC Glucometer 68 L (74 to 106) mg/dL Calcium 8.8 (8.4-10.2) mg/dL Magnesium 2.4 H (1.6-2.3) mg/dL Total Bilirubin 0.50 (0.2-1.3) mg/dL AST 114 H (17-59) U/L ALT 146 H (0-50) U/L Alkaline Phosphatase 81 (38-126) U/L Serum Total Protein 7.1 (6.3-8.2) g/dL Albumin 3.7 (3.5-5.0) g/dL 05/20/23 05/20/23 Range/Units 07:45 11:07 WBC (4.0-10.5) x10^3/uL RBC (4.1-5.6) x10^6/uL Hgb (12.5-18.0) g/dL Hct (42-50) % MCV (78-100) fL MCH (26-32) pg MCHC (32-36) g/dL RDW (11.5-14.0) % Plt Count (150-450) x10^3/uL MPV (7.5-11.0) fL Sodium (137-145) mmol/L Potassium (3.5-5.1) mmol/L Chloride (98-107) mmol/L Carbon Dioxide (22-30) mmol/L Anion Gap (5-15) MEQ/L BUN (9-20) mg/dL Creatinine (0.66-1.25) mg/dL Estimated GFR ML/MIN Glucose (74-106) mg/dL POC Glucometer 150 H 77 (74 to 106) mg/dL Calcium (8.4-10.2) mg/dL Magnesium (1.6-2.3) mg/dL Total Bilirubin (0.2-1.3) mg/dL AST (17-59) U/L ALT (0-50) U/L Alkaline Phosphatase (38-126) U/L Serum Total Protein (6.3-8.2) g/dL Albumin (3.5-5.0) g/dL Micro Results-Entire Visit: Accuchecks Date 05/20/23 Date 05/20/23 Date 05/20/23 Date 05/20/23 Time 07:48 Time 21:00 - Radiology Exams Ordered Rad Exams-Entire Visit: Radiology Procedures Category Date Time Status CHEST 1 VIEW (PORTABLE) Urgent Exams 05/20/23 09:38 Completed - Procedures and Test Procedures and Tests throughout Hospitalization: Therapy Orders & Screens 05/17/23 00:15 Oxygen Oxymizer LPM 10 lpm Comment: Diagnosis: SOB, COPD Exacerbation Respiratory Therapy Assessment DAILY Comment: Diagnosis: SOB, COPD Exacerbation 05/17/23 05:31 EKG ROUTINE Comment: Diagnosis: SOB, COPD Exacerbation 05/20/23 08:34 Qualify for Home Oxygen TODAY Comment: Diagnosis: SOB, COPD Exacerbation <LUPE DIETRICH - Last Filed: 05/20/23 21:13> Discharge Exam General Appearance: no apparent distress Neurologic Exam: alert, oriented x 3, cooperative Eye Exam: PERRL Ears, Nose, Throat Exam: normal ENT inspection Neck Exam: normal inspection Respiratory Exam: diminished breath sounds, wheezing, other (On RA at rest) Cardiovascular Exam: regular rate/rhythm, normal heart sounds Gastrointestinal/Abdomen Exam: soft, normal bowel sounds Male Genitalia Exam: deferred Rectal Exam: deferred Back Exam: normal inspection Extremity Exam: normal inspection Skin Exam: normal color <CRIS COOL - Last Filed: 05/20/23 11:02> Final Diagnosis/Problem List - Final Discharge Diagnosis/Problem (1) RSV (respiratory syncytial virus pneumonia) Status: Acute Code(s): J12.1 - RESPIRATORY SYNCYTIAL VIRUS PNEUMONIA (2) COPD exacerbation Status: Acute Code(s): J44.1 - CHRONIC OBSTRUCTIVE PULMONARY DISEASE W (ACUTE) EXACERBATION (3) Acute respiratory failure with hypoxia Status: Acute Code(s): J96.01 - ACUTE RESPIRATORY FAILURE WITH HYPOXIA (4) Elevated troponin Status: Acute Code(s): R79.89 - OTHER SPECIFIED ABNORMAL FINDINGS OF BLOOD CHEMISTRY (5) Right lower lobe pneumonia Status: Acute Code(s): J18.9 - PNEUMONIA, UNSPECIFIED ORGANISM (6) Diabetes mellitus Status: Acute Code(s): E11.9 - TYPE 2 DIABETES MELLITUS WITHOUT COMPLICATIONS (7) Hyponatremia Status: Acute Code(s): E87.1 - HYPO-OSMOLALITY AND HYPONATREMIA (8) Hypermagnesemia Status: Acute Code(s): E83.41 - HYPERMAGNESEMIA <CRIS COOL - Last Filed: 05/20/23 11:02> <CRIS COOL - Last Filed: 05/20/23 11:02> <LUPE DIETRICH - Last Filed: 05/20/23 21:13> - Discharge Disposition: Home, Self-Care Condition: Stable Prescriptions: New Budesonide/Formoterol Fumarate [Budesonide-Formoterol 160-4.5] 4.5 mcg IH BID 30 Days #1 inh Albuterol/Ipratropium 3ml Neb* [DUONEB 0.5-3 MG/3 ml Neb] 3 ml IH Q6HPRN PRN 30 Days #120 amp PRN Reason: Shortness Of Breath/Wheezing Methylprednisolone Packet [Medrol Dosepack] 4 mg PO UD #30 packet Cefpodoxime Proxetil 200 mg [Vantin 200 mg] 200 mg PO BID 5 Days #10 tablet Continue Insulin Aspart [NovoLOG Insulin] 47 unit SQ BID Metformin HCl 500 mg [Glucophage 500 MG] 1,000 mg PO BID Allopurinol 100 mg [Zyloprim 100 mg] 300 mg PO DAILY Lisinopril 10 mg [Zestril 10 MG] 20 mg PO BID Insulin Detemir [Levemir] 80 unit SQ BID Aspirin 325 mg PO DAILY Omeprazole [Prilosec] 40 mg PO DAILY Pravastatin Sodium 30 mg PO DAILY Carvedilol 12.5 mg [Coreg 12.5 mg] 3.125 mg PO BID Pyridoxine HCl (Vitamin B6) [Vitamin B-6] 100 mg PO DAILY Piroxicam 20 mg PO DAILY Amlodipine Besylate 10 mg PO DAILY Calcium Carbonate/Vitamin D3 [Oysco 500-Vit D3 200 Tablet] 1 tab PO BID Ezetimibe 10 mg PO DAILY hydroCHLOROthiazide [Hydrochlorothiazide] 25 mg PO DAILY Docusate Sodium [Stool Softener] 100 mg PO BID HydrALAzine HCL 25 MG TAB [Apresoline 25 MG TABLET] 25 mg PO TID Furosemide 40 mg [Lasix 40 MG] 40 mg PO BID Folic Acid 1 mg [Folate 1 mg] 1 mg PO DAILY Potassium Chloride [Klor-Con M20] 20 meq PO DAILY Clonidine HCl 0.1 mg [Clonidine 0.1 mg Tablet] 0.1 mg PO BID Apixaban [Eliquis] 5 mg PO BID Instructions: Pneumonia, Adult (DC), Respiratory Syncytial Virus, Adult (DC), Budesonide and Formoterol, Cefpodoxime, Methylprednisolone Additional Instructions: WEAR 2L/NC AT ALL TIMES AT HOME CALL [facility] AT [phone] WHEN YOU LEAVE [facility] OR WHEN YOU GET HOME SO THEY CAN DELIVER YOUR HOME CONCENTRATOR THEY WILL ALSO DELIVER YOUR NEBULIZER MACHINE. THE MEDICATION IS AT [facility]. YOU NEED TO CHECK YOUR BLOOD SUGARS THREE TIMES A DAY AND BEFORE BEDTIME. NEW GLUCOMETER, TEST STRIPS AND LANCETS CALLED INTO [facility]. Follow up with: BAM KAMARA [NON-STAFF PHY W/O PRIVILEGES] - 05/31/23 9:15 am (established patient) DYLON HANCOCK [ACTIVE STAFF] - 06/09/23 1:00 pm (APPOINTMENT AT THE [facility]. ) KRISTINA MCCLELLAN NP [Primary Care Provider] - 05/27/23 1:00 pm Forms: Discharge Instructions, Work/School Release Form VINCENT Encounter - VINCENT Encounter Attestation VINCENT Encounter Attestation: "PRIMO Cross andhavediscussed pertinent aspects of their care with Cris Cool and agree with the history, physical exam (any modifications based on my personal exam will be noted below), assessment, and plan as outlined in original note. Please see immediately below for my summary of findings and additional assessment and plan along with any meaningful corrections/explanations to the Subjective/Objective portions of the VINCENT note will be noted." My portion of the encounter took place via telemedicine. <LUPE DIETRICH - Last Filed: 05/20/23 21:13>
[2023-05-20 05:32] LABS: ALBUMIN 3.7 g/dL (3.5-5.0); BILIRUBIN,TOTAL 0.5 mg/dL (0.2-1.3); Calcium 8.8 mg/dL (8.4-10.2); Creatinine 1 0.71 mg/dL (0.66-1.25); EST GLOMERULAR FILTRATION RATE 104.4 ML/MIN; MAGNESIUM 2.4 mg/dL (1.6-2.3); Potassium 3.7 mmol/L (3.5-5.1); Total Protein 7.1 g/dL (6.3-8.2)
[2023-05-20 07:16] VITALS: BP 167/78; PULSE 74; RESP 20; TEMP 97.1; O2SAT 94
[2023-05-20] MEDS: Glucophage 500 MG PO SCH (07:59)
[2023-05-20] MEDS: HUMALOG SQ SCH (07:59)
[2023-05-20] MEDS: Lantus Insulin SQ SCH (07:59)
--- NOTE | 2023-05-20 08:46 | CONS ---
CONSULT DATE: 05/19/2023 HISTORY: Lane Brice is a 62-year-old male with history of long standing pulmonary problems, known to me but not followed for the last several years, who has been hospitalized at [facility] with complaints of progressive shortness of breath. The patient came in with shortness of breath approximately of one week duration. He has tested positive for respiratory syncytial virus. In addition, he has been requiring supplemental oxygen. The patient has history of obstructive sleep apnea, has been noncompliant with CPAP. In addition, he was also being evaluated for oxygen in the past but has declined use of the same. At the time of my evaluation, he is sitting comfortably eating a meal. He is able to talk. His oxygen requirements have shown improvement and is currently on 5 liters via nasal cannula. He has cough which has been productive of some mucous. The patient had a CT chest that was negative for pulmonary embolism but did show evidence of pneumonia. PAST MEDICAL HISTORY: Positive for history of chronic obstructive pulmonary disease, history of hypertension, diabetes mellitus, obesity, obstructive sleep apnea, dyslipidemia. He also has history of atrial fibrillation for which he is apparently on Eliquis although the patient is currently in sinus rhythm. PAST SURGICAL HISTORY: No recent surgery. PERSONAL AND SOCIAL HISTORY: He is a former smoker. MEDICATIONS: Medications reviewed. ALLERGIES: CETIRIZINE. NIACIN. PHYSICAL EXAMINATION: This is a middle-aged male sitting comfortably in chair able to carry out a conversation. Vital signs noted. HEENT: Normocephalic. Oral exam is limited. NECK: Short. CVS: First and second heart sounds are normal, regular, rhythmic. RESPIRATORY: Shows significantly diminished breath sounds, scattered rhonchi are heard. ABDOMEN: Obese. EXTREMITIES: Leg edema 1+ is noted. LABORATORY DATA AND TESTS: Labs, x-rays, CT were all reviewed. ASSESSMENT: This is a 62-year-old male admitted with: 1) Acute on chronic hypoxic respiratory failure. 2) Community acquired pneumonia likely viral in nature. 3) Chronic obstructive pulmonary disease with exacerbation. 4) Respiratory syncytial virus infection. 5) History of hypertension, diabetes and other comorbidities as listed above. RECOMMENDATIONS: 1) The patient is showing clinical improvement. 2) Continue to wean supplemental oxygen. It is conceivable that he may require supplemental oxygen upon discharge if he is willing to use the same. 3) He will benefit from noninvasive ventilation but he categorically has declined this in the past. 4) Optimization of medical problems per primary care. 5) Follow up chest x-ray advised upon completion of therapy for resolution of pulmonary infiltrates seen on CT. 6) I will follow up in outpatient setting upon discharge.
[2023-05-20] MEDS: Zetia 10 MG PO SCH (09:23)
[2023-05-20] MEDS: Protonix 40MG Tablet PO SCH (09:23)
[2023-05-20] MEDS: ZYLOPRIM 300 MG PO SCH (09:23)
[2023-05-20] MEDS: CLONIDINE 0.1 MG TABLET PO SCH (09:23)
[2023-05-20] MEDS: NORVASC 5 MG PO SCH (09:24)
[2023-05-20] MEDS: Ecotrin 325 MG PO SCH (09:24)
[2023-05-20] MEDS: Zocor 10MG PO SCH (09:24)
[2023-05-20] MEDS: FOLATE 1 MG PO SCH (09:24)
[2023-05-20] MEDS: ELIQUIS 2.5 MG TABLET PO SCH (09:24)
[2023-05-20] MEDS: Vitamin B-6 (Pyridoxine) 100 MG PO SCH (09:25)
[2023-05-20] MEDS: Apresoline 25 MG TABLET PO SCH (09:25)
[2023-05-20] MEDS: Coreg 3.125 MG PO SCH (09:25)
[2023-05-20] MEDS: Zestril 20 MG PO SCH (09:25)
[2023-05-20] MEDS: ROCEPHIN 1 Gm-D5w 50 ml Bag** 1 G/50 ML IVPB IV SCH (09:30)
[2023-05-20] MEDS: Zithromax 500 MG/ 250 ML NaCl Premix 500 MG/250 ML IVPB IV SCH (09:55)
[2023-05-20] MEDS: Docusate Sodium 100 MG PO SCH (10:10)
--- NOTE | 2023-05-20 10:21 | XRAY ---
Indication: Ammonia. Cough. Short of breath. Comparison: May 16, 2023 Portable chest demonstrates improving/clearing previous right upper and left mid to lower lung infiltrates/atelectasis with minimal residual. New mild right base infiltrate/atelectasis. No large effusion. Heart not enlarged. Bony thorax intact.
== END 2023-05-20 11:37 | disposition home or self-care (01) | DRG 193 ==
LOC: ED 17:02 → OBSVTOIN 19:02 → MED SURG 19:02 → ICU 05-18 16:30 → MED SURG 05-18 16:30
PROVIDERS: ADMIT Internal Medicine; ATTEND Internal Medicine
DX: J12.1 Respiratory syncytial virus pneumonia (principal); J96.01 Acute respiratory failure with hypoxia; J44.1 Chronic obstructive pulmonary disease with (acute) exacerbation; E87.1 Hypo-osmolality and hyponatremia; R79.89 Other specified abnormal findings of blood chemistry; J18.9 Pneumonia, unspecified organism; E11.9 Type 2 diabetes mellitus without complications; E83.41 Hypermagnesemia; I10 Essential (primary) hypertension; E78.5 Hyperlipidemia, unspecified; F17.200 Nicotine dependence, unspecified, uncomplicated; I48.91 Unspecified atrial fibrillation; Z79.01 Long term (current) use of anticoagulants; Z79.899 Other long term (current) drug therapy; Z20.828 Contact with and (suspected) exposure to other viral communicable diseases
CPT/HCPCS: 0241U; 36000; 36415; 36600; 71045; 71260; 80053; 82375; 82803; 82947; 83036; 83735; 84145; 84484; 85025; 85027; 93005; 94640; 94760; 94762; 96365; 99285; 99291; J0456; J0696; J1817; J2920; Q3014; A9270-GY

== ENCOUNTER 2023-09-06 11:05 | Emergency (ER) | payer BC ==
[2023-09-06 11:22] VITALS: RESP 20; TEMP 98.2
--- NOTE | 2023-09-06 11:30 | ERPHSYRPT ---
- History of Present Illness Time Seen by Provider: 09/06/23 11:20 Historian: patient, family Exam Limitations: no limitations Patient Subjective Stated Complaint: PT states "I have had belly pain since wednesday and I called my diabetic dr and he wrote out instructions for the er to do and he wanted me to go to [place] but I am happier coming here." Triage Nursing Assessment: Pt presented alert and oriented x 3, skin pwd. Pt ambulates with an upright steady gait, able to speak in clear full sentences. PT resting comfortably on the bed. Physician History: This is a morbidly obese 63-year-old white male patient who presents with right side abdominal pain for the last 2 to 3 days. The pain worsened this morning. Patient is diabetic and his certified procedural coder wanted him to be seen in the emergency room because of the persistence of the pain and the fact the patient is diabetic. Patient has had a left scrotal surgery in the past but no intra- abdominal surgeries in the past. Patient denies chest pain. Patient denies shortness of breath. He has not had any vomiting or diarrhea symptoms. Patient has multiple medical issues including insulin-dependent diabetes, hyperlipidemia, hypertension, gastroesophageal reflux disease and asthma. Patient is on Eliquis. Timing/Duration: day(s) (2 to 3 days), worse Quality: aching Abdominal Pain Onset Location: RUQ, RLQ Pain Radiation: no radiation Severity of Pain-Max: moderate Severity of Pain-Current: moderate Modifying Factors: Improves With: nothing Associated Symptoms: denies symptoms Previous symptoms: no prior history, no recent treatment Allergies/Adverse Reactions: cetirizine HCl [From Zyrtec] Allergy (Severe, Verified 05/16/23 17:16) Swelling of Face niacin Allergy (Intermediate, Verified 05/16/23 17:16) Hives Home Medications: Allopurinol 100 mg [Zyloprim 100 mg] 300 mg PO DAILY 09/02/12 [History] Insulin Aspart [NovoLOG Insulin] 47 unit SQ BID 09/02/12 [History] Insulin Detemir [Levemir] 80 unit SQ BID 09/02/12 [History] Lisinopril 10 mg [Zestril 10 MG] 20 mg PO BID 09/02/12 [History] Metformin HCl 500 mg [Glucophage 500 MG] 1,000 mg PO BID 09/02/12 [History] Aspirin 325 mg PO DAILY 02/27/14 [History] Omeprazole [Prilosec] 40 mg PO DAILY 02/27/14 [History] Pravastatin Sodium 30 mg PO DAILY 05/29/14 [History] Carvedilol 12.5 mg [Coreg 12.5 mg] 3.125 mg PO BID 11/18/16 [History] Amlodipine Besylate 10 mg PO DAILY 05/27/19 [History] Calcium Carbonate/Vitamin D3 [Oysco 500-Vit D3 200 Tablet] 1 tab PO BID 05/27/19 [History] Docusate Sodium [Stool Softener] 100 mg PO BID 05/27/19 [History] Ezetimibe 10 mg PO DAILY 05/27/19 [History] Piroxicam 20 mg PO DAILY 05/27/19 [History] Pyridoxine HCl (Vitamin B6) [Vitamin B-6] 100 mg PO DAILY 05/27/19 [History] hydroCHLOROthiazide [Hydrochlorothiazide] 25 mg PO DAILY 05/27/19 [History] Apixaban [Eliquis] 5 mg PO BID 05/16/23 [History] Clonidine HCl 0.1 mg [Clonidine 0.1 mg Tablet] 0.1 mg PO BID 05/16/23 [History] Folic Acid 1 mg [Folate 1 mg] 1 mg PO DAILY 05/16/23 [History] Furosemide 40 mg [Lasix 40 MG] 40 mg PO BID 05/16/23 [History] HydrALAzine HCL 25 MG TAB [Apresoline 25 MG TABLET] 25 mg PO TID 05/16/23 [History] Potassium Chloride [Klor-Con M20] 20 meq PO DAILY 05/16/23 [History] Hx Tetanus, Diphtheria Vaccination/Date Given: Yes Hx Influenza Vaccination/Date Given: No Hx Pneumococcal Vaccination/Date Given: No Immunizations Up to Date: No Travel Risk - International Travel Have you traveled outside of the country in past 3 weeks: No - Emerging Infectious Disease Are you exhibiting symptoms associated with any current EIDs: Yes Symptoms: Abdominal Pain - Review of Systems Constitutional: No Symptoms Eyes: No Symptoms Ears, Nose, & Throat: No Symptoms Respiratory: No Symptoms Cardiac: No Symptoms Abdominal/Gastrointestinal: Abdominal Pain (Right-sided), No Nausea, No Vomiting, No Diarrhea, No Constipation, No Appetite Changes Genitourinary Symptoms: No Symptoms Musculoskeletal: No Symptoms Skin: No Symptoms Neurological: No Symptoms Psychological: No Symptoms Endocrine: No Symptoms Hematologic/Lymphatic: No Symptoms Immunological/Allergic: No Symptoms All Other Systems: Reviewed and Negative - Past Medical History Pertinent Past Medical History: Yes Neurological History: No Pertinent History ENT History: No Pertinent History Cardiac History: High Cholesterol, Hypertension Respiratory History: Asthma, Sleep Apnea Endocrine Medical History: Diabetes Type II Musculoskeletal History: Arthritis GI Medical History: No Pertinent History History: No Pertinent History Psycho-Social History: No Pertinent History Male Reproductive Disorders: No Pertinent History Other Medical History: IDDM - Past Surgical History Past Surgical History: Yes Neuro Surgical History: No Pertinent History Cardiac: No Pertinent History Respiratory: No Pertinent History Gastrointestinal: No Pertinent History Genitourinary: No Pertinent History Musculoskeletal: No Pertinent History Male Surgical History: No Pertinent History Other Surgical History: left scrotom surgery Significant Family History: diabetes - Social History Smoking Status: Former smoker How long have you smoked: 50 Exposure to second hand smoke: Yes Alcohol Use: None (quit 1 month ago) Drug Use: none Patient Lives Alone: No - Nursing Vital Signs Nursing Vital Signs: Initial Vital Signs Temperature 98.2 F 09/06/23 11:17 Pulse Rate 79 09/06/23 11:17 Respiratory Rate 20 09/06/23 11:17 Blood Pressure 178/78 09/06/23 11:17 O2 Sat by Pulse Oximetry 95 09/06/23 11:17 Pain Scale Pain Intensity 4 - Physical Exam General Appearance: no apparent distress, alert, anxiety, obese Eye Exam: PERRL/EOMI, eyes nml inspection Ears, Nose, Throat Exam: normal ENT inspection, moist mucous membranes Neck Exam: normal inspection, non-tender, supple Respiratory Exam: normal breath sounds, lungs clear, airway intact, No chest tenderness, No respiratory distress Cardiovascular Exam: regular rate/rhythm, normal heart sounds, normal peripheral pulses Gastrointestinal/Abdomen Exam: soft, normal bowel sounds, tenderness (Mild right-sided tenderness to palpation), guarding (Mild right side to palpation), No pulsatile mass, No rebound Rectal Exam: not done Back Exam: normal inspection, normal range of motion, No CVA tenderness, No vertebral tenderness Extremity Exam: normal inspection, normal range of motion, pelvis stable Neurologic Exam: alert, oriented x 3, cooperative, 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 as tested, normal mood/affect, nml cerebellar function, nml station & gait, sensation nml Skin Exam: normal color, warm, dry Lymphatic Exam: No adenopathy SpO2 Interpretation: normal SpO2: 95 O2 Delivery: Room Air - Course Nursing assessment & vital signs reviewed: Yes Ordered Tests: Active Orders 24 hr Category Date Time Status IV Insertion STAT Care 09/06/23 11:30 Active ABDOMEN AND PELVIS W/0 CONTRAS [CT] Stat Exams 09/06/23 11:30 Completed AMYLASE Stat Lab 09/06/23 11:42 Completed CBC W DIFF Stat Lab 09/06/23 11:42 Completed CMP Stat Lab 09/06/23 11:42 Completed LIPASE Stat Lab 09/06/23 11:42 Completed UA W/RFX UR CULTURE Stat Lab 09/06/23 11:32 Completed Medication Summary Generic Name Dose Route Start Last Admin Trade Name Sang PRN Reason Stop Dose Admin Levofloxacin 500 mg 09/06/23 12:53 Levofloxacin 500 Mg Tablet PO 09/06/23 12:54 STAT ONE Metronidazole 500 mg 09/06/23 12:53 Metronidazole 500 Mg Tablet PO 09/06/23 12:54 STAT ONE Discontinued Medications Generic Name Dose Route Start Last Admin Trade Name Freq PRN Reason Stop Dose Admin Hydromorphone HCl 1 mg 09/06/23 12:22 09/06/23 12:42 Hydromorphone 1 Mg/1ml Inj IV 09/06/23 12:23 1 mg STAT ONE Administration Hydromorphone HCl Confirm 09/06/23 12:38 Hydromorphone 1 Mg/1ml Inj Administered 09/06/23 12:39 Dose 1 mg .ROUTE .STK-MED ONE Sodium Chloride 1,000 mls @ 999 mls/hr 09/06/23 11:30 09/06/23 11:53 Sodium Chloride 0.9% 1000 Ml IV 09/06/23 12:30 999 mls/hr .Q1H1M STA Administration Sodium Chloride Confirm 09/06/23 11:49 Sodium Chloride 0.9% 1000 Ml Administered 09/06/23 11:50 Dose 1,000 mls @ ud .ROUTE .STK-MED ONE Ondansetron HCl 4 mg 09/06/23 12:22 09/06/23 12:40 Ondansetron Hcl 4 Mg/2 Ml Vial IV 09/06/23 12:23 4 mg STAT ONE Administration Ondansetron HCl Confirm 09/06/23 12:38 Ondansetron Hcl 4 Mg/2 Ml Vial Administered 09/06/23 12:39 Dose 4 mg .ROUTE .[facility] ONE Lab/Rad Data: Laboratory Result Diagrams 09/06/23 11:42 09/06/23 11:42 Laboratory Results 09/06/23 09/06/23 09/06/23 Range/Units 11:42 11:42 11:32 WBC 14.1 H (4.0-10.5) x10^3/uL RBC 4.66 (4.1-5.6) x10^6/uL Hgb 13.2 (12.5-18.0) g/dL Hct 41.8 L (42-50) % MCV 89.7 (78-100) fL MCH 28.3 (26-32) pg MCHC 31.6 L (32-36) g/dL RDW 13.5 (11.5-14.0) % Plt Count 224 (150-450) x10^3/uL MPV 11.7 H (7.5-11.0) fL Gran % 75.8 H (36.0-66.0) % Immature Gran % (Auto) 0.4 (0.00-0.4) % Nucleat RBC Rel Count 0.0 (0.00-0.1) % Eos # (Auto) 0.21 (0-0.5) x10^3/uL Immature Gran # (Auto) 0.05 H (0.00-0.03) x10^3u/L Absolute Lymphs (auto) 2.03 (1.0-4.6) x10^3/uL Absolute Monos (auto) 1.06 (0.0-1.3) x10^3/uL Absolute Nucleated RBC 0.00 (0.00-0.01) x10^3u/L Lymphocytes % 14.4 L (24.0-44.0) % Monocytes % 7.5 (0.0-12.0) % Eosinophils % 1.5 (0.00-5.0) % Basophils % 0.4 (0.0-0.4) % Absolute Granulocytes 10.68 H (1.4-6.9) x10^3/uL Basophils # 0.06 (0-0.4) x10^3/uL Sodium 139 (135-145) mmol/L Potassium 3.4 L (3.5-5.1) mmol/L Chloride 99 (98-107) mmol/L Carbon Dioxide 33 H (22-30) mmol/L Anion Gap 10.6 (5-15) MEQ/L BUN 21 H (9-20) mg/dL Creatinine 0.95 (0.66-1.25) mg/dL Estimated GFR 90.5 ML/MIN Glucose 272 H (74-106) mg/dL Calcium 9.5 (8.4-10.2) mg/dL Total Bilirubin 0.70 (0.2-1.3) mg/dL AST 24 (17-59) U/L ALT 22 (0-50) U/L Alkaline Phosphatase 103 (38-126) U/L Serum Total Protein 6.9 (6.3-8.2) g/dL Albumin 3.7 (3.5-5.0) g/dL Amylase 62 (30-110) U/L Lipase 119 (23-300) U/L Urine Color Yellow (Yellow) Urine Appearance Clear (Clear) Urine pH 5.0 (4.6-8.0) Ur Specific [place] 1.010 (1.005-1.030) Urine Protein Negative (Negative) Urine Glucose (UA) 100 A (Negative) mg/dL Urine Ketones Negative (Negative) Urine Blood Negative (Negative) Urine Nitrite Negative (Negative) Urine Bilirubin Negative (Negative) Urine Urobilinogen 0.2 (0.2) mg/dL Ur Leukocyte Esterase Negative (Negative) U Hyaline Cast (Auto) NONE SEEN (0-2) /LPF Urine Microscopic RBC 0-2 (0-5) /HPF Urine Microscopic WBC 0-2 (0-5) /HPF Ur Epithelial Cells None Seen (None Seen) /HPF Urine Bacteria None Seen (None Seen) /HPF Urine Culture Reflexed NO (NO) - Progress Progress: improved, pain not gone completely, re-examined Progress Note: 09/06/23 12:32 My medical decision making and the assignment of moderate complexity to this patient's medical issue today is based on review the patient's past medical history, review of the patient's medication list, review of patient drug allergy list, history present illness and physical findings on examination. The workup in this patient includes placement of intravenous line, infusion of normal saline solution, CBC, CMP, amylase, lipase, urinalysis, CT scan of the abdomen pelvis, infusion of Dilaudid and Zofran intravenously. Differential diagnosis includes pancreatitis, diverticulitis, bowel obstruction, cholecystitis/cholelithiasis, acute appendicitis, musculoskeletal abdominal wall pain 09/06/23 12:55 I interpreted the patient's laboratory data results. Patient has a leukocytosis with a left shift. The remainder of the patient's laboratory data results do not show an acute, emergent medical issue. CT scan of the abdomen and pelvis without contrast was interpreted by the radiologist and I reviewed the impression. The impression states new cecal wall thickening with stranding favoring colitis. There are no complications present here. The appendix shows a new appendicolith without appendicitis. There is no evidence of abdominal aortic aneurysm. Counseled pt/family regarding: lab results, diagnosis, need for follow-up, rad results Medical Desision Making - Independent Historian Additional History obtained from: Spouse - Diagnostic Testing Diagnostic test were ordered, analyzed, and reviewed by me: Yes Radiological Interpretation: Reviewed by me, Teleradiologist Report - Risk of complications The pt has a mod risk of morbidity or mortality based on: Need for prescription drug management - Departure Departure Disposition: Home Clinical Impression: Colitis, Leukocytosis Condition: Stable Critical Care Time: No Referrals: KRISTINA MCCLELLAN INTERMEDIATE MANAGER [Primary Care Provider] - Follow up/PCP as directed Additional Instructions: Drink plenty of clear liquids. Take your antibiotics and other medications as prescribed. Call your primary care provider today, 09/06/2023, to make arrangements for follow-up appointment to be seen in the next 3 to 5 days. Prescriptions: Ciprofloxacin [Cipro 500 MG] 500 mg PO BID #14 tablet Metronidazole 500 mg [Flagyl 500 MG] 500 mg PO TID #21 tablet
[2023-09-06] MEDS ORDERED: Sodium Chloride 0.9% 1000 ML 1,000 ML ONE (11:49)
[2023-09-06 11:50] LABS: Absolute Neutrophil Ct (ANC) 10.68 x10^3/uL (1.4-6.9); BASOPHIL % 0.4 % (0.0-0.4); Basophil (Absolute #) 0.06 x10^3/uL (0-0.4); Eosinophil % 1.5 % (0.00-5.0); Eosinophil (Absolute #) 0.21 x10^3/uL (0-0.5); Hematocrit 41.8 % (42-50); Hemoglobin 13.2 g/dL (12.5-18.0); IMMATURE GRAN # 0.05 x10^3u/L (0.00-0.03); IMMATURE GRAN % 0.4 % (0.00-0.4); Lymphocyte (Absolute #) 2.03 x10^3/uL (1.0-4.6); Lymphocytes % 14.4 % (24.0-44.0); Mean Cell Volume 89.7 fL (78-100); Mean Corpuscular Hemoglobin 28.3 pg (26-32); Mean Corpuscular Hgb Concent. 31.6 g/dL (32-36); Mean Platelet Volume 11.7 fL (7.5-11.0); Monocyte (Absolute #) 1.06 x10^3/uL (0.0-1.3); Monocytes % 7.5 % (0.0-12.0); Neutrophil % 75.8 % (36.0-66.0); Platelet Count 224 x10^3/uL (150-450); Red Blood Count 4.66 x10^6/uL (4.1-5.6); Red Cell Distribution Width 13.5 % (11.5-14.0); White Blood Count 14.1 x10^3/uL (4.0-10.5)
[2023-09-06] MEDS: Sodium Chloride 0.9% 1000 ML 1,000 ML IV STA (11:53)
[2023-09-06 12:01] LABS: Appearance Clear (Clear); Bacteria None Seen /HPF (None Seen); Bilirubin Negative (Negative); Blood Negative (Negative); Epithelial Cells None Seen /HPF (None Seen); Glucose, Urine 100 mg/dL (Negative); Hyaline Casts NONE SEEN /LPF (0-2); Ketones Negative (Negative); Leukocyte Esterase Negative (Negative); Nitrite Negative (Negative); Protein,Urine Dip Negative (Negative); RBC 0-2 /HPF (0-5); Urobilinogen 0.2 mg/dL (0.2); WBC 0-2 /HPF (0-5)
[2023-09-06 12:03] LABS: ADD URINE CULTURE? NO (NO)
[2023-09-06 12:07] LABS: ALBUMIN 3.7 g/dL (3.5-5.0); ANION GAP 10.6 MEQ/L (5-15); BILIRUBIN,TOTAL 0.7 mg/dL (0.2-1.3); Calcium 9.5 mg/dL (8.4-10.2); Creatinine 1 0.95 mg/dL (0.66-1.25); EST GLOMERULAR FILTRATION RATE 90.5 ML/MIN; Potassium 3.4 mmol/L (3.5-5.1); Total Protein 6.9 g/dL (6.3-8.2)
[2023-09-06 12:34] VITALS: O2SAT 95
[2023-09-06] MEDS ORDERED: Zofran 4 MG/2 ML VIAL ONE (12:38)
[2023-09-06] MEDS ORDERED: Hydromorphone 1 mg/ml Injection ONE (12:38)
[2023-09-06] MEDS: Zofran 4 MG/2 ML VIAL IV ONE (12:40)
[2023-09-06] MEDS: Hydromorphone 1 mg/ml Injection IV ONE (12:42)
--- NOTE | 2023-09-06 12:45 | XRAY ---
Indication: Right abdomen pain. Multiple contiguous axial images obtained through the abdomen and pelvis without contrast. Comparison: June 20, 2016 Patient body habitus limits exam and does not completely include lateral left abdomen. Lung bases again demonstrate bibasilar subsegmental atelectasis/scarring more than before. Stable small posterior left lower lobe and tiny distal paraesophageal calcified granulomas. No infiltrate or effusion. Heart not enlarged. Noncontrasted stomach and bowel loops appear nonobstructed. Appendix demonstrates new tiny appendicolith without appendicitis. Cecum now demonstrates mild circumferential wall thickening and minimal pericolonic stranding favoring colitis. Ileocecal junction unremarkable. No free fluid/air. Remaining liver, gallbladder, pancreas, spleen, adrenal glands, kidneys, ureters, and bladder are unremarkable for noncontrast exam. Again mild scattered aortoiliac calcifications without AAA. Osseous structures intact again with mild degenerative changes throughout spine and old left lower rib fractures. Impression: 1. Limited exam. 2. New cecal wall thickening with stranding favoring colitis. No complications. 3. New appendicolith without appendicitis. 4. Again chronic findings including arteriosclerotic disease, chronic bony findings, and old granulomatous disease.
[2023-09-06 13:13] VITALS: BP 153/62; PULSE 73
[2023-09-06] MEDS ORDERED: Levofloxacin 500 MG Tablet ONE (13:13)
[2023-09-06] MEDS ORDERED: Flagyl 500 MG ONE (13:13)
[2023-09-06] MEDS: Levofloxacin 500 MG Tablet PO ONE (13:15)
[2023-09-06] MEDS: Flagyl 500 MG PO ONE (13:15)
== END 2023-09-06 13:43 | disposition home or self-care (01) ==
LOC: ED 11:05
DX: K52.9 Noninfective gastroenteritis and colitis, unspecified (principal); D72.829 Elevated white blood cell count, unspecified; R10.9 Unspecified abdominal pain; E11.9 Type 2 diabetes mellitus without complications; E78.5 Hyperlipidemia, unspecified; I10 Essential (primary) hypertension; Z79.4 Long term (current) use of insulin; Z79.84 Long term (current) use of oral hypoglycemic drugs; Z79.01 Long term (current) use of anticoagulants; Z79.899 Other long term (current) drug therapy
CPT/HCPCS: 36000; 36415; 74176; 80053; 81001; 82150; 83690; 85025; 96360; 96374; 96375; 99284; J1170; J2405; A9270-GY

== ENCOUNTER 2023-09-16 08:33 | Emergency (ER) | payer BC ==
[2023-09-16 08:50] VITALS: RESP 18; TEMP 97.1
[2023-09-16] MEDS ORDERED: TORAdol 30 mg Injection ONE (09:07)
[2023-09-16] MEDS ORDERED: Norflex 60 MG/2 ML ONE (09:07)
[2023-09-16] MEDS ORDERED: TYLENOL EXTRA STRENGTH 500 MG ONE (09:08)
[2023-09-16] MEDS: TYLENOL EXTRA STRENGTH 500 MG PO STA (09:11)
[2023-09-16] MEDS: Norflex 60 MG/2 ML IM ONE (09:11)
[2023-09-16 09:45] VITALS: PULSE 75
--- NOTE | 2023-09-16 10:03 | XRAY ---
Indication: Pain. No injury. Multiple contiguous axial images obtained through the lumbar spine. Sagittal and coronal reformatted images obtained. Comparison: September 06, 2023 Axial images again demonstrates mild multilevel endplate spurring, L4-S1 broad-based disc bulge, and mild/moderate bilateral L4-S1 degenerative facet hypertrophy. No acute fracture, suspicious bony lesions, or spinal canal stenosis. Sagittal and coronal reformatted images again demonstrates normal alignment with vertebral body heights/disc spaces maintained. No acute fracture or subluxation. Visualized noncontrasted soft tissues again demonstrates mild scattered aortoiliac calcifications. Impression: No change compared to ER CT exam 2 weeks ago. Stable L4-S1 degenerative changes and arteriosclerotic disease. No new/acute abnormalities.
[2023-09-16 10:17] VITALS: O2SAT 92
--- NOTE | 2023-09-16 10:40 | ERPHSYRPT ---
- History of Present Illness Time Seen by Provider: 09/16/23 09:12 Source: patient Exam Limitations: no limitations Patient Subjective Stated Complaint: pt co lower right back pain for over a week now. states started after using heavy equipment, freeman not have a ride home Triage Nursing Assessment: pt alert, resp easy, skin w/d/p. 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 Also has no loss of bowel or bladder control or perineal numbness. 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 Denies any abdominal pain nausea or vomiting. Patient thinks there is a layer of muscle which is pulled and is requesting some muscle relaxants. Patient reports he has been using lidocaine patches and [id number] medication with no significant relief. Pain is aggravated with activity and is unable to find a comfortable p osition. Allergies/Adverse Reactions: cetirizine HCl [From Zyrtec] Allergy (Severe, Verified 09/16/23 08:41) Swelling of Face niacin Allergy (Intermediate, Verified 09/16/23 08:41) Hives Home Medications: Allopurinol 100 mg [Zyloprim 100 mg] 300 mg PO DAILY 09/02/12 [History] Insulin Aspart [NovoLOG Insulin] 47 unit SQ BID 09/02/12 [History] Insulin Detemir [Levemir] 80 unit SQ BID 09/02/12 [History] Lisinopril 10 mg [Zestril 10 MG] 20 mg PO BID 09/02/12 [History] Metformin HCl 500 mg [Glucophage 500 MG] 1,000 mg PO BID 09/02/12 [History] Aspirin 325 mg PO DAILY 02/27/14 [History] Omeprazole [Prilosec] 40 mg PO DAILY 02/27/14 [History] Pravastatin Sodium 30 mg PO DAILY 05/29/14 [History] Carvedilol 12.5 mg [Coreg 12.5 mg] 3.125 mg PO BID 11/18/16 [History] Amlodipine Besylate 10 mg PO DAILY 05/27/19 [History] Calcium Carbonate/Vitamin D3 [Oysco 500-Vit D3 200 Tablet] 1 tab PO BID 05/27/19 [History] Docusate Sodium [Stool Softener] 100 mg PO BID 05/27/19 [History] Ezetimibe 10 mg PO DAILY 05/27/19 [History] Piroxicam 20 mg PO DAILY 05/27/19 [History] Pyridoxine HCl (Vitamin B6) [Vitamin B-6] 100 mg PO DAILY 05/27/19 [History] hydroCHLOROthiazide [Hydrochlorothiazide] 25 mg PO DAILY 05/27/19 [History] Apixaban [Eliquis] 5 mg PO BID 05/16/23 [History] Clonidine HCl 0.1 mg [Clonidine 0.1 mg Tablet] 0.1 mg PO BID 05/16/23 [History] Folic Acid 1 mg [Folate 1 mg] 1 mg PO DAILY 05/16/23 [History] Furosemide 40 mg [Lasix 40 MG] 40 mg PO BID 05/16/23 [History] HydrALAzine HCL 25 MG TAB [Apresoline 25 MG TABLET] 25 mg PO TID 05/16/23 [History] Potassium Chloride [Klor-Con M20] 20 meq PO DAILY 05/16/23 [History] Hx Tetanus, Diphtheria Vaccination/Date Given: Yes Hx Influenza Vaccination/Date Given: No Hx Pneumococcal Vaccination/Date Given: No Immunizations Up to Date: Yes Travel Risk - International Travel Have you traveled outside of the country in past 3 weeks: No - Emerging Infectious Disease Are you exhibiting symptoms associated with any current EIDs: No Symptoms: Abdominal Pain - Review of Systems Constitutional: No Symptoms Ears, Nose, & Throat: No Symptoms Respiratory: No Symptoms Cardiac: No Symptoms Abdominal/Gastrointestinal: No Symptoms Genitourinary Symptoms: No Symptoms Musculoskeletal: Back Pain Skin: No Symptoms Neurological: No Symptoms Psychological: No Symptoms Endocrine: No Symptoms - Past Medical History Pertinent Past Medical History: Yes Neurological History: No Pertinent History ENT History: No Pertinent History Cardiac History: High Cholesterol, Hypertension Respiratory History: Asthma, Sleep Apnea Endocrine Medical History: Diabetes Type II Musculoskeletal History: Arthritis GI Medical History: No Pertinent History History: No Pertinent History Psycho-Social History: No Pertinent History Male Reproductive Disorders: No Pertinent History Other Medical History: IDDM - Past Surgical History Past Surgical History: Yes Neuro Surgical History: No Pertinent History Cardiac: No Pertinent History Respiratory: No Pertinent History Gastrointestinal: No Pertinent History Genitourinary: No Pertinent History Musculoskeletal: No Pertinent History Male Surgical History: No Pertinent History Other Surgical History: left scrotom surgery Significant Family History: diabetes - Social History Smoking Status: Current every day smoker How long have you smoked: 50 Exposure to second hand smoke: Yes Alcohol Use: None (quit 1 month ago) Drug Use: none Patient Lives Alone: No - Nursing Vital Signs Nursing Vital Signs: Initial Vital Signs Temperature 97.1 F 09/16/23 08:48 Pulse Rate 69 09/16/23 08:48 Respiratory Rate 18 09/16/23 08:48 Blood Pressure 102/45 09/16/23 08:48 O2 Sat by Pulse Oximetry 98 09/16/23 08:48 Pain Scale Pain Intensity [Right Back] 1 Pain Intensity 8 - Physical Exam General Appearance: no apparent distress, alert Eye Exam: PERRL/EOMI Ears, Nose, Throat Exam: normal ENT inspection Neck Exam: normal inspection, non-tender, supple, full range of motion Respiratory Exam: normal breath sounds, lungs clear Cardiovascular Exam: regular rate/rhythm, normal heart sounds Gastrointestinal Exam: soft, normal bowel sounds, No tenderness Back Exam: normal inspection, decreased range of motion, muscle spasm, point tenderness (Right lumbar paraspinal area) Extremity Exam: normal inspection, normal range of motion, pelvis stable Neurologic Exam: alert, oriented x 3, cooperative, 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 as tested Skin Exam: normal color SpO2 Interpretation: normal SpO2: 92 O2 Delivery: Room Air Ordered Tests: Active Orders 24 hr Category Date Time Status LUMBAR SPINE W/O [CT] Stat Exams 09/16/23 09:05 Completed Medication Summary Discontinued Medications Generic Name Dose Route Start Last Admin Trade Name Freq PRN Reason Stop Dose Admin Acetaminophen 500 mg 09/16/23 09:06 09/16/23 09:11 Acetaminophen 500 Mg Tablet PO 09/16/23 09:07 500 mg STAT STA Administration Acetaminophen Confirm 09/16/23 09:08 Acetaminophen 500 Mg Tablet Administered 09/16/23 09:09 Dose 1,000 mg .ROUTE .STK-MED ONE Ketorolac Tromethamine Confirm 09/16/23 09:07 Ketorolac Tromethamine 30 Mg/Ml Inj Administered 09/16/23 09:08 Dose 30 mg .ROUTE .STK-MED ONE Orphenadrine Citrate Confirm 09/16/23 09:07 Orphenadrine Citrate 60 Mg/2 Ml Vial Administered 09/16/23 09:08 Dose 60 mg .ROUTE .STK-MED ONE Orphenadrine Citrate 60 mg 09/16/23 09:06 09/16/23 09:11 Orphenadrine Citrate 60 Mg/2 Ml Vial IM 09/16/23 09:07 60 mg STAT ONE Administration - Progress Progress: improved Progress Note: 09/16/23 10:38 63 years old is evaluated for low back pain for the last few days with negative neuro exam in lower extremities. No other cauda equina symptoms. No direct trauma but repetitive motion related injuries. Has tenderness more on the right lumbar paraspinal area. No significant vertebral tenderness. I have obtained CT lumbar spine which showed some degenerative changes but no acute findings. He is given Norflex, on reevaluation he is feeling much better. I will continue with the Robaxin to go home and recommended outpatient follow-up. Patient does have appointment with his primary care this afternoon. Discussed signs symptoms of worsening needing return to ER which she seems understanding. Stable for discharge. Counseled pt/family regarding: diagnosis, need for follow-up, rad results Medical Desision Making - Diagnostic Testing Diagnostic test were ordered, analyzed, and reviewed by me: Yes Radiological Interpretation: Reviewed by me - Risk of complications The pt has a mod risk of morbidity or mortality based on: Need for prescription drug management - Departure Departure Disposition: Home Clinical Impression: Low back strain Condition: Stable Critical Care Time: No Referrals: KRISTINA MCCLELLAN NP [Primary Care Provider] - Follow up/PCP as directed (As scheduled this afternoon) Instructions: Low Back Pain (DC) Additional Instructions: Follow-up with your primary care for reevaluation. Return to ER for intractable back pain, numbness weakness of lower extremities, loss of bowel or bladder control, saddle anesthesia etc. Prescriptions: Methocarbamol [Robaxin] 750 mg PO Q8HPRN PRN 10 Days #30 tablet PRN Reason: Pain
[2023-09-16 10:56] VITALS: BP 119/51
== END 2023-09-16 11:00 | disposition home or self-care (01) ==
LOC: ED 08:33
DX: S39.012A Strain of muscle, fascia and tendon of lower back, initial encounter (principal); I10 Essential (primary) hypertension; E78.5 Hyperlipidemia, unspecified; E11.9 Type 2 diabetes mellitus without complications; Z79.4 Long term (current) use of insulin; Z79.84 Long term (current) use of oral hypoglycemic drugs; Z79.01 Long term (current) use of anticoagulants; Z79.899 Other long term (current) drug therapy; Z72.0 Tobacco use
CPT/HCPCS: 72131; 96372; 99283; J1885; J2360; A9270-GY

== ENCOUNTER 2024-01-04 17:10 | Inpatient (IN) | payer BC ==
--- NOTE | 2024-01-04 17:30 | ERPHSYRPT ---
- History of Present Illness Time Seen by Provider: 01/04/24 17:27 Source: patient Exam Limitations: no limitations Physician History: 63-year-old male history of hypertension high cholesterol diabetes presents to our ED for evaluation of shortness of breath and swelling of his lower extremities. Symptoms have been progressive over the past several days. No fever no trauma no nausea vomiting or diaphoresis. Patient denies chest pain at this time. Symptoms are progressive symptoms are moderate in intensity. No specific worsening or improving factors. Patient denies a history of the same. Patient reports that he feels as though his body is retaining fluid. Patient voices no other complaints or concerns at this time. Portions of this note were created with voice recognition technology. There may be grammatical, spelling, punctuation or sound alike errors Timing/Duration: today Severity: moderate Modifying Factors: Improves With: nothing Associated Symptoms: denies symptoms Allergies/Adverse Reactions: cetirizine HCl [From Zyrtec] Allergy (Severe, Verified 01/04/24 17:15) Swelling of Face niacin Allergy (Intermediate, Verified 01/04/24 17:15) Hives Home Medications: Allopurinol 100 mg [Zyloprim 100 mg] 300 mg PO DAILY 09/02/12 [History] Lisinopril 10 mg [Zestril 10 MG] 20 mg PO BID 09/02/12 [History] Omeprazole [Prilosec] 40 mg PO DAILY 02/27/14 [History] Pravastatin Sodium 40 mg PO DAILY 05/29/14 [History] Carvedilol 12.5 mg [Coreg 12.5 mg] 3.125 mg PO BID 11/18/16 [History] Amlodipine Besylate 10 mg PO DAILY 05/27/19 [History] Ezetimibe 10 mg PO DAILY 05/27/19 [History] Piroxicam 20 mg PO DAILY 05/27/19 [History] hydroCHLOROthiazide [Hydrochlorothiazide] 25 mg PO DAILY 05/27/19 [History] Apixaban [Eliquis] 5 mg PO BID 05/16/23 [History] Clonidine HCl 0.1 mg [Clonidine 0.1 mg Tablet] 0.1 mg PO BID 05/16/23 [History] Folic Acid 1 mg [Folate 1 mg] 1 mg PO DAILY 05/16/23 [History] Furosemide 40 mg [Lasix 40 MG] 40 mg PO BID 05/16/23 [History] HydrALAzine HCL 25 MG TAB [Apresoline 25 MG TABLET] 25 mg PO Q8H 05/16/23 [History] Potassium Chloride [Klor-Con M20] 20 meq PO DAILY 05/16/23 [History] Aspirin EC 81 mg [Ecotrin 81 mg] 81 mg PO DAILY 01/04/24 [History] Calcium Carbonate/Vitamin D3 [[place] 500-Vit D3 200 Tablet] 1 each PO BID 01/04/24 [History] Docusate Sodium 100 mg [Docusate Sodium 100 MG] 100 mg PO DAILY 01/04/24 [History] Ergocalciferol (Vitamin D2) [Vitamin D2] 1,250 mcg PO UD 01/04/24 [History] Insulin Regular, Human [Humulin R] 1 unit IJ ACHS 01/04/24 [History] Meloxicam 15 mg [Meloxicam 15 MG] 15 mg PO DAILY 01/04/24 [History] [place]-3/Dha/Epa/Fish Oil [Fish Oil 1,000 mg Softgel] 1 each PO DAILY 01/04/24 [History] Thiamine HCl 100 mg [Vitamin B-1 100 mg] 100 mg PO DAILY 01/04/24 [History] Tirzepatide [Mounjaro] 5 mg SQ WEEKLY 01/04/24 [History] lisinopriL [Lisinopril] 20 mg PO BID 01/04/24 [History] Hx Tetanus, Diphtheria Vaccination/Date Given: Yes Hx Influenza Vaccination/Date Given: No Hx Pneumococcal Vaccination/Date Given: No Travel Risk - Emerging Infectious Disease Are you exhibiting symptoms associated with any current EIDs: No Symptoms: Abdominal Pain - Review of Systems Constitutional: No Symptoms, No Fever, No Chills Eyes: No Symptoms Ears, Nose, & Throat: No Symptoms Respiratory: No Symptoms, No Cough, No Dyspnea Cardiac: No Symptoms, No Chest Pain, No Edema, No Syncope Abdominal/Gastrointestinal: No Symptoms, No Abdominal Pain, No Nausea, No Vomiting, No Diarrhea Genitourinary Symptoms: No Symptoms, No Dysuria Musculoskeletal: No Symptoms, No Back Pain, No Neck Pain Skin: No Symptoms, No Rash Neurological: No Symptoms, No Dizziness, No Focal Weakness, No Sensory Changes Psychological: No Symptoms Endocrine: No Symptoms Hematologic/Lymphatic: No Symptoms Immunological/Allergic: No Symptoms All Other Systems: Reviewed and Negative - Past Medical History Pertinent Past Medical History: Yes Neurological History: No Pertinent History ENT History: No Pertinent History Cardiac History: High Cholesterol, Hypertension Respiratory History: Asthma, Sleep Apnea Endocrine Medical History: Diabetes Type II Musculoskeletal History: Arthritis GI Medical History: No Pertinent History History: No Pertinent History Psycho-Social History: No Pertinent History Male Reproductive Disorders: No Pertinent History Other Medical History: IDDM - Past Surgical History Past Surgical History: Yes Neuro Surgical History: No Pertinent History Cardiac: No Pertinent History Respiratory: No Pertinent History Gastrointestinal: No Pertinent History Genitourinary: No Pertinent History Musculoskeletal: No Pertinent History Male Surgical History: No Pertinent History Other Surgical History: left scrotom surgery Significant Family History: diabetes - Social History Smoking Status: Current every day smoker How long have you smoked: 50 Exposure to second hand smoke: Yes Alcohol Use: None (quit 1 month ago) Drug Use: none Patient Lives Alone: No - Social Determinants of Health Will the patient participate in the screening: Yes Do you worry about a steady place to live?: No In the past 12 months,have you had to go without utilities?: No Transportation Issues: No Has anyone in your support network made you feel unsafe?: No Have you or anyone in your house had to go without enough: No - Nursing Vital Signs Nursing Vital Signs: Initial Vital Signs Temperature 98.5 F 01/04/24 17:15 Blood Pressure 162/102 01/04/24 17:15 O2 Sat by Pulse Oximetry 95 01/04/24 17:15 Pain Scale Pain Intensity 0 - Physical Exam General Appearance: no apparent distress, alert Eye Exam: PERRL/EOMI, eyes nml inspection Ears, Nose, Throat Exam: normal ENT inspection, pharynx normal, moist mucous membranes Neck Exam: normal inspection, non-tender, supple, full range of motion Respiratory Exam: normal breath sounds, lungs clear, airway intact, No respiratory distress Cardiovascular Exam: regular rate/rhythm, normal heart sounds, normal peripheral pulses Gastrointestinal/Abdomen Exam: soft, normal bowel sounds, No tenderness, No mass Back Exam: normal inspection, normal range of motion, No CVA tenderness, No vertebral tenderness Extremity Exam: normal inspection, normal range of motion, pelvis stable, other (Bilateral lower extremity 2+ pitting edema) Neurologic Exam: alert, oriented x 3, cooperative, normal mood/affect, nml cere bellar function, nml station & gait, sensation nml, No motor deficits Skin Exam: normal color, warm, dry, No rash Lymphatic Exam: No adenopathy SpO2 Interpretation: normal O2 Delivery: Room Air - Course Nursing assessment & vital signs reviewed: Yes EKG Interpreted by Me: RATE (143), A-fib, NORMAL AXIS, prolonged QT interval, NORMAL QRS - Radiology Exams Chest X-ray Interpretation: Interpreted by me (No acute findings) Ordered Tests: Active Orders 24 hr Category Date Time Status Corporate Counselor STAT Care 01/04/24 17:46 Active EKG-ER Only STAT Care 01/04/24 17:45 Active IV Insertion STAT Care 01/04/24 17:45 Active Pulse Oximetry (ED) STAT Care 01/04/24 17:45 Active CHEST 1 VIEW (PORTABLE) Stat Exams 01/04/24 18:37 Taken CBC W DIFF Stat Lab 01/04/24 17:25 Completed CMP Stat Lab 01/04/24 17:25 Completed D-DIMER QUANTITATIVE Stat Lab 01/04/24 17:25 Completed NT PRO BNPII Stat Lab 01/04/24 17:25 Completed TROPONIN Q4H Lab 01/04/24 17:25 Completed TROPONIN Q4H Lab 01/04/24 22:00 Ordered TROPONIN Q4H Lab 01/05/24 02:00 Ordered UA W/RFX UR CULTURE Stat Lab 01/04/24 17:46 Ordered Transfer Order Routine Transfer 01/04/24 Ordered Medication Summary Generic Name Dose Route Start Last Admin Trade Name Freq PRN Reason Stop Dose Admin Diltiazem HCl 100 mls @ 5 mls/hr 01/04/24 17:24 01/04/24 17:38 Cardizem Drip 100 Mg/100 Ml D5w IV 02/03/24 17:23 5 mg/hr .Q20H PRN 5 mls/hr HEART RATE/ A-FIB Administration Protocol 5 MG/HR Lab/Rad Data: Laboratory Result Diagrams 01/04/24 17:25 01/04/24 17:25 Laboratory Results 08/01/04/24 01/04/24 Range/Units 17:25 17:25 17:25 WBC (4.23-9.07) x10^3/uL RBC (4.63-6.08) x10^6/uL Hgb (13.7-17.5) g/dL Hct (40.1-51.0) % MCV (79.0-92.2) fL MCH (25.7-32.2) pg MCHC (32.3-36.5) g/dL RDW (11.6-14.4) % Plt Count (163-337) x10^3/uL MPV (9.4-12.4) fL Gran % (34.0-67.9) % Immature Gran % (Auto) (0.001-0.429) % Nucleat RBC Rel Count (0.00-0.2) % Eos # (Auto) (0.04-0.54) x10^3/uL Immature Gran # (Auto) (0.001-0.031) x10^3u/L Absolute Lymphs (auto) (1.32-3.57) x10^3/uL Absolute Monos (auto) (0.30-0.82) x10^3/uL Absolute Nucleated RBC (0.00-0.012) x10^3u/L Lymphocytes % (21.8-53.1) % Monocytes % (5.3-12.2) % Eosinophils % (0.8-7.0) % Basophils % (0.2-1.2) % Absolute Granulocytes (1.78-5.38) x10^3/uL Basophils # (0.01-0.08) x10^3/uL D-Dimer 0.26 (0.0-0.50) mg/L Sodium 138 (135-145) mmol/L Potassium 4.4 (3.5-5.1) mmol/L Chloride 100 (98-107) mmol/L Carbon Dioxide 28 (22-30) mmol/L Anion Gap 13.5 (5-15) MEQ/L BUN 23 H (9-20) mg/dL Creatinine 0.89 (0.66-1.25) mg/dL Estimated GFR 96.9 ML/MIN Glucose 221 H (74-106) mg/dL Calcium 10.0 (8.4-10.2) mg/dL Total Bilirubin 0.20 (0.2-1.3) mg/dL AST 35 (17-59) U/L ALT 36 (0-50) U/L Alkaline Phosphatase 106 (38-126) U/L Troponin I 0.012 (0.000-0.033) ng/mL NT-Pro-B Natriuret Pep 70.2 (<300) pg/mL Serum Total Protein 6.7 (6.3-8.2) g/dL Albumin 3.9 (3.5-5.0) g/dL 01/04/24 Range/Units 17:25 WBC 9.8 H (4.23-9.07) x10^3/uL RBC 4.94 (4.63-6.08) x10^6/uL Hgb 13.3 L (13.7-17.5) g/dL Hct 42.8 (40.1-51.0) % MCV 86.6 (79.0-92.2) fL MCH 26.9 (25.7-32.2) pg MCHC 31.1 L (32.3-36.5) g/dL RDW 15.1 H (11.6-14.4) % Plt Count 214 (163-337) x10^3/uL MPV 12.6 H (9.4-12.4) fL Gran % 66.3 (34.0-67.9) % Immature Gran % (Auto) 0.5 H (0.001-0.429) % Nucleat RBC Rel Count 0.0 (0.00-0.2) % Eos # (Auto) 0.31 (0.04-0.54) x10^3/uL Immature Gran # (Auto) 0.05 H (0.001-0.031) x10^3u/L Absolute Lymphs (auto) 2.32 (1.32-3.57) x10^3/uL Absolute Monos (auto) 0.58 (0.30-0.82) x10^3/uL Absolute Nucleated RBC 0.00 (0.00-0.012) x10^3u/L Lymphocytes % 23.6 (21.8-53.1) % Monocytes % 5.9 (5.3-12.2) % Eosinophils % 3.2 (0.8-7.0) % Basophils % 0.5 (0.2-1.2) % Absolute Granulocytes 6.52 H (1.78-5.38) x10^3/uL Basophils # 0.05 (0.01-0.08) x10^3/uL D-Dimer (0.0-0.50) mg/L Sodium (135-145) mmol/L Potassium (3.5-5.1) mmol/L Chloride (98-107) mmol/L Carbon Dioxide (22-30) mmol/L Anion Gap (5-15) MEQ/L BUN (9-20) mg/dL Creatinine (0.66-1.25) mg/dL Estimated GFR ML/MIN Glucose (74-106) mg/dL Calcium (8.4-10.2) mg/dL Total Bilirubin (0.2-1.3) mg/dL AST (17-59) U/L ALT (0-50) U/L Alkaline Phosphatase (38-126) U/L Troponin I (0.000-0.033) ng/mL NT-Pro-B Natriuret Pep (<300) pg/mL Serum Total Protein (6.3-8.2) g/dL Albumin (3.5-5.0) g/dL - Progress Progress: improved Progress Note: 63-year-old male presents to our ED with shortness of breath and leg swelling. EKG reveals A-fib with RVR. Cardizem initiated. Heart rate improved. Patient currently on Eliquis no indication for additional anticoagulation. Laboratory workup otherwise unremarkable. Chest x-ray shows no acute findings. Formal read pending. Patient will require hospitalization for further evaluation and treatment. Plan of care discussed with patient. He agrees to admission General acute hospital for further evaluation and treatment. Complexity problem addressed is moderate acute complicated. No critical care time. Complex of data reviewed and analyzed is extensive. Test ordered chest reviewed results analyzed and correlated clinically with history and physical exam. Risk of complication at risk of morbidity/mortality patient management is high. Patient requires hospitalization for further evaluation and treatment. Vital stable. Time spent to admit patient is approximately 20 minutes. Plan of care established for shared decision making. No social determinants of health present impede follow-up. Patient accepted by Dr. Ocasio at 7:26 PM 01/04/24 19:23 Portions of this note were created with voice recognition technology. There may be grammatical, spelling, punctuation or sound alike errors 01/04/24 19:29 Counseled pt/family regarding: lab results, diagnosis, rad results - Departure Departure Disposition: Observation Clinical Impression: Atrial fibrillation with RVR, SOB (shortness of breath) Condition: Stable Critical Care Time: No Referrals: KRISTINA MCCLELLAN MEASURING CLERK [Primary Care Provider] - Follow up/PCP as directed
[2024-01-04] MEDS: CARDIZEM DRIP 100 MG/100 ML D5W 100 ML IV PRN (17:38)
[2024-01-04 17:57] LABS: Absolute Neutrophil Ct (ANC) 6.52 x10^3/uL (1.78-5.38); BASOPHIL % 0.5 % (0.2-1.2); Basophil (Absolute #) 0.05 x10^3/uL (0.01-0.08); Eosinophil % 3.2 % (0.8-7.0); Eosinophil (Absolute #) 0.31 x10^3/uL (0.04-0.54); Hematocrit 42.8 % (40.1-51.0); Hemoglobin 13.3 g/dL (13.7-17.5); IMMATURE GRAN # 0.05 x10^3u/L (0.001-0.031); IMMATURE GRAN % 0.5 % (0.001-0.429); Lymphocyte (Absolute #) 2.32 x10^3/uL (1.32-3.57); Lymphocytes % 23.6 % (21.8-53.1); Mean Cell Volume 86.6 fL (79.0-92.2); Mean Corpuscular Hemoglobin 26.9 pg (25.7-32.2); Mean Corpuscular Hgb Concent. 31.1 g/dL (32.3-36.5); Mean Platelet Volume 12.6 fL (9.4-12.4); Monocyte (Absolute #) 0.58 x10^3/uL (0.30-0.82); Monocytes % 5.9 % (5.3-12.2); Neutrophil % 66.3 % (34.0-67.9); Platelet Count 214 x10^3/uL (163-337); Red Blood Count 4.94 x10^6/uL (4.63-6.08); Red Cell Distribution Width 15.1 % (11.6-14.4); White Blood Count 9.8 x10^3/uL (4.23-9.07)
[2024-01-04 18:20] LABS: ALBUMIN 3.9 g/dL (3.5-5.0); ANION GAP 13.5 MEQ/L (5-15); BILIRUBIN,TOTAL 0.2 mg/dL (0.2-1.3); Creatinine 1 0.89 mg/dL (0.66-1.25); EST GLOMERULAR FILTRATION RATE 96.9 ML/MIN; NT PRO BNPII 70.2 pg/mL (<300); Potassium 4.4 mmol/L (3.5-5.1); Total Protein 6.7 g/dL (6.3-8.2)
[2024-01-04] MEDS ORDERED: TYLENOL 325 MG PO PRN (21:12)
[2024-01-04] MEDS ORDERED: PHENERGAN 25 MG PO PRN (21:12)
--- NOTE | 2024-01-04 21:27 | PCM.HP ---
History of Present Illness - Chief Complaint Chief Complaint: shortness of breath, leg swelling Date: 01/04/24 History of Present Illness: 63 y/o M with h/o A-fib, HFpEF, DM2, HTN, tobacco and alcohol dependence, here with dyspnea and leg edema. Patient notes that he has a history of A-fib, and had an ablation done a few years ago, but thinks that it has returned because he has been feeling worse for a few weeks. He complains of swelling of his ankles and wrists for the past few weeks, to the point where he can't operate the clutch on his motorcycle. He has also been having worse dyspnea for the same time, with accompanying orthopnea, PND, and early satiety. He has had to sleep in a chair, and he has noticed a 60 lb weight gain in 3 months (his baseline weight is 300 lbs, and he notes he is 360 lbs now). He states his abdomen is very distended and tight. He denies chest pain, nausea, diaphoresis, or numbness. He has been compliant with his medications including his lasix (and HCTZ), and has no changes in his diet. His only recent medication change was fr om Ozempic to Mounjaro three weeks ago because of severe GI side effects. On arrival to the ED, his HR was in the 140s, and he was in A-fib. He was placed on diltiazem drip, and HR is now controlled. He feels a little better now, but remains fatigued, dyspneic, and has to sit up. - Review of Systems Constitutional: Fatigue, No Fever, No Chills, No Malaise, No Night Sweats Eyes: No Vision Changes Ears, Nose, & Throat: No Nose Congestion, No Throat Pain Respiratory: Orthopnea, Short Of Breath, No Cough, No Stridor, No Wheezing Cardiac: Edema, Orthopnea, PND, No Chest Pain, No Palpitations, No Syncope Abdominal/Gastrointestinal: Other (early satiety as per HPI), No Abdominal Pain, No Nausea, No Vomiting, No Diarrhea, No Constipation Genitourinary Symptoms: No Dysuria, No Frequency Neurological: No Focal Weakness, No Sensory Changes Medications & Allergies Home Medications: Home Medication List Allopurinol 100 mg [Zyloprim 100 mg] 300 mg PO DAILY 09/02/12 [History Confirmed 01/04/24] Lisinopril 10 mg [Zestril 10 MG] 20 mg PO BID 09/02/12 [History Confirmed 01/04/24] Omeprazole [Prilosec] 40 mg PO DAILY 02/27/14 [History Confirmed 01/04/24] Pravastatin Sodium 40 mg PO DAILY 05/29/14 [History Confirmed 01/04/24] Carvedilol 12.5 mg [Coreg 12.5 mg] 3.125 mg PO BID 11/18/16 [History Confirmed 01/04/24] Amlodipine Besylate 10 mg PO DAILY 05/27/19 [History Confirmed 01/04/24] Ezetimibe 10 mg PO DAILY 05/27/19 [History Confirmed 01/04/24] Piroxicam 20 mg PO DAILY 05/27/19 [History Confirmed 01/04/24] hydroCHLOROthiazide [Hydrochlorothiazide] 25 mg PO DAILY 05/27/19 [History Confirmed 01/04/24] Apixaban [Eliquis] 5 mg PO BID 05/16/23 [History Confirmed 01/04/24] Clonidine HCl 0.1 mg [Clonidine 0.1 mg Tablet] 0.1 mg PO BID 05/16/23 [History Confirmed 01/04/24] Folic Acid 1 mg [Folate 1 mg] 1 mg PO DAILY 05/16/23 [History Confirmed 01/04/24] Furosemide 40 mg [Lasix 40 MG] 40 mg PO BID 05/16/23 [History Confirmed 01/04/24] HydrALAzine HCL 25 MG TAB [Apresoline 25 MG TABLET] 25 mg PO Q8H 05/16/23 [History Confirmed 01/04/24] Potassium Chloride [Klor-Con M20] 20 meq PO DAILY 05/16/23 [History Confirmed 01/04/24] Aspirin EC 81 mg [Ecotrin 81 mg] 81 mg PO DAILY 01/04/24 [History Confirmed 01/04/24] Calcium Carbonate/Vitamin D3 [[place] 500-Vit D3 200 Tablet] 1 each PO BID 0 01/04/24 [History Confirmed 01/04/24] Docusate Sodium 100 mg [Docusate Sodium 100 MG] 100 mg PO DAILY 01/04/24 [History Confirmed 01/04/24] Ergocalciferol (Vitamin D2) [Vitamin D2] 1,250 mcg PO UD 01/04/24 [History Confirmed 01/04/24] Insulin Regular, Human [Humulin R] 1 unit IJ ACHS 01/04/24 [History Confirmed 01/04/24] Meloxicam 15 mg [Meloxicam 15 MG] 15 mg PO DAILY 01/04/24 [History Confirmed 01/04/24] [place]-3/Dha/Epa/Fish Oil [Fish Oil 1,000 mg Softgel] 1 each PO DAILY 01/04/24 [History Confirmed 01/04/24] Thiamine HCl 100 mg [Vitamin B-1 100 mg] 100 mg PO DAILY 01/04/24 [History Confirmed 01/04/24] Tirzepatide [Mounjaro] 5 mg SQ WEEKLY 01/04/24 [History Confirmed 01/04/24] Allergies/Adverse Reactions: Allergies Allergy/AdvReac Type Severity Reaction Status Date / Time cetirizine HCl [From [facility]] Allergy Severe Swelling Verified 01/04/24 17:15 of Face niacin Allergy Intermediate Hives Verified 01/04/24 17:15 - Past Medical History Past Medical History: Yes Neurological History: Peripheral Neuropathy ENT History: Cataracts Cardiac History: Arrhythmia (A-fib), Congestive Heart Failure (diastolic), High Cholesterol, Hypertension Respiratory History: CHF, Sleep Apnea Endocrine Medical History: Diabetes Type II Musculoskelatal History: Arthritis GI Medical History: No Pertinent History History: No Pertinent History Pyscho-Social History: Anxiety, Depression Male Reproductive Disorders: No Pertinent History Comment: IDDM, ablasion for afib at [place] - Past Surgical History Past Surgical History: Yes Neuro Surgical History: No Pertinent History Cardiac History: Other Respiratory Surgery: No Pertinent History GI Surgical History: No Pertinent History Genitourinary Surgical Hx: No Pertinent History Musculskeletal Surgical Hx: No Pertinent History Male Surgical History: No Pertinent History Other Surgical History: left scrotom surgery, ablasion for afib Significant Family History: diabetes - Social History Smoking Status: Current every day smoker (currently 1/3 pack per day, down from 2 PPD) How long have you smoked: 50 Exposure to second hand smoke: Yes Alcohol: Daily Drug Use: none - Social Determinants of Health Will the patient participate in the screening: Yes Do you worry about a steady place to live?: No Do you have any problems with any of the following?: No known problems In the past 12 months,have you had to go without utilities?: No Have you or anyone in your house had to go without enough: No Transportation Issues: No Has anyone in your support network made you feel unsafe?: No Does the patient want assistance with any of the above?: No - Physical Exam Vital Signs: Vital Signs - 24 hr Temp Pulse Resp BP BP Pulse Ox 01/04/24 20:01 93 H 109/75 93 L 01/04/24 19:46 121 H 152/71 93 L 01/04/24 19:30 115 H 13 149/87 92 L 01/04/24 19:17 110 H 20 120/86 93 L 01/04/24 19:02 88 20 114/87 93 L 01/04/24 18:46 113 H 20 121/97 93 L 01/04/24 18:31 97 H 14 124/78 93 L 01/04/24 18:15 111 H 28 H 149/66 94 L 01/04/24 18:01 113 H 125/68 93 L 01/04/24 17:52 97 01/04/24 17:46 90 21 158/70 94 L 01/04/24 17:37 82 25 H 134/61 95 01/04/24 17:31 129 H 28 H 139/116 94 L 01/04/24 17:16 143 H 28 H 162/102 93 L 01/04/24 17:15 98.5 F 162/102 95 GEN: Sitting up in bed in no acute distress CV: irregularly irregular, HR controlled, no murmurs. Pitting edema in distal hands, legs up to shins PULM: clear to auscultation bilaterally, no work of breathing, on room air ABD: distended but non-tender NEURO: no focal deficits PSYCH: Alert, oriented x3 Results - Labs Lab/Micro Results: Lab Results-Last 24 Hours 01/04/24 01/04/24 01/04/24 Range/Units 17:25 17:25 17:25 WBC 9.8 H (4.23-9.07) x10^3/uL RBC 4.94 (4.63-6.08) x10^6/uL Hgb 13.3 L (13.7-17.5) g/dL Hct 42.8 (40.1-51.0) % MCV 86.6 (79.0-92.2) fL MCH 26.9 (25.7-32.2) pg MCHC 31.1 L (32.3-36.5) g/dL RDW 15.1 H (11.6-14.4) % Plt Count 214 (163-337) x10^3/uL MPV 12.6 H (9.4-12.4) fL Gran % 66.3 (34.0-67.9) % Immature Gran % (Auto) 0.5 H (0.001-0.429) % Nucleat RBC Rel Count 0.0 (0.00-0.2) % Eos # (Auto) 0.31 (0.04-0.54) x10^3/uL Immature Gran # (Auto) 0.05 H (0.001-0.031) x10^3u/L Absolute Lymphs (auto) 2.32 (1.32-3.57) x10^3/uL Absolute Monos (auto) 0.58 (0.30-0.82) x10^3/uL Absolute Nucleated RBC 0.00 (0.00-0.012) x10^3u/L Lymphocytes % 23.6 (21.8-53.1) % Monocytes % 5.9 (5.3-12.2) % Eosinophils % 3.2 (0.8-7.0) % Basophils % 0.5 (0.2-1.2) % Absolute Granulocytes 6.52 H (1.78-5.38) x10^3/uL Basophils # 0.05 (0.01-0.08) x10^3/uL D-Dimer 0.26 (0.0-0.50) mg/L Sodium 138 (135-145) mmol/L Potassium 4.4 (3.5-5.1) mmol/L Chloride 100 (98-107) mmol/L Carbon Dioxide 28 (22-30) mmol/L Anion Gap 13.5 (5-15) MEQ/L BUN 23 H (9-20) mg/dL Creatinine 0.89 (0.66-1.25) mg/dL Estimated GFR 96.9 ML/MIN Glucose 221 H (74-106) mg/dL Calcium 10.0 (8.4-10.2) mg/dL Total Bilirubin 0.20 (0.2-1.3) mg/dL AST 35 (17-59) U/L ALT 36 (0-50) U/L Alkaline Phosphatase 106 (38-126) U/L Troponin I (0.000-0.033) ng/mL NT-Pro-B Natriuret Pep 70.2 (<300) pg/mL Serum Total Protein 6.7 (6.3-8.2) g/dL Albumin 3.9 (3.5-5.0) g/dL 01/04/24 Range/Units 17:25 WBC (4.23-9.07) x10^3/uL RBC (4.63-6.08) x10^6/uL Hgb (13.7-17.5) g/dL Hct (40.1-51.0) % MCV (79.0-92.2) fL MCH (25.7-32.2) pg MCHC (32.3-36.5) g/dL RDW (11.6-14.4) % Plt Count (163-337) x10^3/uL MPV (9.4-12.4) fL Gran % (34.0-67.9) % Immature Gran % (Auto) (0.001-0.429) % Nucleat RBC Rel Count (0.00-0.2) % Eos # (Auto) (0.04-0.54) x10^3/uL Immature Gran # (Auto) (0.001-0.031) x10^3u/L Absolute Lymphs (auto) (1.32-3.57) x10^3/uL Absolute Monos (auto) (0.30-0.82) x10^3/uL Absolute Nucleated RBC (0.00-0.012) x10^3u/L Lymphocytes % (21.8-53.1) % Monocytes % (5.3-12.2) % Eosinophils % (0.8-7.0) % Basophils % (0.2-1.2) % Absolute Granulocytes (1.78-5.38) x10^3/uL Basophils # (0.01-0.08) x10^3/uL D-Dimer (0.0-0.50) mg/L Sodium (135-145) mmol/L Potassium (3.5-5.1) mmol/L Chloride (98-107) mmol/L Carbon Dioxide (22-30) mmol/L Anion Gap (5-15) MEQ/L BUN (9-20) mg/dL Creatinine (0.66-1.25) mg/dL Estimated GFR ML/MIN Glucose (74-106) mg/dL Calcium (8.4-10.2) mg/dL Total Bilirubin (0.2-1.3) mg/dL AST (17-59) U/L ALT (0-50) U/L Alkaline Phosphatase (38-126) U/L Troponin I 0.012 (0.000-0.033) ng/mL NT-Pro-B Natriuret Pep (<300) pg/mL Serum Total Protein (6.3-8.2) g/dL Albumin (3.5-5.0) g/dL - Radiology Impressions Radiology Exams & Impressions: Radiology Procedures Category Date Time Status CHEST 1 VIEW (PORTABLE) Stat Exams 01/04/24 18:37 Taken ECHO W/2D AND DOPPLER [US] Routine Exams 01/04/24 21:14 Ordered CXR - slight haziness bibasilar, perhaps due to body habitus. No clear effusions. No obvious cephalization, but prominence of hilar vessels suggests some pulmonary edema (images reviewed personally.) Assessment/Plan (1) Atrial fibrillation with RVR Current Visit: Yes Status: Acute Assessment & Plan: 63 y/o M with h/o permanent A-fib, HFpEF, DM2, and HTN, here with A-fib with RVR and CHF exacerbation. ## Permanent A-fib, with RVR - uncontrolled on arrival. Unclear if decompensated CHF was cause or effect of the rapid A-fib. Currently rate-controlled on diltiazem drip. - continue Eliquis anticoagulation - d/c home [facility], to buy room to increase his Coreg - increase Coreg to 12.5 BID to help improve rate control - titrate off diltiazem drip as see improvement with oral Coreg - check TTE to ensure no other changes (see below re CHF) ## Acute on chronic diastolic heart failure - with significant diffuse edema, severe orthopnea, abdominal distention. Possibly triggered by uncontrolled A- fib, although could also be the cause of the A-fib exacerbation. Last TTE was in 2013, showed preserved EF. Note, reported dry weight 300 lb; he is currently 55 lb above that. - [facility] - BP control (see below) - patient would benefit from SGLT2 inhibitor; will discuss with patient prior to discharge ## DM2 - poorly controlled; last A1c was 9.8 in June, and random Glc is 221 today. He is on Mounjaro at home and sliding scale insulin. - place on high-dose sliding scale insulin protocol here - patient would benefit from SGLT2 inhibitor given his concomitant HFpEF - check A1c ## Hypertension - BP currently controlled - stopping Norvasc and increasing Coreg to 12.5 BID as above (see A-fib) - continue home clonidine 0.1 BID, Hydralazine 25 q8h, lisinopril 20 BID - will not give home HCTZ; patient also on lasix at home (and here; see above); sequential nephron blockade with loop and DCT diuretics is rarely more beneficial for BP control and carries increased risk of electrolyte abnormalities. ## nicotine dependence - motivated to quit; he has decreased intake from 2 ppd to 0.3 ppd. Currently mainly smokes when he drinks - counseled tobacco cessation, targeting associated habits with his drinking - patient declined nicotine patch while in hospital; stated has no cravings when not drinking ## Alcohol use - improved from prior heavy drinking. No history of withdrawal symptoms. Code Status: Full code Prophylaxis: Eliquis Diet: Carbohydrate controlled Code(s): I48.91 - UNSPECIFIED ATRIAL FIBRILLATION Telemedicine Encounter - Telemedicine Encounter Telemedicine Encounter: "The entirety of this encounter was performed via Telemedicine" This visit was performed using real-time audio and video connection between my location and thepatients locationwith the assistance of a surrogateat the patients location. Written or verbal consent was obtained from the patient/guardian to perform this visit usingsynchrEquitas Holdingstelemedicine technology. Any patient questions regarding the telemedicine interaction were answered.
[2024-01-04 21:54] LABS: Appearance Clear (Clear); Bacteria None Seen /HPF (None Seen); Bilirubin Negative (Negative); Blood Negative (Negative); Epithelial Cells None Seen /HPF (None Seen); Glucose, Urine 500 mg/dL (Negative); Hyaline Casts NONE SEEN /LPF (0-2); Ketones Trace (Negative); Leukocyte Esterase Negative (Negative); Nitrite Negative (Negative); Ph 7.5 (4.6-8.0); Protein,Urine Dip 30 (Negative); RBC 0-2 /HPF (0-5); Specific Gravity 1.025 (1.005-1.030); WBC 0-2 /HPF (0-5)
[2024-01-04 21:57] LABS: ADD URINE CULTURE? NO (NO)
[2024-01-04] MEDS ORDERED: hydroDIURIL 25 MG ONE (22:22)
[2024-01-04] MEDS: Zestril 20 MG PO SCH (22:26)
[2024-01-04] MEDS: ELIQUIS 2.5 MG TABLET PO SCH (22:26)
[2024-01-04] MEDS: CLONIDINE 0.1 MG TABLET PO SCH (22:27)
[2024-01-04] MEDS: Lasix 40 MG/4 ML IV SCH (22:27)
[2024-01-04] MEDS: COREG 12.5 MG PO SCH (22:27)
[2024-01-04] MEDS: Apresoline 25 MG TABLET PO SCH (22:30)
[2024-01-05 02:36] LABS: Hematocrit 42.8 % (40.1-51.0); Hemoglobin 13.3 g/dL (13.7-17.5); Mean Cell Volume 87.7 fL (79.0-92.2); Mean Corpuscular Hemoglobin 27.3 pg (25.7-32.2); Mean Corpuscular Hgb Concent. 31.1 g/dL (32.3-36.5); Mean Platelet Volume 11.5 fL (9.4-12.4); Platelet Count 219 x10^3/uL (163-337); Red Blood Count 4.88 x10^6/uL (4.63-6.08); Red Cell Distribution Width 14.9 % (11.6-14.4); White Blood Count 9.5 x10^3/uL (4.23-9.07)
[2024-01-05 03:07] LABS: ANION GAP 13.1 MEQ/L (5-15); Creatinine 1 0.99 mg/dL (0.66-1.25); EST GLOMERULAR FILTRATION RATE 86.1 ML/MIN; MAGNESIUM 1.7 mg/dL (1.6-2.3); Potassium 3.8 mmol/L (3.5-5.1)
[2024-01-05] MEDS ORDERED: MEDICATION INTERVENTION MC SCH (07:15)
[2024-01-05] MEDS ORDERED: Klor Con PO ONE (08:20)
--- NOTE | 2024-01-05 08:51 | XRAY ---
Indication: Short of breath. Comparison: May 20, 2023 Portable chest demonstrates new right midlung discoid atelectasis/scarring. Remaining heart and lungs unremarkable. Bony thorax intact. No acute findings.
[2024-01-05] MEDS: HUMALOG SQ PRN (08:59)
[2024-01-05] MEDS: Docusate Sodium 100 MG PO SCH (09:50)
[2024-01-05] MEDS: Zetia 10 MG PO SCH (09:51)
[2024-01-05] MEDS: FOLATE 1 MG PO SCH (09:51)
[2024-01-05] MEDS: ECOTRIN 81 MG PO SCH (09:51)
[2024-01-05] MEDS: ZYLOPRIM 300 MG PO SCH (09:51)
[2024-01-05] MEDS: MELOXICAM PO SCH (09:51)
[2024-01-05] MEDS: VITAMIN B-1 100 MG PO SCH (09:52)
[2024-01-05] MEDS: ZOCOR 20MG PO SCH (09:52)
[2024-01-05] MEDS: Klor Con PO SCH (09:52)
[2024-01-05] MEDS: Protonix 40MG Tablet PO SCH (09:53)
[2024-01-05] MEDS ORDERED: hydroDIURIL 25 MG PO SCH (10:00)
[2024-01-05] MEDS ORDERED: ZYLOPRIM 100 MG PO SCH (10:00)
[2024-01-05] MEDS ORDERED: NON-FORMULARY ITEM (Pravastatin Sodium [Pravastatin Sodium] 80 MG Tablet) PO SCH (10:00)
[2024-01-05] MEDS ORDERED: NON-FORMULARY ITEM (Omeprazole [Prilosec] 40 MG Capsule.Dr) PO SCH (10:00)
--- NOTE | 2024-01-05 12:21 | PCM.NOTE ---
Date and Time: 01/05/24 1212 Subjective Assessment: 01/05/24 63 y/o M with h/o A-fib, HFpEF, DM2, HTN, tobacco and alcohol dependence. Admitted with dyspnea, leg edema, and a-fib RVR on 01/04/24. Patient notes that he has a history of A-fib, and had an ablation done a few years ago, but thinks that it has returned because he has been feeling worse for a few weeks. He complains of swelling of his ankles and wrists for the past few weeks, to the point where he can't operate the clutch on his motorcycle. He has also been having worse dyspnea for the same time, with accompanying orthopnea, PND, and early satiety. He has had to sleep in a chair, and he has noticed a 60 lb weight gain in 3 months (his baseline weight is 300 lbs, and he notes he is 360 lbs n ow). He states his abdomen is very distended and tight. He denies chest pain, nausea, diaphoresis, or numbness. He has been compliant with his medications including his lasix (and HCTZ), and has no changes in his diet. His only recent medication change was from Ozempic to Mounjaro three weeks ago because of severe GI side effects. On arrival to the ED, his HR was in the 140s, and he was in A- fib. He was placed on diltiazem drip, and HR is now controlled. He feels a little better now, but remains fatigued, dyspneic, and has to sit up. He is being weaned off the Cardizem gtt. Cardiology consulted. He is on chronic Eliquis for a-fib. Coreg increased by admitting MD to 12.[address] on lasix 80mg BID for anasarca. Will check electrolytes BID. - Review of Systems Constitutional: No Fever, No Chills Eyes: No Symptoms Ears, Nose, & Throat: No Symptoms Respiratory: Short Of Breath, No Cough Cardiac: Edema, No Chest Pain, No Syncope Abdominal/Gastrointestinal: Abdominal Pain (distention), No Nausea, No Vomiting, No Diarrhea Genitourinary Symptoms: No Dysuria Musculoskeletal: No Back Pain, No Neck Pain Skin: No Rash Neurological: No Dizziness, No Focal Weakness, No Sensory Changes Psychological: No Symptoms Endocrine: No Symptoms Hematologic/Lymphatic: No Symptoms Immunological/Allergic: No Symptoms Objective Exam General Appearance: no apparent distress, alert, obese Neurologic Exam: alert, oriented x 3, cooperative, normal mood/affect, nml cerebellar function, sensation nml, No motor deficits Skin Exam: normal color, warm, dry Eye Exam: PERRL, EOMI, eyes nml inspection Ears, Nose, Throat Exam: normal ENT inspection, pharynx normal, moist mucous membranes Neck Exam: normal inspection, non-tender, supple, full range of motion Respiratory Exam: normal breath sounds, lungs clear, No respiratory distress Cardiovascular Exam: normal heart sounds, irregular, edema Gastrointestinal/Abdomen Exam: soft, tenderness, distention, No mass Extremity Exam: normal inspection, normal range of motion, pedal edema, swelling Back Exam: normal inspection, normal range of motion, No CVA tenderness, No vertebral tenderness Male Genitalia Exam: deferred Rectal Exam: deferred Objective Data Vital Signs: Vital Signs - 24 hr Temp Pulse Resp BP BP Pulse Ox 01/05/24 11:31 72 19 126/92 94 L 01/05/24 11:01 90 15 150/77 92 L 01/05/24 10:57 88 13 130/64 93 L 01/05/24 10:30 94 H 21 150/82 92 L 01/05/24 10:01 80 24 127/61 92 L 01/05/24 09:00 98 H 20 151/76 95 01/05/24 08:01 74 21 126/57 94 L 01/05/24 08:00 83 01/05/24 07:30 91 H 22 109/71 01/05/24 07:01 77 18 172/58 92 L 01/05/24 06:45 69 19 145/50 01/05/24 06:31 69 19 141/50 83 L 01/05/24 06:30 69 19 141/50 01/05/24 06:01 71 27 H 141/83 95 01/05/24 06:00 71 27 H 141/83 01/05/24 05:38 71 22 138/46 95 01/05/24 05:30 67 20 156/85 93 L 01/05/24 05:01 79 21 137/60 96 01/05/24 05:00 79 21 137/60 01/05/24 04:32 67 20 150/58 91 L 01/05/24 04:30 67 20 150/58 01/05/24 04:04 68 28 H 116/67 96 01/05/24 04:03 73 26 H 93 L 01/05/24 04:00 68 28 H 116/67 01/05/24 03:44 66 21 140/83 01/05/24 03:31 66 21 140/83 95 01/05/24 03:01 73 25 H 134/72 94 L 01/05/24 02:38 73 25 H 115/92 01/05/24 02:33 75 20 115/82 96 01/05/24 02:22 93/48 01/05/24 02:17 93/48 01/05/24 02:01 97.7 F 67 19 93/48 94 L 01/05/24 01:38 75 16 123/87 01/05/24 01:31 75 16 123/87 97 01/05/24 01:01 77 23 131/71 96 01/05/24 00:38 93 H 26 H 139/68 01/05/24 00:31 93 H 26 H 139/68 92 L 01/05/24 00:01 81 26 H 127/81 01/05/24 00:00 81 01/04/24 23:49 104 H 23 159/73 01/04/24 23:46 75 19 159/73 95 01/04/24 23:38 94 H 21 125/78 01/04/24 23:33 85 27 H 125/78 94 L 01/04/24 23:31 103 H 26 H 141/83 94 L 01/04/24 23:17 108 H 22 174/83 94 L 01/04/24 23:00 95 H 15 173/97 96 01/04/24 22:38 118 H 22 01/04/24 22:10 99 H 17 159/82 94 L 01/04/24 22:02 105 H 15 98 01/04/24 21:38 105 H 16 96 01/04/24 21:05 99 H 24 123/71 01/04/24 21:02 99 H 24 123/71 94 L 01/04/24 20:31 93 H 23 146/73 90 L 01/04/24 20:30 89 24 92 L 01/04/24 20:29 109 H 22 94 L 01/04/24 20:18 97.5 F 113 H 28 H 146/73 92 L 01/04/24 20:01 93 H 109/75 93 L 01/04/24 19:46 121 H 152/71 93 L 01/04/24 19:30 115 H 13 149/87 92 L 01/04/24 19:17 110 H 20 120/86 93 L 01/04/24 19:02 88 20 114/87 93 L 01/04/24 18:46 113 H 20 121/97 93 L 01/04/24 18:31 97 H 14 124/78 93 L 01/04/24 18:15 111 H 28 H 149/66 94 L 01/04/24 18:01 113 H 125/68 93 L 01/04/24 17:52 97 01/04/24 17:46 90 21 158/70 94 L 01/04/24 17:37 82 25 H 134/61 95 01/04/24 17:31 129 H 28 H 139/116 94 L 01/04/24 17:16 143 H 28 H 162/102 93 L 01/04/24 17:15 98.5 F 162/102 95 Pain Assessment - Last Documented Pain Intensity 0 Intake and Output: Intake & Output 01/03/24 01/04/24 01/05/24 01/06/24 11:59 11:59 11:59 11:59 Intake Total 1145 Output Total 3225 Balance -2079 Weight 160.8 kg Lab Results: Lab Results-Last 24 Hours 01/04/24 01/04/24 01/04/24 Range/Units 17:25 17:25 17:25 WBC 9.8 H (4.23-9.07) x10^3/uL RBC 4.94 (4.63-6.08) x10^6/uL Hgb 13.3 L (13.7-17.5) g/dL Hct 42.8 (40.1-51.0) % MCV 86.6 (79.0-92.2) fL MCH 26.9 (25.7-32.2) pg MCHC 31.1 L (32.3-36.5) g/dL RDW 15.1 H (11.6-14.4) % Plt Count 214 (163-337) x10^3/uL MPV 12.6 H (9.4-12.4) fL Gran % 66.3 (34.0-67.9) % Immature Gran % (Auto) 0.5 H (0.001-0.429) % Nucleat RBC Rel Count 0.0 (0.00-0.2) % Eos # (Auto) 0.31 (0.04-0.54) x10^3/uL Immature Gran # (Auto) 0.05 H (0.001-0.031) x10^3u/L Absolute Lymphs (auto) 2.32 (1.32-3.57) x10^3/uL Absolute Monos (auto) 0.58 (0.30-0.82) x10^3/uL Absolute Nucleated RBC 0.00 (0.00-0.012) x10^3u/L Lymphocytes % 23.6 (21.8-53.1) % Monocytes % 5.9 (5.3-12.2) % Eosinophils % 3.2 (0.8-7.0) % Basophils % 0.5 (0.2-1.2) % Absolute Granulocytes 6.52 H (1.78-5.38) x10^3/uL Basophils # 0.05 (0.01-0.08) x10^3/uL D-Dimer 0.26 (0.0-0.50) mg/L Sodium 138 (135-145) mmol/L Potassium 4.4 (3.5-5.1) mmol/L Chloride 100 (98-107) mmol/L Carbon Dioxide 28 (22-30) mmol/L Anion Gap 13.5 (5-15) MEQ/L BUN 23 H (9-20) mg/dL Creatinine 0.89 (0.66-1.25) mg/dL Estimated GFR 96.9 ML/MIN Glucose 221 H (74-106) mg/dL POC Glucometer (74 to 106) mg/dL Hemoglobin A1c (4.5-6.0) % Calcium 10.0 (8.4-10.2) mg/dL Magnesium (1.6-2.3) mg/dL Total Bilirubin 0.20 (0.2-1.3) mg/dL AST 35 (17-59) U/L ALT 36 (0-50) U/L Alkaline Phosphatase 106 (38-126) U/L Troponin I (0.000-0.033) ng/mL NT-Pro-B Natriuret Pep 70.2 (<300) pg/mL Serum Total Protein 6.7 (6.3-8.2) g/dL Albumin 3.9 (3.5-5.0) g/dL Urine Color (Yellow) Urine Appearance (Clear) Urine pH (4.6-8.0) Ur Specific Mammoth (1.005-1.030) Urine Protein (Negative) Urine Glucose (UA) (Negative) mg/dL Urine Ketones (Negative) Urine Blood (Negative) Urine Nitrite (Negative) Urine Bilirubin (Negative) Urine Urobilinogen (0.2) mg/dL Ur Leukocyte Esterase (Negative) U Hyaline Cast (Auto) (0-2) /LPF Urine Microscopic RBC (0-5) /HPF Urine Microscopic WBC (0-5) /HPF Ur Epithelial Cells (None Seen) /HPF Urine Bacteria (None Seen) /HPF Urine Culture Reflexed (NO) 01/04/24 01/04/24 01/04/24 Range/Units 17:25 21:25 21:45 WBC (4.23-9.07) x10^3/uL RBC (4.63-6.08) x10^6/uL Hgb (13.7-17.5) g/dL Hct (40.1-51.0) % MCV (79.0-92.2) fL MCH (25.7-32.2) pg MCHC (32.3-36.5) g/dL RDW (11.6-14.4) % Plt Count (163-337) x10^3/uL MPV (9.4-12.4) fL Gran % (34.0-67.9) % Immature Gran % (Auto) (0.001-0.429) % Nucleat RBC Rel Count (0.00-0.2) % Eos # (Auto) (0.04-0.54) x10^3/uL Immature Gran # (Auto) (0.001-0.031) x10^3u/L Absolute Lymphs (auto) (1.32-3.57) x10^3/uL Absolute Monos (auto) (0.30-0.82) x10^3/uL Absolute Nucleated RBC (0.00-0.012) x10^3u/L Lymphocytes % (21.8-53.1) % Monocytes % (5.3-12.2) % Eosinophils % (0.8-7.0) % Basophils % (0.2-1.2) % Absolute Granulocytes (1.78-5.38) x10^3/uL Basophils # (0.01-0.08) x10^3/uL D-Dimer (0.0-0.50) mg/L Sodium (135-145) mmol/L Potassium (3.5-5.1) mmol/L Chloride (98-107) mmol/L Carbon Dioxide (22-30) mmol/L Anion Gap (5-15) MEQ/L BUN (9-20) mg/dL Creatinine (0.66-1.25) mg/dL Estimated GFR ML/MIN Glucose (74-106) mg/dL POC Glucometer (74 to 106) mg/dL Hemoglobin A1c (4.5-6.0) % Calcium (8.4-10.2) mg/dL Magnesium (1.6-2.3) mg/dL Total Bilirubin (0.2-1.3) mg/dL AST (17-59) U/L ALT (0-50) U/L Alkaline Phosphatase (38-126) U/L Troponin I 0.012 0.014 (0.000-0.033) ng/mL NT-Pro-B Natriuret Pep (<300) pg/mL Serum Total Protein (6.3-8.2) g/dL Albumin (3.5-5.0) g/dL Urine Color Yellow (Yellow) Urine Appearance Clear (Clear) Urine pH 7.5 (4.6-8.0) Ur Specific Mammoth 1.025 (1.005-1.030) Urine Protein 30 (Negative) Urine Glucose (UA) 500 A (Negative) mg/dL Urine Ketones Trace A (Negative) Urine Blood Negative (Negative) Urine Nitrite Negative (Negative) Urine Bilirubin Negative (Negative) Urine Urobilinogen 1.0 A (0.2) mg/dL Ur Leukocyte Esterase Negative (Negative) U Hyaline Cast (Auto) NONE SEEN (0-2) /LPF Urine Microscopic RBC 0-2 (0-5) /HPF Urine Microscopic WBC 0-2 (0-5) /HPF Ur Epithelial Cells None Seen (None Seen) /HPF Urine Bacteria None Seen (None Seen) /HPF Urine Culture Reflexed NO (NO) 01/05/24 01/05/24 01/05/24 Range/Units 02:33 02:33 02:33 WBC 9.5 H (4.23-9.07) x10^3/uL RBC 4.88 (4.63-6.08) x10^6/uL Hgb 13.3 L (13.7-17.5) g/dL Hct 42.8 (40.1-51.0) % MCV 87.7 (79.0-92.2) fL MCH 27.3 (25.7-32.2) pg MCHC 31.1 L (32.3-36.5) g/dL RDW 14.9 H (11.6-14.4) % Plt Count 219 (163-337) x10^3/uL MPV 11.5 (9.4-12.4) fL Gran % (34.0-67.9) % Immature Gran % (Auto) (0.001-0.429) % Nucleat RBC Rel Count (0.00-0.2) % Eos # (Auto) (0.04-0.54) x10^3/uL Immature Gran # (Auto) (0.001-0.031) x10^3u/L Absolute Lymphs (auto) (1.32-3.57) x10^3/uL Absolute Monos (auto) (0.30-0.82) x10^3/uL Absolute Nucleated RBC (0.00-0.012) x10^3u/L Lymphocytes % (21.8-53.1) % Monocytes % (5.3-12.2) % Eosinophils % (0.8-7.0) % Basophils % (0.2-1.2) % Absolute Granulocytes (1.78-5.38) x10^3/uL Basophils # (0.01-0.08) x10^3/uL D-Dimer (0.0-0.50) mg/L Sodium 140 (135-145) mmol/L Potassium 3.8 (3.5-5.1) mmol/L Chloride 100 (98-107) mmol/L Carbon Dioxide 31 H (22-30) mmol/L Anion Gap 13.1 (5-15) MEQ/L BUN 24 H (9-20) mg/dL Creatinine 0.99 (0.66-1.25) mg/dL Estimated GFR 86.1 ML/MIN Glucose 140 H (74-106) mg/dL POC Glucometer (74 to 106) mg/dL Hemoglobin A1c (4.5-6.0) % Calcium 10.0 (8.4-10.2) mg/dL Magnesium 1.7 (1.6-2.3) mg/dL Total Bilirubin (0.2-1.3) mg/dL AST (17-59) U/L ALT (0-50) U/L Alkaline Phosphatase (38-126) U/L Troponin I 0.019 (0.000-0.033) ng/mL NT-Pro-B Natriuret Pep (<300) pg/mL Serum Total Protein (6.3-8.2) g/dL Albumin (3.5-5.0) g/dL Urine Color (Yellow) Urine Appearance (Clear) Urine pH (4.6-8.0) Ur Specific Mammoth (1.005-1.030) Urine Protein (Negative) Urine Glucose (UA) (Negative) mg/dL Urine Ketones (Negative) Urine Blood (Negative) Urine Nitrite (Negative) Urine Bilirubin (Negative) Urine Urobilinogen (0.2) mg/dL Ur Leukocyte Esterase (Negative) U Hyaline Cast (Auto) (0-2) /LPF Urine Microscopic RBC (0-5) /HPF Urine Microscopic WBC (0-5) /HPF Ur Epithelial Cells (None Seen) /HPF Urine Bacteria (None Seen) /HPF Urine Culture Reflexed (NO) 01/05/24 01/05/24 Range/Units 02:33 11:04 WBC (4.23-9.07) x10^3/uL RBC (4.63-6.08) x10^6/uL Hgb (13.7-17.5) g/dL Hct (40.1-51.0) % MCV (79.0-92.2) fL MCH (25.7-32.2) pg MCHC (32.3-36.5) g/dL RDW (11.6-14.4) % Plt Count (163-337) x10^3/uL MPV (9.4-12.4) fL Gran % (34.0-67.9) % Immature Gran % (Auto) (0.001-0.429) % Nucleat RBC Rel Count (0.00-0.2) % Eos # (Auto) (0.04-0.54) x10^3/uL Immature Gran # (Auto) (0.001-0.031) x10^3u/L Absolute Lymphs (auto) (1.32-3.57) x10^3/uL Absolute Monos (auto) (0.30-0.82) x10^3/uL Absolute Nucleated RBC (0.00-0.012) x10^3u/L Lymphocytes % (21.8-53.1) % Monocytes % (5.3-12.2) % Eosinophils % (0.8-7.0) % Basophils % (0.2-1.2) % Absolute Granulocytes (1.78-5.38) x10^3/uL Basophils # (0.01-0.08) x10^3/uL D-Dimer (0.0-0.50) mg/L Sodium (135-145) mmol/L Potassium (3.5-5.1) mmol/L Chloride (98-107) mmol/L Carbon Dioxide (22-30) mmol/L Anion Gap (5-15) MEQ/L BUN (9-20) mg/dL Creatinine (0.66-1.25) mg/dL Estimated GFR ML/MIN Glucose (74-106) mg/dL POC Glucometer 315 H (74 to 106) mg/dL Hemoglobin A1c 8.34 H (4.5-6.0) % Calcium (8.4-10.2) mg/dL Magnesium (1.6-2.3) mg/dL Total Bilirubin (0.2-1.3) mg/dL AST (17-59) U/L ALT (0-50) U/L Alkaline Phosphatase (38-126) U/L Troponin I (0.000-0.033) ng/mL NT-Pro-B Natriuret Pep (<300) pg/mL Serum Total Protein (6.3-8.2) g/dL Albumin (3.5-5.0) g/dL Urine Color (Yellow) Urine Appearance (Clear) Urine pH (4.6-8.0) Ur Specific Mammoth (1.005-1.030) Urine Protein (Negative) Urine Glucose (UA) (Negative) mg/dL Urine Ketones (Negative) Urine Blood (Negative) Urine Nitrite (Negative) Urine Bilirubin (Negative) Urine Urobilinogen (0.2) mg/dL Ur Leukocyte Esterase (Negative) U Hyaline Cast (Auto) (0-2) /LPF Urine Microscopic RBC (0-5) /HPF Urine Microscopic WBC (0-5) /HPF Ur Epithelial Cells (None Seen) /HPF Urine Bacteria (None Seen) /HPF Urine Culture Reflexed (NO) Radiology Exams: Radiology Procedures Category Date Time Status CHEST 1 VIEW (PORTABLE) Stat Exams 01/04/24 18:37 Completed ECHO W/2D AND DOPPLER [US] Routine Exams 01/05/24 08:00 Taken Assessment/Plan (1) Atrial fibrillation with RVR Current Visit: Yes Status: Acute Assessment & Plan: - continue Eliquis anticoagulation - d/c home [facility], to buy room to increase his Coreg - increase Coreg to 12.5 BID to help improve rate control - titrate off diltiazem drip as see improvement with oral Coreg - check TTE to ensure no other changes (see below re CHF) Code(s): I48.91 - UNSPECIFIED ATRIAL FIBRILLATION (2) Acute on chronic diastolic (congestive) heart failure Current Visit: Yes Status: Acute Assessment & Plan: - with significant diffuse edema, severe orthopnea, abdominal distention. Possibly triggered by uncontrolled A-fib, although could also be the cause of the A-fib exacerbation. Last TTE was in 2013, showed preserved EF. Note, reported dry weight 300 lb; he is currently 55 lb above that. - give Lasix 80 mg IV BID for now to diurese - Check electrolytes BID - BP control (see below) - patient would benefit from SGLT2 inhibitor; will discuss with patient prior to discharge Code(s): I50.33 - ACUTE ON CHRONIC DIASTOLIC (CONGESTIVE) HEART FAILURE (3) Diabetes mellitus Current Visit: No Status: Acute Assessment & Plan: poorly controlled; last A1c was 9.8 in June, and random Glc is 221 today. He is on Mounjaro at home and sliding scale insulin. - place on high-dose sliding scale insulin protocol here - patient would benefit from SGLT2 inhibitor given his concomitant HFpEF - A1c 8.34- uncontrolled - Lantus 40 BID started IP Code(s): E11.9 - TYPE 2 DIABETES MELLITUS WITHOUT COMPLICATIONS (4) Hypertension Current Visit: No Status: Acute Qualifiers: Hypertension type: essential hypertension Qualified Code(s): I10 - Essential (primary) hypertension Assessment & Plan: - BP currently controlled - stopping Norvasc and increasing Coreg to 12.5 BID as above (see A-fib) - continue home clonidine 0.1 BID, Hydralazine 25 q8h, lisinopril 20 BID - will not give home HCTZ; patient also on lasix at home (and here; see above); sequential nephron blockade with loop and DCT diuretics is rarely more beneficial for BP control and carries increased risk of electrolyte abnormalities. Code(s): I10 - ESSENTIAL (PRIMARY) HYPERTENSION (5) Nicotine abuse Current Visit: Yes Status: Acute Assessment & Plan: - motivated to quit; he has decreased intake from 2 ppd to 0.3 ppd. Currently mainly smokes when he drinks - counseled tobacco cessation, targeting associated habits with his drinking - patient declined nicotine patch while in hospital; stated has no cravings when not drinking Code(s): Z72.0 - TOBACCO USE (6) Alcohol abuse Current Visit: No Status: Acute Assessment & Plan: - improved from prior heavy drinking. No history of withdrawal symptoms. Prophylaxis: Eliquis PPI: Pantoprazole Diet: Carbohydrate controlled Code status: Full Next of KIN: Rhonda johnson [phone] D/C plan: 2-3 days Code(s): F10.10 - ALCOHOL ABUSE, UNCOMPLICATED
[2024-01-05] MEDS: HUMALOG SQ ONE (12:40)
[2024-01-05 16:19] LABS: ALBUMIN 3.7 g/dL (3.5-5.0); ANION GAP 10.6 MEQ/L (5-15); BILIRUBIN,TOTAL 0.3 mg/dL (0.2-1.3); Creatinine 1 1.17 mg/dL (0.66-1.25); EST GLOMERULAR FILTRATION RATE 70.5 ML/MIN; MAGNESIUM 1.6 mg/dL (1.6-2.3); Potassium 4.4 mmol/L (3.5-5.1); Total Protein 6.7 g/dL (6.3-8.2)
--- NOTE | 2024-01-05 18:20 | PCM.CONS ---
History of Present Illness - Date of Consult Date of Encounter: 01/05/24 Consulting Clerk General: BAM TOPETE MD Requesting Provider: Attending Provider: WIN WALTON MD Primary Care Provider: PCP: KRISTINA MCCLELLAN - Consult Narrative Reason for Consult: CHF HPI: 63 y/o M with h/o A-fib s/p ablation, HFpEF, DM2, HTN, obesity, tobacco and alcohol dependence admitted to the hospital with progression SHOB, NAIR and bilateral LE edema. He has been feeling worse for a few weeks. He complains of swelling of his ankles and wrists for the past few weeks, to the point where he can't operate the clutch on his motorcycle. He thinks he has gained at least 30Ib and his stomach and legs are very tight. He denies chest pain, nausea, diaphoresis, or numbness. He has been compliant with his medications including his lasix (and HCTZ), and has no changes in his diet. On arrival to the ED, his HR was in the 140s, and he was in Afib. He was placed on diltiazem drip, and HR is now controlled. He feels a little better now, but remains fatigued, dyspneic, and has to sit up. cc:: The requesting physician will be sent a copy of the consult. Review of Systems - Review of Systems All systems: as per HPI - Past Medical History Past Medical History: Yes Neurological History: Peripheral Neuropathy ENT History: Cataracts Cardiac History: Arrhythmia (A-fib), Congestive Heart Failure (diastolic), High Cholesterol, Hypertension Respiratory History: CHF, Sleep Apnea Endocrine Medical History: Diabetes Type II Musculoskelatal History: Arthritis GI Medical History: No Pertinent History History: No Pertinent History Pyscho-Social History: Anxiety, Depression Male Reproductive Disorders: No Pertinent History Comment: IDDM, ablasion for afib at [place] - Past Surgical History Past Surgical History: Yes Neuro Surgical History: No Pertinent History Cardiac History: Other Respiratory Surgery: No Pertinent History GI Surgical History: No Pertinent History Genitourinary Surgical Hx: No Pertinent History Musculskeletal Surgical Hx: No Pertinent History Male Surgical History: No Pertinent History Other Surgical History: left scrotom surgery, ablasion for afib Significant Family History: diabetes - Social History Smoking Status: Current every day smoker (currently 1/3 pack per day, down from 2 PPD) How long have you smoked: 50 Exposure to second hand smoke: Yes Alcohol: Daily Drug Use: none - Social Determinants of Health Will the patient participate in the screening: Yes Do you worry about a steady place to live?: No Do you have any problems with any of the following?: No known problems In the past 12 months,have you had to go without utilities?: No Have you or anyone in your house had to go without enough: No Transportation Issues: No Has anyone in your support network made you feel unsafe?: No Does the patient want assistance with any of the above?: No Medications & Allergies Home Medications: Home Medication List Allopurinol 100 mg [Zyloprim 100 mg] 300 mg PO DAILY 09/02/12 [History Confirmed 01/04/24] Lisinopril 10 mg [Zestril 10 MG] 20 mg PO BID 09/02/12 [History Confirmed 01/04/24] Omeprazole [Prilosec] 40 mg PO DAILY 02/27/14 [History Confirmed 01/04/24] Pravastatin Sodium 40 mg PO DAILY 05/29/14 [History Confirmed 01/04/24] Carvedilol 12.5 mg [Coreg 12.5 mg] 3.125 mg PO BID 11/18/16 [History Confirmed 01/04/24] Amlodipine Besylate 10 mg PO DAILY 05/27/19 [History Confirmed 01/04/24] Ezetimibe 10 mg PO DAILY 05/27/19 [History Confirmed 01/04/24] Piroxicam 20 mg PO DAILY 05/27/19 [History Confirmed 01/04/24] hydroCHLOROthiazide [Hydrochlorothiazide] 25 mg PO DAILY 05/27/19 [History Confirmed 01/04/24] Apixaban [Eliquis] 5 mg PO BID 05/16/23 [History Confirmed 01/04/24] Clonidine HCl 0.1 mg [Clonidine 0.1 mg Tablet] 0.1 mg PO BID 05/16/23 [History Confirmed 01/04/24] Folic Acid 1 mg [Folate 1 mg] 1 mg PO DAILY 05/16/23 [History Confirmed 01/04/24] Furosemide 40 mg [Lasix 40 MG] 40 mg PO BID 05/16/23 [History Confirmed 01/04/24] HydrALAzine HCL 25 MG TAB [Apresoline 25 MG TABLET] 25 mg PO Q8H 05/16/23 [History Confirmed 01/04/24] Potassium Chloride [Klor-Con M20] 20 meq PO DAILY 05/16/23 [History Confirmed 01/04/24] Aspirin EC 81 mg [Ecotrin 81 mg] 81 mg PO DAILY 01/04/24 [History Confirmed 01/04/24] Calcium Carbonate/Vitamin D3 [[place]ysco 500-Vit D3 200 Tablet] 1 each PO BID 01/04/24 [History Confirmed 01/04/24] Docusate Sodium 100 mg [Docusate Sodium 100 MG] 100 mg PO DAILY 01/04/24 [History Confirmed 01/04/24] Ergocalciferol (Vitamin D2) [Vitamin D2] 1,250 mcg PO UD 01/04/24 [History Confirmed 01/04/24] Meloxicam 15 mg [Meloxicam 15 MG] 15 mg PO DAILY 01/04/24 [History Confirmed 01/04/24] Hayden-3/Dha/Epa/Fish Oil [Fish Oil 1,000 mg Softgel] 1 each PO DAILY 01/04/24 [History Confirmed 01/04/24] Thiamine HCl 100 mg [Vitamin B-1 100 mg] 100 mg PO DAILY 01/04/24 [History Confirmed 01/04/24] Tirzepatide [Mounjaro] 5 mg SQ WEEKLY 01/04/24 [History Confirmed 01/04/24] Insulin Regular, Human [Humulin R U-500 Kwikpen] 500 unit SQ UD 01/05/24 [History Confirmed 01/05/24] Allergies/Adverse Reactions: Allergies Allergy/AdvReac Type Severity Reaction Status Date / Time cetirizine HCl [From Rust] Allergy Severe Swelling Verified 01/04/24 17:15 of Face niacin Allergy Intermediate Hives Verified 01/04/24 17:15 Exam - Vitals Vital Signs: Vital Signs - 24 hr Temp Pulse Resp BP BP Pulse Ox 01/05/24 17:33 89 13 96 01/05/24 17:01 98 H 20 141/71 95 01/05/24 16:40 100 H 18 95 01/05/24 16:01 97.3 F 100 H 22 105/77 91 L 01/05/24 16:00 99 H 01/05/24 15:30 102 H 22 142/89 93 L 01/05/24 15:01 84 20 123/82 88 L 01/05/24 14:31 97.0 F 98 H 21 122/70 97 01/05/24 14:01 80 22 136/74 94 L 01/05/24 13:31 98 H 23 122/57 93 L 01/05/24 13:01 90 26 H 134/74 97 01/05/24 12:00 80 21 121/81 95 01/05/24 11:31 72 19 126/92 94 L 01/05/24 11:01 90 15 150/77 92 L 01/05/24 10:57 88 13 130/64 93 L 01/05/24 10:30 94 H 21 150/82 92 L 01/05/24 10:01 80 24 127/61 92 L 01/05/24 09:00 98 H 20 151/76 95 01/05/24 08:01 74 21 126/57 94 L 01/05/24 08:00 83 01/05/24 07:30 91 H 22 109/71 01/05/24 07:01 77 18 172/58 92 L 01/05/24 06:45 69 19 145/50 01/05/24 06:31 69 19 141/50 83 L 01/05/24 06:30 69 19 141/50 01/05/24 06:01 71 27 H 141/83 95 01/05/24 06:00 71 27 H 141/83 01/05/24 05:38 71 22 138/46 95 01/05/24 05:30 67 20 156/85 93 L 01/05/24 05:01 79 21 137/60 96 01/05/24 05:00 79 21 137/60 01/05/24 04:32 67 20 150/58 91 L 01/05/24 04:30 67 20 150/58 01/05/24 04:04 68 28 H 116/67 96 01/05/24 04:03 73 26 H 93 L 01/05/24 04:00 68 28 H 116/67 01/05/24 03:44 66 21 140/83 01/05/24 03:31 66 21 140/83 95 01/05/24 03:01 73 25 H 134/72 94 L 01/05/24 02:38 73 25 H 115/92 01/05/24 02:33 75 20 115/82 96 01/05/24 02:22 93/48 01/05/24 02:17 93/48 01/05/24 02:01 97.7 F 67 19 93/48 94 L 01/05/24 01:38 75 16 123/87 01/05/24 01:31 75 16 123/87 97 01/05/24 01:01 77 23 131/71 96 01/05/24 00:38 93 H 26 H 139/68 01/05/24 00:31 93 H 26 H 139/68 92 L 01/05/24 00:01 81 26 H 127/81 01/05/24 00:00 81 01/04/24 23:49 104 H 23 159/73 01/04/24 23:46 75 19 159/73 95 01/04/24 23:38 94 H 21 125/78 01/04/24 23:33 85 27 H 125/78 94 L 01/04/24 23:31 103 H 26 H 141/83 94 L 01/04/24 23:17 108 H 22 174/83 94 L 01/04/24 23:00 95 H 15 173/97 96 01/04/24 22:38 118 H 22 01/04/24 22:10 99 H 17 159/82 94 L 01/04/24 22:02 105 H 15 98 01/04/24 21:38 105 H 16 96 01/04/24 21:05 99 H 24 123/71 01/04/24 21:02 99 H 24 123/71 94 L 01/04/24 20:31 93 H 23 146/73 90 L 01/04/24 20:30 89 24 92 L 01/04/24 20:29 109 H 22 94 L 01/04/24 20:18 97.5 F 113 H 28 H 146/73 92 L 01/04/24 20:01 93 H 109/75 93 L 01/04/24 19:46 121 H 152/71 93 L 01/04/24 19:30 115 H 13 149/87 92 L 01/04/24 19:17 110 H 20 120/86 93 L 01/04/24 19:02 88 20 114/87 93 L 01/04/24 18:46 113 H 20 121/97 93 L 01/04/24 18:31 97 H 14 124/78 93 L 01/04/24 18:15 111 H 28 H 149/66 94 L General:: alert and oriented x 4, mild distress HEENT: PERRLA, EOMI, JVD Cardiovascular Exam: regular rate/rhythm, normal heart sounds Respiratory Exam: diminished breath sounds, crackles/rales SpO2: 96 Gastrointestinal/Abdomen Exam: distention Skin Exam: normal color Extremity Exam: edema, moves all 4 extremities Neurologic: 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 II-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 grossly intact Results Vital Signs: Vital Signs - 24 hr Temp Pulse Resp BP BP Pulse Ox 01/05/24 17:33 89 13 96 01/05/24 17:01 98 H 20 141/71 95 01/05/24 16:40 100 H 18 95 01/05/24 16:01 97.3 F 100 H 22 105/77 91 L 01/05/24 16:00 99 H 01/05/24 15:30 102 H 22 142/89 93 L 01/05/24 15:01 84 20 123/82 88 L 01/05/24 14:31 97.0 F 98 H 21 122/70 97 01/05/24 14:01 80 22 136/74 94 L 01/05/24 13:31 98 H 23 122/57 93 L 01/05/24 13:01 90 26 H 134/74 97 01/05/24 12:00 80 21 121/81 95 01/05/24 11:31 72 19 126/92 94 L 01/05/24 11:01 90 15 150/77 92 L 01/05/24 10:57 88 13 130/64 93 L 01/05/24 10:30 94 H 21 150/82 92 L 01/05/24 10:01 80 24 127/61 92 L 01/05/24 09:00 98 H 20 151/76 95 01/05/24 08:01 74 21 126/57 94 L 01/05/24 08:00 83 01/05/24 07:30 91 H 22 109/71 01/05/24 07:01 77 18 172/58 92 L 01/05/24 06:45 69 19 145/50 01/05/24 06:31 69 19 141/50 83 L 01/05/24 06:30 69 19 141/50 01/05/24 06:01 71 27 H 141/83 95 01/05/24 06:00 71 27 H 141/83 01/05/24 05:38 71 22 138/46 95 01/05/24 05:30 67 20 156/85 93 L 01/05/24 05:01 79 21 137/60 96 01/05/24 05:00 79 21 137/60 01/05/24 04:32 67 20 150/58 91 L 01/05/24 04:30 67 20 150/58 01/05/24 04:04 68 28 H 116/67 96 01/05/24 04:03 73 26 H 93 L 01/05/24 04:00 68 28 H 116/67 01/05/24 03:44 66 21 140/83 01/05/24 03:31 66 21 140/83 95 01/05/24 03:01 73 25 H 134/72 94 L 01/05/24 02:38 73 25 H 115/92 01/05/24 02:33 75 20 115/82 96 01/05/24 02:22 93/48 01/05/24 02:17 93/48 01/05/24 02:01 97.7 F 67 19 93/48 94 L 01/05/24 01:38 75 16 123/87 01/05/24 01:31 75 16 123/87 97 01/05/24 01:01 77 23 131/71 96 01/05/24 00:38 93 H 26 H 139/68 01/05/24 00:31 93 H 26 H 139/68 92 L 01/05/24 00:01 81 26 H 127/81 01/05/24 00:00 81 01/04/24 23:49 104 H 23 159/73 01/04/24 23:46 75 19 159/73 95 01/04/24 23:38 94 H 21 125/78 01/04/24 23:33 85 27 H 125/78 94 L 01/04/24 23:31 103 H 26 H 141/83 94 L 01/04/24 23:17 108 H 22 174/83 94 L 01/04/24 23:00 95 H 15 173/97 96 01/04/24 22:38 118 H 22 01/04/24 22:10 99 H 17 159/82 94 L 01/04/24 22:02 105 H 15 98 01/04/24 21:38 105 H 16 96 01/04/24 21:05 99 H 24 123/71 01/04/24 21:02 99 H 24 123/71 94 L 01/04/24 20:31 93 H 23 146/73 90 L 01/04/24 20:30 89 24 92 L 01/04/24 20:29 109 H 22 94 L 01/04/24 20:18 97.5 F 113 H 28 H 146/73 92 L 01/04/24 20:01 93 H 109/75 93 L 01/04/24 19:46 121 H 152/71 93 L 01/04/24 19:30 115 H 13 149/87 92 L 01/04/24 19:17 110 H 20 120/86 93 L 01/04/24 19:02 88 20 114/87 93 L 01/04/24 18:46 113 H 20 121/97 93 L 01/04/24 18:31 97 H 14 124/78 93 L 01/04/24 18:15 111 H 28 H 149/66 94 L Pain Assessment - Last Documented Pain Intensity 0 Intake and Output: Intake & Output 01/03/24 01/04/24 01/05/24 01/06/24 11:59 11:59 11:59 11:59 Intake Total 1145 240 Output Total 3225 1425 Balance -2080 -1185 Weight 159.3 kg LAB: I have reviewed the Labs in [employer]. Radiology Exams: Radiology Procedures Category Date Time Status CHEST 1 VIEW (PORTABLE) Stat Exams 01/04/24 18:37 Completed ECHO W/2D AND DOPPLER [US] Routine Exams 01/05/24 08:00 Taken X-ray Interpretation: report reviewed by me - ECHO Echo: image reviewed by me Assessment & Plan (1) Acute on chronic diastolic (congestive) heart failure Current Visit: Yes Status: Acute Assessment & Plan: - pt grossly volume up. C/w IV lasix 80 mg BID. If UOP drops, can also consider lasix drip - Goal net UOP -2 to -3L / day - Monitor I/O, daily weights, electrolytes, renal function - Keep K > 4.0 and Mg > 2.0, within normal limits - C/w BP control with lisinopril, coreg - salt and fluid restriction Code(s): I50.33 - ACUTE ON CHRONIC DIASTOLIC (CONGESTIVE) HEART FAILURE (2) Atrial fibrillation with RVR Current Visit: Yes Status: Acute Assessment & Plan: - now better rate controlled. c/w coreg 12.5 mg PO BID - c/w Eliquis 5 mg PO BID for stroke prevention. May eventually need BRIANNA cardioversion once euvolemic; can be done on an outpatient basis if continues to be rate controlled Code(s): I48.91 - UNSPECIFIED ATRIAL FIBRILLATION (3) Acute respiratory failure with hypoxia Current Visit: No Status: Acute Assessment & Plan: as above Code(s): J96.01 - ACUTE RESPIRATORY FAILURE WITH HYPOXIA - Encounter Encounter: "The entirety of this encounter was performed via Telemedicine using audio and visual "
[2024-01-05] MEDS: Lantus Insulin SQ SCH (22:12)
[2024-01-06 05:01] LABS: Hematocrit 42.9 % (40.1-51.0); Hemoglobin 13.8 g/dL (13.7-17.5); Mean Cell Volume 85.8 fL (79.0-92.2); Mean Corpuscular Hemoglobin 27.6 pg (25.7-32.2); Mean Corpuscular Hgb Concent. 32.2 g/dL (32.3-36.5); Mean Platelet Volume 12.5 fL (9.4-12.4); Platelet Count 244 x10^3/uL (163-337); Red Cell Distribution Width 14.9 % (11.6-14.4); White Blood Count 9.3 x10^3/uL (4.23-9.07)
[2024-01-06 05:28] LABS: ANION GAP 11.5 MEQ/L (5-15); BILIRUBIN,TOTAL 0.4 mg/dL (0.2-1.3); Calcium 10.1 mg/dL (8.4-10.2); Creatinine 1 1.02 mg/dL (0.66-1.25); EST GLOMERULAR FILTRATION RATE 83.1 ML/MIN; MAGNESIUM 1.7 mg/dL (1.6-2.3); Potassium 3.9 mmol/L (3.5-5.1); Total Protein 6.9 g/dL (6.3-8.2)
[2024-01-06] MEDS: Klor Con PO ONE (08:37)
[2024-01-06] MEDS: MAG-OX 400 PO ONE (08:37)
[2024-01-06] MEDS: PATIENT OWN MEDICATION SQ SCH (10:56)
[2024-01-06] MEDS ORDERED: PATIENT OWN MEDICATION SQ SCH (12:00)
--- NOTE | 2024-01-06 12:18 | PCM.NOTE ---
Date and Time: 01/06/24 1203 Subjective Assessment: 01/05/24 63 y/o M with h/o A-fib, HFpEF, DM2, HTN, tobacco and alcohol dependence. Admitted with dyspnea, leg edema, and a-fib RVR on 01/04/24. Patient notes that he has a history of A-fib, and had an ablation done a few years ago, but thinks that it has returned because he has been feeling worse for a few weeks. He complains of swelling of his ankles and wrists for the past few weeks, to the point where he can't operate the clutch on his motorcycle. He has also been having worse dyspnea for the same time, with accompanying orthopnea, PND, and early satiety. He has had to sleep in a chair, and he has noticed a 60 lb weight gain in 3 months (his baseline weight is 300 lbs, and he notes he is 360 lbs now). He states his abdomen is very distended and tight. He denies chest pain, nausea, diaphoresis, or numbness. He has been compliant with his medications including his lasix (and HCTZ), and has no changes in his diet. His only recent medication change was from Ozempic to Mounjaro three weeks ago because of severe GI side effects. On arrival to the ED, his HR was in the 140s, and he was in A-fib. He was placed on diltiazem drip, and HR is now controlled. He feels a little better now, but remains fatigued, dyspneic, and has to sit up. He is being weaned off the Cardizem gtt. Cardiology consulted. He is on chronic Eliquis for a-fib. Coreg increased by admitting MD to 12.[address] on lasix 80mg BID for anasarca. Will check electrolytes BID. 01/06/24 Pt resting in bed. He lost 3kg since yesterday. He had 4350 out yesterday. Edema is improving. He continues to have 3+ pitting edema BLLE. Felix hose applied and legs elevated. Per cardiology recs pt to have 2-3 L off per day, continue lasix. Discussed need for OP sleep study for obstructive sleep apnea and refuses. His brought in U-500 insulin today and this was restarted at home dosing. EF 50-55% per echo results. He is c/o BL hand pain tingling. + phalens sign for carpal tunnel. Gabapentin TID started. He feels this pain is r/t years of [place] motion [place]. HR controlled a-fib. Mg+ and K+ replaced. - Review of Systems Constitutional: No Fever, No Chills Eyes: No Symptoms Ears, Nose, & Throat: No Symptoms Respiratory: Short Of Breath, No Cough Cardiac: Edema (BLLE), No Chest Pain, No Syncope Abdominal/Gastrointestinal: Abdominal Pain, No Nausea, No Vomiting, No Diarrhea Genitourinary Symptoms: No Dysuria Musculoskeletal: Joint Pain (hands), No Back Pain, No Neck Pain Skin: No Rash Neurological: Parasthesia (BL hands), No Dizziness, No Focal Weakness, No Sensory Changes Psychological: No Symptoms Endocrine: No Symptoms Hematologic/Lymphatic: No Symptoms Immunological/Allergic: No Symptoms Objective Exam General Appearance: no apparent distress, alert, obese Neurologic Exam: alert, oriented x 3, cooperative, normal mood/affect, nml cerebellar function, sensation nml, No motor deficits Skin Exam: normal color, warm, dry Eye Exam: PERRL, EOMI, eyes nml inspection Ears, Nose, Throat Exam: normal ENT inspection, pharynx normal, moist mucous membranes Neck Exam: normal inspection, non-tender, supple, full range of motion Respiratory Exam: normal breath sounds, lungs clear, No respiratory distress Cardiovascular Exam: regular rate/rhythm, normal heart sounds Gastrointestinal/Abdomen Exam: soft, No tenderness, No mass Extremity Exam: normal inspection, normal range of motion Back Exam: normal inspection, normal range of motion, No CVA tenderness, No vertebral tenderness Male Genitalia Exam: deferred Rectal Exam: deferred Objective Data Vital Signs: Vital Signs - 24 hr Temp Pulse Resp BP BP Pulse Ox 01/06/24 11:57 96.5 F 61 20 124/62 90 L 01/06/24 07:08 97.1 F 88 19 125/68 93 L 01/06/24 04:16 97.3 F 113 H 18 125/78 90 L 01/06/24 00:00 97.8 F 83 21 123/50 92 L 01/05/24 20:04 97.6 F 88 20 141/75 97 01/05/24 20:00 118 H 01/05/24 19:00 89 21 01/05/24 18:30 95 H 20 01/05/24 18:23 96 01/05/24 18:20 96 H 21 01/05/24 18:10 94 H 18 93 L 01/05/24 18:00 106 H 23 01/05/24 17:33 89 13 96 01/05/24 17:01 98 H 20 141/71 95 01/05/24 16:40 100 H 18 95 01/05/24 16:01 97.3 F 100 H 22 105/77 91 L 01/05/24 16:00 99 H 01/05/24 15:30 102 H 22 142/89 93 L 01/05/24 15:01 84 20 123/82 88 L 01/05/24 14:31 97.0 F 98 H 21 122/70 97 01/05/24 14:01 80 22 136/74 94 L 01/05/24 13:31 98 H 23 122/57 93 L 01/05/24 13:01 90 26 H 134/74 97 Pain Assessment - Last Documented Pain Intensity 8 Intake and Output: Intake & Output 01/04/24 01/05/24 01/06/24 01/07/24 11:59 11:59 11:59 11:59 Intake Total 1145 2040 Output Total 3225 1999 Balance -2079 -1784 Weight 159.3 kg 156.3 kg Lab Results: Lab Results-Last 24 Hours 01/05/24 01/06/24 01/06/24 Range/Units 16:04 04:20 04:20 WBC 9.3 H (4.23-9.07) x10^3/uL RBC 5.00 (4.63-6.08) x10^6/uL Hgb 13.8 (13.7-17.5) g/dL Hct 42.9 (40.1-51.0) % MCV 85.8 (79.0-92.2) fL MCH 27.6 (25.7-32.2) pg MCHC 32.2 L (32.3-36.5) g/dL RDW 14.9 H (11.6-14.4) % Plt Count 244 (163-337) x10^3/uL MPV 12.5 H (9.4-12.4) fL Sodium 135 136 (135-145) mmol/L Potassium 4.4 3.9 (3.5-5.1) mmol/L Chloride 96 L 97 L (98-107) mmol/L Carbon Dioxide 33 H 31 H (22-30) mmol/L Anion Gap 10.6 11.5 (5-15) MEQ/L BUN 29 H 30 H (9-20) mg/dL Creatinine 1.17 1.02 (0.66-1.25) mg/dL Estimated GFR 70.5 83.1 ML/MIN Glucose 321 H 212 H (74-106) mg/dL POC Glucometer (74 to 106) mg/dL Calcium 10.0 10.1 (8.4-10.2) mg/dL Magnesium 1.6 1.7 (1.6-2.3) mg/dL Total Bilirubin 0.30 0.40 (0.2-1.3) mg/dL AST 34 28 (17-59) U/L ALT 34 32 (0-50) U/L Alkaline Phosphatase 96 102 (38-126) U/L Serum Total Protein 6.7 6.9 (6.3-8.2) g/dL Albumin 3.7 4.0 (3.5-5.0) g/dL 01/06/24 Range/Units 11:53 WBC (4.23-9.07) x10^3/uL RBC (4.63-6.08) x10^6/uL Hgb (13.7-17.5) g/dL Hct (40.1-51.0) % MCV (79.0-92.2) fL MCH (25.7-32.2) pg MCHC (32.3-36.5) g/dL RDW (11.6-14.4) % Plt Count (163-337) x10^3/uL MPV (9.4-12.4) fL Sodium (135-145) mmol/L Potassium (3.5-5.1) mmol/L Chloride (98-107) mmol/L Carbon Dioxide (22-30) mmol/L Anion Gap (5-15) MEQ/L BUN (9-20) mg/dL Creatinine (0.66-1.25) mg/dL Estimated GFR ML/MIN Glucose (74-106) mg/dL POC Glucometer 375 H (74 to 106) mg/dL Calcium (8.4-10.2) mg/dL Magnesium (1.6-2.3) mg/dL Total Bilirubin (0.2-1.3) mg/dL AST (17-59) U/L ALT (0-50) U/L Alkaline Phosphatase (38-126) U/L Serum Total Protein (6.3-8.2) g/dL Albumin (3.5-5.0) g/dL Radiology Exams: Radiology Procedures Category Date Time Status CHEST 1 VIEW (PORTABLE) Stat Exams 01/04/24 18:37 Completed ECHO W/2D AND DOPPLER [US] Routine Exams 01/05/24 08:00 Taken Assessment/Plan (1) Atrial fibrillation with RVR Current Visit: Yes Status: Acute Code(s): I48.91 - UNSPECIFIED ATRIAL FIBRILLATION (2) Acute on chronic diastolic (congestive) heart failure Current Visit: Yes Status: Acute Code(s): I50.33 - ACUTE ON CHRONIC DIASTOLIC (CONGESTIVE) HEART FAILURE (3) Diabetes mellitus Current Visit: No Status: Acute Code(s): E11.9 - TYPE 2 DIABETES MELLITUS WITHOUT COMPLICATIONS (4) Hypertension Current Visit: No Status: Acute Qualifiers: Hypertension type: essential hypertension Qualified Code(s): I10 - Essential (primary) hypertension Code(s): I10 - ESSENTIAL (PRIMARY) HYPERTENSION (5) Nicotine abuse Current Visit: Yes Status: Acute Code(s): Z72.0 - TOBACCO USE (6) Alcohol abuse Current Visit: No Status: Acute Assessment & Plan: (1) Atrial fibrillation with RVR Current Visit: Yes Status: Acute Assessment & Plan: - continue Eliquis anticoagulation - d/c home [facility], to buy room to increase his Coreg - increase Coreg to 12.5 BID to help improve rate control - titrate off diltiazem drip as see improvement with oral Coreg - check TTE to ensure no other changes (see below re CHF) 01/05 - Echo EF 50-55% - cardiology note reviewed and agree with plan of care\ - Controlled a-fib now Code(s): I48.91 - UNSPECIFIED ATRIAL FIBRILLATION (2) Acute on chronic diastolic (congestive) heart failure Current Visit: Yes Status: Acute Assessment & Plan: - with significant diffuse edema, severe orthopnea, abdominal distention. Possibly triggered by uncontrolled A-fib, although could also be the cause of the A-fib exacerbation. Last TTE was in 2013, showed preserved EF. Note, reported dry weight 300 lb; he is currently 55 lb above that. - give Lasix 80 mg IV BID for now to diurese - Check electrolytes BID - BP control (see below) - patient would benefit from SGLT2 inhibitor; will discuss with patient prior to discharge 01/05 - continue lasix IV with goal for 2-3 L per day off Code(s): I50.33 - ACUTE ON CHRONIC DIASTOLIC (CONGESTIVE) HEART FAILURE (3) Diabetes mellitus Current Visit: No Status: Acute Assessment & Plan: poorly controlled; last A1c was 9.8 in June, and random Glc is 221 today. He is on Mounjaro at home and sliding scale insulin. - place on high-dose sliding scale insulin protocol here - patient would benefit from SGLT2 inhibitor given his concomitant HFpEF - A1c 8.34- uncontrolled - Lantus 40 BID started IP 01/05 - brought in U-500 insulin- restart at home dosing Code(s): E11.9 - TYPE 2 DIABETES MELLITUS WITHOUT COMPLICATIONS (4) Hypertension Current Visit: No Status: Acute Qualifiers: Hypertension type: essential hypertension Qualified Code(s): I10 - Essential (primary) hypertension Assessment & Plan: - BP currently controlled - stopping Norvasc and increasing Coreg to 12.5 BID as above (see A-fib) - continue home clonidine 0.1 BID, Hydralazine 25 q8h, lisinopril 20 BID - will not give home HCTZ; patient also on lasix at home (and here; see above); sequential nephron blockade with loop and DCT diuretics is rarely more beneficial for BP control and carries increased risk of electrolyte abnormalities. Code(s): I10 - ESSENTIAL (PRIMARY) HYPERTENSION (5) Nicotine abuse Current Visit: Yes Status: Acute Assessment & Plan: - motivated to quit; he has decreased intake from 2 ppd to 0.3 ppd. Currently mainly smokes when he drinks - counseled tobacco cessation, targeting associated habits with his drinking - patient declined nicotine patch while in hospital; stated has no cravings when not drinking Code(s): Z72.0 - TOBACCO USE (6) Alcohol abuse Current Visit: No Status: Acute Assessment & Plan: - improved from prior heavy drinking. No history of withdrawal symptoms. Code(s): F10.10 - ALCOHOL ABUSE, UNCOMPLICATED Code(s): F10.10 - ALCOHOL ABUSE, UNCOMPLICATED (7) Carpal tunnel syndrome on both sides Current Visit: Yes Status: Acute Assessment & Plan: - + phalens - Suggested Op BL wrist braces at night - Likely from repetitive motion at [place] - Gabapentin 300mg TID Code(s): G56.03 - CARPAL TUNNEL SYNDROME, BILATERAL UPPER LIMBS (8) Obstructive sleep apnea Current Visit: Yes Status: Acute Assessment & Plan: - Advised OP sleep study- pt refused - HR drops and causing pauses when sleeps- cardiology re-consulted. Prophylaxis: Eliquis PPI: Pantoprazole Diet: Carbohydrate controlled Code status: Full Next of KIN: Rhonda johnson [phone] D/C plan: 2-3 days Code(s): G47.33 - OBSTRUCTIVE SLEEP APNEA (ADULT) (PEDIATRIC)
[2024-01-06] MEDS: NEURONTIN PO SCH (14:01)
[2024-01-07 05:47] LABS: Hematocrit 41.3 % (40.1-51.0); Hemoglobin 12.6 g/dL (13.7-17.5); Mean Cell Volume 87.5 fL (79.0-92.2); Mean Corpuscular Hemoglobin 26.7 pg (25.7-32.2); Mean Corpuscular Hgb Concent. 30.5 g/dL (32.3-36.5); Mean Platelet Volume 11.9 fL (9.4-12.4); Platelet Count 217 x10^3/uL (163-337); Red Blood Count 4.72 x10^6/uL (4.63-6.08); White Blood Count 10.6 x10^3/uL (4.23-9.07)
[2024-01-07 06:16] LABS: ALBUMIN 3.9 g/dL (3.5-5.0); ANION GAP 12.1 MEQ/L (5-15); BILIRUBIN,TOTAL 0.2 mg/dL (0.2-1.3); Calcium 10.1 mg/dL (8.4-10.2); Creatinine 1 1.16 mg/dL (0.66-1.25); EST GLOMERULAR FILTRATION RATE 71.2 ML/MIN; Potassium 3.9 mmol/L (3.5-5.1); Total Protein 6.9 g/dL (6.3-8.2)
[2024-01-07] MEDS: VITAMIN D2 PO SCH (10:19)
--- NOTE | 2024-01-07 13:52 | PCM.NOTE ---
Date and Time: 01/07/24 1333 Subjective Assessment: 01/05/24 63 y/o M with h/o A-fib, HFpEF, DM2, HTN, tobacco and alcohol dependence. Admitted with dyspnea, leg edema, and a-fib RVR on 01/04/24. Patient notes that he has a history of A-fib, and had an ablation done a few years ago, but thinks that it has returned because he has been feeling worse for a few weeks. He complains of swelling of his ankles and wrists for the past few weeks, to the point where he can't operate the clutch on his motorcycle. He has also been having worse dyspnea for the same time, with accompanying orthopnea, PND, and early satiety. He has had to sleep in a chair, and he has noticed a 60 lb weight gain in 3 months (his baseline weight is 300 lbs, and he notes he is 360 lbs now). He states his abdomen is very distended and tight. He denies chest pain, nausea, diaphoresis, or numbness. He has been compliant with his medications including his lasix (and HCTZ), and has no changes in his diet. His only recent medication change was from Ozempic to Mounjaro three weeks ago because of severe GI side effects. On arrival to the ED, his HR was in the 140s, and he was in A-fib. He was placed on diltiazem drip, and HR is now controlled. He feels a little better now, but remains fatigued, dyspneic, and has to sit up. He is being weaned off the Cardizem gtt. Cardiology consulted. He is on chronic Eliquis for a-fib. Coreg increased by admitting MD to 12.[address] on lasix 80mg BID for anasarca. Will check electrolytes BID. 01/06/24 Pt resting in bed. He lost 3kg since yesterday. He had 4350 out yesterday. Edema is improving. He continues to have 3+ pitting edema BLLE. Rossy hose applied and legs elevated. Per cardiology recs pt to have 2-3 L off per day, continue lasix. Discussed need for OP sleep study for obstructive sleep apnea and refuses. His brought in U-500 insulin today and this was restarted at home dosing. EF 50-55% per echo results. He is c/o BL hand pain tingling. + phalens sign for carpal tunnel. Gabapentin TID started. He feels this pain is r/t [place]. HR controlled a-fib. Mg+ and K+ replaced. 01/07/24 Pt resting in bed. He had a 5kg weight gain since yesterday. He admits to drinking more fluids than he should. Discussed to reduce fluid intake and placed on fluid restriction. Continue Lasix for CHF anasarca. ROSSY mukherjee working well for BLLE edema and this has resolved. Cardiology re-consulted last night as HR dropped and bradycardiac. Beta abhay decreased. HR improved today remains in a-fib but controlled. Coreg to be restarted this afternoon. output not charted last night therefore inaccurate I&O's today. Goal is 2-3L off per day. Pt denies CP, SOB, abd. pain, N/V/D. Pt states he has never weighted this much before and is concerned about how he will do OP. Discussed he will need to f/u with cardiology closely. - Review of Systems Constitutional: No Fever, No Chills Eyes: No Symptoms Ears, Nose, & Throat: No Symptoms Respiratory: Orthopnea, No Cough, No Short Of Breath Cardiac: No Chest Pain, No Edema, No Syncope Abdominal/Gastrointestinal: No Abdominal Pain, No Nausea, No Vomiting, No Diarrhea Genitourinary Symptoms: No Dysuria Musculoskeletal: No Back Pain, No Neck Pain Skin: No Rash Neurological: No Dizziness, No Focal Weakness, No Sensory Changes Psychological: No Symptoms Endocrine: No Symptoms Hematologic/Lymphatic: No Symptoms Immunological/Allergic: No Symptoms Objective Exam General Appearance: no apparent distress, alert, obese Neurologic Exam: alert, oriented x 3, cooperative, normal mood/affect, nml cerebellar function, sensation nml, No motor deficits Skin Exam: normal color, warm, dry Eye Exam: PERRL, EOMI, eyes nml inspection Ears, Nose, Throat Exam: normal ENT inspection, pharynx normal, moist mucous membranes Neck Exam: normal inspection, non-tender, supple, full range of motion Respiratory Exam: normal breath sounds, lungs clear, No respiratory distress Cardiovascular Exam: regular rate/rhythm, normal heart sounds Gastrointestinal/Abdomen Exam: soft, distention, No tenderness, No mass Extremity Exam: normal inspection, normal range of motion Back Exam: normal inspection, normal range of motion, No CVA tenderness, No vertebral tenderness Male Genitalia Exam: deferred Rectal Exam: deferred Objective Data Vital Signs: Vital Signs - 24 hr Temp Pulse Resp BP Pulse Ox 01/07/24 12:00 97.7 F 84 20 126/91 90 L 01/07/24 08:00 97.6 F 61 18 138/89 94 L 01/07/24 04:00 97.1 F 63 18 137/65 92 L 01/07/24 00:00 97.1 F 54 L 18 118/58 89 L 01/06/24 20:00 60 18 139/60 92 L 01/06/24 16:00 97.6 F 51 L 17 123/55 92 L Pain Assessment - Last Documented Pain Intensity 0 Intake and Output: Intake & Output 01/05/24 01/06/24 01/07/24 01/08/24 11:59 11:59 11:59 11:59 Intake Total 1145 2040 960 Output Total 3226 4545 1100 Balance -2080 -1785 -140 Weight 159.3 kg 156.3 kg 161.9 kg Lab Results: Lab Results-Last 24 Hours 01/07/24 01/07/24 Range/Units 05:35 05:35 WBC 10.6 H (4.23-9.07) x10^3/uL RBC 4.72 (4.63-6.08) x10^6/uL Hgb 12.6 L (13.7-17.5) g/dL Hct 41.3 (40.1-51.0) % MCV 87.5 (79.0-92.2) fL MCH 26.7 (25.7-32.2) pg MCHC 30.5 L (32.3-36.5) g/dL RDW 15.0 H (11.6-14.4) % Plt Count 217 (163-337) x10^3/uL MPV 11.9 (9.4-12.4) fL Sodium 140 (135-145) mmol/L Potassium 3.9 (3.5-5.1) mmol/L Chloride 98 (98-107) mmol/L Carbon Dioxide 34 H (22-30) mmol/L Anion Gap 12.1 (5-15) MEQ/L BUN 42 H (9-20) mg/dL Creatinine 1.16 (0.66-1.25) mg/dL Estimated GFR 71.2 ML/MIN Glucose 62 L (74-106) mg/dL Calcium 10.1 (8.4-10.2) mg/dL Total Bilirubin 0.20 (0.2-1.3) mg/dL AST 27 (17-59) U/L ALT 29 (0-50) U/L Alkaline Phosphatase 84 (38-126) U/L Serum Total Protein 6.9 (6.3-8.2) g/dL Albumin 3.9 (3.5-5.0) g/dL Multi-Disciplinary Progress Notes: Multi-Disciplinary Progress Notes 01/07/24 10:30 (created 01/07/24 12:26) Case Management Note by Ruchi Simmons S/W PATIENT- HE CONTINUES TO DENY ANY NEW NEEDS AT TIME OF DC. HE PLANS TO RETURN HOME TO HIS PLF AT TIME OF DC Initialized on 01/07/24 12:26 - END OF NOTE Assessment/Plan (1) Atrial fibrillation with RVR Current Visit: Yes Status: Acute Code(s): I48.91 - UNSPECIFIED ATRIAL FIBRILLATION (2) Acute on chronic diastolic (congestive) heart failure Current Visit: Yes Status: Acute Code(s): I50.33 - ACUTE ON CHRONIC DIASTOLIC (CONGESTIVE) HEART FAILURE (3) Diabetes mellitus Current Visit: No Status: Acute Code(s): E11.9 - TYPE 2 DIABETES MELLITUS WITHOUT COMPLICATIONS (4) Hypertension Current Visit: No Status: Acute Qualifiers: Hypertension type: essential hypertension Qualified Code(s): I10 - Essential (primary) hypertension Code(s): I10 - ESSENTIAL (PRIMARY) HYPERTENSION (5) Nicotine abuse Current Visit: Yes Status: Acute Code(s): Z72.0 - TOBACCO USE (6) Alcohol abuse Current Visit: No Status: Acute Code(s): F10.10 - ALCOHOL ABUSE, UNCOMPLICATED (7) Carpal tunnel syndrome on both sides Current Visit: Yes Status: Acute Code(s): G56.03 - CARPAL TUNNEL SYNDROME, BILATERAL UPPER LIMBS (8) Obstructive sleep apnea Current Visit: Yes Status: Acute Assessment & Plan: (1) Atrial fibrillation with RVR Current Visit: Yes Status: Acute Assessment & Plan: - continue Eliquis anticoagulation - d/c home Norvasc, to buy room to increase his Coreg - increase Coreg to 12.5 BID to help improve rate control - titrate off diltiazem drip as see improvement with oral Coreg - check TTE to ensure no other changes (see below re CHF) 01/05 - Echo EF 50-55% - cardiology note reviewed and agree with plan of care - Controlled a-fib now - hold Coreg as pt is bradycardic 01/06 - restart coreg this afternoon- HR In 60's-70's- controlled a-fib Code(s): I48.91 - UNSPECIFIED ATRIAL FIBRILLATION (2) Acute on chronic diastolic (congestive) heart failure Current Visit: Yes Status: Acute Assessment & Plan: - with significant diffuse edema, severe orthopnea, abdominal distention. Possibly triggered by uncontrolled A-fib, although could also be the cause of the A-fib exacerbation. Last TTE was in 2013, showed preserved EF. Note, reported dry weight 300 lb; he is currently 55 lb above that. - give [facility] - Check electrolytes BID - BP control (see below) - patient would benefit from SGLT2 inhibitor; will discuss with patient prior to discharge 01/05 - continue lasix IV with goal for 2-3 L per day off 01/06 - 5kg weight gain since yesterday - Fluid restriction - education about CHF provided - Will need close Op f/u Code(s): I50.33 - ACUTE ON CHRONIC DIASTOLIC (CONGESTIVE) HEART FAILURE (3) Diabetes mellitus Current Visit: No Status: Acute Assessment & Plan: poorly controlled; last A1c was 9.8 in June, and random Glc is 221 today. He is on Mounjaro at home and sliding scale insulin. - place on high-dose sliding scale insulin protocol here - patient would benefit from SGLT2 inhibitor given his concomitant HFpEF - A1c 8.34- uncontrolled - Lantus 40 BID started IP 01/05 - brought in U-500 insulin- restart at home dosing 01/06 - glucose better controlled Code(s): E11.9 - TYPE 2 DIABETES MELLITUS WITHOUT COMPLICATIONS (4) Hypertension Current Visit: No Status: Acute Qualifiers: Hypertension type: essential hypertension Qualified Code(s): I10 - Essential (primary) hypertension Assessment & Plan: - BP currently controlled - stopping Norvasc and increasing Coreg to 12.5 BID as above (see A-fib) - continue home clonidine 0.1 BID, Hydralazine 25 q8h, lisinopril 20 BID - will not give home HCTZ; patient also on lasix at home (and here; see above); sequential nephron blockade with loop and DCT diuretics is rarely more beneficial for BP control and carries increased risk of electrolyte abnormalities. Code(s): I10 - ESSENTIAL (PRIMARY) HYPERTENSION (5) Nicotine abuse Current Visit: Yes Status: Acute Assessment & Plan: - motivated to quit; he has decreased intake from 2 ppd to 0.3 ppd. Currently mainly smokes when he drinks - counseled tobacco cessation, targeting associated habits with his drinking - patient declined nicotine patch while in hospital; stated has no cravings when not drinking Code(s): Z72.0 - TOBACCO USE (6) Alcohol abuse Current Visit: No Status: Acute Assessment & Plan: - improved from prior heavy drinking. No history of withdrawal symptoms. Code(s): F10.10 - ALCOHOL ABUSE, UNCOMPLICATED (7) Carpal tunnel syndrome on both sides Current Visit: Yes Status: Acute Assessment & Plan: - + phalens - Suggested Op BL wrist braces at night - Likely from repetitive motion at [employer] - Gabapentin 300mg TID 01/06 - pt requesting gabapentin be increased as he has continued pins and needles in BL hands. - Gabapentin increased to 600mg TID Code(s): G56.03 - CARPAL TUNNEL SYNDROME, BILATERAL UPPER LIMBS (8) Obstructive sleep apnea Current Visit: Yes Status: Acute Assessment & Plan: - Advised OP sleep study- pt refused - HR drops and causing pauses when sleeps- cardiology re-consulted. Prophylaxis: Eliquis PPI: Pantoprazole Diet: Carbohydrate controlled Code status: Full Next of KIN: Rhonda johnson [phone] D/C plan: 2-3 days Code(s): G47.33 - OBSTRUCTIVE SLEEP APNEA (ADULT) (PEDIATRIC) Code(s): G47.33 - OBSTRUCTIVE SLEEP APNEA (ADULT) (PEDIATRIC)
[2024-01-07] MEDS: NEURONTIN PO SCH (16:12)
[2024-01-07] MEDS: Coreg 3.125 MG PO SCH (21:10)
[2024-01-08 06:31] LABS: Hematocrit 41.2 % (40.1-51.0); Hemoglobin 12.7 g/dL (13.7-17.5); Mean Cell Volume 87.5 fL (79.0-92.2); Mean Corpuscular Hgb Concent. 30.8 g/dL (32.3-36.5); Mean Platelet Volume 12.1 fL (9.4-12.4); Platelet Count 203 x10^3/uL (163-337); Red Blood Count 4.71 x10^6/uL (4.63-6.08); Red Cell Distribution Width 15.4 % (11.6-14.4); White Blood Count 9.6 x10^3/uL (4.23-9.07)
[2024-01-08 06:43] LABS: ALBUMIN 4.1 g/dL (3.5-5.0); ANION GAP 11.8 MEQ/L (5-15); BILIRUBIN,TOTAL 0.3 mg/dL (0.2-1.3); Calcium 9.8 mg/dL (8.4-10.2); Creatinine 1 1.03 mg/dL (0.66-1.25); EST GLOMERULAR FILTRATION RATE 82.1 ML/MIN; Potassium 4.1 mmol/L (3.5-5.1); Total Protein 7.1 g/dL (6.3-8.2)
[2024-01-08] MEDS: Zaroxolyn 2.5 MG PO SCH (10:54)
[2024-01-08] MEDS ORDERED: DICLOFENAC SODIUM TP PRN (13:02)
[2024-01-08] MEDS ORDERED: ULTRAM 50 MG PO PRN (13:03)
--- NOTE | 2024-01-08 13:13 | PCM.NOTE ---
Date and Time: 01/08/24 1303 Subjective Assessment: 01/05/24 63 y/o M with h/o A-fib, HFpEF, DM2, HTN, tobacco and alcohol dependence. Admitted with dyspnea, leg edema, and a-fib RVR on 01/04/24. Patient notes that he has a history of A-fib, and had an ablation done a few years ago, but thinks that it has returned because he has been feeling worse for a few weeks. He complains of swelling of his ankles and wrists for the past few weeks, to the point where he can't operate the clutch on his motorcycle. He has also been having worse dyspnea for the same time, with accompanying orthopnea, PND, and early satiety. He has had to sleep in a chair, and he has noticed a 60 lb weight gain in 3 months (his baseline weight is 300 lbs, and he notes he is 360 lbs now). He states his abdomen is very distended and tight. He denies chest pain, nausea, diaphoresis, or numbness. He has been compliant with his medications including his lasix (and HCTZ), and has no changes in his diet. His only recent medication change was from Ozempic to Mounjaro three weeks ago because of severe GI side effects. On arrival to the ED, his HR was in the 140s, and he was in A-fib. He was placed on diltiazem drip, and HR is now controlled. He feels a little better now, but remains fatigued, dyspneic, and has to sit up. He is being weaned off the Cardizem gtt. Cardiology consulted. He is on chronic Eliquis for a-fib. Coreg increased by admitting MD to 12.[address] on lasix 80mg BID for anasarca. Will check electrolytes BID. 01/06/24 Pt resting in bed. He lost 3kg since yesterday. He had 4350 out yesterday. Edema is improving. He continues to have 3+ pitting edema BLLE. Rossy hose applied and legs elevated. Per cardiology recs pt to have 2-3 L off per day, continue lasix. Discussed need for OP sleep study for obstructive sleep apnea and refuses. His brought in U-500 insulin today and this was restarted at home dosing. EF 50-55% per echo results. He is c/o BL hand pain tingling. + phalens sign for carpal tunnel. Gabapentin TID started. He feels this pain is r/t years of [place] motion [place]. HR controlled a-fib. Mg+ and K+ replaced. 01/07/24 Pt resting in bed. He had a 5kg weight gain since yesterday. He admits to drinking more fluids than he should. Discussed to reduce fluid intake and placed on fluid restriction. Continue Lasix for CHF anasarca. ROSSY hose working well for BLLE edema and this has resolved. Cardiology re-consulted last night as HR dropped and bradycardiac. Beta abhay decreased. HR improved today remains in a-fib but controlled. Coreg to be restarted this afternoon. output not charted last night therefore inaccurate I&O's today. Goal is 2-3L off per day. Pt denies CP, SOB, abd. pain, N/V/D. Pt states he has never weighted this much before and is concerned about how he will do OP. Discussed he will need to f/u with cardiology closely. 01/08/24 Pt sitting up in chair. He continues to wear the ROSSY hose and edema has resolved in BLLE. He continues to have abd edema but this has also improved. Stopped Meloxicam and fluid restriction. Pt gained another KG today. He has 2.275 ml out yesterday. Added metolazone along with lasix. Stopped fluid restriction and added sodium restriction. The increased dose of gabapentin is not helping his hand pain much. This med will take some time to build up in system, so will c ontinue same dose for now. Do not want to make pt too sleepy as he has apparent obstructive sleep apnea and his HR drops when sleeping. Will had Voltaren cream and Tramadol QID for pain. Asked nanny/household manager to find some BL wrist braces for pt to sleep with at night. Previously was told we do not have these on the unit. Pt may have to obtain OP. He denies CP, SOB, abd. pain, N/V/D. - Review of Systems Constitutional: No Fever, No Chills Eyes: No Symptoms Ears, Nose, & Throat: No Symptoms Respiratory: No Cough, No Short Of Breath Cardiac: Edema, No Chest Pain, No Syncope Abdominal/Gastrointestinal: No Abdominal Pain, No Nausea, No Vomiting, No Diarrhea Genitourinary Symptoms: No Dysuria Musculoskeletal: Joint Pain (BL hand pain), No Back Pain, No Neck Pain Skin: No Rash Neurological: Parasthesia (BL hands), No Dizziness, No Focal Weakness, No Sensory Changes Psychological: No Symptoms Endocrine: No Symptoms Hematologic/Lymphatic: No Symptoms Immunological/Allergic: No Symptoms Objective Exam General Appearance: no apparent distress, alert, obese Neurologic Exam: alert, oriented x 3, cooperative, normal mood/affect, nml cerebellar function, sensation nml, No motor deficits Skin Exam: normal color, warm, dry Eye Exam: PERRL, EOMI, eyes nml inspection Ears, Nose, Throat Exam: normal ENT inspection, pharynx normal, moist mucous membranes Neck Exam: normal inspection, non-tender, supple, full range of motion Respiratory Exam: normal breath sounds, lungs clear, No respiratory distress Cardiovascular Exam: regular rate/rhythm, normal heart sounds Gastrointestinal/Abdomen Exam: soft, distention, No tenderness, No mass Extremity Exam: normal inspection, normal range of motion, parasthesia (BL hands) Back Exam: normal inspection, normal range of motion, No CVA tenderness, No vertebral tenderness Male Genitalia Exam: deferred Rectal Exam: deferred Objective Data Vital Signs: Vital Signs - 24 hr Temp Pulse Resp BP Pulse Ox 01/08/24 12:00 97.1 F 84 21 151/69 92 L 01/08/24 08:00 97.1 F 62 15 154/70 92 L 01/08/24 04:00 98.6 F 58 L 19 139/66 90 L 01/08/24 00:00 97.3 F 64 19 151/78 93 L 01/07/24 21:15 140/64 01/07/24 20:00 96.9 F 65 20 134/61 90 L 01/07/24 16:00 97 F 76 19 142/64 90 L Pain Assessment - Last Documented Pain Intensity 0 Intake and Output: Intake & Output 01/06/24 01/07/24 01/08/24 01/09/24 11:59 11:59 11:59 11:59 Intake Total 2040 960 720 Output Total 2775 6132 2279 Balance -1785 -140 -1555 Weight 156.3 kg 161.9 kg 162.8 kg Lab Results: Lab Results-Last 24 Hours 01/08/24 01/08/24 Range/Units 06:08 06:08 WBC 9.6 H (4.23-9.07) x10^3/uL RBC 4.71 (4.63-6.08) x10^6/uL Hgb 12.7 L (13.7-17.5) g/dL Hct 41.2 (40.1-51.0) % MCV 87.5 (79.0-92.2) fL MCH 27.0 (25.7-32.2) pg MCHC 30.8 L (32.3-36.5) g/dL RDW 15.4 H (11.6-14.4) % Plt Count 203 (163-337) x10^3/uL MPV 12.1 (9.4-12.4) fL Sodium 140 (135-145) mmol/L Potassium 4.1 (3.5-5.1) mmol/L Chloride 100 (98-107) mmol/L Carbon Dioxide 32 H (22-30) mmol/L Anion Gap 11.8 (5-15) MEQ/L BUN 37 H (9-20) mg/dL Creatinine 1.03 (0.66-1.25) mg/dL Estimated GFR 82.1 ML/MIN Glucose 129 H (74-106) mg/dL Calcium 9.8 (8.4-10.2) mg/dL Total Bilirubin 0.30 (0.2-1.3) mg/dL AST 31 (17-59) U/L ALT 31 (0-50) U/L Alkaline Phosphatase 97 (38-126) U/L Serum Total Protein 7.1 (6.3-8.2) g/dL Albumin 4.1 (3.5-5.0) g/dL Assessment/Plan (1) Atrial fibrillation with RVR Current Visit: Yes Status: Acute Code(s): I48.91 - UNSPECIFIED ATRIAL FIBRILLATION (2) Acute on chronic diastolic (congestive) heart failure Current Visit: Yes Status: Acute Code(s): I50.33 - ACUTE ON CHRONIC DIASTOLIC (CONGESTIVE) HEART FAILURE (3) Diabetes mellitus Current Visit: No Status: Acute Code(s): E11.9 - TYPE 2 DIABETES MELLITUS WITHOUT COMPLICATIONS (4) Hypertension Current Visit: No Status: Acute Qualifiers: Hypertension type: essential hypertension Qualified Code(s): I10 - Essential (primary) hypertension Code(s): I10 - ESSENTIAL (PRIMARY) HYPERTENSION (5) Nicotine abuse Current Visit: Yes Status: Acute Code(s): Z72.0 - TOBACCO USE (6) Alcohol abuse Current Visit: No Status: Acute Code(s): F10.10 - ALCOHOL ABUSE, UNCOMPLICATED (7) Carpal tunnel syndrome on both sides Current Visit: Yes Status: Acute Code(s): G56.03 - CARPAL TUNNEL SYNDROME, BILATERAL UPPER LIMBS (8) Obstructive sleep apnea Current Visit: Yes Status: Acute Assessment & Plan: (1) Atrial fibrillation with RVR Current Visit: Yes Status: Acute Assessment & Plan: - continue Eliquis anticoagulation - d/c home Nomios, to buy room to increase his Coreg - increase Coreg to 12.5 BID to help improve rate control - titrate off diltiazem drip as see improvement with oral Coreg - check TTE to ensure no other changes (see below re CHF) 01/05 - Echo EF 50-55% - cardiology note reviewed and agree with plan of care - Controlled a-fib now - hold Coreg as pt is bradycardic 01/06 - restart coreg this afternoon- HR In 60's-70's- controlled a-fib 01/07 - Coreg held this am as HR dropped into the 50's when sleeping. - If HR improves can restart Code(s): I48.91 - UNSPECIFIED ATRIAL FIBRILLATION (2) Acute on chronic diastolic (congestive) heart failure Current Visit: Yes Status: Acute Assessment & Plan: - with significant diffuse edema, severe orthopnea, abdominal distention. Possibly triggered by uncontrolled A-fib, although could also be the cause of the A-fib exacerbation. Last TTE was in 2013, showed preserved EF. Note, reported dry weight 300 lb; he is currently 55 lb above that. - give Lasix 80 mg IV BID for now to diurese - Check electrolytes BID - BP control (see below) - patient would benefit from SGLT2 inhibitor; will discuss with patient prior to discharge 01/05 - continue lasix IV with goal for 2-3 L per day off - TEDS 01/06 - 5kg weight gain since yesterday - Fluid restriction - education about CHF provided - Will need close Op f/u 01/07 - low Na+ diet - Metolazone added - fluid restriction stopped Code(s): I50.33 - ACUTE ON CHRONIC DIASTOLIC (CONGESTIVE) HEART FAILURE (3) Diabetes mellitus Current Visit: No Status: Acute Assessment & Plan: poorly controlled; last A1c was 9.8 in June, and random Glc is 221 today. He is on Mounjaro at home and sliding scale insulin. - place on high-dose sliding scale insulin protocol here - patient would benefit from SGLT2 inhibitor given his concomitant HFpEF - A1c 8.34- uncontrolled - Lantus 40 BID started IP 01/05 - brought in U-500 insulin- restart at home dosing 01/06 - glucose better controlled Code(s): E11.9 - TYPE 2 DIABETES MELLITUS WITHOUT COMPLICATIONS (4) Hypertension Current Visit: No Status: Acute Qualifiers: Hypertension type: essential hypertension Qualified Code(s): I10 - Essential (primary) hypertension Assessment & Plan: - BP currently controlled - stopping Norvasc and increasing Coreg to 12.5 BID as above (see A-fib) - continue home clonidine 0.1 BID, Hydralazine 25 q8h, lisinopril 20 BID - will not give home HCTZ; patient also on lasix at home (and here; see above); sequential nephron blockade with loop and DCT diuretics is rarely more beneficial for BP control and carries increased risk of electrolyte abnormalities. 12/18 - Coreg held by nurse this AM- can give later this AM if vitals improve Code(s): I10 - ESSENTIAL (PRIMARY) HYPERTENSION (5) Nicotine abuse Current Visit: Yes Status: Acute Assessment & Plan: - motivated to quit; he has decreased intake from 2 ppd to 0.3 ppd. Currently mainly smokes when he drinks - counseled tobacco cessation, targeting associated habits with his drinking - patient declined nicotine patch while in hospital; stated has no cravings when not drinking Code(s): Z72.0 - TOBACCO USE (6) Alcohol abuse Current Visit: No Status: Acute Assessment & Plan: - improved from prior heavy drinking. No history of withdrawal symptoms. Code(s): F10.10 - ALCOHOL ABUSE, UNCOMPLICATED (7) Carpal tunnel syndrome on both sides Current Visit: Yes Status: Acute Assessment & Plan: - + phalens - Suggested Op BL wrist braces at night - Likely from repetitive motion at [employer] - Gabapentin 300mg TID 01/06 - pt requesting gabapentin be increased as he has continued pins and needles in BL hands. - Gabapentin increased to 600mg TID 01/07 - added Voltaren cream and tramadol PRN - BL wrist braces at night. Code(s): G56.03 - CARPAL TUNNEL SYNDROME, BILATERAL UPPER LIMBS (8) Obstructive sleep apnea Current Visit: Yes Status: Acute Assessment & Plan: - Advised OP sleep study- pt refused - HR drops and causing pauses when sleeps- cardiology re-consulted.01/05 Prophylaxis: Eliquis PPI: Pantoprazole Diet: Carbohydrate controlled Code status: Full Next of KIN: Rhonda johnson [phone] D/C plan: 1-2 days Code(s): G47.33 - OBSTRUCTIVE SLEEP APNEA (ADULT) (PEDIATRIC) Code(s): G47.33 - OBSTRUCTIVE SLEEP APNEA (ADULT) (PEDIATRIC)
[2024-01-09 06:30] LABS: Hematocrit 40.1 % (40.1-51.0); Hemoglobin 12.6 g/dL (13.7-17.5); Mean Cell Volume 86.6 fL (79.0-92.2); Mean Corpuscular Hemoglobin 27.2 pg (25.7-32.2); Mean Corpuscular Hgb Concent. 31.4 g/dL (32.3-36.5); Mean Platelet Volume 11.8 fL (9.4-12.4); Platelet Count 196 x10^3/uL (163-337); Red Blood Count 4.63 x10^6/uL (4.63-6.08); Red Cell Distribution Width 15.4 % (11.6-14.4); White Blood Count 9.9 x10^3/uL (4.23-9.07)
[2024-01-09 06:37] LABS: ANION GAP 11.8 MEQ/L (5-15); BILIRUBIN,TOTAL 0.4 mg/dL (0.2-1.3); Calcium 9.7 mg/dL (8.4-10.2); Creatinine 1 1.01 mg/dL (0.66-1.25); EST GLOMERULAR FILTRATION RATE 84.1 ML/MIN; Potassium 4.3 mmol/L (3.5-5.1)
[2024-01-09 09:13] VITALS: RESP 16; TEMP 97.1
[2024-01-09 11:27] VITALS: BP 138/60; PULSE 57; O2SAT 94
--- NOTE | 2024-01-09 13:03 | PCM.NOTE ---
Date and Time: 01/09/24 1258 Subjective Assessment: 01/05/24 63 y/o M with h/o A-fib, HFpEF, DM2, HTN, tobacco and alcohol dependence. Admitted with dyspnea, leg edema, and a-fib RVR on 01/04/24. Patient notes that he has a history of A-fib, and had an ablation done a few years ago, but thinks that it has returned because he has been feeling worse for a few weeks. He complains of swelling of his ankles and wrists for the past few weeks, to the point where he can't operate the clutch on his motorcycle. He has also been having worse dyspnea for the same time, with accompanying orthopnea, PND, and early satiety. He has had to sleep in a chair, and he has noticed a 60 lb weight gain in 3 months (his baseline weight is 300 lbs, and he notes he is 360 lbs now). He states his abdomen is very distended and tight. He denies chest pain, nausea, diaphoresis, or numbness. He has been compliant with his medications including his lasix (and HCTZ), and has no changes in his diet. His only recent medication change was from Ozempic to Mounjaro three weeks ago because of severe GI side effects. On arrival to the ED, his HR was in the 140s, and he was in A-fib. He was placed on diltiazem drip, and HR is now controlled. He feels a little better now, but remains fatigued, dyspneic, and has to sit up. He is being weaned off the Cardizem gtt. Cardiology consulted. He is on chronic Eliquis for a-fib. Coreg increased by admitting MD to 12.[address] on lasix 80mg BID for anasarca. Will check electrolytes BID. 01/06/24 Pt resting in bed. He lost 3kg since yesterday. He had 4350 out yesterday. Edema is improving. He continues to have 3+ pitting edema BLLE. Rossy hose applied and legs elevated. Per cardiology recs pt to have 2-3 L off per day, continue lasix. Discussed need for OP sleep study for obstructive sleep apnea and refuses. His brought in U-500 insulin today and this was restarted at home dosing. EF 50-55% per echo results. He is c/o BL hand pain tingling. + phalens sign for carpal tunnel. Gabapentin TID started. He feels this pain is r/t years of repetitive motion at the [place]. HR controlled a-fib. Mg+ and K+ replaced. 01/07/24 Pt resting in bed. He had a 5kg weight gain since yesterday. He admits to drinking more fluids than he should. Discussed to reduce fluid intake and placed on fluid restriction. Continue Lasix for CHF anasarca. ROSSY hose working well for BLLE edema and this has resolved. Cardiology re-consulted last night as HR dropped and bradycardiac. Beta abhay decreased. HR improved today remains in a-fib but controlled. Coreg to be restarted this afternoon. output not charted last night therefore inaccurate I&O's today. Goal is 2-3L off per day. Pt denies CP, SOB, abd. pain, N/V/D. Pt states he has never weighted this much before and is concerned about how he will do OP. Discussed he will need to f/u with cardiology closely. 01/08/24 Pt sitting up in chair. He continues to wear the ROSSY hose and edema has resolved in BLLE. He continues to have abd edema but this has also improved. Stopped Meloxicam and fluid restriction. Pt gained another KG today. He has 2.275 ml out yesterday. Added metolazone along with lasix. Stopped fluid restriction and added sodium restriction. The increased dose of gabapentin is not helping his hand pain much. This med will take some time to build up in system, so will c ontinue same dose for now. Do not want to make pt too sleepy as he has apparent obstructive sleep apnea and his HR drops when sleeping. Will had Voltaren cream and Tramadol QID for pain. Asked warehouse associate driver to find some BL wrist braces for pt to sleep with at night. Previously was told we do not have these on the unit. Pt may have to obtain OP. He denies CP, SOB, abd. pain, N/V/D. 01/09/24 Pt sitting up in chair. He reports he is overall feeling better and would like to go home so he can back to work. He slept in wrist braces last night and felt they were helpful for his carpal tunnel. Discussed he will need to have referral from PCP to ortho for carpal tunnel surgery. Will also D/c pt with PO lasix. Discussed he needs close f/u and to make lifestyle changes as to not regain fluid. Discussed smoking and alcohol cessation. He denies any further concerns at this time. - Review of Systems Constitutional: No Fever, No Chills Eyes: No Symptoms Ears, Nose, & Throat: No Symptoms Respiratory: No Cough, No Short Of Breath Cardiac: No Chest Pain, No Edema, No Syncope Abdominal/Gastrointestinal: No Abdominal Pain, No Nausea, No Vomiting, No Diarrhea Genitourinary Symptoms: No Dysuria Musculoskeletal: No Back Pain, No Neck Pain Skin: No Rash Neurological: No Dizziness, No Focal Weakness, No Sensory Changes Psychological: No Symptoms Endocrine: No Symptoms Hematologic/Lymphatic: No Symptoms Immunological/Allergic: No Symptoms Objective Exam General Appearance: no apparent distress, alert Neurologic Exam: alert, oriented x 3, cooperative, normal mood/affect, nml cerebellar function, sensation nml, No motor deficits Skin Exam: normal color, warm, dry Eye Exam: PERRL, EOMI, eyes nml inspection Ears, Nose, Throat Exam: normal ENT inspection, pharynx normal, moist mucous membranes Neck Exam: normal inspection, non-tender, supple, full range of motion Respiratory Exam: normal breath sounds, lungs clear, No respiratory distress Cardiovascular Exam: regular rate/rhythm, normal heart sounds Gastrointestinal/Abdomen Exam: soft, No tenderness, No mass Extremity Exam: normal inspection, normal range of motion Back Exam: normal inspection, normal range of motion, No CVA tenderness, No vertebral tenderness Male Genitalia Exam: deferred Rectal Exam: deferred Objective Data Vital Signs: Vital Signs - 24 hr Temp Pulse Resp BP Pulse Ox 01/09/24 11:27 97.1 F 57 L 16 138/60 94 L 01/09/24 08:00 97.1 F 65 16 164/72 91 L 01/09/24 05:05 170/70 01/09/24 04:00 96.9 F 68 19 188/80 94 L 01/08/24 23:44 97.6 F 65 18 141/61 91 L 01/08/24 21:00 140/65 01/08/24 19:51 96.5 F 73 19 172/77 94 L 01/08/24 16:00 97.1 F 60 19 136/62 92 L Pain Assessment - Last Documented Pain Intensity 0 Intake and Output: Intake & Output 01/07/24 01/08/24 01/09/24 01/10/24 11:59 11:59 11:59 11:59 Intake Total 729 776 3973 Output Total 1100 9181 6736 425 Balance -096 -6777 -4050 -425 Weight 161.9 kg 162.8 kg Lab Results: Lab Results-Last 24 Hours 01/09/24 01/09/24 Range/Units 05:30 05:30 WBC 9.9 H (4.23-9.07) x10^3/uL RBC 4.63 (4.63-6.08) x10^6/uL Hgb 12.6 L (13.7-17.5) g/dL Hct 40.1 (40.1-51.0) % MCV 86.6 (79.0-92.2) fL MCH 27.2 (25.7-32.2) pg MCHC 31.4 L (32.3-36.5) g/dL RDW 15.4 H (11.6-14.4) % Plt Count 196 (163-337) x10^3/uL MPV 11.8 (9.4-12.4) fL Sodium 137 (135-145) mmol/L Potassium 4.3 (3.5-5.1) mmol/L Chloride 95 L (98-107) mmol/L Carbon Dioxide 34 H (22-30) mmol/L Anion Gap 11.8 (5-15) MEQ/L BUN 39 H (9-20) mg/dL Creatinine 1.01 (0.66-1.25) mg/dL Estimated GFR 84.1 ML/MIN Glucose 239 H (74-106) mg/dL Calcium 9.7 (8.4-10.2) mg/dL Total Bilirubin 0.40 (0.2-1.3) mg/dL AST 32 (17-59) U/L ALT 33 (0-50) U/L Alkaline Phosphatase 85 (38-126) U/L Serum Total Protein 7.0 (6.3-8.2) g/dL Albumin 4.0 (3.5-5.0) g/dL Assessment/Plan (1) Atrial fibrillation with RVR Current Visit: Yes Status: Acute Code(s): I48.91 - UNSPECIFIED ATRIAL FIBRILLATION (2) Acute on chronic diastolic (congestive) heart failure Current Visit: Yes Status: Acute Code(s): I50.33 - ACUTE ON CHRONIC DIASTOLIC (CONGESTIVE) HEART FAILURE (3) Diabetes mellitus Current Visit: No Status: Acute Code(s): E11.9 - TYPE 2 DIABETES MELLITUS WITHOUT COMPLICATIONS (4) Hypertension Current Visit: No Status: Acute Qualifiers: Hypertension type: essential hypertension Qualified Code(s): I10 - Essential (primary) hypertension Code(s): I10 - ESSENTIAL (PRIMARY) HYPERTENSION (5) Nicotine abuse Current Visit: Yes Status: Acute Code(s): Z72.0 - TOBACCO USE (6) Alcohol abuse Current Visit: No Status: Acute Code(s): F10.10 - ALCOHOL ABUSE, UNCOMPLICATED (7) Carpal tunnel syndrome on both sides Current Visit: Yes Status: Acute Code(s): G56.03 - CARPAL TUNNEL SYNDROME, BILATERAL UPPER LIMBS (8) Obstructive sleep apnea Current Visit: Yes Status: Acute Assessment & Plan: (1) Atrial fibrillation with RVR Current Visit: Yes Status: Acute Assessment & Plan: - continue Eliquis anticoagulation - d/c home [facility], to buy room to increase his Coreg - increase Coreg to 12.5 BID to help improve rate control - titrate off diltiazem drip as see improvement with oral Coreg - check TTE to ensure no other changes (see below re CHF) 01/05 - Echo EF 50-55% - cardiology note reviewed and agree with plan of care - Controlled a-fib now - hold Coreg as pt is bradycardic 01/06 - restart coreg this afternoon- HR In 60's-70's- controlled a-fib 01/07 - Coreg held this am as HR dropped into the 50's when sleeping. - med gave later in morning - If HR improves can restart 01/08 - HR controlled SR Code(s): I48.91 - UNSPECIFIED ATRIAL FIBRILLATION (2) Acute on chronic diastolic (congestive) heart failure Current Visit: Yes Status: Acute Assessment & Plan: - with significant diffuse edema, severe orthopnea, abdominal distention. Possibly triggered by uncontrolled A-fib, although could also be the cause of the A-fib exacerbation. Last TTE was in 2013, showed preserved EF. Note, reported dry weight 300 lb; he is currently 55 lb above that. - give Lasix 80 mg IV BID for now to diurese - Check electrolytes BID - BP control (see below) - patient would benefit from SGLT2 inhibitor; will discuss with patient prior to discharge 01/05 - continue lasix IV with goal for 2-3 L per day off - TEDS 01/06 - 5kg weight gain since yesterday - Fluid restriction - education about CHF provided - Will need close Op f/u 01/07 - low Na+ diet - Metolazone added - fluid restriction stopped 01/08 - 3975 out yesterday - Continue TEDS OP Code(s): I50.33 - ACUTE ON CHRONIC DIASTOLIC (CONGESTIVE) HEART FAILURE (3) Diabetes mellitus Current Visit: No Status: Acute Assessment & Plan: poorly controlled; last A1c was 9.8 in June, and random Glc is 221 today. He is on Mounjaro at home and sliding scale insulin. - place on high-dose sliding scale insulin protocol here - patient would benefit from SGLT2 inhibitor given his concomitant HFpEF - A1c 8.34- uncontrolled - Lantus 40 BID started IP 01/05 - brought in U-500 insulin- restart at home dosing 01/06 - glucose better controlled Code(s): E11.9 - TYPE 2 DIABETES MELLITUS WITHOUT COMPLICATIONS (4) Hypertension Current Visit: No Status: Acute Qualifiers: Hypertension type: essential hypertension Qualified Code(s): I10 - Essential (primary) hypertension Assessment & Plan: - BP currently controlled - stopping Norvasc and increasing Coreg to 12.5 BID as above (see A-fib) - continue home clonidine 0.1 BID, Hydralazine 25 q8h, lisinopril 20 BID - will not give home HCTZ; patient also on lasix at home (and here; see above); sequential nephron blockade with loop and DCT diuretics is rarely more beneficial for BP control and carries increased risk of electrolyte abnormalities. 12/18 - Coreg held by nurse this AM- can give later this AM if vitals improve Code(s): I10 - ESSENTIAL (PRIMARY) HYPERTENSION (5) Nicotine abuse Current Visit: Yes Status: Acute Assessment & Plan: - motivated to quit; he has decreased intake from 2 ppd to 0.3 ppd. Currently mainly smokes when he drinks - counseled tobacco cessation, targeting associated habits with his drinking - patient declined nicotine patch while in hospital; stated has no cravings when not drinking Code(s): Z72.0 - TOBACCO USE (6) Alcohol abuse Current Visit: No Status: Acute Assessment & Plan: - improved from prior heavy drinking. No history of withdrawal symptoms. - advised cessation Code(s): F10.10 - ALCOHOL ABUSE, UNCOMPLICATED (7) Carpal tunnel syndrome on both sides Current Visit: Yes Status: Acute Assessment & Plan: - + phalens - Suggested Op BL wrist braces at night - Likely from repetitive motion at [employer] - Gabapentin 300mg TID 01/06 - pt requesting gabapentin be increased as he has continued pins and needles in BL hands. - Gabapentin increased to 600mg TID 01/07 - added Voltaren cream and tramadol PRN - BL wrist braces at night. 01/08 - stop gabapentin as was not helpful - wrist braces helpful- continue - F/U OP with ortho for carpal tunnel surgery Code(s): G56.03 - CARPAL TUNNEL SYNDROME, BILATERAL UPPER LIMBS (8) Obstructive sleep apnea Current Visit: Yes Status: Acute Assessment & Plan: - Advised OP sleep study- pt refused - HR drops and causing pauses when sleeps- cardiology re-consulted.01/05 Code(s): G47.33 - OBSTRUCTIVE SLEEP APNEA (ADULT) (PEDIATRIC)
--- NOTE | 2024-01-09 13:12 | PCM.DS ---
Discharge Summary Date of Admission: 01/04/24 20:17 Date of Discharge: 01/09/24 Admitting Physician: WIN WALTON MD Consults: Consults on Case 01/05/24 07:52 Consult Cardiology ROUTINE Primary Care Provider: KRISTINA MCCLELLAN Allergies Allergies cetirizine HCl [From [facility]] Allergy (Severe, Verified 01/04/24 17:15) Swelling of Face niacin Allergy (Intermediate, Verified 01/04/24 17:15) [facility] Summary - Hospital Course Hospital Course: 01/05/24 63 y/o M with h/o A-fib, HFpEF, DM2, HTN, tobacco and alcohol dependence. Admitted with dyspnea, leg edema, and a-fib RVR on 01/04/24. Patient notes that he has a history of A-fib, and had an ablation done a few years ago, but thinks that it has returned because he has been feeling worse for a few weeks. He complains of swelling of his ankles and wrists for the past few weeks, to the point where he can't operate the clutch on his motorcycle. He has also been having worse dyspnea for the same time, with accompanying orthopnea, PND, and early satiety. He has had to sleep in a chair, and he has noticed a 60 lb weight gain in 3 months (his baseline weight is 300 lbs, and he notes he is 360 lbs now). He states his abdomen is very distended and tight. He denies chest pain, nausea, diaphoresis, or numbness. He has been compliant with his medications including his lasix (and HCTZ), and has no changes in his diet. His only recent medication change was from Ozempic to Mounjaro three weeks ago because of severe GI side effects. On arrival to the ED, his HR was in the 140s, and he was in A- fib. He was placed on diltiazem drip, and HR is now controlled. He feels a little better now, but remains fatigued, dyspneic, and has to sit up. He is being weaned off the Cardizem gtt. Cardiology consulted. He is on chronic Eliquis for a-fib. Coreg increased by admitting MD to 12.[address] on lasix 80mg BID for anasarca. Will check electrolytes BID. 01/06/24 Pt resting in bed. He lost 3kg since yesterday. He had 4350 out yesterday. Edema is improving. He continues to have 3+ pitting edema BLLE. Rossy hose applied and legs elevated. Per cardiology recs pt to have 2-3 L off per day, continue lasix. Discussed need for OP sleep study for obstructive sleep apnea and refuses. His brought in U-500 insulin today and this was restarted at home dosing. EF 50-55% per echo results. He is c/o BL hand pain tingling. + phalens sign for carpal tunnel. Gabapentin TID started. He feels this pain is r/t years of repetitive motion at the [employer]. HR controlled a-fib. Mg+ and K+ replaced. 01/07/24 Pt resting in bed. He had a 5kg weight gain since yesterday. He admits to drinking more fluids than he should. Discussed to reduce fluid intake and placed on fluid restriction. Continue Lasix for CHF anasarca. ROSSY hose working well for BLLE edema and this has resolved. Cardiology re-consulted last night as HR dropped and bradycardiac. Beta abhay decreased. HR improved today remains in a-fib but controlled. Coreg to be restarted this afternoon. output not charted last night therefore inaccurate I&O's today. Goal is 2-3L off per day. Pt denies CP, SOB, abd. pain, N/V/D. Pt states he has never weighted this much before and is concerned about how he will do OP. Discussed he will need to f/u with cardiology closely. 01/08/24 Pt sitting up in chair. He continues to wear the ROSSY hose and edema has resolved in BLLE. He continues to have abd edema but this has also improved. Stopped Meloxicam and fluid restriction. Pt gained another KG today. He has 2.275 ml out yesterday. Added metolazone along with lasix. Stopped fluid restriction and added sodium restriction. The increased dose of gabapentin is not helping his hand pain much. This med will take some time to build up in system, so will continue same dose for now. Do not want to make pt too sleepy as he has apparent obstructive sleep apnea and his HR drops when sleeping. Will had Voltaren cream and Tramadol QID for pain. 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 Previously was told we do not have these on the unit. Pt may have to obtain OP. He denies CP, SOB, abd. pain, N/V/D. 01/09/24 Pt sitting up in chair. He reports he is overall feeling better and would like to go home so he can back to work. He slept in wrist braces last night and felt they were helpful for his carpal tunnel. Discussed he will need to have referral from PCP to ortho for carpal tunnel surgery. Will also D/c pt with PO lasix. Discussed he needs close f/u and to make lifestyle changes as to not regain fluid. Discussed smoking and alcohol cessation. He denies any further concerns at this time. - Vitals & Intake/Output Vital Signs: Vital Signs Temperature 97.1 F 01/09/24 11:27 Pulse Rate 57 L 01/09/24 11:27 Respiratory Rate 16 01/09/24 11:27 Blood Pressure 138/60 01/09/24 11:27 O2 Sat by Pulse Oximetry 94 L 01/09/24 11:27 Intake & Output: Intake & Output 01/07/24 01/08/24 01/09/24 01/10/24 11:59 11:59 11:59 11:59 Intake Total 190 402 7866 Output Total 1100 2275 6000 425 Balance -524 -7555 -4050 -425 Weight 161.9 kg 162.8 kg - Lab Result Diagrams: 01/09/24 05:30 01/09/24 05:30 Lab Results-Last 24 Hrs: Lab Results-Last 24 Hours 01/09/24 01/09/24 Range/Units 05:30 05:30 WBC 9.9 H (4.23-9.07) x10^3/uL RBC 4.63 (4.63-6.08) x10^6/uL Hgb 12.6 L (13.7-17.5) g/dL Hct 40.1 (40.1-51.0) % MCV 86.6 (79.0-92.2) fL MCH 27.2 (25.7-32.2) pg MCHC 31.4 L (32.3-36.5) g/dL RDW 15.4 H (11.6-14.4) % Plt Count 196 (163-337) x10^3/uL MPV 11.8 (9.4-12.4) fL Sodium 137 (135-145) mmol/L Potassium 4.3 (3.5-5.1) mmol/L Chloride 95 L (98-107) mmol/L Carbon Dioxide 34 H (22-30) mmol/L Anion Gap 11.8 (5-15) MEQ/L BUN 39 H (9-20) mg/dL Creatinine 1.01 (0.66-1.25) mg/dL Estimated GFR 84.1 ML/MIN Glucose 239 H (74-106) mg/dL Calcium 9.7 (8.4-10.2) mg/dL Total Bilirubin 0.40 (0.2-1.3) mg/dL AST 32 (17-59) U/L ALT 33 (0-50) U/L Alkaline Phosphatase 85 (38-126) U/L Serum Total Protein 7.0 (6.3-8.2) g/dL Albumin 4.0 (3.5-5.0) g/dL Micro Results-Entire Visit: Accuchecks Date 01/09/24 Date 01/09/24 Date 01/08/24 Time 11:19 Time 07:22 Time 21:00 - Procedures and Test Procedures and Tests throughout Hospitalization: Therapy Orders & Screens 01/04/24 21:21 Smoking Cessation Education ONCE Comment: Diagnosis: Afib RVR, SOB Smoking Status: Current every day smoker How long have you smoked: 50 Have you smoked in the past 12 months: Yes Approximately how many cigarettes per day: 1 pack per 3 days Do you dip or chew tobacco: No 01/04/24 21:37 Respiratory Therapy Consult ONCE Comment: Reason For Exam: Diagnosis: shortness of breath, leg swelling Discharge Exam General Appearance: no apparent distress, alert Neurologic Exam: alert, oriented x 3, cooperative, normal mood/affect, nml cerebellar function, sensation nml, No motor deficits Eye Exam: PERRL, EOMI, eyes nml inspection Ears, Nose, Throat Exam: normal ENT inspection, pharynx normal, moist mucous membranes Neck Exam: normal inspection, non-tender, supple, full range of motion Respiratory Exam: normal breath sounds, lungs clear, No respiratory distress Cardiovascular Exam: regular rate/rhythm, normal heart sounds Gastrointestinal/Abdomen Exam: soft, No tenderness, No mass Male Genitalia Exam: deferred Rectal Exam: deferred Back Exam: normal inspection, normal range of motion, No CVA tenderness, No vertebral tenderness Extremity Exam: normal inspection, normal range of motion Skin Exam: normal color, warm, dry Final Diagnosis/Problem List - Final Discharge Diagnosis/Problem (1) Atrial fibrillation with RVR Current Visit: Yes Status: Acute Code(s): I48.91 - UNSPECIFIED ATRIAL FIBRILLATION (2) Acute on chronic diastolic (congestive) heart failure Current Visit: Yes Status: Acute Code(s): I50.33 - ACUTE ON CHRONIC DIASTOLIC (CONGESTIVE) HEART FAILURE (3) Diabetes mellitus Current Visit: No Status: Acute Code(s): E11.9 - TYPE 2 DIABETES MELLITUS WITHOUT COMPLICATIONS (4) Hypertension Current Visit: No Status: Acute Code(s): I10 - ESSENTIAL (PRIMARY) HYPERTENSION (5) Nicotine abuse Current Visit: Yes Status: Acute Code(s): Z72.0 - TOBACCO USE (6) Alcohol abuse Current Visit: No Status: Acute Code(s): F10.10 - ALCOHOL ABUSE, UNCOMPLICATED (7) Carpal tunnel syndrome on both sides Current Visit: Yes Status: Acute Code(s): G56.03 - CARPAL TUNNEL SYNDROME, BILATERAL UPPER LIMBS (8) Obstructive sleep apnea Current Visit: Yes Status: Acute Assessment & Plan: (1) Atrial fibrillation with RVR Current Visit: Yes Status: Acute Assessment & Plan: - continue Eliquis anticoagulation - d/c home [facility], to buy room to increase his Coreg - increase Coreg to 12.5 BID to help improve rate control - titrate off diltiazem drip as see improvement with oral Coreg - check TTE to ensure no other changes (see below re CHF) 01/05 - Echo EF 50-55% - cardiology note reviewed and agree with plan of care - Controlled a-fib now - hold Coreg as pt is bradycardic 01/06 - restart coreg this afternoon- HR In 60's-70's- controlled a-fib 01/07 - Coreg held this am as HR dropped into the 50's when sleeping. - med gave later in morning - If HR improves can restart 01/08 - HR controlled SR Code(s): I48.91 - UNSPECIFIED ATRIAL FIBRILLATION (2) Acute on chronic diastolic (congestive) heart failure Current Visit: Yes Status: Acute Assessment & Plan: - with significant diffuse edema, severe orthopnea, abdominal distention. Possibly triggered by uncontrolled A-fib, although could also be the cause of the A-fib exacerbation. Last TTE was in 2013, showed preserved EF. Note, reported dry weight 300 lb; he is currently 55 lb above that. - give Lasix 80 mg IV BID for now to diurese - Check electrolytes BID - BP control (see below) - patient would benefit from SGLT2 inhibitor; will discuss with patient prior to discharge 01/05 - continue lasix IV with goal for 2-3 L per day off - TEDS 01/06 - 5kg weight gain since yesterday - Fluid restriction - education about CHF provided - Will need close Op f/u 01/07 - low Na+ diet - Metolazone added - fluid restriction stopped 01/08 - 3975 out yesterday - Continue TEDS OP Code(s): I50.33 - ACUTE ON CHRONIC DIASTOLIC (CONGESTIVE) HEART FAILURE (3) Diabetes mellitus Current Visit: No Status: Acute Assessment & Plan: poorly controlled; last A1c was 9.8 in June, and random Glc is 221 today. He is on Mounjaro at home and sliding scale insulin. - place on high-dose sliding scale insulin protocol here - patient would benefit from SGLT2 inhibitor given his concomitant HFpEF - A1c 8.34- uncontrolled - Lantus 40 BID started IP 01/05 - brought in U-500 insulin- restart at home dosing 01/06 - glucose better controlled Code(s): E11.9 - TYPE 2 DIABETES MELLITUS WITHOUT COMPLICATIONS (4) Hypertension Current Visit: No Status: Acute Qualifiers: Hypertension type: essential hypertension Qualified Code(s): I10 - Essential (primary) hypertension Assessment & Plan: - BP currently controlled - stopping Norvasc and increasing Coreg to 12.5 BID as above (see A-fib) - continue home clonidine 0.1 BID, Hydralazine 25 q8h, lisinopril 20 BID - will not give home HCTZ; patient also on lasix at home (and here; see above); sequential nephron blockade with loop and DCT diuretics is rarely more beneficial for BP control and carries increased risk of electrolyte abnormalities. 12/18 - Coreg held by nurse this AM- can give later this AM if vitals improve Code(s): I10 - ESSENTIAL (PRIMARY) HYPERTENSION (5) Nicotine abuse Current Visit: Yes Status: Acute Assessment & Plan: - motivated to quit; he has decreased intake from 2 ppd to 0.3 ppd. Currently mainly smokes when he drinks - counseled tobacco cessation, targeting associated habits with his drinking - patient declined nicotine patch while in hospital; stated has no cravings when not drinking Code(s): Z72.0 - TOBACCO USE (6) Alcohol abuse Current Visit: No Status: Acute Assessment & Plan: - improved from prior heavy drinking. No history of withdrawal symptoms. - advised cessation Code(s): F10.10 - ALCOHOL ABUSE, UNCOMPLICATED (7) Carpal tunnel syndrome on both sides Current Visit: Yes Status: Acute Assessment & Plan: - + phalens - Suggested Op BL wrist braces at night - Likely from repetitive motion at [employer] - Gabapentin 300mg TID 01/06 - pt requesting gabapentin be increased as he has continued pins and needles in BL hands. - Gabapentin increased to 600mg TID 01/07 - added Voltaren cream and tramadol PRN - BL wrist braces at night. 01/08 - stop gabapentin as was not helpful - wrist braces helpful- continue - F/U OP with ortho for carpal tunnel surgery Code(s): G56.03 - CARPAL TUNNEL SYNDROME, BILATERAL UPPER LIMBS (8) Obstructive sleep apnea Current Visit: Yes Status: Acute Assessment & Plan: - Advised OP sleep study- pt refused - HR drops and causing pauses when sleeps- cardiology re-consulted.01/05 Code(s): G47.33 - OBSTRUCTIVE SLEEP APNEA (ADULT) (PEDIATRIC) Code(s): G47.33 - OBSTRUCTIVE SLEEP APNEA (ADULT) (PEDIATRIC) - Discharge Discharge Date: 01/09/24 Disposition: Home, Self-Care Condition: Stable Prescriptions: Continue Allopurinol 100 mg [Zyloprim 100 mg] 300 mg PO DAILY Lisinopril 10 mg [Zestril 10 MG] 20 mg PO BID Omeprazole [Prilosec] 40 mg PO DAILY Pravastatin Sodium 40 mg PO DAILY Carvedilol 12.5 mg [Coreg 12.5 mg] 3.125 mg PO BID Piroxicam 20 mg PO DAILY Amlodipine Besylate 10 mg PO DAILY Ezetimibe 10 mg PO DAILY hydroCHLOROthiazide [Hydrochlorothiazide] 25 mg PO DAILY HydrALAzine HCL 25 MG TAB [Apresoline 25 MG TABLET] 25 mg PO Q8H Folic Acid 1 mg [Folate 1 mg] 1 mg PO DAILY Potassium Chloride [Klor-Con M20] 20 meq PO DAILY Clonidine HCl 0.1 mg [Clonidine 0.1 mg Tablet] 0.1 mg PO BID Apixaban [Eliquis] 5 mg PO BID Docusate Sodium 100 mg [Docusate Sodium 100 MG] 100 mg PO DAILY Ergocalciferol (Vitamin D2) [Vitamin D2] 1,250 mcg PO UD Calcium Carbonate/Vitamin D3 [[place] 500-Vit D3 200 Tablet] 1 each PO BID Aspirin EC 81 mg [Ecotrin 81 mg] 81 mg PO DAILY [place]-3/Dha/Epa/Fish Oil [Fish Oil 1,000 mg Softgel] 1 each PO DAILY Meloxicam 15 mg [Meloxicam 15 MG] 15 mg PO DAILY Thiamine HCl 100 mg [Vitamin B-1 100 mg] 100 mg PO DAILY Tirzepatide [Mounjaro] 5 mg SQ WEEKLY Insulin Regular, Human [Humulin R U-500 Kwikpen] 500 unit SQ UD Changed Furosemide 40 mg [Lasix 40 MG] 80 mg PO BID 30 Days #120 tab Additional Instructions: Take 80mg twice daily of lasix. Weight yourself daily. If you gain > 3lbs then take an extra dose of lasix. Try to limit salt and eat a low salt diet. Folow up with your heart doctor- cardiology. Follow up with: KRISTINA MCCLELALN NP [Primary Care Provider] -
== END 2024-01-09 13:53 | disposition home or self-care (01) | DRG 308 ==
LOC: ED 17:10 → OBSVTOIN 20:17 → ICU 20:17 → MED SURG 01-06 09:13
PROVIDERS: ADMIT Internal Medicine; ATTEND Internal Medicine
DX: I48.20 Chronic atrial fibrillation, unspecified (principal); I50.33 Acute on chronic diastolic (congestive) heart failure; J96.01 Acute respiratory failure with hypoxia; I11.0 Hypertensive heart disease with heart failure; E11.9 Type 2 diabetes mellitus without complications; F17.200 Nicotine dependence, unspecified, uncomplicated; R60.0 Localized edema; M79.642 Pain in left hand; M79.641 Pain in right hand; E87.6 Hypokalemia; F10.10 Alcohol abuse, uncomplicated; G56.03 Carpal tunnel syndrome, bilateral upper limbs; G47.33 Obstructive sleep apnea (adult) (pediatric); E78.5 Hyperlipidemia, unspecified; Z79.899 Other long term (current) drug therapy; Z79.01 Long term (current) use of anticoagulants
CPT/HCPCS: 36000; 36415; 71045; 80048; 80053; 81001; 82947; 83036; 83735; 83880; 84484; 85025; 85027; 85379; 93005; 93041; 93306; 94760; 99285; J1817; J1940; L3908; Q3014; A9270-GY

== ENCOUNTER 2024-09-20 10:36 | Inpatient (IN) | payer OTHER ==
--- NOTE | 2024-09-20 10:46 | ERPHSYRPT ---
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 The complaint is worsening shortness of breath over the last couple of days. Patient was seen by his excellence coach yesterday and started on a diuretic which he has not started this time. Patient does have a history of atrial fibrillation and is on aspirin and Eliquis. He has atrial fibrillation with RVR at this time. Patient has a history of hypertension, gout, hyperlipidemia, insulin-dependent diabetes, CHF, sleep apnea and peripheral neuropathy. He also complains of intermittent chest tightness that has been chronic and it is not worse than it usually is. En route to the emergency department, the patient refused CPAP in the ambulance. Patient arrives to the emergency department and is refusing intubation and mechanical ventilation. He is agreeable to BiPAP if needed. Patient states he quit smoking 4 days ago. He has not had a fever or cough. Timing/Duration: day(s) (Since last few days), worse (Worse today) Activities at Onset: activity Severity of Dyspnea-Max: moderate Severity of Dyspnea-Current: moderate Possible Cause: occasional episodes Modifying Factors: Improves With: activity (Worsens) Associated Symptoms: ankle swelling, No chest pain/discomfort (None now but chronically has intermittent chest tightness), No calf pain Allergies/Adverse Reactions: cetirizine HCl [From Zyrtec] Allergy (Severe, Verified 09/20/24 10:54) Swelling of Face niacin Allergy (Intermediate, Verified 09/20/24 10:54) Hives Home Medications: Allopurinol 100 mg [Zyloprim 100 mg] 300 mg PO DAILY 09/02/12 [History] Lisinopril 10 mg [Zestril 10 MG] 20 mg PO BID 09/02/12 [History] Omeprazole [Prilosec] 40 mg PO DAILY 02/27/14 [History] Pravastatin Sodium 40 mg PO DAILY 05/29/14 [History] Carvedilol 12.5 mg [Coreg 12.5 mg] 3.125 mg PO BID 11/18/16 [History] Amlodipine Besylate 10 mg PO DAILY 05/27/19 [History] Ezetimibe 10 mg PO DAILY 05/27/19 [History] Piroxicam 20 mg PO DAILY 05/27/19 [History] hydroCHLOROthiazide [Hydrochlorothiazide] 25 mg PO DAILY 05/27/19 [History] Apixaban [Eliquis] 5 mg PO BID 05/16/23 [History] Clonidine HCl 0.1 mg [Clonidine 0.1 mg Tablet] 0.1 mg PO BID 05/16/23 [History] Folic Acid 1 mg [Folate 1 mg] 1 mg PO DAILY 05/16/23 [History] HydrALAzine HCL 25 MG TAB [Apresoline 25 MG TABLET] 25 mg PO Q8H 05/16/23 [History] Potassium Chloride [Klor-Con M20] 20 meq PO DAILY 05/16/23 [History] Aspirin EC 81 mg [Ecotrin 81 mg] 81 mg PO DAILY 01/04/24 [History] Calcium Carbonate/Vitamin D3 [[place]ysco 500-Vit D3 200 Tablet] 1 each PO BID 01/04/24 [History] Docusate Sodium 100 mg [Docusate Sodium 100 MG] 100 mg PO DAILY 01/04/24 [History] Ergocalciferol (Vitamin D2) [Vitamin D2] 1,250 mcg PO UD 01/04/24 [History] Meloxicam 15 mg [Meloxicam 15 MG] 15 mg PO DAILY 01/04/24 [History] Reva-3/Dha/Epa/Fish Oil [Fish Oil 1,000 mg Softgel] 1 each PO DAILY 01/04/24 [History] Thiamine HCl 100 mg [Vitamin B-1 100 mg] 100 mg PO DAILY 01/04/24 [History] Tirzepatide [Mounjaro] 5 mg SQ WEEKLY 01/04/24 [History] Insulin Regular, Human [Humulin R U-500 Kwikpen] 500 unit SQ UD 01/05/24 [History] Hx Tetanus, Diphtheria Vaccination/Date Given: Yes Hx Influenza Vaccination/Date Given: No Hx Pneumococcal Vaccination/Date Given: No Travel Risk - International Travel Have you traveled outside of the country in past 3 weeks: No - Emerging Infectious Disease Are you exhibiting symptoms associated with any current EIDs: Yes Symptoms: Headaches/Body Aches/, Shortness of Breath - Review of Systems Constitutional: No Symptoms Eyes: No Symptoms Ears, Nose, & Throat: No Symptoms Respiratory: Dyspnea, Dyspnea on Exertion (NAIR) Cardiac: No Symptoms Abdominal/Gastrointestinal: No Symptoms Genitourinary Symptoms: No Symptoms Musculoskeletal: No Symptoms Skin: No Symptoms Neurological: No Symptoms Psychological: No Symptoms Endocrine: No Symptoms Hematologic/Lymphatic: No Symptoms Immunological/Allergic: No Symptoms All Other Systems: Reviewed and Negative - Past Medical History Pertinent Past Medical History: Yes Neurological History: Peripheral Neuropathy ENT History: Cataracts Cardiac History: Arrhythmia (A-fib), Congestive Heart Failure (diastolic), High Cholesterol, Hypertension Respiratory History: CHF, Sleep Apnea Endocrine Medical History: Diabetes Type II Musculoskeletal History: Arthritis GI Medical History: No Pertinent History History: No Pertinent History Psycho-Social History: Anxiety, Depression Male Reproductive Disorders: No Pertinent History Other Medical History: IDDM, ablasion for afib at [place] - Past Surgical History Past Surgical History: Yes Neuro Surgical History: No Pertinent History Cardiac: Other Respiratory: No Pertinent History Gastrointestinal: No Pertinent History Genitourinary: No Pertinent History Musculoskeletal: No Pertinent History Male Surgical History: No Pertinent History Other Surgical History: left scrotom surgery, ablasion for afib Significant Family History: diabetes - Social History Smoking Status: Current every day smoker (currently 1/3 pack per day, down from 2 PPD) How long have you smoked: 50 Exposure to second hand smoke: Yes Drug Use: none - Social Determinants of Health Will the patient participate in the screening: Yes Do you worry about a steady place to live?: No In the past 12 months,have you had to go without utilities?: No Transportation Issues: No Has anyone in your support network made you feel unsafe?: No Have you or anyone in your house had to go w/o enough food: No - Nursing Vital Signs Nursing Vital Signs: Initial Vital Signs O2 Sat by Pulse Oximetry 91 L 09/20/24 10:55 Pain Scale Pain Intensity 3 - Physical Exam General Appearance: mild distress, alert, anxiety, obese Eye Exam: eyes nml inspection Ears, Nose, Throat Exam: hearing grossly normal, normal ENT inspection, normal pharynx Neck Exam: normal inspection, non-tender, supple, full range of motion Respiratory Exam: respiratory distress, airway intact (Mild), crackles/rales (Basilar), No chest tenderness Cardiovascular/Chest Exam: tachycardia, irregular Abdominal/Gastrointestinal Exam: soft, normal bowel sounds, No tenderness Extremity Exam: non-tender, normal range of motion, pedal edema (Bilateral) Neurologic Exam: alert, oriented x 3, cooperative, home help aide II-XII nml as tested, sensation nml Skin Exam: normal color, warm, dry Lymphatic Exam: No adenopathy SpO2 Interpretation: normal O2 Delivery: Room Air - Course Nursing assessment & vital signs reviewed: Yes EKG Interpreted by Me: RATE (119), Sinus Tach, Right Abbott Deviation (Borderline), prolonged QT interval (Borderline), NORMAL QRS, Other (QTc is 476. No acute ischemia on today's twelve-lead EKG. Multiple PVCs present) Ordered Tests: Active Orders 24 hr Category Date Time Status EKG-ER Only STAT Care 09/20/24 10:46 Active IV Insertion STAT Care 09/20/24 10:46 Active Pulse Oximetry (ED) STAT Care 09/20/24 10:46 Active CHEST 1 VIEW (PORTABLE) Stat Exams 09/20/24 10:47 Completed CHEST WITHOUT CONTRAST [CT] Stat Exams 09/20/24 11:10 Completed ARTERIAL BLOOD GASES Urgent Lab 09/20/24 11:15 Completed BLOOD CULTURE Stat Lab 09/20/24 11:25 Received CBC W DIFF Stat Lab 09/20/24 11:05 Completed CMP Stat Lab 09/20/24 11:05 Completed Lactic Acid Stat Lab 09/20/24 11:15 Completed MAGNESIUM Stat Lab 09/20/24 11:05 Completed NT PRO BNPII Stat Lab 09/20/24 11:05 Completed TROPONIN Q4H Lab 09/20/24 11:05 Completed TROPONIN Q4H Lab 09/20/24 15:00 Ordered TROPONIN Q4H Lab 09/20/24 19:00 Ordered Medication Summary Discontinued Medications Generic Name Dose Route Start Last Admin Trade Name Freq PRN Reason Stop Dose Admin Furosemide 40 mg 09/20/24 13:27 Furosemide 40 Mg/4 Ml Vial IV 09/20/24 13:28 STAT ONE Furosemide Confirm 09/20/24 14:12 Furosemide 40 Mg/4 Ml Vial Administered 09/20/24 14:13 Dose 40 mg .ROUTE .STK-MED ONE Ceftriaxone Sodium 1 gm in 100 mls @ 200 mls/hr 09/20/24 13:26 Rocephin 1 Gm / 100 Ml Nacl IV 09/20/24 13:55 STAT ONE Ceftriaxone Sodium Confirm 09/20/24 14:12 Rocephin 1 Gm / 100 Ml Nacl Administered 09/20/24 14:13 Dose 1 gm in 100 mls @ ud IV .STK-MED ONE Lab/Rad Data: Laboratory Result Diagrams 09/20/24 11:05 09/20/24 11:05 Laboratory Results 09/20/24 09/20/24 09/20/24 Range/Units 11:15 11:15 11:05 WBC (4.23-9.07) x10^3/uL RBC (4.63-6.08) x10^6/uL Hgb (13.7-17.5) g/dL Hct (40.1-51.0) % MCV (79.0-92.2) fL MCH (25.7-32.2) pg MCHC (32.3-36.5) g/dL RDW (11.6-14.4) % Plt Count (163-337) x10^3/uL MPV (9.4-12.4) fL Gran % (34.0-67.9) % Immature Gran % (Auto) (0.001-0.429) % Nucleat RBC Rel Count (0.00-0.2) % Eos # (Auto) (0.04-0.54) x10^3/uL Immature Gran # (Auto) (0.001-0.031) x10^3u/L Absolute Lymphs (auto) (1.32-3.57) x10^3/uL Absolute Monos (auto) (0.30-0.82) x10^3/uL Absolute Nucleated RBC (0.00-0.012) x10^3u/L Lymphocytes % (21.8-53.1) % Monocytes % (5.3-12.2) % Eosinophils % (0.8-7.0) % Basophils % (0.2-1.2) % Absolute Granulocytes (1.78-5.38) x10^3/uL Basophils # (0.01-0.08) x10^3/uL Puncture Site RIGHT RADIAL pCO2 34 L (35-45) mmHg pO2 58 L (75-100) mmHg Base Excess 2.8 H (-2.0-2.0) O2 Saturation 87.3 L (94-100) g/dF ABG pH 7.49 H (7.35-7.45) ABG HCO3 25.9 (22-28) ABG O2 Sat (Measured) 90.5 L (95-100) % Ten Test YES A-a Gradient 128 a/A Ratio 0.31 Hemoglobin 12.8 Carboxyhemoglobin 3.5 (0.0-6.9) % THgb Methemoglobin 0.0 L (1.4-1.5) % Temperature 37.0 C POC O2 Flow Rate 32 % Sodium (135-145) mmol/L Potassium 4.6 (3.5-5.1) mmol/L Chloride (98-107) mmol/L Carbon Dioxide (22-30) mmol/L Anion Gap (5-15) MEQ/L BUN (9-20) mg/dL Creatinine (0.66-1.25) mg/dL Estimated GFR ML/MIN Glucose (74-106) mg/dL Lactic Acid 1.2 (0.4-2.0) Calcium (8.4-10.2) mg/dL Magnesium (1.6-2.3) mg/dL Total Bilirubin (0.2-1.3) mg/dL AST (17-59) U/L ALT (0-50) U/L Alkaline Phosphatase (38-126) U/L Troponin I < 0.012 (0.000-0.033) ng/mL NT-Pro-B Natriuret Pep (<300) pg/mL Serum Total Protein (6.3-8.2) g/dL Albumin (3.5-5.0) g/dL 09/20/24 09/20/24 Range/Units 11:05 11:05 WBC 11.1 H (4.23-9.07) x10^3/uL RBC 4.75 (4.63-6.08) x10^6/uL Hgb 12.2 L (13.7-17.5) g/dL Hct 40.0 L (40.1-51.0) % MCV 84.2 (79.0-92.2) fL MCH 25.7 (25.7-32.2) pg MCHC 30.5 L (32.3-36.5) g/dL RDW 15.2 H (11.6-14.4) % Plt Count 240 (163-337) x10^3/uL MPV 12.2 (9.4-12.4) fL Gran % 79.5 H (34.0-67.9) % Immature Gran % (Auto) 0.6 H (0.001-0.429) % Nucleat RBC Rel Count 0.2 (0.00-0.2) % Eos # (Auto) 0.05 (0.04-0.54) x10^3/uL Immature Gran # (Auto) 0.07 H (0.001-0.031) x10^3u/L Absolute Lymphs (auto) 1.27 L (1.32-3.57) x10^3/uL Absolute Monos (auto) 0.85 H (0.30-0.82) x10^3/uL Absolute Nucleated RBC 0.02 H (0.00-0.012) x10^3u/L Lymphocytes % 11.4 L (21.8-53.1) % Monocytes % 7.6 (5.3-12.2) % Eosinophils % 0.4 L (0.8-7.0) % Basophils % 0.5 (0.2-1.2) % Absolute Granulocytes 8.84 H (1.78-5.38) x10^3/uL Basophils # 0.06 (0.01-0.08) x10^3/uL Puncture Site pCO2 (35-45) mmHg pO2 (75-100) mmHg Base Excess (-2.0-2.0) O2 Saturation (94-100) g/dF ABG pH (7.35-7.45) ABG HCO3 (22-28) ABG O2 Sat (Measured) (95-100) % Ten Test A-a Gradient a/A Ratio Hemoglobin Carboxyhemoglobin (0.0-6.9) % THgb Methemoglobin (1.4-1.5) % Temperature C POC O2 Flow Rate % Sodium 134 L (135-145) mmol/L Potassium 4.6 (3.5-5.1) mmol/L Chloride 99 (98-107) mmol/L Carbon Dioxide 23 (22-30) mmol/L Anion Gap 16.8 H (5-15) MEQ/L BUN 12 (9-20) mg/dL Creatinine 0.61 L (0.66-1.25) mg/dL Estimated GFR 107.9 ML/MIN Glucose 324 H (74-106) mg/dL Lactic Acid (0.4-2.0) Calcium 9.2 (8.4-10.2) mg/dL Magnesium 1.7 (1.6-2.3) mg/dL Total Bilirubin 0.90 (0.2-1.3) mg/dL AST 22 (17-59) U/L ALT 16 (0-50) U/L Alkaline Phosphatase 118 (38-126) U/L Troponin I (0.000-0.033) ng/mL NT-Pro-B Natriuret Pep 1370 (<300) pg/mL Serum Total Protein 6.1 L (6.3-8.2) g/dL Albumin 3.7 (3.5-5.0) g/dL - Progress Progress: improved, re-examined Air Movement: fair Progress Note: 09/20/24 11:32 My medical decision making and the assignment of moderate to high complexity of this patient's medical issue today is based on review of the patient's past medical history, review the patient's medication list, review the patient drug allergy list, history present illness and physical findings on examination. The workup in this patient includes placement of intravenous line, RT evaluation/management with nebulizer treatment, arterial blood gas, CBC, CMP, lactic acid level, blood cultures, troponin level, BNP, magnesium level, twelve- lead EKG, chest x-ray, CT scan of the chest. Viral swabs will also be obtained. Differential diagnosis includes but is not limited to CHF exacerbation, COPD exacerbation, myocardial infarction, arrhythmia, upper respiratory infection, pneumonia, viral illness, atrial fibrillation with RVR 09/20/24 13:32 I interpreted the patient's laboratory data results. Based on the laboratory data results, the patient does have a leukocytosis with a left shift present. There are no other acute, emergent medical findings based on the laboratory data results. The preliminary report of the chest ray was interpreted by me. There appears to be bibasilar infiltrate versus atelectasis. The final report of the chest x-ray was interpreted by the radiologist and I reviewed the impression. The impression states COPD changes bilaterally. There is bibasilar subsegmental atelectasis and lung infiltrates. There is left lower lung nodule present. The CT scan of the chest without contrast was interpreted by the radiologist and I reviewed the impression. The impression states groundglass opacities scattered bilaterally. Infectious process versus pulmonary edema. Minimal bilateral pleural effusions. Multiple indeterminate age rib fractures. Blood Culture(s) Obtained: Yes Antibiotics given: Yes Counseled pt/family regarding: lab results, diagnosis, rad results Medical Desision Making - Independent Historian Additional History obtained from: Environmental Restoration Planner/EMT - Diagnostic Testing Diagnostic test were ordered, analyzed, and reviewed by me: Yes Radiological Interpretation: Interpreted by me, Reviewed by me, Teleradiologist Report - Risk of complications The pt has a high risk of morbidity or mortality based on: Decision regarding hospitilization or escalation of hosp level of care - Departure Departure Disposition: Observation Clinical Impression: Pulmonary infiltrate on chest x-ray, Pleural effusion, CHF exacerbation Condition: Fair Critical Care Time: No Referrals: KRISTINA MCCLELLAN [facility] [Primary Care Provider, UNKNOWN] - Follow up/PCP as directed Instructions: Heart Failure
[2024-09-20 11:20] LABS: A-aADO2 128; ABG HEMOGLOBIN 12.8; ABG POTASSIUM 4.6 (3.5-5.1); ABG SITE RIGHT RADIAL; ALLEN TEST OK? YES; ARTERIAL BLD GAS O2 SATURATION 90.5 % (95-100); ARTERIAL BLOOD GAS BASE EXCESS 2.8 (-2.0-2.0); ARTERIAL BLOOD GAS FIO2 32 %; ARTERIAL BLOOD GAS PCO2 34 mmHg (35-45); ARTERIAL BLOOD GAS PO2 58 mmHg (75-100); ARTERIAL BLOOD GAS pH 7.49 (7.35-7.45); CARBOXYHEMOGLOBIN 3.5 % THgb (0.0-6.9); HCO3- 25.9 (22-28); HGB O2 SAT 87.3 g/dF (94-100); paO2 pAO1 0.31
[2024-09-20 11:40] LABS: Absolute Neutrophil Ct (ANC) 8.84 x10^3/uL (1.78-5.38); BASOPHIL % 0.5 % (0.2-1.2); Basophil (Absolute #) 0.06 x10^3/uL (0.01-0.08); Eosinophil % 0.4 % (0.8-7.0); Eosinophil (Absolute #) 0.05 x10^3/uL (0.04-0.54); Hemoglobin 12.2 g/dL (13.7-17.5); IMMATURE GRAN # 0.07 x10^3u/L (0.001-0.031); IMMATURE GRAN % 0.6 % (0.001-0.429); Lymphocyte (Absolute #) 1.27 x10^3/uL (1.32-3.57); Lymphocytes % 11.4 % (21.8-53.1); Mean Cell Volume 84.2 fL (79.0-92.2); Mean Corpuscular Hemoglobin 25.7 pg (25.7-32.2); Mean Corpuscular Hgb Concent. 30.5 g/dL (32.3-36.5); Mean Platelet Volume 12.2 fL (9.4-12.4); Monocyte (Absolute #) 0.85 x10^3/uL (0.30-0.82); Monocytes % 7.6 % (5.3-12.2); NUCLEATED RBC # 0.02 x10^3u/L (0.00-0.012); NUCLEATED RBC % 0.2 % (0.00-0.2); Neutrophil % 79.5 % (34.0-67.9); Platelet Count 240 x10^3/uL (163-337); Red Blood Count 4.75 x10^6/uL (4.63-6.08); Red Cell Distribution Width 15.2 % (11.6-14.4); White Blood Count 11.1 x10^3/uL (4.23-9.07)
--- NOTE | 2024-09-20 11:55 | XRAY ---
CLINICAL HISTORY: Shortness of breath COMPARISON: No prior studies available for comparison. TECHNIQUE: X-ray images of the chest were obtained in posteroanterior (PA) and lateral projections. FINDINGS: Pulmonary Parenchyma: Chronic obstructive pulmonary changes seen bilaterally. Bibasilar subsegmental atelectasis seen and hazy infiltrates noted. A round nodule seen at the left lower lung zone, measuring 21 mm. No evidence of pleural effusion or pleural thickening. Heart and Mediastinum: The heart size is enlarged. No mediastinal widening or masses. No hilar or mediastinal lymphadenopathy. Bony Thorax: Bony thorax appears intact without fractures or deformities. Soft Tissues: Soft tissues overlying the chest wall are unremarkable. IMPRESSION: 1. Chronic obstructive pulmonary changes seen bilaterally. 2. Bibasilar subsegmental atelectasis seen and hazy infiltrates noted. 3. A round nodule seen at the left lower lung zone, recommend CT for further evaluation. Electronically Signed by: Ophelia Aviles MD. (09/20/2024 11:52:48 EDT)
[2024-09-20 11:58] LABS: ALBUMIN 3.7 g/dL (3.5-5.0); ANION GAP 16.8 MEQ/L (5-15); BILIRUBIN,TOTAL 0.9 mg/dL (0.2-1.3); Calcium 9.2 mg/dL (8.4-10.2); Creatinine 1 0.61 mg/dL (0.66-1.25); EST GLOMERULAR FILTRATION RATE 107.9 ML/MIN; MAGNESIUM 1.7 mg/dL (1.6-2.3); Potassium 4.6 mmol/L (3.5-5.1); Total Protein 6.1 g/dL (6.3-8.2)
--- NOTE | 2024-09-20 12:57 | XRAY ---
CLINICAL HISTORY: sob COMPARISON: prior X-ray dated . TECHNIQUE: Contiguous axial CT images of the chest were acquired without administration of intravenous contrast. Coronal and sagittal reconstructions were obtained. One of the following dose reduction techniques was utilized for this exam: Automated exposure control, adjustment of the mA and/or kV according to patient size, and use of iterative reconstruction. FINDINGS: Lungs: Scattered bilateral reticular opacities with interlobular septal thickening and ground glass opacities. A few bilateral pulmonary nodules, the largest in the left lower lobe, showed peripheral calcification measuring 18 x 17 mm Minimal bilateral pleural effusion. Mediastinum: Enlarged pulmonary trunk measuring 34 mm. Few mediastinal lymph nodes, some of which are calcified, the largest at the subcarinal level measuring 21 x 13 mm. The mediastinum is normal in size and contour. The heart size is within normal limits. Hilar Structures: Few left hilar lymph nodes showed partial calcifications, the largest measuring 16 x 13 mm. Trachea and Main Bronchi: The trachea and main bronchi are patent without evidence of obstruction or abnormality. Chest Wall: The chest wall is unremarkable with no evidence of soft tissue or bony abnormalities. Upper Abdomen: Calcified focus in the right lobe of the liver likely represents sequelae from an old process. Few calcified foci noted, likely representing sequelae from the old process. The gallbladder showed dense contents that could represent stones vs sludge. The last image showed a possible right adrenal lesion, or it could be partial volume. Bones: Multiple rib indeterminate age fractures involving the left 8th, 9th, and 10th, cortical disruption is noted in the right 7th and 8th ribs could represent fractures(indeterminate age). Degenerative changes of the imaged spine. IMPRESSION: 1. Scattered bilateral reticular opacities with interlobular septal thickening and ground glass opacities could represent an infectious process or pulmonary edema. 2. Few bilateral pulmonary nodules, according to Fleischner Society pulmonary nodule recommendations: low-risk and high-risk patients: consider CT at 3 months, PET-CT, or tissue sampling. 3. Minimal bilateral pleural effusion. 4. Mediastinal and left hilar lymph nodes, some of which calcified, could be due to an old granulomatous process. 5. Multiple rib indeterminate age fractures as described above. Electronically Signed by: Ophelia Aviles MD. (09/20/2024 12:54:38 EDT)
[2024-09-20] MEDS ORDERED: ROCEPHIN 1 GM / 100 ML NaCl 1 GM/100 ML IVPB IV ONE (14:12)
[2024-09-20] MEDS ORDERED: Lasix 40 MG/4 ML ONE (14:12)
[2024-09-20] MEDS: ROCEPHIN 1 GM / 100 ML NaCl 1 GM/100 ML IVPB IV ONE (14:19)
[2024-09-20] MEDS: Lasix 40 MG/4 ML IV ONE (14:19)
[2024-09-20] MEDS ORDERED: TYLENOL 325 MG PO PRN (14:54)
--- NOTE | 2024-09-20 15:07 | PCM.HP ---
<CRIS COOL - Last Filed: 09/20/24 15:39> History of Present Illness - Chief Complaint Chief Complaint: sob BLE edema Date: 09/20/24 History of Present Illness: is a 64 year old male with a complex cardiac and pulmonary history, inc luding atrial fibrillation on Eliquis , COPD (RA at baseline),congestive heart failure, stroke, hypertension, insulin-dependent diabetes, CAD, obstructive sleep apnea, hyperlipidemia, gout, and peripheral neuropathy, who presented to the emergency department with progressive shortness of breath over the past three months but worse since yesterday. He also reports recent weight gain, abdominal distention, and BLE edema. He was recently evaluated by his air conditioning installer, who initiated diuretic therapy, though the patient had yet to take the medication prior to arrival. He additionally reports a non-productive cough. Upon arrival to ED, patient was tachypneic and tachycardic. EKG demonstrates atrial fibrillation with rapid ventricular response, with a ventricular rate of approximately 130 beats per minute without evidence of acute ischemia. Laboratory evaluation revealed leukocytosis with WBC of 11.1 and a left shift, elevated BNP at 1370 indicating volume overload and decompensated heart failure, and a mildly elevated anion gap at 16.8, suggestive of metabolic acidosis likely multifactorial from hypoperfusion, hypoxia, and possible diabetic ketosis. Imaging studies demonstrated COPD changes with bibasilar subsegmental atelectasis, bibasilar infiltrates, and an incidental left lower lung nodule on chest x-ray. CT chest without contrast revealed scattered bilateral ground-glass opacities concerning for infectious pneumonia versus pulmonary edema, in addition to minimal bilateral pleural effusions and multiple indeterminate age rib fractures. The patient was treated in the ED with IV furosemide and ceftriaxone. He is being admitted to the hospital for management of presumed acute decompensated congestive heart failure, AFIB RVR, and community-acquired pneumonia, with plans for non-invasive ventilatory support, diuresis, and empiric antibiotics. - Review of Systems Constitutional: No Symptoms Eyes: No Symptoms Ears, Nose, & Throat: No Symptoms Respiratory: Cough, Short Of Breath Cardiac: Edema (BLE L4+ pitting R 2+ pitting) Abdominal/Gastrointestinal: No Symptoms Genitourinary Symptoms: No Symptoms Musculoskeletal: No Symptoms Skin: Skin Lesions (right leg and abdomen) Neurological: No Symptoms Psychological: No Symptoms Endocrine: No Symptoms Hematologic/Lymphatic: No Symptoms Immunological/Allergic: No Symptoms Medications & Allergies Home Medications: Home Medication List Allopurinol 100 mg [Zyloprim 100 mg] 300 mg PO DAILY 09/02/12 [History Confirmed 09/20/24] Lisinopril 10 mg [Zestril 10 MG] 20 mg PO BID 09/02/12 [History Confirmed 09/20/24] Omeprazole [Prilosec] 40 mg PO DAILY 02/27/14 [History Confirmed 09/20/24] Pravastatin Sodium 20 mg PO HS 05/29/14 [History Confirmed 09/20/24] Carvedilol 12.5 mg [Coreg 12.5 mg] 6.25 mg PO BID 11/18/16 [History Confirmed 09/20/24] Amlodipine Besylate 10 mg PO DAILY 05/27/19 [History Confirmed 09/20/24] Ezetimibe 10 mg PO DAILY 05/27/19 [History Confirmed 09/20/24] Piroxicam 20 mg PO DAILY 05/27/19 [History Confirmed 09/20/24] hydroCHLOROthiazide [Hydrochlorothiazide] 25 mg PO DAILY 05/27/19 [History Confirmed 09/20/24] Apixaban [Eliquis] 5 mg PO BID 05/16/23 [History Confirmed 09/20/24] Folic Acid 1 mg [Folate 1 mg] 1 mg PO DAILY 05/16/23 [History Confirmed 09/20/24] Potassium Chloride [Klor-Con M20] 20 meq PO DAILY 05/16/23 [History Confirmed 09/20/24] Aspirin EC 81 mg [Ecotrin 81 mg] 81 mg PO DAILY 01/04/24 [History Confirmed 09/20/24] Calcium Carbonate/Vitamin D3 [[place] 500-Vit D3 200 Tablet] 1 each PO BID 01/04/24 [History Confirmed 09/20/24] Docusate Sodium 100 mg [Docusate Sodium 100 MG] 100 mg PO DAILY 01/04/24 [History Confirmed 09/20/24] Ergocalciferol (Vitamin D2) [Vitamin D2] 1,250 mcg PO 2XW 01/04/24 [History Confirmed 09/20/24] [place]-3/Dha/Epa/Fish Oil [Fish Oil 1,000 mg Softgel] 1 each PO DAILY 01/04/24 [History Confirmed 09/20/24] Thiamine HCl 100 mg [Vitamin B-1 100 mg] 100 mg PO DAILY 01/04/24 [History Confirmed 09/20/24] Insulin Regular, Human [Humulin R U-500 Kwikpen] 110 unit SQ 0730,1130 01/05/24 [History Confirmed 09/20/24] Dabigatran Etexilate Mesylate [Dabigatran Etexilate] 75 mg PO BID 09/20/24 [History Confirmed 09/20/24] Furosemide 40 mg [Lasix 40 MG] 40 mg PO BID 09/20/24 [History Confirmed 09/20/24] Insulin Regular, Human [Humulin R U-500 Kwikpen] 10 unit SQ UD PRN 09/20/24 [History Confirmed 09/20/24] Insulin Regular, Human [Humulin R U-500 Kwikpen] 80 unit SQ 1630 09/20/24 [History Confirmed 09/20/24] Magnesium Oxide 400 mg [Mag-Ox 400] 400 mg PO BID 09/20/24 [History Confirmed 09/20/24] Torsemide 100 mg PO DAILY 09/20/24 [History Confirmed 09/20/24] Allergies/Adverse Reactions: Allergies Allergy/AdvReac Type Severity Reaction Status Date / Time cetirizine HCl [From [facility]] Allergy Severe Swelling Verified 09/20/24 10:54 of Face niacin Allergy Intermediate Hives Verified 09/20/24 10:54 - Past Medical History Past Medical History: Yes Neurological History: Peripheral Neuropathy, Stroke ENT History: Cataracts Cardiac History: Arrhythmia (A-fib), Congestive Heart Failure (diastolic), Coronary Artery Disease, High Cholesterol, Hypertension, Myocardial Infarction ([place]) Respiratory History: CHF, COPD, Sleep Apnea Endocrine Medical History: Diabetes Type II Musculoskelatal History: Arthritis GI Medical History: No Pertinent History History: No Pertinent History Pyscho-Social History: Anxiety, Depression Male Reproductive Disorders: No Pertinent History Comment: IDDM, ablasion for afib at [facility] - Past Surgical History Past Surgical History: Yes Neuro Surgical History: No Pertinent History Cardiac History: Other Respiratory Surgery: No Pertinent History GI Surgical History: No Pertinent History Genitourinary Surgical Hx: No Pertinent History Musculskeletal Surgical Hx: No Pertinent History Male Surgical History: No Pertinent History Other Surgical History: left scrotom surgery, ablasion for afib Significant Family History: heart disease, cancer, diabetes - Social History Smoking Status: Former smoker (quit 4 days ago) How long have you smoked: 50 Exposure to second hand smoke: Yes Alcohol: Daily Drug Use: none - Social Determinants of Health Will the patient participate in the screening: Yes Do you worry about a steady place to live?: No Do you have any problems with any of the following?: No known problems In the past 12 months,have you had to go without utilities?: No Have you or anyone in your house had to go without enough: No Transportation Issues: No Has anyone in your support network made you feel unsafe?: No Does the patient want assistance with any of the above?: No - Physical Exam Vital Signs: Vital Signs - 24 hr Temp Pulse Resp BP BP Pulse Ox 09/20/24 14:30 108/89 09/20/24 14:09 126 H 30 H 168/102 90 L 09/20/24 14:08 94 L 09/20/24 14:07 93 L 09/20/24 14:00 68 24 108/89 98 09/20/24 13:30 124/54 96 09/20/24 13:07 116/61 96 09/20/24 13:00 57 L 27 H 120/56 98 09/20/24 12:31 99/55 95 09/20/24 12:01 110/91 96 09/20/24 11:31 127/57 95 09/20/24 11:20 28 H 86 L 09/20/24 10:56 97.2 F 88 28 H 126/77 90 L 09/20/24 10:55 91 L General Appearance: no apparent distress Neurologic Exam: alert, oriented x 3, cooperative Eye Exam: PERRL/EOMI Ears, Nose, Throat Exam: normal ENT inspection Respiratory Exam: diminished breath sounds Cardiovascular Exam: irregular Gastrointestinal/Abdomen Exam: distention Rectal Exam: deferred Back Exam: normal inspection Extremity Exam: swelling (BLE L>R 4+/2+ pitting edema) Skin Exam: normal color Results - Labs Lab/Micro Results: Lab Results-Last 24 Hours 09/20/24 09/20/24 09/20/24 Range/Units 11:05 11:05 11:05 WBC 11.1 H (4.23-9.07) x10^3/uL RBC 4.75 (4.63-6.08) x10^6/uL Hgb 12.2 L (13.7-17.5) g/dL Hct 40.0 L (40.1-51.0) % MCV 84.2 (79.0-92.2) fL MCH 25.7 (25.7-32.2) pg MCHC 30.5 L (32.3-36.5) g/dL RDW 15.2 H (11.6-14.4) % Plt Count 240 (163-337) x10^3/uL MPV 12.2 (9.4-12.4) fL Gran % 79.5 H (34.0-67.9) % Immature Gran % (Auto) 0.6 H (0.001-0.429) % Nucleat RBC Rel Count 0.2 (0.00-0.2) % Eos # (Auto) 0.05 (0.04-0.54) x10^3/uL Immature Gran # (Auto) 0.07 H (0.001-0.031) x10^3u/L Absolute Lymphs (auto) 1.27 L (1.32-3.57) x10^3/uL Absolute Monos (auto) 0.85 H (0.30-0.82) x10^3/uL Absolute Nucleated RBC 0.02 H (0.00-0.012) x10^3u/L Lymphocytes % 11.4 L (21.8-53.1) % Monocytes % 7.6 (5.3-12.2) % Eosinophils % 0.4 L (0.8-7.0) % Basophils % 0.5 (0.2-1.2) % Absolute Granulocytes 8.84 H (1.78-5.38) x10^3/uL Basophils # 0.06 (0.01-0.08) x10^3/uL Puncture Site pCO2 (35-45) mmHg pO2 (75-100) mmHg Base Excess (-2.0-2.0) O2 Saturation (94-100) g/dF ABG pH (7.35-7.45) ABG HCO3 (22-28) ABG O2 Sat (Measured) (95-100) % Ten Test A-a Gradient a/A Ratio Hemoglobin Carboxyhemoglobin (0.0-6.9) % THgb Methemoglobin (1.4-1.5) % Temperature C POC O2 Flow Rate % Sodium 134 L (135-145) mmol/L Potassium 4.6 (3.5-5.1) mmol/L Chloride 99 (98-107) mmol/L Carbon Dioxide 23 (22-30) mmol/L Anion Gap 16.8 H (5-15) MEQ/L BUN 12 (9-20) mg/dL Creatinine 0.61 L (0.66-1.25) mg/dL Estimated GFR 107.9 ML/MIN Glucose 324 H (74-106) mg/dL Lactic Acid (0.4-2.0) Calcium 9.2 (8.4-10.2) mg/dL Magnesium 1.7 (1.6-2.3) mg/dL Total Bilirubin 0.90 (0.2-1.3) mg/dL AST 22 (17-59) U/L ALT 16 (0-50) U/L Alkaline Phosphatase 118 (38-126) U/L Troponin I < 0.012 (0.000-0.033) ng/mL NT-Pro-B Natriuret Pep 1370 (<300) pg/mL Serum Total Protein 6.1 L (6.3-8.2) g/dL Albumin 3.7 (3.5-5.0) g/dL 09/20/24 09/20/24 Range/Units 11:15 11:15 WBC (4.23-9.07) x10^3/uL RBC (4.63-6.08) x10^6/uL Hgb (13.7-17.5) g/dL Hct (40.1-51.0) % MCV (79.0-92.2) fL MCH (25.7-32.2) pg MCHC (32.3-36.5) g/dL RDW (11.6-14.4) % Plt Count (163-337) x10^3/uL MPV (9.4-12.4) fL Gran % (34.0-67.9) % Immature Gran % (Auto) (0.001-0.429) % Nucleat RBC Rel Count (0.00-0.2) % Eos # (Auto) (0.04-0.54) x10^3/uL Immature Gran # (Auto) (0.001-0.031) x10^3u/L Absolute Lymphs (auto) (1.32-3.57) x10^3/uL Absolute Monos (auto) (0.30-0.82) x10^3/uL Absolute Nucleated RBC (0.00-0.012) x10^3u/L Lymphocytes % (21.8-53.1) % Monocytes % (5.3-12.2) % Eosinophils % (0.8-7.0) % Basophils % (0.2-1.2) % Absolute Granulocytes (1.78-5.38) x10^3/uL Basophils # (0.01-0.08) x10^3/uL Puncture Site RIGHT RADIAL pCO2 34 L (35-45) mmHg pO2 58 L (75-100) mmHg Base Excess 2.8 H (-2.0-2.0) O2 Saturation 87.3 L (94-100) g/dF ABG pH 7.49 H (7.35-7.45) ABG HCO3 25.9 (22-28) ABG O2 Sat (Measured) 90.5 L (95-100) % Ten Test YES A-a Gradient 128 a/A Ratio 0.31 Hemoglobin 12.8 Carboxyhemoglobin 3.5 (0.0-6.9) % THgb Methemoglobin 0.0 L (1.4-1.5) % Temperature 37.0 C POC O2 Flow Rate 32 % Sodium (135-145) mmol/L Potassium 4.6 (3.5-5.1) mmol/L Chloride (98-107) mmol/L Carbon Dioxide (22-30) mmol/L Anion Gap (5-15) MEQ/L BUN (9-20) mg/dL Creatinine (0.66-1.25) mg/dL Estimated GFR ML/MIN Glucose (74-106) mg/dL Lactic Acid 1.2 (0.4-2.0) Calcium (8.4-10.2) mg/dL Magnesium (1.6-2.3) mg/dL Total Bilirubin (0.2-1.3) mg/dL AST (17-59) U/L ALT (0-50) U/L Alkaline Phosphatase (38-126) U/L Troponin I (0.000-0.033) ng/mL NT-Pro-B Natriuret Pep (<300) pg/mL Serum Total Protein (6.3-8.2) g/dL Albumin (3.5-5.0) g/dL - Radiology Impressions Radiology Exams & Impressions: Radiology Procedures Category Date Time Status CHEST 1 VIEW (PORTABLE) Stat Exams 09/20/24 10:47 Completed CHEST WITHOUT CONTRAST [CT] Stat Exams 09/20/24 11:10 Completed - Other Procedures and Tests Respiratory Therapy 09/20/24 14:54 EKG REPEAT IN AM Oxygen Nasal Cannula 2 lpm Respiratory Therapy Consult ONCE Assessment/Plan (1) Pneumonia Current Visit: Yes Status: Acute Assessment & Plan: -Bibasilar infiltrates on CXR and CT chest -Ground-glass opacities on CT chest, which could represent infection versus pulmonary edema -Leukocytosis with left shift (WBC 11.1) -Continue ceftriaxone initiated in ED. Add azithromycin - Blood and sputum cultures ; adjust antibiotics based on results -Monitor for clinical improvement, consider repeat imaging if no improvement in 48-72 hours -Supplemental oxygen with goal spo2 > 91%- currently on 5L -RA at baseline -RT eval -Nebs/INH Code(s): J18.9 - PNEUMONIA, UNSPECIFIED ORGANISM (2) Atrial fibrillation with RVR Current Visit: Yes Status: Acute Assessment & Plan: -EKG with atrial fibrillation with rapid ventricular response. No signs of acute ischemia or injury are seen -most likely secondary to CHF exac/pneuomia -TSH -Continue Eliquis -Metoprolol 5mg IV given - continue to monitor consider cardizem/cardizem drip if appropriate -Most recent echo reviewed from 2023- obtain new echo -cardiology consulted appreciate recs -Patient follows with Dr. Winter OP - last OV yesterday Code(s): I48.91 - UNSPECIFIED ATRIAL FIBRILLATION (3) Acute on chronic diastolic (congestive) heart failure Current Visit: No Status: Acute Assessment & Plan: -Elevated BNP at 1370 -Clinical signs of volume overload with dyspnea and bibasilar infiltrates/atelectasis on imaging -CT chest showing ground-glass opacities and minimal bilateral pleural effusions -Continue IV furosemide (Lasix) initiated in the ED, titrate to clinical response with strict I/O monitoring and daily weights -Monitor electrolytes and renal function daily Code(s): I50.33 - ACUTE ON CHRONIC DIASTOLIC (CONGESTIVE) HEART FAILURE (4) HLD (hyperlipidemia) Current Visit: Yes Status: Acute Assessment & Plan: -Continue statin Code(s): E78.5 - HYPERLIPIDEMIA, UNSPECIFIED (5) HTN (hypertension) Current Visit: Yes Status: Acute Assessment & Plan: -continue home meds Code(s): I10 - ESSENTIAL (PRIMARY) HYPERTENSION (6) JIA (obstructive sleep apnea) Current Visit: Yes Status: Acute Assessment & Plan: -CPAP if agreeable Code(s): G47.33 - OBSTRUCTIVE SLEEP APNEA (ADULT) (PEDIATRIC) (7) Smoker Current Visit: Yes Status: Acute Assessment & Plan: -reports he quit 4 days ago- nicotine patch Code(s): F17.200 - NICOTINE DEPENDENCE, UNSPECIFIED, UNCOMPLICATED (8) Peripheral neuropathy Current Visit: Yes Status: Acute Assessment & Plan: -continue home meds Code(s): G62.9 - POLYNEUROPATHY, UNSPECIFIED (9) Pleural effusion Current Visit: Yes Status: Acute Assessment & Plan: -Continue lasix -consider repeat imaging if no improvement Code(s): J90 - PLEURAL EFFUSION, NOT ELSEWHERE CLASSIFIED (10) Acute respiratory failure with hypoxia Current Visit: No Status: Acute Assessment & Plan: -secondary to pneumonia/ chf see plan above Code(s): J96.01 - ACUTE RESPIRATORY FAILURE WITH HYPOXIA (11) Diabetes mellitus Current Visit: No Status: Acute Assessment & Plan: -ADA diet - ACHS accuchecks -SSI -A1c Code(s): E11.9 - TYPE 2 DIABETES MELLITUS WITHOUT COMPLICATIONS (12) Lung nodule seen on imaging study Current Visit: Yes Status: Acute Assessment & Plan: - Pulmonology referral for left lower lobe lung nodule -outpatient imaging follow-up arranged per guidelines Code(s): R91.1 - SOLITARY PULMONARY NODULE (13) Morbid obesity with BMI of 50.0-59.9, adult Current Visit: Yes Status: Acute Assessment & Plan: -Advised ADA diet and exercise VTE: Eliquis PPI: protonix Dispo: 1-3 days Code status: Full Code(s): E66.01 - MORBID (SEVERE) OBESITY DUE TO EXCESS CALORIES; Z68.43 - BODY MASS INDEX [BMI] 50.0-59.9, ADULT Telemedicine Encounter - Telemedicine Encounter Telemedicine Encounter: "The entirety of this encounter was performed via Telemedicine" This visit was performed using real-time audio and video connection between my location and thepatients locationwith the assistance of a surrogateat the patients location. Written or verbal consent was obtained from the patient/guardian to perform this visit usingnchrPrecision Golf Fitness Academytelemedicine technology. Any patient questions regarding the telemedicine interaction were answered. <LUPE DIETRICH - Last Filed: 09/20/24 21:14> History of Present Illness - Chief Complaint History of Present Illness: is a 64 year old male. - Physical Exam Vital Signs: Vital Signs - 24 hr Temp Pulse Resp BP BP Pulse Ox 09/20/24 19:53 96.8 F 110 H 20 172/77 93 L 09/20/24 16:43 97.4 F 70 22 179/71 91 L 09/20/24 15:59 97.1 F 107 H 22 138/103 94 L 09/20/24 14:54 97.1 F 110 H 18 138/103 94 L 09/20/24 14:30 108/89 09/20/24 14:09 126 H 30 H 168/102 90 L 09/20/24 14:08 94 L 09/20/24 14:07 93 L 09/20/24 14:00 68 24 108/89 98 09/20/24 13:30 124/54 96 09/20/24 13:07 116/61 96 09/20/24 13:00 57 L 27 H 120/56 98 09/20/24 12:31 99/55 95 09/20/24 12:01 110/91 96 09/20/24 11:31 127/57 95 09/20/24 11:20 28 H 86 L 09/20/24 10:56 97.2 F 88 28 H 126/77 90 L 09/20/24 10:55 91 L Results - Labs Lab/Micro Results: Lab Results-Last 24 Hours 09/20/24 09/20/24 09/20/24 Range/Units 11:05 11:05 11:05 WBC 11.1 H (4.23-9.07) x10^3/uL RBC 4.75 (4.63-6.08) x10^6/uL Hgb 12.2 L (13.7-17.5) g/dL Hct 40.0 L (40.1-51.0) % MCV 84.2 (79.0-92.2) fL MCH 25.7 (25.7-32.2) pg MCHC 30.5 L (32.3-36.5) g/dL RDW 15.2 H (11.6-14.4) % Plt Count 240 (163-337) x10^3/uL MPV 12.2 (9.4-12.4) fL Gran % 79.5 H (34.0-67.9) % Immature Gran % (Auto) 0.6 H (0.001-0.429) % Nucleat RBC Rel Count 0.2 (0.00-0.2) % Eos # (Auto) 0.05 (0.04-0.54) x10^3/uL Immature Gran # (Auto) 0.07 H (0.001-0.031) x10^3u/L Absolute Lymphs (auto) 1.27 L (1.32-3.57) x10^3/uL Absolute Monos (auto) 0.85 H (0.30-0.82) x10^3/uL Absolute Nucleated RBC 0.02 H (0.00-0.012) x10^3u/L Lymphocytes % 11.4 L (21.8-53.1) % Monocytes % 7.6 (5.3-12.2) % Eosinophils % 0.4 L (0.8-7.0) % Basophils % 0.5 (0.2-1.2) % Absolute Granulocytes 8.84 H (1.78-5.38) x10^3/uL Basophils # 0.06 (0.01-0.08) x10^3/uL Puncture Site pCO2 (35-45) mmHg pO2 (75-100) mmHg Base Excess (-2.0-2.0) O2 Saturation (94-100) g/dF ABG pH (7.35-7.45) ABG HCO3 (22-28) ABG O2 Sat (Measured) (95-100) % Ten Test A-a Gradient a/A Ratio Hemoglobin Carboxyhemoglobin (0.0-6.9) % THgb Methemoglobin (1.4-1.5) % Temperature C POC O2 Flow Rate % Sodium 134 L (135-145) mmol/L Potassium 4.6 (3.5-5.1) mmol/L Chloride 99 (98-107) mmol/L Carbon Dioxide 23 (22-30) mmol/L Anion Gap 16.8 H (5-15) MEQ/L BUN 12 (9-20) mg/dL Creatinine 0.61 L (0.66-1.25) mg/dL Estimated GFR 107.9 ML/MIN Glucose 324 H (74-106) mg/dL Hemoglobin A1c (4.5-6.0) % Lactic Acid (0.4-2.0) Calcium 9.2 (8.4-10.2) mg/dL Magnesium 1.7 (1.6-2.3) mg/dL Total Bilirubin 0.90 (0.2-1.3) mg/dL AST 22 (17-59) U/L ALT 16 (0-50) U/L Alkaline Phosphatase 118 (38-126) U/L Troponin I < 0.012 (0.000-0.033) ng/mL NT-Pro-B Natriuret Pep 1370 (<300) pg/mL Serum Total Protein 6.1 L (6.3-8.2) g/dL Albumin 3.7 (3.5-5.0) g/dL TSH 3rd Generation (0.470-4.680) mIU/L 09/20/24 09/20/24 09/20/24 Range/Units 11:05 11:15 11:15 WBC (4.23-9.07) x10^3/uL RBC (4.63-6.08) x10^6/uL Hgb (13.7-17.5) g/dL Hct (40.1-51.0) % MCV (79.0-92.2) fL MCH (25.7-32.2) pg MCHC (32.3-36.5) g/dL RDW (11.6-14.4) % Plt Count (163-337) x10^3/uL MPV (9.4-12.4) fL Gran % (34.0-67.9) % Immature Gran % (Auto) (0.001-0.429) % Nucleat RBC Rel Count (0.00-0.2) % Eos # (Auto) (0.04-0.54) x10^3/uL Immature Gran # (Auto) (0.001-0.031) x10^3u/L Absolute Lymphs (auto) (1.32-3.57) x10^3/uL Absolute Monos (auto) (0.30-0.82) x10^3/uL Absolute Nucleated RBC (0.00-0.012) x10^3u/L Lymphocytes % (21.8-53.1) % Monocytes % (5.3-12.2) % Eosinophils % (0.8-7.0) % Basophils % (0.2-1.2) % Absolute Granulocytes (1.78-5.38) x10^3/uL Basophils # (0.01-0.08) x10^3/uL Puncture Site RIGHT RADIAL pCO2 34 L (35-45) mmHg pO2 58 L (75-100) mmHg Base Excess 2.8 H (-2.0-2.0) O2 Saturation 87.3 L (94-100) g/dF ABG pH 7.49 H (7.35-7.45) ABG HCO3 25.9 (22-28) ABG O2 Sat (Measured) 90.5 L (95-100) % Ten Test YES A-a Gradient 128 a/A Ratio 0.31 Hemoglobin 12.8 Carboxyhemoglobin 3.5 (0.0-6.9) % THgb Methemoglobin 0.0 L (1.4-1.5) % Temperature 37.0 C POC O2 Flow Rate 32 % Sodium (135-145) mmol/L Potassium 4.6 (3.5-5.1) mmol/L Chloride (98-107) mmol/L Carbon Dioxide (22-30) mmol/L Anion Gap (5-15) MEQ/L BUN (9-20) mg/dL Creatinine (0.66-1.25) mg/dL Estimated GFR ML/MIN Glucose (74-106) mg/dL Hemoglobin A1c 9.13 H (4.5-6.0) % Lactic Acid 1.2 (0.4-2.0) Calcium (8.4-10.2) mg/dL Magnesium (1.6-2.3) mg/dL Total Bilirubin (0.2-1.3) mg/dL AST (17-59) U/L ALT (0-50) U/L Alkaline Phosphatase (38-126) U/L Troponin I (0.000-0.033) ng/mL NT-Pro-B Natriuret Pep (<300) pg/mL Serum Total Protein (6.3-8.2) g/dL Albumin (3.5-5.0) g/dL TSH 3rd Generation (0.470-4.680) mIU/L 09/20/24 09/20/24 09/20/24 Range/Units 11:22 14:23 18:55 WBC (4.23-9.07) x10^3/uL RBC (4.63-6.08) x10^6/uL Hgb (13.7-17.5) g/dL Hct (40.1-51.0) % MCV (79.0-92.2) fL MCH (25.7-32.2) pg MCHC (32.3-36.5) g/dL RDW (11.6-14.4) % Plt Count (163-337) x10^3/uL MPV (9.4-12.4) fL Gran % (34.0-67.9) % Immature Gran % (Auto) (0.001-0.429) % Nucleat RBC Rel Count (0.00-0.2) % Eos # (Auto) (0.04-0.54) x10^3/uL Immature Gran # (Auto) (0.001-0.031) x10^3u/L Absolute Lymphs (auto) (1.32-3.57) x10^3/uL Absolute Monos (auto) (0.30-0.82) x10^3/uL Absolute Nucleated RBC (0.00-0.012) x10^3u/L Lymphocytes % (21.8-53.1) % Monocytes % (5.3-12.2) % Eosinophils % (0.8-7.0) % Basophils % (0.2-1.2) % Absolute Granulocytes (1.78-5.38) x10^3/uL Basophils # (0.01-0.08) x10^3/uL Puncture Site pCO2 (35-45) mmHg pO2 (75-100) mmHg Base Excess (-2.0-2.0) O2 Saturation (94-100) g/dF ABG pH (7.35-7.45) ABG HCO3 (22-28) ABG O2 Sat (Measured) (95-100) % Ten Test A-a Gradient a/A Ratio Hemoglobin Carboxyhemoglobin (0.0-6.9) % THgb Methemoglobin (1.4-1.5) % Temperature C POC O2 Flow Rate % Sodium (135-145) mmol/L Potassium (3.5-5.1) mmol/L Chloride (98-107) mmol/L Carbon Dioxide (22-30) mmol/L Anion Gap (5-15) MEQ/L BUN (9-20) mg/dL Creatinine (0.66-1.25) mg/dL Estimated GFR ML/MIN Glucose (74-106) mg/dL Hemoglobin A1c (4.5-6.0) % Lactic Acid (0.4-2.0) Calcium (8.4-10.2) mg/dL Magnesium (1.6-2.3) mg/dL Total Bilirubin (0.2-1.3) mg/dL AST (17-59) U/L ALT (0-50) U/L Alkaline Phosphatase (38-126) U/L Troponin I < 0.012 < 0.012 (0.000-0.033) ng/mL NT-Pro-B Natriuret Pep (<300) pg/mL Serum Total Protein (6.3-8.2) g/dL Albumin (3.5-5.0) g/dL TSH 3rd Generation 0.958 (0.470-4.680) mIU/L Accuchecks Date 09/20/24 - Radiology Impressions Radiology Exams & Impressions: Radiology Procedures Category Date Time Status ABDOMINAL-LIMITED [US] Urgent Exams 09/21/24 16:16 Ordered CHEST 1 VIEW (PORTABLE) Stat Exams 09/20/24 10:47 Completed CHEST WITHOUT CONTRAST [CT] Stat Exams 09/20/24 11:10 Completed ECHO W/2D AND DOPPLER [US] Routine Exams 09/21/24 15:54 Ordered - Other Procedures and Tests Respiratory Therapy 09/20/24 14:54 EKG REPEAT IN AM Oxygen Nasal Cannula 5 lpm Telemedicine Encounter - Telemedicine Encounter Telemedicine Encounter: "The entirety of this encounter was performed via Telemedicine" This visit was performed using real-time audio and video connection between my location and thepatients locationwith the assistance of a surrogateat the patients location. Written or verbal consent was obtained from the patient/guardian to perform this visit usingAlgorithmia technology. Any patient questions regarding the telemedicine interaction were answered. VINCENT Encounter - VINCENT Encounter Attestation VINCENT Encounter Attestation: "IhavepersonalbartoloeenPRIMO Thibodeaux andhavediscussed pertinent aspects of their care with Cris Bustamante agree with the history, physical exam (any modifications based on my personal exam will be noted below), assessment, and plan as outlined in original note. Please see immediately below for my summary of findings and additional assessment and plan along with any meaningful corrections/explanations to the Subjective/Objective portions of the IVNCENT note will be noted." My portion of the encounter took place via telemedicine. -Patient with history of HFpEF, afib presenting with shortness of breath, cough, hypoxia and weight gain. He was also in rapid afib. Clinical presentation consistent with pneumonia and HF exacerbation. Will treat with IV antibiotics, IV diuresis and consult cardiology for assistance with management of his HF and afib.
[2024-09-20] MEDS: LOPRESSOR INJECTION IV ONE (16:04)
[2024-09-20] MEDS: Lasix 40 MG/4 ML IV SCH (16:04)
[2024-09-20] MEDS: ZITHROMAX IV*** 500 MG in Sodium Chloride 0.9% 250 ML 250 ML IV SCH (16:04)
[2024-09-20] MEDS ORDERED: Zofran 4 MG/2 ML VIAL IV PRN (16:10)
[2024-09-20] MEDS ORDERED: Xopenex 1.25 MG/0.5 ML UD NEBULE IH PRN (16:10)
[2024-09-20] MEDS: PROTONIX 40 MG IV IV SCH (17:00)
[2024-09-20] MEDS ORDERED: Coreg 3.125 MG PO ONE (17:11)
[2024-09-20] MEDS: Nicoderm CQ 21 MG TOP SCH (17:41)
[2024-09-20] MEDS: HUMALOG SQ PRN ×2 (17:56→21:23)
[2024-09-20] MEDS: Coreg PO ONE (17:57)
[2024-09-20] MEDS ORDERED: PRADAXA 75 MG PO ONE (21:11)
[2024-09-20] MEDS ORDERED: Zestril 20 MG ONE (21:12)
[2024-09-20] MEDS ORDERED: ELIQUIS 2.5 MG TABLET ONE (21:12)
[2024-09-20] MEDS ORDERED: Klor Con ONE (21:12)
[2024-09-20] MEDS ORDERED: ZOCOR 20MG ONE (21:13)
[2024-09-20] MEDS: ZOCOR 20MG PO SCH (21:17)
[2024-09-20] MEDS: PRADAXA 75 MG PO SCH (21:18)
[2024-09-20] MEDS: MAG-OX 400 PO SCH (21:18)
[2024-09-20] MEDS: COREG 12.5 MG PO SCH (21:18)
[2024-09-20] MEDS: NON-FORMULARY ITEM (Apixaban [Eliquis] 5 MG Tablet) PO SCH (21:20)
[2024-09-20] MEDS: Zestril 10 MG PO SCH (21:25)
[2024-09-20] MEDS: NON-FORMULARY ITEM (Potassium Chloride [Klor-Con M20] 20 MEQ Tab.Er.Prt) PO SCH (21:32)
[2024-09-20] MEDS ORDERED: NON-FORMULARY ITEM (Pravastatin Sodium [Pravastatin Sodium] 80 MG Tablet) PO SCH (22:00)
--- NOTE | 2024-09-20 23:47 | PCM.CONS ---
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 He is aware of his atrial fibrillation based on the development of shortness of breath and CHF. He has noted that his legs have become edematous. He is also bothered by NAIR. He denies any chest pain, melena, hematochezia, or hematemesis. His dyspnea especially worsened during the two days [employer]. He was seen by his incendiary powder mixer, Dr. Kay Winter, 2 months ago and 2 days ago. He was told he was in atrial fibrillation 2 months ago with a controlled rate. 2 days ago his VR was more rapid. Adjustments were recommended but he was not able to go the pharmacy before his condition worsened. He is not familiar with his medications as his manages them. He is on both Eliquis and Pradaxa currently. cc:: The requesting physician will be sent a copy of the consult. Review of Systems - Review of Systems All systems: as per HPI (Complete ROS performed. Pertinent positives and negatives in HPI. Otherwise negative.) - Past Medical History Past Medical History: Yes Neurological History: Peripheral Neuropathy, Stroke ENT History: Cataracts Cardiac History: Arrhythmia (A-fib), Congestive Heart Failure (diastolic), Coronary Artery Disease, High Cholesterol, Hypertension, Myocardial Infarction (OH) Respiratory History: CHF, COPD, Sleep Apnea (Cannot tolerate CPAP) Endocrine Medical History: Diabetes Type II Musculoskelatal History: Arthritis GI Medical History: No Pertinent History History: No Pertinent History Pyscho-Social History: Anxiety, Depression Male Reproductive Disorders: No Pertinent History Comment: IDDM, ablasion for afib at [facility] - Past Surgical History Past Surgical History: Yes Neuro Surgical History: No Pertinent History Cardiac History: Other Respiratory Surgery: No Pertinent History GI Surgical History: No Pertinent History Genitourinary Surgical Hx: No Pertinent History Musculskeletal Surgical Hx: No Pertinent History Male Surgical History: No Pertinent History Other Surgical History: left scrotum surgery, atrial fibrillation ablation Significant Family History: heart disease, cancer, diabetes - Social History Smoking Status: Former smoker (quit 4 days ago) How long have you smoked: 50 Exposure to second hand smoke: Yes Alcohol: Daily (Heavy. On average 2 quarts of whisky weekly.) Drug Use: none - Social Determinants of Health Will the patient participate in the screening: Yes Do you worry about a steady place to live?: No Do you have any problems with any of the following?: No known problems In the past 12 months,have you had to go without utilities?: No Have you or anyone in your house had to go without enough: No Transportation Issues: No Has anyone in your support network made you feel unsafe?: No Does the patient want assistance with any of the above?: No Medications & Allergies Home Medications: Home Medication List Allopurinol 100 mg [Zyloprim 100 mg] 300 mg PO DAILY 09/02/12 [History Confirmed 09/20/24] Lisinopril 10 mg [Zestril 10 MG] 20 mg PO BID 09/02/12 [History Confirmed 09/20/24] Omeprazole [Prilosec] 40 mg PO DAILY 02/27/14 [History Confirmed 09/20/24] Pravastatin Sodium 20 mg PO HS 05/29/14 [History Confirmed 09/20/24] Carvedilol 12.5 mg [Coreg 12.5 mg] 6.25 mg PO BID 11/18/16 [History Confirmed 09/20/24] Amlodipine Besylate 10 mg PO DAILY 05/27/19 [History Confirmed 09/20/24] Ezetimibe 10 mg PO DAILY 05/27/19 [History Confirmed 09/20/24] Piroxicam 20 mg PO DAILY 05/27/19 [History Confirmed 09/20/24] hydroCHLOROthiazide [Hydrochlorothiazide] 25 mg PO DAILY 05/27/19 [History Confirmed 09/20/24] Apixaban [Eliquis] 5 mg PO BID 05/16/23 [History Confirmed 09/20/24] Folic Acid 1 mg [Folate 1 mg] 1 mg PO DAILY 05/16/23 [History Confirmed 09/20/24] Potassium Chloride [Klor-Con M20] 20 meq PO DAILY 05/16/23 [History Confirmed 09/20/24] Aspirin EC 81 mg [Ecotrin 81 mg] 81 mg PO DAILY 01/04/24 [History Confirmed 09/20/24] Calcium Carbonate/Vitamin D3 [[place] 500-Vit D3 200 Tablet] 1 each PO BID 01/04/24 [History Confirmed 09/20/24] Docusate Sodium 100 mg [Docusate Sodium 100 MG] 100 mg PO DAILY 01/04/24 [History Confirmed 09/20/24] Ergocalciferol (Vitamin D2) [Vitamin D2] 1,250 mcg PO 2XW 01/04/24 [History Confirmed 09/20/24] [place]-3/Dha/Epa/Fish Oil [Fish Oil 1,000 mg Softgel] 1 each PO DAILY 01/04/24 [History Confirmed 09/20/24] Thiamine HCl 100 mg [Vitamin B-1 100 mg] 100 mg PO DAILY 01/04/24 [History Confirmed 09/20/24] Insulin Regular, Human [Humulin R U-500 Kwikpen] 110 unit SQ 0730,1130 01/05/24 [History Confirmed 09/20/24] Dabigatran Etexilate Mesylate [Dabigatran Etexilate] 75 mg PO BID 09/20/24 [History Confirmed 09/20/24] Furosemide 40 mg [Lasix 40 MG] 40 mg PO BID 09/20/24 [History Confirmed 09/20/24] Insulin Regular, Human [Humulin R U-500 Kwikpen] 10 unit SQ UD PRN 09/20/24 [History Confirmed 09/20/24] Insulin Regular, Human [Humulin R U-500 Kwikpen] 80 unit SQ 1630 09/20/24 [History Confirmed 09/20/24] Magnesium Oxide 400 mg [Mag-Ox 400] 400 mg PO BID 09/20/24 [History Confirmed 09/20/24] Torsemide 100 mg PO DAILY 09/20/24 [History Confirmed 09/20/24] Allergies/Adverse Reactions: Allergies Allergy/AdvReac Type Severity Reaction Status Date / Time cetirizine HCl [From [facility]] Allergy Severe Swelling Verified 09/20/24 10:54 of Face niacin Allergy Intermediate Hives Verified 09/20/24 10:54 Exam - Vitals Vital Signs: Vital Signs - 24 hr Temp Pulse Resp BP BP Pulse Ox 09/20/24 19:53 96.8 F 110 H 20 172/77 93 L 09/20/24 16:43 97.4 F 70 22 179/71 91 L 09/20/24 15:59 97.1 F 107 H 22 138/103 94 L 09/20/24 14:54 97.1 F 110 H 18 138/103 94 L 09/20/24 14:30 108/89 09/20/24 14:09 126 H 30 H 168/102 90 L 09/20/24 14:08 94 L 09/20/24 14:07 93 L 09/20/24 14:00 68 24 108/89 98 09/20/24 13:30 124/54 96 09/20/24 13:07 116/61 96 09/20/24 13:00 57 L 27 H 120/56 98 09/20/24 12:31 99/55 95 09/20/24 12:01 110/91 96 09/20/24 11:31 127/57 95 09/20/24 11:20 28 H 86 L 09/20/24 10:56 97.2 F 88 28 H 126/77 90 L 09/20/24 10:55 91 L General:: no acute distress, alert HEENT: EOMI Cardiovascular Exam: normal heart sounds, irregular, No murmur, No friction rub, No gallop Respiratory Exam: crackles/rales (scattered) SpO2: 93 Oxygen Delivery: Nasal Cannula Gastrointestinal/Abdomen Exam: normal bowel sounds Extremity Exam: edema (3+ below knees) Neurologic: geospatial specialist II-XII grossly intact, No motor deficits (Grossly non-focal) Results Vital Signs: Vital Signs - 24 hr Temp Pulse Resp BP BP Pulse Ox 09/20/24 19:53 96.8 F 110 H 20 172/77 93 L 09/20/24 16:43 97.4 F 70 22 179/71 91 L 09/20/24 15:59 97.1 F 107 H 22 138/103 94 L 09/20/24 14:54 97.1 F 110 H 18 138/103 94 L 09/20/24 14:30 108/89 09/20/24 14:09 126 H 30 H 168/102 90 L 09/20/24 14:08 94 L 09/20/24 14:07 93 L 09/20/24 14:00 68 24 108/89 98 09/20/24 13:30 124/54 96 09/20/24 13:07 116/61 96 09/20/24 13:00 57 L 27 H 120/56 98 09/20/24 12:31 99/55 95 09/20/24 12:01 110/91 96 09/20/24 11:31 127/57 95 09/20/24 11:20 28 H 86 L 09/20/24 10:56 97.2 F 88 28 H 126/77 90 L 09/20/24 10:55 91 L Pain Assessment - Last Documented Pain Intensity 0 Intake and Output: Intake & Output 09/18/24 09/19/24 09/20/24 09/21/24 11:59 11:59 11:59 11:59 Intake Total 240 Output Total 1600 Balance -1360 Weight 169.7 kg 166.5 kg LAB: I have reviewed the Labs in [facility]. Radiology Exams: Radiology Procedures Category Date Time Status ABDOMINAL-LIMITED [US] Urgent Exams 09/21/24 16:16 Ordered CHEST 1 VIEW (PORTABLE) Stat Exams 09/20/24 10:47 Completed CHEST WITHOUT CONTRAST [CT] Stat Exams 09/20/24 11:10 Completed ECHO W/2D AND DOPPLER [US] Routine Exams 09/21/24 15:[address] without contrast 09/20/2024 1. Scattered bilateral reticular opacities with interlobular septal thickening and ground glass opacities could represent an infectious process or pulmonary edema. 2. Few bilateral pulmonary nodules, according to Fleischner Society pulmonary nodule recommendations: low-risk and high-risk patients: consider CT at 3 months, PET- CT, or tissue sampling. 3. Minimal bilateral pleural effusion. 4. Mediastinal and left hilar lymph nodes, some of which calcified, could be due to an old granulomatous process. 5. Multiple rib indeterminate age fractures as described above. CXR (AP) 09/20/2024: 1. Enlarged cardiac silhoutte. 2. Chronic obstructive pulmonary changes seen bilaterally. 3. Bibasilar subsegmental atelectasis seen and hazy infiltrates noted. 4. A round nodule seen at the left lower lung zone, recommend CT for further evaluation. TTE 01/04/2025: 1. Normal LV size and function. 2. There is mild concentric left ventricle hypertrophy. 3. Left ventricular ejection fraction estimated by 2D at 50-55 percent. 4. Unable to completely assess for regional wall motion, some segments are not well seen. 5. The right ventricle is not well visualized but grossly normal in size. 6. There is mitral annular calcification. 7. There is no significant pericardial effusion. Tracing 1 Attestation: I have reviewed this EKG and interpreted as documented below. EKG Narrative: ECGs 09/20/2024 at 1539: Atrial fibrillation with rapid ventricular response at 119 bpm with occasional aberrrantly conducted complexes vs PVCs. 09/20/2024 at 1041: Atrial fibrillation with rapid ventricular response at 119 bpm with occasional aberrrantly conducted complexes vs PVCs. 01/05/2024: Atrial fibrillation with RVR at 143 bpm. Assessment & Plan (1) Persistent atrial fibrillation Current Visit: Yes Status: Chronic Assessment & Plan: Of unclear duration. Present during 12/2023 hospitalization for CHF (had afib with RVR at that time). Patient aware of this arrhythmia 2 months ago before his fluid retention. Per our conversation, carvedilol was increased to 6.25 BID late this afternoon with adequate control of ventricular response. On systemic anticoagulation with both Pradaxa and Eliquis. Will discontinue Pradaxa. Would benefit from rhythm control. Will reach out to his incendiary powder mixer, Dr. Benjamin Winter, regarding an oral amiodarone load. A elective DC cardioverson could be performed if needed after his loading dose. Code(s): I48.19 - OTHER PERSISTENT ATRIAL FIBRILLATION (2) Acute on chronic diastolic (congestive) heart failure Current Visit: Yes Status: Chronic Assessment & Plan: Exacerbation is secondary to his atrial fibrillation with RVR. It is also, in part, related to dietary reasons including his chronic alcohol abuse. Agree with controlling rate control with carvedilol. Continue to diurese with IV furosemide. Check ECHO tomorrow. Code(s): I50.33 - ACUTE ON CHRONIC DIASTOLIC (CONGESTIVE) HEART FAILURE (3) Alcohol abuse Current Visit: Yes Status: Acute Assessment & Plan: Heavy alcohol use is contributing to his persistent atrial fibrillation. Needs to abstain. Code(s): F10.10 - ALCOHOL ABUSE, UNCOMPLICATED - Encounter Critical Care Time: No Encounter: The entirety of this encounter was performed via Telemedicine using audio and visual. Permission granted by patient for this type of encounter. Heriberto Emmanuel MD [facility] [phone]
--- NOTE | 2024-09-21 05:08 | PCM.NOTE ---
Date and Time: 09/21/24 0500 Subjective Assessment: is a 64 year old male with a complex cardiac and pulmonary history, including atrial fibrillation on Eliquis , COPD (RA at baseline),congestive heart failure, stroke, hypertension, insulin-dependent diabetes, CAD, obstructive sleep apnea, hyperlipidemia, gout, and peripheral neuropathy, who presented to the emergency department with progressive shortness of breath over the past three months but worse since yesterday. He also reports recent weight gain, abdominal distention, and BLE edema. 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 He additionally reports a non-productive cough. Upon arrival to ED, patient was tachypneic and tachycardic. EKG demonstrates atrial fibrillation with rapid ventricular response, with a ventricular rate of approximately 130 beats per minute without evidence of acute ischemia. Laboratory evaluation revealed leukocytosis with WBC of 11.1 and a left shift, elevated BNP at 1370 indicating volume overload and decompensated heart failure, and a mildly elevated anion gap at 16.8, suggestive of metabolic acidosis likely multifactorial from hypoperfusion, hypoxia, and possible diabetic ketosis. Imaging studies demonstrated COPD changes with bibasilar subsegmental atelectasis, bibasilar infiltrates, and an incidental left lower lung nodule on chest x-ray. CT chest without contrast revealed scattered bilateral ground-glass opacities concerning for infectious pneumonia versus pulmonary edema, in addition to minimal bilateral pleural effusions and multiple indeterminate age rib fractures. The patient was treated in the ED with IV furosemide and ceftria xone. He is being admitted to the hospital for management of presumed acute decompensated congestive heart failure, AFIB RVR, and community-acquired pneumonia, with plans for non-invasive ventilatory support, diuresis, and empiric antibiotics. 09/21/24: Met with patient bedside. Endorses improvement of dyspnea. Remains on 5L oxygen with baseline of RA. BLE edema and abdominal distention with no improvement. Will increase diurectics to TID dosing. Plan for abdominal US today. Patient reported to nursing staff yesterday that he does smoke and drink alcohol daily. Will initiate CIWA protocol. - Review of Systems Constitutional: No Symptoms Eyes: No Symptoms Ears, Nose, & Throat: No Symptoms Respiratory: Cough, Short Of Breath Cardiac: Edema (BLE pitting 4+) Abdominal/Gastrointestinal: No Symptoms Genitourinary Symptoms: No Symptoms Musculoskeletal: No Symptoms Skin: Skin Lesions Neurological: No Symptoms Psychological: No Symptoms Endocrine: No Symptoms Hematologic/Lymphatic: No Symptoms Immunological/Allergic: No Symptoms Objective Exam General Appearance: no apparent distress, obese Neurologic Exam: alert, oriented x 3, cooperative Skin Exam: normal color, warm, dry Eye Exam: PERRL Ears, Nose, Throat Exam: normal ENT inspection Neck Exam: normal inspection Respiratory Exam: diminished breath sounds Cardiovascular Exam: irregular Gastrointestinal/Abdomen Exam: distention Extremity Exam: pedal edema (BLE), swelling (BLE 4+ pitting) Male Genitalia Exam: deferred Rectal Exam: deferred Objective Data Vital Signs: Vital Signs - 24 hr Temp Pulse Resp BP BP Pulse Ox 09/21/24 03:55 98.1 F 74 19 139/69 92 L 09/21/24 03:51 93 L 09/20/24 23:44 97.1 F 64 20 147/76 90 L 09/20/24 19:53 96.8 F 110 H 20 172/77 93 L 09/20/24 16:43 97.4 F 70 22 179/71 91 L 09/20/24 15:59 97.1 F 107 H 22 138/103 94 L 09/20/24 14:54 97.1 F 110 H 18 138/103 94 L 09/20/24 14:30 108/89 09/20/24 14:09 126 H 30 H 168/102 90 L 09/20/24 14:08 94 L 09/20/24 14:07 93 L 09/20/24 14:00 68 24 108/89 98 09/20/24 13:30 124/54 96 09/20/24 13:07 116/61 96 09/20/24 13:00 57 L 27 H 120/56 98 09/20/24 12:31 99/55 95 09/20/24 12:01 110/91 96 09/20/24 11:31 127/57 95 09/20/24 11:20 28 H 86 L 09/20/24 10:56 97.2 F 88 28 H 126/77 90 L 09/20/24 10:55 91 L Pain Assessment - Last Documented Pain Intensity 0 Intake and Output: Intake & Output 09/18/24 09/19/24 09/20/24 09/21/24 11:59 11:59 11:59 11:59 Intake Total 820 Output Total 2600 Balance -1780 Weight 169.7 kg 166.5 kg Lab Results: Lab Results-Last 24 Hours 09/20/24 09/20/24 09/20/24 Range/Units 11:05 11:05 11:05 WBC 11.1 H (4.23-9.07) x10^3/uL RBC 4.75 (4.63-6.08) x10^6/uL Hgb 12.2 L (13.7-17.5) g/dL Hct 40.0 L (40.1-51.0) % MCV 84.2 (79.0-92.2) fL MCH 25.7 (25.7-32.2) pg MCHC 30.5 L (32.3-36.5) g/dL RDW 15.2 H (11.6-14.4) % Plt Count 240 (163-337) x10^3/uL MPV 12.2 (9.4-12.4) fL Gran % 79.5 H (34.0-67.9) % Immature Gran % (Auto) 0.6 H (0.001-0.429) % Nucleat RBC Rel Count 0.2 (0.00-0.2) % Eos # (Auto) 0.05 (0.04-0.54) x10^3/uL Immature Gran # (Auto) 0.07 H (0.001-0.031) x10^3u/L Absolute Lymphs (auto) 1.27 L (1.32-3.57) x10^3/uL Absolute Monos (auto) 0.85 H (0.30-0.82) x10^3/uL Absolute Nucleated RBC 0.02 H (0.00-0.012) x10^3u/L Lymphocytes % 11.4 L (21.8-53.1) % Monocytes % 7.6 (5.3-12.2) % Eosinophils % 0.4 L (0.8-7.0) % Basophils % 0.5 (0.2-1.2) % Absolute Granulocytes 8.84 H (1.78-5.38) x10^3/uL Basophils # 0.06 (0.01-0.08) x10^3/uL Puncture Site pCO2 (35-45) mmHg pO2 (75-100) mmHg Base Excess (-2.0-2.0) O2 Saturation (94-100) g/dF ABG pH (7.35-7.45) ABG HCO3 (22-28) ABG O2 Sat (Measured) (95-100) % Ten Test A-a Gradient a/A Ratio Hemoglobin Carboxyhemoglobin (0.0-6.9) % THgb Methemoglobin (1.4-1.5) % Temperature C POC O2 Flow Rate % Sodium 134 L (135-145) mmol/L Potassium 4.6 (3.5-5.1) mmol/L Chloride 99 (98-107) mmol/L Carbon Dioxide 23 (22-30) mmol/L Anion Gap 16.8 H (5-15) MEQ/L BUN 12 (9-20) mg/dL Creatinine 0.61 L (0.66-1.25) mg/dL Estimated GFR 107.9 ML/MIN Glucose 324 H (74-106) mg/dL Hemoglobin A1c (4.5-6.0) % Lactic Acid (0.4-2.0) Calcium 9.2 (8.4-10.2) mg/dL Magnesium 1.7 (1.6-2.3) mg/dL Total Bilirubin 0.90 (0.2-1.3) mg/dL AST 22 (17-59) U/L ALT 16 (0-50) U/L Alkaline Phosphatase 118 (38-126) U/L Troponin I < 0.012 (0.000-0.033) ng/mL NT-Pro-B Natriuret Pep 1370 (<300) pg/mL Serum Total Protein 6.1 L (6.3-8.2) g/dL Albumin 3.7 (3.5-5.0) g/dL TSH 3rd Generation (0.470-4.680) mIU/L 09/20/24 09/20/24 09/20/24 Range/Units 11:05 11:15 11:15 WBC (4.23-9.07) x10^3/uL RBC (4.63-6.08) x10^6/uL Hgb (13.7-17.5) g/dL Hct (40.1-51.0) % MCV (79.0-92.2) fL MCH (25.7-32.2) pg MCHC (32.3-36.5) g/dL RDW (11.6-14.4) % Plt Count (163-337) x10^3/uL MPV (9.4-12.4) fL Gran % (34.0-67.9) % Immature Gran % (Auto) (0.001-0.429) % Nucleat RBC Rel Count (0.00-0.2) % Eos # (Auto) (0.04-0.54) x10^3/uL Immature Gran # (Auto) (0.001-0.031) x10^3u/L Absolute Lymphs (auto) (1.32-3.57) x10^3/uL Absolute Monos (auto) (0.30-0.82) x10^3/uL Absolute Nucleated RBC (0.00-0.012) x10^3u/L Lymphocytes % (21.8-53.1) % Monocytes % (5.3-12.2) % Eosinophils % (0.8-7.0) % Basophils % (0.2-1.2) % Absolute Granulocytes (1.78-5.38) x10^3/uL Basophils # (0.01-0.08) x10^3/uL Puncture Site RIGHT RADIAL pCO2 34 L (35-45) mmHg pO2 58 L (75-100) mmHg Base Excess 2.8 H (-2.0-2.0) O2 Saturation 87.3 L (94-100) g/dF ABG pH 7.49 H (7.35-7.45) ABG HCO3 25.9 (22-28) ABG O2 Sat (Measured) 90.5 L (95-100) % Ten Test YES A-a Gradient 128 a/A Ratio 0.31 Hemoglobin 12.8 Carboxyhemoglobin 3.5 (0.0-6.9) % THgb Methemoglobin 0.0 L (1.4-1.5) % Temperature 37.0 C POC O2 Flow Rate 32 % Sodium (135-145) mmol/L Potassium 4.6 (3.5-5.1) mmol/L Chloride (98-107) mmol/L Carbon Dioxide (22-30) mmol/L Anion Gap (5-15) MEQ/L BUN (9-20) mg/dL Creatinine (0.66-1.25) mg/dL Estimated GFR ML/MIN Glucose (74-106) mg/dL Hemoglobin A1c 9.13 H (4.5-6.0) % Lactic Acid 1.2 (0.4-2.0) Calcium (8.4-10.2) mg/dL Magnesium (1.6-2.3) mg/dL Total Bilirubin (0.2-1.3) mg/dL AST (17-59) U/L ALT (0-50) U/L Alkaline Phosphatase (38-126) U/L Troponin I (0.000-0.033) ng/mL NT-Pro-B Natriuret Pep (<300) pg/mL Serum Total Protein (6.3-8.2) g/dL Albumin (3.5-5.0) g/dL TSH 3rd Generation (0.470-4.680) mIU/L 09/20/24 09/20/24 09/20/24 Range/Units 11:22 14:23 18:55 WBC (4.23-9.07) x10^3/uL RBC (4.63-6.08) x10^6/uL Hgb (13.7-17.5) g/dL Hct (40.1-51.0) % MCV (79.0-92.2) fL MCH (25.7-32.2) pg MCHC (32.3-36.5) g/dL RDW (11.6-14.4) % Plt Count (163-337) x10^3/uL MPV (9.4-12.4) fL Gran % (34.0-67.9) % Immature Gran % (Auto) (0.001-0.429) % Nucleat RBC Rel Count (0.00-0.2) % Eos # (Auto) (0.04-0.54) x10^3/uL Immature Gran # (Auto) (0.001-0.031) x10^3u/L Absolute Lymphs (auto) (1.32-3.57) x10^3/uL Absolute Monos (auto) (0.30-0.82) x10^3/uL Absolute Nucleated RBC (0.00-0.012) x10^3u/L Lymphocytes % (21.8-53.1) % Monocytes % (5.3-12.2) % Eosinophils % (0.8-7.0) % Basophils % (0.2-1.2) % Absolute Granulocytes (1.78-5.38) x10^3/uL Basophils # (0.01-0.08) x10^3/uL Puncture Site pCO2 (35-45) mmHg pO2 (75-100) mmHg Base Excess (-2.0-2.0) O2 Saturation (94-100) g/dF ABG pH (7.35-7.45) ABG HCO3 (22-28) ABG O2 Sat (Measured) (95-100) % Ten Test A-a Gradient a/A Ratio Hemoglobin Carboxyhemoglobin (0.0-6.9) % THgb Methemoglobin (1.4-1.5) % Temperature C POC O2 Flow Rate % Sodium (135-145) mmol/L Potassium (3.5-5.1) mmol/L Chloride (98-107) mmol/L Carbon Dioxide (22-30) mmol/L Anion Gap (5-15) MEQ/L BUN (9-20) mg/dL Creatinine (0.66-1.25) mg/dL Estimated GFR ML/MIN Glucose (74-106) mg/dL Hemoglobin A1c (4.5-6.0) % Lactic Acid (0.4-2.0) Calcium (8.4-10.2) mg/dL Magnesium (1.6-2.3) mg/dL Total Bilirubin (0.2-1.3) mg/dL AST (17-59) U/L ALT (0-50) U/L Alkaline Phosphatase (38-126) U/L Troponin I < 0.012 < 0.012 (0.000-0.033) ng/mL NT-Pro-B Natriuret Pep (<300) pg/mL Serum Total Protein (6.3-8.2) g/dL Albumin (3.5-5.0) g/dL TSH 3rd Generation 0.958 (0.470-4.680) mIU/L Radiology Exams: Radiology Procedures Category Date Time Status ABDOMINAL-LIMITED [US] Urgent Exams 09/21/24 16:16 Ordered CHEST 1 VIEW (PORTABLE) Stat Exams 09/20/24 10:47 Completed CHEST WITHOUT CONTRAST [CT] Stat Exams 09/20/24 11:10 Completed ECHO W/2D AND DOPPLER [US] Routine Exams 09/21/24 15:54 Ordered Medications: Medications Generic Name Dose Route Start Last Admin Trade Name Freq PRN Reason Stop Dose Admin Acetaminophen 650 mg 09/20/24 14:54 Acetaminophen 325 Mg Tablet PO 10/20/24 14:53 Q4H PRN PRN PAIN, FEVER, HEADACHE Allopurinol 300 mg 09/21/24 10:00 Allopurinol 100 Mg Tablet PO 10/21/24 09:59 DAILY DO Aspirin 81 mg 09/21/24 10:00 Aspirin 81 Mg Tablet.Ec PO 10/21/24 09:59 DAILY DO Calcium Carbonate tab 09/20/24 22:00 Calcium Carbonate 500 Mg/Vitamin D 1 Tab Tablet PO 10/20/24 21:59 BID DO Carvedilol 6.25 mg 09/20/24 22:00 09/20/24 21:18 Carvedilol 12.5 Mg Tablet PO 10/20/24 21:59 6.25 mg BID DO Administration Docusate Sodium 100 mg 09/21/24 10:00 Docusate Sodium 100 Mg Capsule PO 10/21/24 09:59 DAILY DO Ezetimibe 10 mg 09/21/24 10:00 Ezetimibe 10 Mg Tab PO 10/21/24 09:59 DAILY DO Ergocalciferol unit 09/20/24 18:00 Ergocalciferol (Vitamin D2) 50,000 Unit Capsule PO 10/20/24 17:59 2XW DO Folic Acid 1 mg 09/21/24 10:00 Folic Acid 1 Mg Tablet PO 10/21/24 09:59 DAILY DO Furosemide 40 mg 09/20/24 14:54 09/20/24 21:24 Furosemide 40 Mg/4 Ml Vial IV 10/20/24 14:53 40 mg Q12HT DO Administration Ceftriaxone Sodium 1 gm in 100 mls @ 200 mls/hr 09/21/24 10:00 Rocephin 1 Gm / 100 Ml Nacl IV 10/21/24 09:59 Q24H10 DO Azithromycin 500 mg/ Sodium 250 mls @ 250 mls/hr 09/20/24 16:00 09/20/24 16:04 Chloride IV 10/20/24 15:59 250 mls/hr Q24H10 DO Administration Insulin Human Lispro 10 unit 09/21/24 08:00 Insulin Lispro 1 Unit SQ 10/21/24 07:59 TIDWM DO Insulin Human Lispro 0 unit 09/20/24 17:58 09/20/24 21:23 Insulin Lispro 1 Unit SQ 10/20/24 17:57 12 unit UD PRN Administration HYPERGLYCEMIA Levalbuterol HCl 1.25 mg 09/20/24 16:10 Levalbuterol Hcl 1.25 Mg/0.5 Ml Neb IH 10/20/24 16:09 Q4H PRN PRN SHORTNESS OF BREATH Lisinopril 20 mg 09/20/24 22:00 09/20/24 21:25 Lisinopril 10 Mg Tablet PO 10/20/24 21:59 20 mg BID DO Administration Magnesium Oxide 400 mg 09/20/24 22:00 09/20/24 21:18 Magnesium Oxide 400 Mg Tablet PO 10/20/24 21:59 400 mg BID DO Administration Multivitamins Therapeutic 1 tab 09/21/24 10:00 Multivitamins,Therapeutic 1 Tab Tab PO 10/21/24 09:59 QAM [facility] Nicotine 21 mg 09/20/24 16:15 09/20/24 17:41 Nicotine 21 Mg/Patch Patch TOP 10/20/24 16:14 Not Given DAILY [facility] Non-Formulary Medication 10 mg 09/21/24 10:00 Amlodipine Besylate [Amlodipine Besylate] PO 10/21/24 09:59 DAILY [facility] Non-Formulary Medication 5 mg 09/20/24 22:00 09/20/24 21:20 Apixaban [Eliquis] PO 10/20/24 21:59 5 mg BID DO Administration Non-Formulary Medication 20 meq 09/20/24 22:00 09/20/24 21:32 Potassium Chloride [Klor-Con M20] PO 10/20/24 21:59 20 meq BID DO Administration Non-Formulary Medication 20 mg 09/21/24 10:00 Piroxicam [Piroxicam] PO 10/21/24 09:59 DAILY [facility] Ondansetron HCl 4 mg 09/20/24 16:10 Ondansetron Hcl 4 Mg/2 Ml Vial IV 10/20/24 16:09 Q6H PRN PRN NAUSEA/VOMITING Pantoprazole Sodium 40 mg 09/20/24 16:30 09/20/24 17:00 Pantoprazole 40 Mg Vial IV 10/20/24 16:29 40 mg DAILY DO Administration Simvastatin 20 mg 09/20/24 22:00 09/20/24 21:17 Simvastatin 20 Mg Tablet PO 10/20/24 21:59 20 mg HS DO Administration Thiamine HCl 100 mg 09/21/24 10:00 Thiamine Hcl 100 Mg Tablet PO 10/21/24 09:59 DAILY DO Discontinued Medications Generic Name Dose Route Start Last Admin Trade Name Freq PRN Reason Stop Dose Admin Apixaban Confirm 09/20/24 21:12 Apixaban 2.5 Mg Tablet Administered 09/20/24 21:13 Dose 5 mg .ROUTE .STK-MED ONE Carvedilol 6.25 mg 09/20/24 17:45 09/20/24 17:57 Carvedilol 6.25 Mg Tablet PO 09/20/24 17:46 6.25 mg STAT ONE Administration Dabigatran 75 mg 09/20/24 22:00 09/20/24 21:18 Dabigatran Etexilate Mesylate 75 Mg Capsule PO 10/20/24 21:59 75 mg BID DO Administration Dabigatran Confirm 09/20/24 21:11 Dabigatran Etexilate Mesylate 75 Mg Capsule Administered 09/20/24 21:12 Dose 75 mg PO .STK-MED ONE Furosemide 40 mg 09/20/24 13:27 09/20/24 14:19 Furosemide 40 Mg/4 Ml Vial IV 09/20/24 13:28 40 mg STAT ONE Administration Furosemide Confirm 09/20/24 14:12 Furosemide 40 Mg/4 Ml Vial Administered 09/20/24 14:13 Dose 40 mg .ROUTE .STK-MED ONE Ceftriaxone Sodium 1 gm in 100 mls @ 200 mls/hr 09/20/24 13:26 09/20/24 14:19 Rocephin 1 Gm / 100 Ml Nacl IV 09/20/24 13:55 200 ml/hr STAT ONE 200 mls/hr Administration Ceftriaxone Sodium Confirm 09/20/24 14:12 Rocephin 1 Gm / 100 Ml Nacl Administered 09/20/24 14:13 Dose 1 gm in 100 mls @ ud IV .STK-MED ONE Insulin Human Lispro 0 unit 09/20/24 16:10 09/20/24 17:56 Insulin Lispro 1 Unit SQ 10/20/24 16:09 7 unit UD PRN Administration HYPERGLYCEMIA Lisinopril Confirm 09/20/24 21:12 Lisinopril 20 Mg Tablet Administered 09/20/24 21:13 Dose 20 mg .ROUTE .STK-MED ONE Metoprolol Tartrate 5 mg 09/20/24 15:53 09/20/24 16:04 Metoprolol Tartrate 5 Mg/5 Ml Vial IV 09/20/24 15:54 5 mg STAT ONE Administration Non-Formulary Medication 20 mg 09/20/24 22:00 Pravastatin Sodium [Pravastatin Sodium] PO 10/20/24 21:59 HS DO Potassium Chloride Confirm 09/20/24 21:12 Potassium Chloride Tab 10 Meq Tab Administered 09/20/24 21:13 Dose 20 meq .ROUTE .STK-MED ONE Simvastatin Confirm 09/20/24 21:13 Simvastatin 20 Mg Tablet Administered 09/20/24 21:14 Dose 20 mg .ROUTE .STK-MED ONE Assessment/Plan (1) Pneumonia Current Visit: Yes Status: Acute Assessment & Plan: -Bibasilar infiltrates on CXR and CT chest -Ground-glass opacities on CT chest, which could represent infection versus pu lmonary edema -Leukocytosis with left shift (WBC 11.1) -Continue ceftriaxone initiated in ED. Add azithromycin - Blood and sputum cultures ; adjust antibiotics based on results -Monitor for clinical improvement, consider repeat imaging if no improvement in 48-72 hours -Supplemental oxygen with goal spo2 > 91%- currently on 5L -RA at baseline -RT eval -Nebs/INH 09/21: -continue abx -CBC/CMP reviewed -continue oxygen at 5L- titrate to maintain spo2 >91% Code(s): J18.9 - PNEUMONIA, UNSPECIFIED ORGANISM (2) Atrial fibrillation with RVR Current Visit: Yes Status: Acute Assessment & Plan: -EKG with atrial fibrillation with rapid ventricular response. No signs of acute ischemia or injury are seen -most likely secondary to CHF exac/pneuomia -TSH -Continue Eliquis -Metoprolol 5mg IV given - continue to monitor consider cardizem/cardizem drip if appropriate -Most recent echo reviewed from 2023- obtain new echo -cardiology consulted appreciate recs -Patient follows with Dr. Winter OP - last OV yesterday 09/21: -TSH WNL -Cardiology consulted and recommended coreg 6.25 bid and discontinuation of pradaxa -HR now controlled -Echo pending Code(s): I48.91 - UNSPECIFIED ATRIAL FIBRILLATION (3) Acute on chronic diastolic (congestive) heart failure Current Visit: No Status: Acute Assessment & Plan: -Elevated BNP at 1370 -Clinical signs of volume overload with dyspnea and bibasilar infiltrates/atelectasis on imaging -CT chest showing ground-glass opacities and minimal bilateral pleural effusions -Continue IV furosemide (Lasix) initiated in the ED, titrate to clinical response with strict I/O monitoring and daily weights -Monitor electrolytes and renal function daily 09/21: -BLE with no improvement- increase lasix to 40mg TID -CMP/CBC reviewed -Echo pending -Cardiology following Code(s): I50.33 - ACUTE ON CHRONIC DIASTOLIC (CONGESTIVE) HEART FAILURE (4) HLD (hyperlipidemia) Current Visit: Yes Status: Acute Assessment & Plan: -Continue statin Code(s): E78.5 - HYPERLIPIDEMIA, UNSPECIFIED (5) HTN (hypertension) Current Visit: Yes Status: Acute Assessment & Plan: -continue home meds Code(s): I10 - ESSENTIAL (PRIMARY) HYPERTENSION (6) JIA (obstructive sleep apnea) Current Visit: Yes Status: Acute Assessment & Plan: -CPAP if agreeable Code(s): G47.33 - OBSTRUCTIVE SLEEP APNEA (ADULT) (PEDIATRIC) (7) Smoker Current Visit: Yes Status: Acute Assessment & Plan: -reports he quit 4 days ago- nicotine patch 09/21: -Advised Cessation- patient reports that he is smoking daily but ready to quit Code(s): F17.200 - NICOTINE DEPENDENCE, UNSPECIFIED, UNCOMPLICATED Alcohol abuse -Daily drinker -CIWA protocol initiated (8) Peripheral neuropathy Current Visit: Yes Status: Acute Assessment & Plan: -continue home meds Code(s): G62.9 - POLYNEUROPATHY, UNSPECIFIED (9) Pleural effusion Current Visit: Yes Status: Acute Assessment & Plan: -Continue lasix -consider repeat imaging if no improvement Code(s): J90 - PLEURAL EFFUSION, NOT ELSEWHERE CLASSIFIED (10) Acute respiratory failure with hypoxia Current Visit: No Status: Acute Assessment & Plan: -secondary to pneumonia/ chf see plan above Code(s): J96.01 - ACUTE RESPIRATORY FAILURE WITH HYPOXIA (11) Diabetes mellitus Current Visit: No Status: Acute Assessment & Plan: -ADA diet - ACHS accuchecks -SSI -A1c Code(s): E11.9 - TYPE 2 DIABETES MELLITUS WITHOUT COMPLICATIONS (12) Lung nodule seen on imaging study Current Visit: Yes Status: Acute Assessment & Plan: - Pulmonology referral for left lower lobe lung nodule -outpatient imaging follow-up arranged per guidelines Code(s): R91.1 - SOLITARY PULMONARY NODULE (13) Morbid obesity with BMI of 50.0-59.9, adult Current Visit: Yes Status: Acute Assessment & Plan: -Advised ADA diet and exercise VTE: Eliquis PPI: protonix Dispo: 1-3 days Code status: Full Code(s): J18.9 - PNEUMONIA, UNSPECIFIED ORGANISM (2) Atrial fibrillation with RVR Current Visit: Yes Status: Acute Code(s): I48.91 - UNSPECIFIED ATRIAL FIBRILLATION (3) Acute on chronic diastolic (congestive) heart failure Current Visit: Yes Status: Chronic Code(s): I50.33 - ACUTE ON CHRONIC DIASTOLIC (CONGESTIVE) HEART FAILURE (4) HLD (hyperlipidemia) Current Visit: Yes Status: Acute Code(s): E78.5 - HYPERLIPIDEMIA, UNSPECIFIED (5) HTN (hypertension) Current Visit: Yes Status: Acute Code(s): I10 - ESSENTIAL (PRIMARY) HYPERTENSION (6) JIA (obstructive sleep apnea) Current Visit: Yes Status: Acute Code(s): G47.33 - OBSTRUCTIVE SLEEP APNEA (ADULT) (PEDIATRIC) (7) Smoker Current Visit: Yes Status: Acute Code(s): F17.200 - NICOTINE DEPENDENCE, UNSPECIFIED, UNCOMPLICATED (8) Peripheral neuropathy Current Visit: Yes Status: Acute Code(s): G62.9 - POLYNEUROPATHY, UNSPECIFIED (9) Pleural effusion Current Visit: Yes Status: Acute Code(s): J90 - PLEURAL EFFUSION, NOT ELSEWHERE CLASSIFIED (10) Acute respiratory failure with hypoxia Current Visit: No Status: Acute Code(s): J96.01 - ACUTE RESPIRATORY FAILURE WITH HYPOXIA (11) Diabetes mellitus Current Visit: No Status: Acute Code(s): E11.9 - TYPE 2 DIABETES MELLITUS WITHOUT COMPLICATIONS (12) Lung nodule seen on imaging study Current Visit: Yes Status: Acute Code(s): R91.1 - SOLITARY PULMONARY NODULE (13) Morbid obesity with BMI of 50.0-59.9, adult Current Visit: Yes Status: Acute Code(s): E66.01 - MORBID (SEVERE) OBESITY DUE TO EXCESS CALORIES; Z68.43 - BODY MASS INDEX [BMI] 50.0-59.9, ADULT (14) Alcohol abuse Current Visit: Yes Status: Acute Code(s): F10.10 - ALCOHOL ABUSE, UNCOMPLICATED
[2024-09-21 05:16] LABS: Absolute Neutrophil Ct (ANC) 6.73 x10^3/uL (1.78-5.38); BASOPHIL % 0.3 % (0.2-1.2); Basophil (Absolute #) 0.03 x10^3/uL (0.01-0.08); Eosinophil % 1.2 % (0.8-7.0); Eosinophil (Absolute #) 0.11 x10^3/uL (0.04-0.54); Hematocrit 38.3 % (40.1-51.0); Hemoglobin 11.5 g/dL (13.7-17.5); IMMATURE GRAN # 0.05 x10^3u/L (0.001-0.031); IMMATURE GRAN % 0.5 % (0.001-0.429); Lymphocyte (Absolute #) 1.75 x10^3/uL (1.32-3.57); Lymphocytes % 18.7 % (21.8-53.1); Mean Cell Volume 85.7 fL (79.0-92.2); Mean Corpuscular Hemoglobin 25.7 pg (25.7-32.2); Mean Platelet Volume 13.1 fL (9.4-12.4); Monocyte (Absolute #) 0.68 x10^3/uL (0.30-0.82); Monocytes % 7.3 % (5.3-12.2); Platelet Count 231 x10^3/uL (163-337); Red Blood Count 4.47 x10^6/uL (4.63-6.08); Red Cell Distribution Width 15.4 % (11.6-14.4); White Blood Count 9.4 x10^3/uL (4.23-9.07)
[2024-09-21 05:44] LABS: ALBUMIN 3.7 g/dL (3.5-5.0); ANION GAP 12.6 MEQ/L (5-15); BILIRUBIN,TOTAL 0.8 mg/dL (0.2-1.3); Calcium 9.3 mg/dL (8.4-10.2); Creatinine 1 0.78 mg/dL (0.66-1.25); EST GLOMERULAR FILTRATION RATE 100.2 ML/MIN; Potassium 3.9 mmol/L (3.5-5.1); Total Protein 6.6 g/dL (6.3-8.2)
[2024-09-21] MEDS ORDERED: MEDICATION INTERVENTION MC SCH (07:30)
[2024-09-21] MEDS ORDERED: HUMALOG SQ SCH (08:00)
[2024-09-21] MEDS: HUMALOG SQ SCH (08:35)
[2024-09-21] MEDS: Coreg PO SCH (09:30)
[2024-09-21] MEDS: Docusate Sodium 100 MG PO SCH (09:30)
[2024-09-21] MEDS: NORVASC 5 MG PO SCH (09:33)
[2024-09-21] MEDS: Zestril 20 MG PO SCH (09:34)
[2024-09-21] MEDS: FOLATE 1 MG PO SCH (09:34)
[2024-09-21] MEDS: ECOTRIN 81 MG PO SCH (09:34)
[2024-09-21] MEDS: Calcium 500MG W/Vit D Tablet PO SCH (09:34)
[2024-09-21] MEDS: THERAGRAN MULTIVITAMIN PO SCH (09:34)
[2024-09-21] MEDS: ZYLOPRIM 300 MG PO SCH (09:35)
[2024-09-21] MEDS: ELIQUIS 2.5 MG TABLET PO SCH (09:35)
[2024-09-21] MEDS: ROCEPHIN 1 GM / 100 ML NaCl 1 GM/100 ML IVPB IV SCH (09:35)
[2024-09-21] MEDS: VITAMIN B-1 100 MG PO SCH (09:35)
[2024-09-21] MEDS: Zetia 10 MG PO SCH (09:35)
[2024-09-21] MEDS: Klor Con PO SCH (09:42)
[2024-09-21] MEDS ORDERED: NON-FORMULARY ITEM (Amlodipine Besylate [Amlodipine Besylate] 10 MG Tablet) PO SCH (10:00)
[2024-09-21] MEDS ORDERED: PIROXICAM 20 MG PO SCH (10:00)
[2024-09-21] MEDS ORDERED: ZYLOPRIM 100 MG PO SCH (10:00)
[2024-09-21] MEDS ORDERED: Ativan 2 MG/1 ML VIAL IV PRN ×2 (12:19)
[2024-09-21] MEDS: Lasix 40 MG/4 ML IV SCH (15:01)
--- NOTE | 2024-09-21 17:58 | XRAY ---
Indication: Ascites. Four-quadrant abdominal sonogram performed. No pockets of free fluid/ascites.
[2024-09-22 04:53] LABS: Absolute Neutrophil Ct (ANC) 6.95 x10^3/uL (1.78-5.38); BASOPHIL % 0.4 % (0.2-1.2); Basophil (Absolute #) 0.04 x10^3/uL (0.01-0.08); Eosinophil % 2.2 % (0.8-7.0); Eosinophil (Absolute #) 0.22 x10^3/uL (0.04-0.54); Hemoglobin 11.8 g/dL (13.7-17.5); IMMATURE GRAN # 0.05 x10^3u/L (0.001-0.031); IMMATURE GRAN % 0.5 % (0.001-0.429); Lymphocyte (Absolute #) 1.92 x10^3/uL (1.32-3.57); Lymphocytes % 19.5 % (21.8-53.1); Mean Cell Volume 87.3 fL (79.0-92.2); Mean Corpuscular Hemoglobin 25.8 pg (25.7-32.2); Mean Corpuscular Hgb Concent. 29.5 g/dL (32.3-36.5); Mean Platelet Volume 12.5 fL (9.4-12.4); Monocyte (Absolute #) 0.65 x10^3/uL (0.30-0.82); Monocytes % 6.6 % (5.3-12.2); Neutrophil % 70.8 % (34.0-67.9); Platelet Count 231 x10^3/uL (163-337); Red Blood Count 4.58 x10^6/uL (4.63-6.08); Red Cell Distribution Width 15.8 % (11.6-14.4); White Blood Count 9.8 x10^3/uL (4.23-9.07)
[2024-09-22 05:23] LABS: ALBUMIN 3.6 g/dL (3.5-5.0); ANION GAP 8.7 MEQ/L (5-15); BILIRUBIN,TOTAL 0.5 mg/dL (0.2-1.3); Calcium 9.4 mg/dL (8.4-10.2); Creatinine 1 0.88 mg/dL (0.66-1.25); EST GLOMERULAR FILTRATION RATE 96.6 ML/MIN; Potassium 4.2 mmol/L (3.5-5.1); Total Protein 6.5 g/dL (6.3-8.2)
--- NOTE | 2024-09-22 05:27 | PCM.NOTE ---
Date and Time: 09/22/24 0522 Subjective Assessment: is a 64 year old male with a complex cardiac and pulmonary history, including atrial fibrillation on Eliquis , COPD (RA at baseline),congestive heart failure, stroke, hypertension, insulin-dependent diabetes, CAD, obstructive sleep apnea, hyperlipidemia, gout, and peripheral neuropathy, who presented to the emergency department with progressive shortness of breath over the past three months but worse since yesterday. He also reports recent weight gain, abdominal distention, and BLE edema. 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 He additionally reports a non-productive cough. Upon arrival to ED, patient was tachypneic and tachycardic. EKG demonstrates atrial fibrillation with rapid ventricular response, with a ventricular rate of approximately 130 beats per minute without evidence of acute ischemia. Laboratory evaluation revealed leukocytosis with WBC of 11.1 and a left shift, elevated BNP at 1370 indicating volume overload and decompensated heart failure, and a mildly elevated anion gap at 16.8, suggestive of metabolic acidosis likely multifactorial from hypoperfusion, hypoxia, and possible diabetic ketosis. Imaging studies demonstrated COPD changes with bibasilar subsegmental atelectasis, bibasilar infiltrates, and an incidental left lower lung nodule on chest x-ray. CT chest without contrast revealed scattered bilateral ground-glass opacities concerning for infectious pneumonia versus pulmonary edema, in addition to minimal bilateral pleural effusions and multiple indeterminate age rib fractures. The patient was treated in the ED with IV furosemide and ceftriaxone. He is being admitted to the hospital for management of presumed acute decompensated congestive heart failure, AFIB RVR, and community-acquired pneumonia, with plans for non-invasive ventilatory support, diuresis, and empiric antibiotics. 09/21/24: Met with patient bedside. Endorses improvement of dyspnea. Remains on 5L oxygen with baseline of RA. BLE edema and abdominal distention with no improvement. Will increase diurectics to TID dosing. Plan for abdominal US today. Patient reported to nursing staff yesterday that he does smoke and drink alcohol daily. Will initiate CIWA protocol. 09/22/24: Patient was seen and evaluated at the bedside. He reports improvement in dyspnea, though remains dependent on 5L oxygen via nasal cannula. Diuretic regimen was intensified with furosemide increased to 40 mg three times daily. Abdominal ultrasound revealed no evidence of ascites. On physical examination, abdominal distention has improved compared to prior assessments. The patient has experienced a total weight loss of 9.3 pounds since admission. Heart rate remains well-controlled on the current medication regimen. Denies fever,cough, cp, abdominal pain, JADE, dizziness, N/V/D. - Review of Systems Constitutional: No Symptoms Eyes: No Symptoms Ears, Nose, & Throat: No Symptoms Respiratory: Short Of Breath Cardiac: Edema (BLE 4+ pitting) Abdominal/Gastrointestinal: No Symptoms Genitourinary Symptoms: No Symptoms Musculoskeletal: No Symptoms Skin: No Symptoms Neurological: No Symptoms Psychological: No Symptoms Endocrine: No Symptoms Hematologic/Lymphatic: No Symptoms Immunological/Allergic: No Symptoms Objective Exam General Appearance: no apparent distress Neurologic Exam: alert, oriented x 3, cooperative Skin Exam: normal color Eye Exam: PERRL Ears, Nose, Throat Exam: normal ENT inspection Neck Exam: normal inspection Respiratory Exam: diminished breath sounds Cardiovascular Exam: irregular Gastrointestinal/Abdomen Exam: normal bowel sounds, distention Extremity Exam: pedal edema, swelling Back Exam: normal inspection Male Genitalia Exam: deferred Rectal Exam: deferred Objective Data Vital Signs: Vital Signs - 24 hr Temp Pulse Resp BP Pulse Ox 09/22/24 03:50 97.1 F 79 20 126/75 91 L 09/21/24 23:48 96.9 F 60 20 118/58 95 09/21/24 19:48 94 L 09/21/24 19:40 96.9 F 86 20 124/59 91 L 09/21/24 16:00 97.7 F 78 16 110/54 88 L 09/21/24 11:30 97.9 F 78 16 93/54 92 L 09/21/24 07:22 98.1 F 73 16 149/64 92 L 09/21/24 07:01 81 20 93 L Pain Assessment - Last Documented Pain Intensity 0 Intake and Output: Intake & Output 09/19/24 09/20/24 09/21/24 09/22/24 11:59 11:59 11:59 11:59 Intake Total 1560 2110 Output Total 3200 600 Balance -1640 1510 Weight 169.7 kg 164.79 kg Lab Results: Lab Results-Last 24 Hours 09/21/24 09/21/24 09/22/24 Range/Units 05:09 05:09 04:52 WBC 9.4 H 9.8 H (4.23-9.07) x10^3/uL RBC 4.47 L 4.58 L (4.63-6.08) x10^6/uL Hgb 11.5 L 11.8 L (13.7-17.5) g/dL Hct 38.3 L 40.0 L (40.1-51.0) % MCV 85.7 87.3 (79.0-92.2) fL MCH 25.7 25.8 (25.7-32.2) pg MCHC 30.0 L 29.5 L (32.3-36.5) g/dL RDW 15.4 H 15.8 H (11.6-14.4) % Plt Count 231 231 (163-337) x10^3/uL MPV 13.1 H 12.5 H (9.4-12.4) fL Gran % 72.0 H 70.8 H (34.0-67.9) % Immature Gran % (Auto) 0.5 H 0.5 H (0.001-0.429) % Nucleat RBC Rel Count 0.0 0.0 (0.00-0.2) % Eos # (Auto) 0.11 0.22 (0.04-0.54) x10^3/uL Immature Gran # (Auto) 0.05 H 0.05 H (0.001-0.031) x10^3u/L Absolute Lymphs (auto) 1.75 1.92 (1.32-3.57) x10^3/uL Absolute Monos (auto) 0.68 0.65 (0.30-0.82) x10^3/uL Absolute Nucleated RBC 0.00 0.00 (0.00-0.012) x10^3u/L Lymphocytes % 18.7 L 19.5 L (21.8-53.1) % Monocytes % 7.3 6.6 (5.3-12.2) % Eosinophils % 1.2 2.2 (0.8-7.0) % Basophils % 0.3 0.4 (0.2-1.2) % Absolute Granulocytes 6.73 H 6.95 H (1.78-5.38) x10^3/uL Basophils # 0.03 0.04 (0.01-0.08) x10^3/uL Sodium 136 (135-145) mmol/L Potassium 3.9 (3.5-5.1) mmol/L Chloride 95 L (98-107) mmol/L Carbon Dioxide 33 H (22-30) mmol/L Anion Gap 12.6 (5-15) MEQ/L BUN 14 (9-20) mg/dL Creatinine 0.78 (0.66-1.25) mg/dL Estimated GFR 100.2 ML/MIN Glucose 244 H (74-106) mg/dL Calcium 9.3 (8.4-10.2) mg/dL Total Bilirubin 0.80 (0.2-1.3) mg/dL AST 21 (17-59) U/L ALT 16 (0-50) U/L Alkaline Phosphatase 107 (38-126) U/L NT-Pro-B Natriuret Pep 1390 (<300) pg/mL Serum Total Protein 6.6 (6.3-8.2) g/dL Albumin 3.7 (3.5-5.0) g/dL Radiology Exams: Radiology Procedures Category Date Time Status ABDOMINAL-LIMITED [US] Urgent Exams 09/21/24 16:16 Completed CHEST 1 VIEW (PORTABLE) Stat Exams 09/20/24 10:47 Completed CHEST WITHOUT CONTRAST [CT] Stat Exams 09/20/24 11:10 Completed ECHO W/2D AND DOPPLER [US] Routine Exams 09/21/24 15:54 Taken Medications: Medications Generic Name Dose Route Start Last Admin Trade Name Nimaq PRN Reason Stop Dose Admin Acetaminophen 650 mg 09/20/24 14:54 Acetaminophen 325 Mg Tablet PO 10/20/24 14:53 Q4H PRN PRN PAIN, FEVER, HEADACHE Allopurinol 300 mg 09/21/24 10:00 09/21/24 09:35 Allopurinol 300 Mg Tablet PO 10/21/24 09:59 300 mg DAILY DO Administration Amlodipine Besylate 10 mg 09/21/24 10:00 09/21/24 09:33 Amlodipine Besylate 5 Mg Tablet PO 10/21/24 09:59 10 mg DAILY DO Administration Apixaban 5 mg 09/21/24 10:00 09/21/24 21:26 Apixaban 2.5 Mg Tablet PO 10/21/24 09:59 5 mg BID DO Administration Aspirin 81 mg 09/21/24 10:00 09/21/24 09:34 Aspirin 81 Mg Tablet.Ec PO 10/21/24 09:59 81 mg DAILY DO Administration Calcium Carbonate 1 tab 09/20/24 22:00 09/21/24 21:26 Calcium Carbonate 500 Mg/Vitamin D 1 Tab Tablet PO 10/20/24 21:59 1 tab BID DO Administration Carvedilol 6.25 mg 09/21/24 10:00 09/21/24 21:26 Carvedilol 6.25 Mg Tablet PO 10/21/24 09:59 6.25 mg BID DO Administration Docusate Sodium 100 mg 09/21/24 10:00 09/21/24 09:30 Docusate Sodium 100 Mg Capsule PO 10/21/24 09:59 100 mg DAILY DO Administration Ezetimibe 10 mg 09/21/24 10:00 09/21/24 09:35 Ezetimibe 10 Mg Tab PO 10/21/24 09:59 10 mg DAILY DO Administration Ergocalciferol 50,000 unit 09/22/24 10:00 Ergocalciferol (Vitamin D2) 50,000 Unit Capsule PO 10/22/24 09:59 MoFr@1000 DO Folic Acid 1 mg 09/21/24 10:00 09/21/24 09:34 Folic Acid 1 Mg Tablet PO 10/21/24 09:59 1 mg DAILY DO Administration Furosemide 40 mg 09/21/24 14:00 09/21/24 21:25 Furosemide 40 Mg/4 Ml Vial IV 10/21/24 13:59 40 mg Q8HT DO Administration Ceftriaxone Sodium 1 gm in 100 mls @ 200 mls/hr 09/21/24 10:00 09/21/24 09:35 Rocephin 1 Gm / 100 Ml Nacl IV 10/21/24 09:59 200 mls/hr Q24H10 DO Administration Azithromycin 500 mg/ Sodium 250 mls @ 250 mls/hr 09/20/24 16:00 09/21/24 09:36 Chloride IV 10/20/24 15:59 250 mls/hr Q24H10 DO Administration Insulin Human Lispro 0 unit 09/20/24 17:58 09/22/24 00:39 Insulin Lispro 1 Unit SQ 10/20/24 17:57 10 unit UD PRN Administration HYPERGLYCEMIA Insulin Human Lispro 15 unit 09/21/24 08:00 09/21/24 17:00 Insulin Lispro 1 Unit SQ 10/21/24 07:59 15 unit TIDWM DO Administration Levalbuterol HCl 1.25 mg 09/20/24 16:10 Levalbuterol Hcl 1.25 Mg/0.5 Ml Neb IH 10/20/24 16:09 Q4H PRN PRN SHORTNESS OF BREATH Lisinopril 20 mg 09/21/24 10:00 09/21/24 21:26 Lisinopril 20 Mg Tablet PO 10/21/24 09:59 20 mg BID DO Administration Lorazepam 1 mg 09/21/24 12:19 Lorazepam 2 Mg/1 Ml 2 Mg Vial IV 10/21/24 12:18 PRN PRN CIWA SCORE Lorazepam 0 mg 09/21/24 12:19 Lorazepam 2 Mg/1 Ml 2 Mg Vial IV 10/21/24 12:18 Q2H PRN PRN CIWA SCORE Protocol Magnesium Oxide 400 mg 09/20/24 22:00 09/21/24 21:26 Magnesium Oxide 400 Mg Tablet PO 10/20/24 21:59 400 mg BID DO Administration Miscellaneous Information 1 each 09/21/24 07:30 Medication Intervention 1 Each Each 10/21/24 07:29 .RN TO CHECK [facility] Multivitamins Therapeutic 1 tab 09/21/24 10:00 09/21/24 09:34 Multivitamins,Therapeutic 1 Tab Tab PO 10/21/24 09:59 1 tab QAM DO Administration Nicotine 21 mg 09/20/24 16:15 09/21/24 12:17 Nicotine 21 Mg/Patch Patch TOP 10/20/24 16:14 Not Given DAILY DO Ondansetron HCl 4 mg 09/20/24 16:10 Ondansetron Hcl 4 Mg/2 Ml Vial IV 10/20/24 16:09 Q6H PRN PRN NAUSEA/VOMITING Pantoprazole Sodium 40 mg 09/20/24 16:30 09/21/24 09:36 Pantoprazole 40 Mg Vial IV 10/20/24 16:29 40 mg DAILY DO Administration Potassium Chloride 20 meq 09/20/24 22:00 09/21/24 21:26 Potassium Chloride Tab 10 Meq Tab PO 10/20/24 21:59 20 meq BID DO Administration Simvastatin 20 mg 09/20/24 22:00 09/21/24 21:26 Simvastatin 20 Mg Tablet PO 10/20/24 21:59 20 mg HS DO Administration Thiamine HCl 100 mg 09/21/24 10:00 09/21/24 09:35 Thiamine Hcl 100 Mg Tablet PO 10/21/24 09:59 100 mg DAILY DO Administration Discontinued Medications Generic Name Dose Route Start Last Admin Trade Name Sang PRN Reason Stop Dose Admin Apixaban Confirm 09/20/24 21:12 Apixaban 2.5 Mg Tablet Administered 09/20/24 21:13 Dose 5 mg .ROUTE .STK-MED ONE Carvedilol 6.25 mg 09/20/24 17:45 09/20/24 17:57 Carvedilol 6.25 Mg Tablet PO 09/20/24 17:46 6.25 mg STAT ONE Administration Carvedilol 6.25 mg 09/20/24 22:00 09/20/24 21:18 Carvedilol 12.5 Mg Tablet PO 10/20/24 21:59 6.25 mg BID DO Administration Dabigatran 75 mg 09/20/24 22:00 09/20/24 21:18 Dabigatran Etexilate Mesylate 75 Mg Capsule PO 10/20/24 21:59 75 mg BID DO Administration Dabigatran Confirm 09/20/24 21:11 Dabigatran Etexilate Mesylate 75 Mg Capsule Administered 09/20/24 21:12 Dose 75 mg PO .STK-MED ONE Furosemide 40 mg 09/20/24 13:27 09/20/24 14:19 Furosemide 40 Mg/4 Ml Vial IV 09/20/24 13:28 40 mg STAT ONE Administration Furosemide Confirm 09/20/24 14:12 Furosemide 40 Mg/4 Ml Vial Administered 09/20/24 14:13 Dose 40 mg .ROUTE .STK-MED ONE Furosemide 40 mg 09/20/24 14:54 09/21/24 09:35 Furosemide 40 Mg/4 Ml Vial IV 10/20/24 14:53 40 mg Q12HT DO Administration Ceftriaxone Sodium 1 gm in 100 mls @ 200 mls/hr 09/20/24 13:26 09/20/24 14:19 Rocephin 1 Gm / 100 Ml Nacl IV 09/20/24 13:55 200 ml/hr STAT ONE 200 mls/hr Administration Ceftriaxone Sodium Confirm 09/20/24 14:12 Rocephin 1 Gm / 100 Ml Nacl Administered 09/20/24 14:13 Dose 1 gm in 100 mls @ ud IV .STK-MED ONE Insulin Human Lispro 0 unit 09/20/24 16:10 09/20/24 17:56 Insulin Lispro 1 Unit SQ 10/20/24 16:09 7 unit UD PRN Administration HYPERGLYCEMIA Insulin Human Lispro 10 unit 09/21/24 08:00 Insulin Lispro 1 Unit SQ 10/21/24 07:59 TIDWM DO Lisinopril 20 mg 09/20/24 22:00 09/20/24 21:25 Lisinopril 10 Mg Tablet PO 10/20/24 21:59 20 mg BID DO Administration Lisinopril Confirm 09/20/24 21:12 Lisinopril 20 Mg Tablet Administered 09/20/24 21:13 Dose 20 mg .ROUTE .STK-MED ONE Metoprolol Tartrate 5 mg 09/20/24 15:53 09/20/24 16:04 Metoprolol Tartrate 5 Mg/5 Ml Vial IV 09/20/24 15:54 5 mg STAT ONE Administration Non-Formulary Medication 5 mg 09/20/24 22:00 09/20/24 21:20 Apixaban [Eliquis] PO 10/20/24 21:59 5 mg BID DO Administration Non-Formulary Medication 20 meq 09/20/24 22:00 09/20/24 21:32 Potassium Chloride [Klor-Con M20] PO 10/20/24 21:59 20 meq BID DO Administration Non-Formulary Medication 20 mg 09/20/24 22:00 Pravastatin Sodium [Pravastatin Sodium] PO 10/20/24 21:59 HS DO Potassium Chloride Confirm 09/20/24 21:12 Potassium Chloride Tab 10 Meq Tab Administered 09/20/24 21:13 Dose 20 meq .ROUTE .STK-MED ONE Simvastatin Confirm 09/20/24 21:13 Simvastatin 20 Mg Tablet Administered 09/20/24 21:14 Dose 20 mg .ROUTE .STK-MED ONE Multi-Disciplinary Progress Notes: Multi-Disciplinary Progress Notes 09/22/24 00:54 Radiology Note by HERIBERTO EMMANUEL TRANSTHORACIC ECHOCARDIOGRAM 09/21/2024: 1. Technically difficult study. 2. Mildly dilated left atrium. Other chamber sizes are normal. 3. Mild concentric left ventricular hypertrophy. 4. Left ventricular systolic function appears preserved with an estimated EF 55%. Unable to exclude focal wall motion abnormlities. 5. Unable to determine grade of diastolic dysfunction due to underlying atrial fibrillation. 6. Right ventricular systolic function appears normal. 7. Mild aortic sclerosis without stenosis. 8. Doppler: No significant valvular regurgitation. 9. Unable to estimate PA systolic pressure. 10. Mildly elevated right atrial pressure (8 mmHg). 11. No pericardial effusion. Heriberto Emmanuel MD [facility] Initialized on 09/22/24 00:54 - END OF NOTE 09/21/24 13:37 Case Management Note by Ruchi Simmons PATIENT HAS DIFFICULTY AFFORDING MEDS AT THIS TIME. CRIS CANTU NOTIFIED TO TRY TO USE COST EFFECTIVE MEDS AT [place]. SHE VERIFIED UNDERSTANDING. ACO REFERRAL SENT. AT [place]-AFTER ALL PRESCRIPTIONS ARE SENT TO PHARMACY- [place] NURSE TO CALL TO CHECK TERAN AND CALL TO BE SURE THAT IS AFFORDABLE AND SO SHE CAN BRING ENOUGH MONEY TO TOWN TO GEM EXPERT THE MEDS. Initialized on 09/21/24 13:37 - END OF NOTE Assessment/Plan (1) Pneumonia Current Visit: Yes Status: Acute Assessment & Plan: -Bibasilar infiltrates on CXR and CT chest -Ground-glass opacities on CT chest, which could represent infection versus pulmonary edema -Leukocytosis with left shift (WBC 11.1) -Continue ceftriaxone initiated in ED. Add azithromycin - Blood and sputum cultures ; adjust antibiotics based on results -Monitor for clinical improvement, consider repeat imaging if no improvement in 48-72 hours -Supplemental oxygen with goal spo2 > 91%- currently on 5L -RA at baseline -RT eval -Nebs/INH 09/21: -continue abx -CBC/CMP reviewed -continue oxygen at 5L- titrate to maintain spo2 >91% Code(s): J18.9 - PNEUMONIA, UNSPECIFIED ORGANISM (2) Atrial fibrillation with RVR Current Visit: Yes Status: Acute Assessment & Plan: -EKG with atrial fibrillation with rapid ventricular response. No signs of acute ischemia or injury are seen -most likely secondary to CHF exac/pneuomia -TSH -Continue Eliquis -Metoprolol 5mg IV given - continue to monitor consider cardizem/cardizem drip if appropriate -Most recent echo reviewed from 2023- obtain new echo -cardiology consulted appreciate recs -Patient follows with Dr. Winter OP - last OV yesterday 09/21: -TSH WNL -Cardiology consulted and recommended coreg 6.25 bid and discontinuation of pradaxa -HR now controlled 09/22: -No overnight events- HR controlled on current regimen- continue Code(s): I48.91 - UNSPECIFIED ATRIAL FIBRILLATION (3) Acute on chronic diastolic (congestive) heart failure Current Visit: No Status: Acute Assessment & Plan: -Elevated BNP at 1370 -Clinical signs of volume overload with dyspnea and bibasilar infiltrates/atelectasis on imaging -CT chest showing ground-glass opacities and minimal bilateral pleural effusions -Continue IV furosemide (Lasix) initiated in the ED, titrate to clinical res ponse with strict I/O monitoring and daily weights -Monitor electrolytes and renal function daily 09/21: -BLE with no improvement- increase lasix to 40mg TID -CMP/CBC reviewed -Echo pending -Cardiology following 09/22: -Echocardiogram performed on 09/21/2024 revealed a mildly enlarged left atrium, likely reflective of chronic atrial fibrillation and/or underlying hypertension. Mild concentric left ventricular hypertrophy was noted, suggestive of pressure overload, however, overall left ventricular systolic function appears preserved with an estimated ejection fraction of 55%. Due to technical limitations and atrial fibrillation, assessment of diastolic function and focal wall motion abnormalities was inconclusive. Right ventricular function appears normal. Mild aortic sclerosis was identified without evidence of stenosis or significant valvular regurgitation. Estimation of pulmonary artery pressures was not possible; however, right atrial pressure was mildly elevated at 8 mmHg. No pericardial effusion was seen. Overall, findings are consistent with structural heart changes commonly seen in patients with chronic atrial fibrillation and hypertension, with preserved systolic function and no hemodynamically significant valvular disease. -Abdominal US with no ascites -Continue Lasix TID -Weight loss of 9.3 lbs Code(s): I50.33 - ACUTE ON CHRONIC DIASTOLIC (CONGESTIVE) HEART FAILURE (4) HLD (hyperlipidemia) Current Visit: Yes Status: Acute Assessment & Plan: -Continue statin Code(s): E78.5 - HYPERLIPIDEMIA, UNSPECIFIED (5) HTN (hypertension) Current Visit: Yes Status: Acute Assessment & Plan: -continue home meds Code(s): I10 - ESSENTIAL (PRIMARY) HYPERTENSION (6) JIA (obstructive sleep apnea) Current Visit: Yes Status: Acute Assessment & Plan: -CPAP if agreeable Code(s): G47.33 - OBSTRUCTIVE SLEEP APNEA (ADULT) (PEDIATRIC) (7) Smoker Current Visit: Yes Status: Acute Assessment & Plan: -reports he quit 4 days ago- nicotine patch 09/21: -Advised Cessation- patient reports that he is smoking daily but ready to quit Code(s): F17.200 - NICOTINE DEPENDENCE, UNSPECIFIED, UNCOMPLICATED Alcohol abuse -Daily drinker -CIWA protocol initiated (8) Peripheral neuropathy Current Visit: Yes Status: Acute Assessment & Plan: -continue home meds Code(s): G62.9 - POLYNEUROPATHY, UNSPECIFIED (9) Pleural effusion Current Visit: Yes Status: Acute Assessment & Plan: -Continue lasix -consider repeat imaging if no improvement Code(s): J90 - PLEURAL EFFUSION, NOT ELSEWHERE CLASSIFIED (10) Acute respiratory failure with hypoxia Current Visit: No Status: Acute Assessment & Plan: -secondary to pneumonia/ chf see plan above Code(s): J96.01 - ACUTE RESPIRATORY FAILURE WITH HYPOXIA (11) Diabetes mellitus Current Visit: No Status: Acute Assessment & Plan: -ADA diet - ACHS accuchecks -SSI/meal time -A1c 9.13- uncontrolled Code(s): E11.9 - TYPE 2 DIABETES MELLITUS WITHOUT COMPLICATIONS (12) Lung nodule seen on imaging study Current Visit: Yes Status: Acute Assessment & Plan: - Pulmonology referral for left lower lobe lung nodule -outpatient imaging follo w-up arranged per guidelines Code(s): R91.1 - SOLITARY PULMONARY NODULE (13) Morbid obesity with BMI of 50.0-59.9, adult Current Visit: Yes Status: Acute Assessment & Plan: -Advised ADA diet and exercise VTE: Eliquis PPI: protonix Dispo: 1-3 days Code status: Full Code(s): J18.9 - PNEUMONIA, UNSPECIFIED ORGANISM (2) Atrial fibrillation with RVR Current Visit: Yes Status: Acute Code(s): I48.91 - UNSPECIFIED ATRIAL FIBRILLATION (3) Acute on chronic diastolic (congestive) heart failure Current Visit: Yes Status: Chronic Code(s): I50.33 - ACUTE ON CHRONIC DIASTOLIC (CONGESTIVE) HEART FAILURE (4) HLD (hyperlipidemia) Current Visit: Yes Status: Acute Code(s): E78.5 - HYPERLIPIDEMIA, UNSPECIFIED (5) HTN (hypertension) Current Visit: Yes Status: Acute Code(s): I10 - ESSENTIAL (PRIMARY) HYPERTENSION (6) JIA (obstructive sleep apnea) Current Visit: Yes Status: Acute Code(s): G47.33 - OBSTRUCTIVE SLEEP APNEA (ADULT) (PEDIATRIC) (7) Smoker Current Visit: Yes Status: Acute Code(s): F17.200 - NICOTINE DEPENDENCE, UNSPECIFIED, UNCOMPLICATED (8) Peripheral neuropathy Current Visit: Yes Status: Acute Code(s): G62.9 - POLYNEUROPATHY, UNSPECIFIED (9) Pleural effusion Current Visit: Yes Status: Acute Code(s): J90 - PLEURAL EFFUSION, NOT ELSEWHERE CLASSIFIED (10) Acute respiratory failure with hypoxia Current Visit: No Status: Acute Code(s): J96.01 - ACUTE RESPIRATORY FAILURE WITH HYPOXIA (11) Diabetes mellitus Current Visit: No Status: Acute Code(s): E11.9 - TYPE 2 DIABETES MELLITUS W ITHOUT COMPLICATIONS (12) Lung nodule seen on imaging study Current Visit: Yes Status: Acute Code(s): R91.1 - SOLITARY PULMONARY NODULE (13) Morbid obesity with BMI of 50.0-59.9, adult Current Visit: Yes Status: Acute Code(s): E66.01 - MORBID (SEVERE) OBESITY DUE TO EXCESS CALORIES; Z68.43 - BODY MASS INDEX [BMI] 50.0-59.9, ADULT (14) Alcohol abuse Current Visit: Yes Status: Acute Code(s): F10.10 - ALCOHOL ABUSE, UNCOMPLICATED
[2024-09-22] MEDS: HUMALOG SQ SCH (07:44)
[2024-09-22] MEDS: VITAMIN D2 PO SCH (09:48)
[2024-09-22] MEDS: Lantus Insulin SQ SCH (09:56)
--- NOTE | 2024-09-23 05:13 | PCM.NOTE ---
Date and Time: 09/23/24 0511 Subjective Assessment: is a 64 year old male with a complex cardiac and pulmonary history, including atrial fibrillation on Eliquis , COPD (RA at baseline),congestive heart failure, stroke, hypertension, insulin-dependent diabetes, CAD, obstructive sleep apnea, hyperlipidemia, gout, and peripheral neuropathy, who presented to the emergency department with progressive shortness of breath over the past three months but worse since yesterday. He also reports recent weight gain, abdominal distention, and BLE edema. He was recently evaluated by his manager poker, who initiated diuretic therapy, though the patient had yet to take the medication prior to arrival. He additionally reports a non-productive cough. Upon arrival to ED, patient was tachypneic and tachycardic. EKG demonstrates atrial fibrillation with rapid ventricular response, with a ventricular rate of approximately 130 beats per minute without evidence of acute ischemia. Laboratory evaluation revealed leukocytosis with WBC of 11.1 and a left shift, elevated BNP at 1370 indicating volume overload and decompensated heart failure, and a mildly elevated anion gap at 16.8, suggestive of metabolic acidosis likely multifactorial from hypoperfusion, hypoxia, and possible diabetic ketosis. Imaging studies demonstrated COPD changes with bibasilar subsegmental atelectasis, bibasilar infiltrates, and an incidental left lower lung nodule on chest x-ray. CT chest without contrast revealed scattered bilateral ground-glass opacities concerning for infectious pneumonia versus pulmonary edema, in addition to minimal bilateral pleural effusions and multiple indeterminate age rib fractures. The patient was treated in the ED with IV furosemide and ceftriaxone. He is being admitted to the hospital for management of presumed acute decompensated congestive heart failure, AFIB RVR, and community-acquired pneumonia, with plans for non-invasive ventilatory support, diuresis, and empiric antibiotics. 09/21/24: Met with patient bedside. Endorses improvement of dyspnea. Remains on 5L oxygen with baseline of RA. BLE edema and abdominal distention with no improvement. Will increase diurectics to TID dosing. Plan for abdominal US today. Patient reported to nursing staff yesterday that he does smoke and drink alcohol daily. Will initiate CIWA protocol. 09/22/24: Patient was seen and evaluated at the bedside. He reports improvement in dyspnea, though remains dependent on 5L oxygen via nasal cannula. Diuretic regimen was intensified with furosemide increased to 40 mg three times daily. Abdominal ultrasound revealed no evidence of ascites. On physical examination, abdominal distention has improved compared to prior assessments. The patient has experienced a total weight loss of 9.3 pounds since admission. Heart rate remains well-controlled on the current medication regimen. Denies fever,cough, cp, abdominal pain, JADE, dizziness, N/V/D. 09/23/24: Met with patient bedside. Despite initial diuresis with furosemide 40 mg IV three times daily, the patient continues to exhibit significant bilateral lower extremity pitting edema, abdominal distention, and reported no change in dyspnea with sustained oxygen requirement at 5L via nasal cannula. Recent imaging revealed left pleural effusion, contributing to ongoing dyspnea. Diuretic regimen has been intensified, increasing furosemide to 60 mg IV three times daily, with the addition of metolazone 2.5 mg PO daily to potentiate diuresis. Cardiology has been re-consulted for further recommendations regarding volume management. - Review of Systems Constitutional: No Symptoms Eyes: No Symptoms Ears, Nose, & Throat: No Symptoms Respiratory: Short Of Breath Cardiac: Edema (BLE 4+ pitting edema) Abdominal/Gastrointestinal: No Symptoms Genitourinary Symptoms: No Symptoms Musculoskeletal: No Symptoms Skin: Rash (BLE, abdomen, scalp), Skin Lesions Neurological: No Symptoms Psychological: No Symptoms Endocrine: No Symptoms Hematologic/Lymphatic: No Symptoms Immunological/Allergic: No Symptoms Objective Exam General Appearance: no apparent distress Neurologic Exam: alert, oriented x 3, cooperative Skin Exam: normal color Eye Exam: PERRL Ears, Nose, Throat Exam: normal ENT inspection Neck Exam: normal inspection Respiratory Exam: diminished breath sounds Cardiovascular Exam: irregular Gastrointestinal/Abdomen Exam: normal bowel sounds, distention Extremity Exam: pedal edema, swelling (BLE 4+ pitting edema) Back Exam: normal inspection Male Genitalia Exam: deferred Rectal Exam: deferred Objective Data Vital Signs: Vital Signs - 24 hr Temp Pulse Resp BP Pulse Ox 09/23/24 04:00 97.0 F 66 26 H 118/56 92 L 09/22/24 23:40 97.3 F 78 23 122/72 91 L 09/22/24 20:00 96.9 F 66 24 121/68 91 L 09/22/24 18:45 90 18 91 L 09/22/24 16:00 97.7 F 84 24 118/80 90 L 09/22/24 12:00 97.7 F 84 24 86/59 90 L 09/22/24 08:00 96.9 F 77 22 174/78 91 L 09/22/24 07:13 82 20 93 L Pain Assessment - Last Documented Pain Intensity 0 Intake and Output: Intake & Output 09/20/24 09/21/24 09/22/24 09/23/24 11:59 11:59 11:59 11:59 Intake Total 1560 2950 1530 Output Total 3200 1200 1150 Balance -1640 1750 380 Weight 169.7 kg 164.79 kg Lab Results: Lab Results-Last 24 Hours 09/22/24 Range/Units 04:52 Sodium 136 (135-145) mmol/L Potassium 4.2 (3.5-5.1) mmol/L Chloride 96 L (98-107) mmol/L Carbon Dioxide 35 H (22-30) mmol/L Anion Gap 8.7 (5-15) MEQ/L BUN 24 H (9-20) mg/dL Creatinine 0.88 (0.66-1.25) mg/dL Estimated GFR 96.6 ML/MIN Glucose 259 H (74-106) mg/dL Calcium 9.4 (8.4-10.2) mg/dL Total Bilirubin 0.50 (0.2-1.3) mg/dL AST 21 (17-59) U/L ALT 15 (0-50) U/L Alkaline Phosphatase 111 (38-126) U/L Serum Total Protein 6.5 (6.3-8.2) g/dL Albumin 3.6 (3.5-5.0) g/dL Radiology Exams: Radiology Procedures Category Date Time Status ABDOMINAL-LIMITED [US] Urgent Exams 09/21/24 16:16 Completed ECHO W/2D AND DOPPLER [US] Routine Exams 09/21/24 15:54 Taken Medications: Medications Generic Name Dose Route Start Last Admin Trade Name Freq PRN Reason Stop Dose Admin Acetaminophen 650 mg 09/20/24 14:54 Acetaminophen 325 Mg Tablet PO 10/20/24 14:53 Q4H PRN PRN PAIN, FEVER, HEADACHE Allopurinol 300 mg 09/21/24 10:00 09/22/24 09:36 Allopurinol 300 Mg Tablet PO 10/21/24 09:59 300 mg DAILY DO Administration Amlodipine Besylate 10 mg 09/21/24 10:00 09/22/24 09:36 Amlodipine Besylate 5 Mg Tablet PO 10/21/24 09:59 10 mg DAILY DO Administration Apixaban 5 mg 09/21/24 10:00 09/22/24 21:16 Apixaban 2.5 Mg Tablet PO 10/21/24 09:59 5 mg BID DO Administration Aspirin 81 mg 09/21/24 10:00 09/22/24 09:35 Aspirin 81 Mg Tablet.Ec PO 10/21/24 09:59 81 mg DAILY DO Administration Calcium Carbonate 1 tab 09/20/24 22:00 09/22/24 21:16 Calcium Carbonate 500 Mg/Vitamin D 1 Tab Tablet PO 10/20/24 21:59 1 tab BID DO Administration Carvedilol 6.25 mg 09/21/24 10:00 09/22/24 21:15 Carvedilol 6.25 Mg Tablet PO 10/21/24 09:59 6.25 mg BID DO Administration Docusate Sodium 100 mg 09/21/24 10:00 09/22/24 09:35 Docusate Sodium 100 Mg Capsule PO 10/21/24 09:59 100 mg DAILY DO Administration Ezetimibe 10 mg 09/21/24 10:00 09/22/24 10:43 Ezetimibe 10 Mg Tab PO 10/21/24 09:59 10 mg DAILY DO Administration Ergocalciferol 50,000 unit 09/22/24 10:00 09/22/24 09:48 Ergocalciferol (Vitamin D2) 50,000 Unit Capsule PO 10/22/24 09:59 50,000 unit MoFr@1000 DO Administration Folic Acid 1 mg 09/21/24 10:00 09/22/24 09:36 Folic Acid 1 Mg Tablet PO 10/21/24 09:59 1 mg DAILY DO Administration Furosemide 40 mg 09/21/24 14:00 09/22/24 21:15 Furosemide 40 Mg/4 Ml Vial IV 10/21/24 13:59 40 mg Q8HT DO Administration Ceftriaxone Sodium 1 gm in 100 mls @ 200 mls/hr 09/21/24 10:00 09/22/24 09:40 Rocephin 1 Gm / 100 Ml Nacl IV 10/21/24 09:59 200 mls/hr Q24H10 DO Administration Azithromycin 500 mg/ Sodium 250 mls @ 250 mls/hr 09/20/24 16:00 09/22/24 10:33 Chloride IV 10/20/24 15:59 250 mls/hr Q24H10 DO Administration Insulin Glargine 20 unit 09/22/24 10:00 09/22/24 09:56 Insulin Glargine 1 Unit SQ 10/22/24 09:59 20 unit QAM DO Administration Insulin Human Lispro 0 unit 09/20/24 17:58 09/22/24 21:15 Insulin Lispro 1 Unit SQ 10/20/24 17:57 10 unit UD PRN Administration HYPERGLYCEMIA Insulin Human Lispro 18 unit 09/22/24 05:33 09/22/24 16:39 Insulin Lispro 1 Unit SQ 10/21/24 07:59 18 unit TIDWM DO Administration Levalbuterol HCl 1.25 mg 09/20/24 16:10 Levalbuterol Hcl 1.25 Mg/0.5 Ml Neb IH 10/20/24 16:09 Q4H PRN PRN SHORTNESS OF BREATH Lisinopril 20 mg 09/21/24 10:00 09/22/24 21:15 Lisinopril 20 Mg Tablet PO 10/21/24 09:59 20 mg BID DO Administration Lorazepam 1 mg 09/21/24 12:19 Lorazepam 2 Mg/1 Ml 2 Mg Vial IV 10/21/24 12:18 PRN PRN CIWA SCORE Lorazepam 0 mg 09/21/24 12:19 Lorazepam 2 Mg/1 Ml 2 Mg Vial IV 10/21/24 12:18 Q2H PRN PRN CIWA SCORE Protocol Magnesium Oxide 400 mg 09/20/24 22:00 09/22/24 21:16 Magnesium Oxide 400 Mg Tablet PO 10/20/24 21:59 400 mg BID DO Administration Miscellaneous Information 1 each 09/21/24 07:30 Medication Intervention 1 Each Each 10/21/24 07:29 .RN TO CHECK DO Multivitamins Therapeutic 1 tab 09/21/24 10:00 09/22/24 09:36 Multivitamins,Therapeutic 1 Tab Tab PO 10/21/24 09:59 1 tab QAM DO Administration Nicotine 21 mg 09/20/24 16:15 09/22/24 09:58 Nicotine 21 Mg/Patch Patch TOP 10/20/24 16:14 Not Given DAILY DO Ondansetron HCl 4 mg 09/20/24 16:10 Ondansetron Hcl 4 Mg/2 Ml Vial IV 10/20/24 16:09 Q6H PRN PRN NAUSEA/VOMITING Pantoprazole Sodium 40 mg 09/23/24 10:00 Protonix (Pantoprazole) 40 Mg Tablet PO 10/23/24 09:59 DAILY DO Potassium Chloride 20 meq 09/20/24 22:00 09/22/24 21:16 Potassium Chloride Tab 10 Meq Tab PO 10/20/24 21:59 20 meq BID DO Administration Simvastatin 20 mg 09/20/24 22:00 09/22/24 21:15 Simvastatin 20 Mg Tablet PO 10/20/24 21:59 20 mg HS DO Administration Thiamine HCl 100 mg 09/21/24 10:00 09/22/24 09:35 Thiamine Hcl 100 Mg Tablet PO 10/21/24 09:59 100 mg DAILY DO Administration Discontinued Medications Generic Name Dose Route Start Last Admin Trade Name Freq PRN Reason Stop Dose Admin Apixaban Confirm 09/20/24 21:12 Apixaban 2.5 Mg Tablet Administered 09/20/24 21:13 Dose 5 mg .ROUTE .STK-MED ONE Carvedilol 6.25 mg 09/20/24 17:45 09/20/24 17:57 Carvedilol 6.25 Mg Tablet PO 09/20/24 17:46 6.25 mg STAT ONE Administration Carvedilol 6.25 mg 09/20/24 22:00 09/20/24 21:18 Carvedilol 12.5 Mg Tablet PO 10/20/24 21:59 6.25 mg BID DO Administration Dabigatran 75 mg 09/20/24 22:00 09/20/24 21:18 Dabigatran Etexilate Mesylate 75 Mg Capsule PO 10/20/24 21:59 75 mg BID DO Administration Dabigatran Confirm 09/20/24 21:11 Dabigatran Etexilate Mesylate 75 Mg Capsule Administered 09/20/24 21:12 Dose 75 mg PO .STK-MED ONE Furosemide 40 mg 09/20/24 13:27 09/20/24 14:19 Furosemide 40 Mg/4 Ml Vial IV 09/20/24 13:28 40 mg STAT ONE Administration Furosemide Confirm 09/20/24 14:12 Furosemide 40 Mg/4 Ml Vial Administered 09/20/24 14:13 Dose 40 mg .ROUTE .STK-MED ONE Furosemide 40 mg 09/20/24 14:54 09/21/24 09:35 Furosemide 40 Mg/4 Ml Vial IV 10/20/24 14:53 40 mg Q12HT DO Administration Ceftriaxone Sodium 1 gm in 100 mls @ 200 mls/hr 09/20/24 13:26 09/20/24 14:19 Rocephin 1 Gm / 100 Ml Nacl IV 09/20/24 13:55 200 ml/hr STAT ONE 200 mls/hr Administration Ceftriaxone Sodium Confirm 09/20/24 14:12 Rocephin 1 Gm / 100 Ml Nacl Administered 09/20/24 14:13 Dose 1 gm in 100 mls @ ud IV .STK-MED ONE Insulin Human Lispro 0 unit 09/20/24 16:10 09/20/24 17:56 Insulin Lispro 1 Unit SQ 10/20/24 16:09 7 unit UD PRN Administration HYPERGLYCEMIA Insulin Human Lispro 10 unit 09/21/24 08:00 Insulin Lispro 1 Unit SQ 10/21/24 07:59 TIDWM DO Insulin Human Lispro 15 unit 09/21/24 08:00 09/21/24 17:00 Insulin Lispro 1 Unit SQ 10/21/24 07:59 15 unit TIDWM DO Administration Lisinopril 20 mg 09/20/24 22:00 09/20/24 21:25 Lisinopril 10 Mg Tablet PO 10/20/24 21:59 20 mg BID DO Administration Lisinopril Confirm 09/20/24 21:12 Lisinopril 20 Mg Tablet Administered 09/20/24 21:13 Dose 20 mg .ROUTE .STK-MED ONE Metoprolol Tartrate 5 mg 09/20/24 15:53 09/20/24 16:04 Metoprolol Tartrate 5 Mg/5 Ml Vial IV 09/20/24 15:54 5 mg STAT ONE Administration Non-Formulary Medication 5 mg 09/20/24 22:00 09/20/24 21:20 Apixaban [Eliquis] PO 10/20/24 21:59 5 mg BID DO Administration Non-Formulary Medication 20 meq 09/20/24 22:00 09/20/24 21:32 Potassium Chloride [Klor-Con M20] PO 10/20/24 21:59 20 meq BID DO Administration Non-Formulary Medication 20 mg 09/20/24 22:00 Pravastatin Sodium [Pravastatin Sodium] PO 10/20/24 21:59 HS DO Pantoprazole Sodium 40 mg 09/20/24 16:30 09/22/24 10:40 Pantoprazole 40 Mg Vial IV 10/20/24 16:29 40 mg DAILY DO Administration Potassium Chloride Confirm 09/20/24 21:12 Potassium Chloride Tab 10 Meq Tab Administered 09/20/24 21:13 Dose 20 meq .ROUTE .STK-MED ONE Simvastatin Confirm 09/20/24 21:13 Simvastatin 20 Mg Tablet Administered 09/20/24 21:14 Dose 20 mg .ROUTE .STK-MED ONE Multi-Disciplinary Progress Notes: Multi-Disciplinary Progress Notes 09/22/24 12:40 Case Management Note by Annmarie Edward SPOKE WITH PATIENT AND . STILL PLANS TO RETURN HOME TO [facility] WITH 'S SUPPORT. STATES JUST FOUND OUT THAT HIS BROTHER AND HE IS ANXIOUS ABOUT THAT. STILL CONCERNED ABOUT NEBS AND OTHER COSTS. STATED THAT WE TRY TO MINIMIZE COST OF MEDS STATED BEFORE. NO OTHER NEW NEEDS AT THIS TIME.. Initialized on 09/22/24 12:40 - END OF NOTE Assessment/Plan (1) Pneumonia Current Visit: Yes Status: Acute Assessment & Plan: -Bibasilar infiltrates on CXR and CT chest -Ground-glass opacities on CT chest, which could represent infection versus pulmonary edema -Leukocytosis with left shift (WBC 11.1) -Continue ceftriaxone initiated in ED. Add azithromycin - Blood and sputum cultures ; adjust antibiotics based on results -Monitor for clinical improvement, consider repeat imaging if no improvement in 48-72 hours -Supplemental oxygen with goal spo2 > 91%- currently on 5L -RA at baseline -RT eval -Nebs/INH 09/21: -continue abx -CBC/CMP reviewed -continue oxygen at 5L- titrate to maintain spo2 >91% 09/23: -continue ceftriaxone, received full course of azithromycin- discontinue -Remains at 5L oxygen- titrate as appropriate to maintain spo2 > 91% -CMP/cbc reviewed -Blood and sputum cultures pending Code(s): J18.9 - PNEUMONIA, UNSPECIFIED ORGANISM (2) Atrial fibrillation with RVR Current Visit: Yes Status: Acute Assessment & Plan: -EKG with atrial fibrillation with rapid ventricular response. No signs of acute ischemia or injury are seen -most likely secondary to CHF exac/pneuomia -TSH -Continue Eliquis -Metoprolol 5mg IV given - continue to monitor consider cardizem/cardizem drip if appropriate -Most recent echo reviewed from 2023- obtain new echo -cardiology consulted appreciate recs -Patient follows with Dr. Winter OP - last OV yesterday 09/21: -TSH WNL -Cardiology consulted and recommended coreg 6.25 bid and discontinuation of pradaxa -HR now controlled 09/22: -No overnight events- HR controlled on current regimen- continue Code(s): I48.91 - UNSPECIFIED ATRIAL FIBRILLATION (3) Acute on chronic diastolic (congestive) heart failure Current Visit: No Status: Acute Assessment & Plan: -Elevated BNP at 1370 -Clinical signs of volume overload with dyspnea and bibasilar infiltrates/atelectasis on imaging -CT chest showing ground-glass opacities and minimal bilateral pleural effusions -Continue IV furosemide (Lasix) initiated in the ED, titrate to clinical response with strict I/O monitoring and daily weights -Monitor electrolytes and renal function daily 09/21: -BLE with no improvement- increase lasix to 40mg TID -CMP/CBC reviewed -Echo pending -Cardiology following 09/22: -Echocardiogram performed on 09/21/2024 revealed a mildly enlarged left atrium, likely reflective of chronic atrial fibrillation and/or underlying hypertension. Mild concentric left ventricular hypertrophy was noted, suggestive of pressure overload, however, overall left ventricular systolic function appears preserved with an estimated ejection fraction of 55%. Due to technical limitations and atrial fibrillation, assessment of diastolic function and focal wall motion abnormalities was inconclusive. Right ventricular function appears normal. Mild aortic sclerosis was identified without evidence of stenosis or significant valvular regurgitation. Estimation of pulmonary artery pressures was not possible; however, right atrial pressure was mildly elevated at 8 mmHg. No pericardial effusion was seen. Overall, findings are consistent with structural heart changes commonly seen in patients with chronic atrial fibrillation and hypertension, with preserved systolic function and no hemodynamically significant valvular disease. -Abdominal US with no ascites -Continue Lasix TID -Weight loss of 9.3 lbs 09/23: -CXR repeat showing left pleural effusion, mild cardiomegaly, and diffuse reticular opacities in bilateral lungs. -Oxygen requirements remain at 5L - titrate as appropriate -Increase lasix to 60 mg IV three times daily, with the addition of metolazone 2.5 mg PO daily to potentiate diuresis -Cardiology has been re-consulted for further recommendations regarding volume management and potential need for ultrafiltration - appreciate recs Code(s): I50.33 - ACUTE ON CHRONIC DIASTOLIC (CONGESTIVE) HEART FAILURE (4) HLD (hyperlipidemia) Current Visit: Yes Status: Acute Assessment & Plan: -Continue statin Code(s): E78.5 - HYPERLIPIDEMIA, UNSPECIFIED (5) HTN (hypertension) Current Visit: Yes Status: Acute Assessment & Plan: -continue home meds Code(s): I10 - ESSENTIAL (PRIMARY) HYPERTENSION (6) JIA (obstructive sleep apnea) Current Visit: Yes Status: Acute Assessment & Plan: -CPAP if agreeable Code(s): G47.33 - OBSTRUCTIVE SLEEP APNEA (ADULT) (PEDIATRIC) (7) Smoker Current Visit: Yes Status: Acute Assessment & Plan: -reports he quit 4 days ago- nicotine patch 09/21: -Advised Cessation- patient reports that he is smoking daily but ready to quit Code(s): F17.200 - NICOTINE DEPENDENCE, UNSPECIFIED, UNCOMPLICATED Alcohol abuse -Daily drinker -[facility] protocol initiated (8) Peripheral neuropathy Current Visit: Yes Status: Acute Assessment & Plan: -continue home meds Code(s): G62.9 - POLYNEUROPATHY, UNSPECIFIED (9) Pleural effusion Current Visit: Yes Status: Acute Assessment & Plan: -Continue lasix as stated above -consider repeat imaging if no improvement Code(s): J90 - PLEURAL EFFUSION, NOT ELSEWHERE CLASSIFIED (10) Acute respiratory failure with hypoxia Current Visit: No Status: Acute Assessment & Plan: -secondary to pneumonia/ chf see plan above Code(s): J96.01 - ACUTE RESPIRATORY FAILURE WITH HYPOXIA (11) Diabetes mellitus Current Visit: No Status: Acute Assessment & Plan: -ADA diet - ACHS accuchecks -SSI/meal time -A1c 9.13- uncontrolled Code(s): E11.9 - TYPE 2 DIABETES MELLITUS WITHOUT COMPLICATIONS (12) Lung nodule seen on imaging study Current Visit: Yes Status: Acute Assessment & Plan: - Pulmonology referral for left lower lobe lung nodule -outpatient imaging follow-up arranged per guidelines Code(s): R91.1 - SOLITARY PULMONARY NODULE (13) Morbid obesity with BMI of 50.0-59.9, adult Current Visit: Yes Status: Acute Assessment & Plan: -Advised ADA diet and exercise VTE: Eliquis PPI: protonix Dispo: 1-3 days Code status: Full Code(s): J18.9 - PNEUMONIA, UNSPECIFIED ORGANISM (2) Atrial fibrillation with RVR Current Visit: Yes Status: Acute Code(s): I48.91 - UNSPECIFIED ATRIAL FIBRILLATION (3) Acute on chronic diastolic (congestive) heart failure Current Visit: Yes Status: Chronic Code(s): I50.33 - ACUTE ON CHRONIC DIASTOLIC (CONGESTIVE) HEART FAILURE (4) HLD (hyperlipidemia) Current Visit: Yes Status: Acute Code(s): E78.5 - HYPERLIPIDEMIA, U NSPECIFIED (5) HTN (hypertension) Current Visit: Yes Status: Acute Code(s): I10 - ESSENTIAL (PRIMARY) HY PERTENSION (6) JIA (obstructive sleep apnea) Current Visit: Yes Status: Acute Code(s): G47.33 - OBSTRUCTIVE SLEEP APNEA (ADULT) (PEDIATRIC) (7) Smoker Current Visit: Yes Status: Acute Code(s): F17.200 - NICOTINE DEPENDENCE, UNSPECIFIED, UNCOMPLICATED (8) Peripheral neuropathy Current Visit: Yes Status: Acute Code(s): G62.9 - POLYNEUROPATHY, UNSPECIFIED (9) Pleural effusion Current Visit: Yes Status: Acute Code(s): J90 - PLEURAL EFFUSION, NOT ELSEWHERE CLASSIFIED (10) Acute respiratory failure with hypoxia Current Visit: No Status: Acute Code(s): J96.01 - ACUTE RESPIRATORY FAILURE WITH HYPOXIA (11) Diabetes mellitus Current Visit: No Status: Acute Code(s): E11.9 - TYPE 2 DIABETES MELLITUS WITHOUT COMPLICATIONS (12) Lung nodule seen on imaging study Current Visit: Yes Status: Acute Code(s): R91.1 - SOLITARY PULMONARY NODULE (13) Morbid obesity with BMI of 50.0-59.9, adult Current Visit: Yes Status: Acute Code(s): E66.01 - MORBID (SEVERE) OBESITY DUE TO EXCESS CALORIES; Z68.43 - BODY MASS INDEX [BMI] 50.0-59.9, ADULT (14) Alcohol abuse Current Visit: Yes Status: Acute Code(s): F10.10 - ALCOHOL ABUSE, UNCOMPLICATED
[2024-09-23 06:26] LABS: Absolute Neutrophil Ct (ANC) 6.42 x10^3/uL (1.78-5.38); BASOPHIL % 0.5 % (0.2-1.2); Basophil (Absolute #) 0.05 x10^3/uL (0.01-0.08); Eosinophil % 2.1 % (0.8-7.0); Hematocrit 38.2 % (40.1-51.0); Hemoglobin 11.4 g/dL (13.7-17.5); IMMATURE GRAN # 0.04 x10^3u/L (0.001-0.031); IMMATURE GRAN % 0.4 % (0.001-0.429); Lymphocyte (Absolute #) 2.09 x10^3/uL (1.32-3.57); Lymphocytes % 22.1 % (21.8-53.1); Mean Cell Volume 87.2 fL (79.0-92.2); Mean Corpuscular Hgb Concent. 29.8 g/dL (32.3-36.5); Monocyte (Absolute #) 0.65 x10^3/uL (0.30-0.82); Monocytes % 6.9 % (5.3-12.2); Platelet Count 251 x10^3/uL (163-337); Red Blood Count 4.38 x10^6/uL (4.63-6.08); Red Cell Distribution Width 15.4 % (11.6-14.4); White Blood Count 9.5 x10^3/uL (4.23-9.07)
--- NOTE | 2024-09-23 06:36 | XRAY ---
CLINICAL HISTORY: chf exac/pneumonia COMPARISON: 09/20/2024 09:48:58 CROSSCUTTER TECHNIQUE: Radiograph of chest was acquired. FINDINGS: Prominent bilateral bronchovascular shadows. Diffuse reticular opacities in bilateral lungs. A 20mm calcified nodule in left lower zone. Left pleural effusion. Mild cardiomegaly. No acute osseous abnormality. IMPRESSION: 1. Prominent bilateral bronchovascular shadows. 2. Diffuse reticular opacities in bilateral lungs. 3. A 20mm calcified nodule in left lower zone. 4. Left pleural effusion. 5. Mild cardiomegaly. 6. No significant interval changes. Electronically Signed by: Kalpesh Jeronimo MD. (09/23/2024 06:32:06 EDT)
[2024-09-23 06:50] LABS: ALBUMIN 3.7 g/dL (3.5-5.0); ANION GAP 7.9 MEQ/L (5-15); BILIRUBIN,TOTAL 0.5 mg/dL (0.2-1.3); Calcium 9.2 mg/dL (8.4-10.2); Creatinine 1 0.89 mg/dL (0.66-1.25); EST GLOMERULAR FILTRATION RATE 96.3 ML/MIN; Potassium 4.4 mmol/L (3.5-5.1); Total Protein 6.5 g/dL (6.3-8.2)
[2024-09-23] MEDS: Protonix 40MG Tablet PO SCH (10:04)
[2024-09-23] MEDS: Zaroxolyn 2.5 MG PO SCH (10:21)
[2024-09-23] MEDS: HUMALOG SQ SCH (12:22)
[2024-09-23] MEDS: Lasix 40 MG/4 ML IV SCH (13:23)
--- NOTE | 2024-09-23 22:32 | PCM.NOTE ---
Date and Time: 09/23/242226 Subjective Assessment: Feels less short of breath. Still has dyspnea when walking across room. Urine output has increased significantly today. Has gained 65 lbs over the past year. Exam General:: no acute distress HEENT: EOMI, JVD (7cm) Cardiovascular: s1 s2, irregular, No no murmurs,rubs,gallops Respiratory:: diminished breath sounds, crackels (few and scattered) O2 Delivery: Nasal Cannula Abdominal: active bowel sounds x 4 Extremity Exam: edema (1-2+ half-way up to the knees bilaterally.) Objective Data Vital Signs: Vital Signs - 24 hr Temp Pulse Resp BP Pulse Ox 09/23/24 19:44 97.5 F 84 26 H 122/59 90 L 09/23/24 18:15 95 H 18 91 L 09/23/24 16:00 97.3 F 82 24 144/83 90 L 09/23/24 12:00 97.4 F 88 26 H 168/61 90 L 09/23/24 08:00 97.5 F 94 H 24 123/66 93 L 09/23/24 07:53 61 18 93 L 09/23/24 04:00 97.0 F 66 26 H 118/56 92 L 09/22/24 23:40 97.3 F 78 23 122/72 91 L Pain Assessment - Last Documented Pain Intensity 0 Per nursing, there have not been any spikes in his ventricular response. Intake and Output: Intake & Output 09/21/24 09/22/24 09/23/24 09/24/24 11:59 11:59 11:59 11:59 Intake Total 1560 2950 2060 840 Output Total 3200 1200 1750 1950 Balance -1640 1750 310 -1110 Weight 164.79 kg 164.79 kg 3000 cc urine output today. Before this am, weight has decreased from 169.7 kg to 164.7 kg this admission (loss of 5 kg or 11 lbs). LAB: I have reviewed the Labs in [employer]. Lab Results: Lab Results-Last 24 Hours 09/23/24 09/23/24 09/23/24 Range/Units 06:09 06:09 06:12 WBC 9.5 H (4.23-9.07) x10^3/uL RBC 4.38 L (4.63-6.08) x10^6/uL Hgb 11.4 L (13.7-17.5) g/dL Hct 38.2 L (40.1-51.0) % MCV 87.2 (79.0-92.2) fL MCH 26.0 (25.7-32.2) pg MCHC 29.8 L (32.3-36.5) g/dL RDW 15.4 H (11.6-14.4) % Plt Count 251 (163-337) x10^3/uL MPV 12.0 (9.4-12.4) fL Gran % 68.0 H (34.0-67.9) % Immature Gran % (Auto) 0.4 (0.001-0.429) % Nucleat RBC Rel Count 0.0 (0.00-0.2) % Eos # (Auto) 0.20 (0.04-0.54) x10^3/uL Immature Gran # (Auto) 0.04 H (0.001-0.031) x10^3u/L Absolute Lymphs (auto) 2.09 (1.32-3.57) x10^3/uL Absolute Monos (auto) 0.65 (0.30-0.82) x10^3/uL Absolute Nucleated RBC 0.00 (0.00-0.012) x10^3u/L Lymphocytes % 22.1 (21.8-53.1) % Monocytes % 6.9 (5.3-12.2) % Eosinophils % 2.1 (0.8-7.0) % Basophils % 0.5 (0.2-1.2) % Absolute Granulocytes 6.42 H (1.78-5.38) x10^3/uL Basophils # 0.05 (0.01-0.08) x10^3/uL Sodium 133 L (135-145) mmol/L Potassium 4.4 (3.5-5.1) mmol/L Chloride 95 L (98-107) mmol/L Carbon Dioxide 35 H (22-30) mmol/L Anion Gap 7.9 (5-15) MEQ/L BUN 23 H (9-20) mg/dL Creatinine 0.89 (0.66-1.25) mg/dL Estimated GFR 96.3 ML/MIN Glucose 220 H (74-106) mg/dL Calcium 9.2 (8.4-10.2) mg/dL Total Bilirubin 0.50 (0.2-1.3) mg/dL AST 25 (17-59) U/L ALT 17 (0-50) U/L Alkaline Phosphatase 102 (38-126) U/L Serum Total Protein 6.5 (6.3-8.2) g/dL Albumin 3.7 (3.5-5.0) g/dL Procalcitonin 0.062 (0.030-0.080) ng/mL Radiology Exams: Radiology Procedures Category Date Time Status CHEST 1 VIEW (PORTABLE) Urgent Exams 09/23/24 07:00 Completed CXR (AP) 09/23/2024: 1. Prominent bilateral bronchovascular shadows. 2. Diffuse reticular opacities in bilateral lungs. 3. A 20mm calcified nodule in left lower zone. 4. Left pleural effusion. 5. Mild cardiomegaly. 6. No significant interval changes TRANSTHORACIC ECHOCARDIOGRAM 09/21/2024: 1. Technically difficult study. 2. Mildly dilated left atrium. Other chamber sizes are normal. 3. Mild concentric left ventricular hypertrophy. 4. Left ventricular systolic function appears preserved with an estimated EF 55%. Unable to exclude focal wall motion abnormalities. 5. Unable to determine grade of diastolic dysfunction due to underlying atrial fibrillation. 6. Right ventricular systolic function appears normal. 7. Mild aortic sclerosis without stenosis. 8. Doppler: No significant valvular regurgitation. 9. Unable to estimate PA systolic pressure. 10. Mildly elevated right atrial pressure (8 mmHg). 11. No pericardial effusion. Chest CT without contrast 09/20/2024 1. Scattered bilateral reticular opacities with interlobular septal thickening and ground glass opacities could represent an infectious process or pulmonary edema. 2. Few bilateral pulmonary nodules, according to Fleischner Society pulmonary nodule recommendations: low-risk and high-risk patients: consider CT at 3 months, PET- CT, or tissue sampling. 3. Minimal bilateral pleural effusion. 4. Mediastinal and left hilar lymph nodes, some of which calcified, could be due to an old granulomatous process. 5. Multiple rib indeterminate age fractures as described above. CXR (AP) 09/20/2024: 1. Enlarged cardiac silhoutte. 2. Chronic obstructive pulmonary changes seen bilaterally. 3. Bibasilar subsegmental atelectasis seen and hazy infiltrates noted. 4. A round nodule seen at the left lower lung zone, recommend CT for further evaluation. Tracing 1 Attestation: I have reviewed this EKG and interpreted as documented below. EKG Narrative: ECGs 09/20/2024 at 1539: Atrial fibrillation with rapid ventricular response at 119 bpm with occasional aberrantly conducted complexes vs PVCs. 09/20/2024 at 1041: Atrial fibrillation with rapid ventricular response at 119 bpm with occasional aberrantly conducted complexes vs PVCs. 01/05/2024: Atrial fibrillation with RVR at 143 bpm. Multi-Disciplinary Progress Notes: Multi-Disciplinary Progress Notes 09/23/24 19:20 Respiratory Note by Mckenna Henderson Pt's SpO2 on 5L nasal cannula while pt was sleeping was 84%. RT suggested CPAP for JIA history, pt refused CPAP. RT suggested oxymask while sleeping, pt refused. Pt was placed on 6L oxymizer, SpO2 while awake on 6L oxymizer was 91%. Pt was educated on importance of CPAP for JIA but pt continued to refuse. RN was notified. Initialized on 09/23/24 19:20 - END OF NOTE Assessment & Plan (1) Persistent atrial fibrillation Current Visit: Yes Status: Chronic Assessment & Plan: Ventricular response controlled with the increase in carvedilol dose. Continue current dose. On systemic anticoagulation with Eliquis. Code(s): I48.19 - OTHER PERSISTENT ATRIAL FIBRILLATION (2) Acute on chronic diastolic (congestive) heart failure Current Visit: Yes Status: Chronic Assessment & Plan: Diuresis has improved with increasing the dose of IV furosemide and adding metolazone. In looking at home medication list, two loop diuretics are listed, furosemide 40 mg BID and torsemide 100 mg daily. I suspect he was taking the latter based on his requirement of higher doses of furosemide. No need for a furosemide infusion. Will need to monitor potassium and magnesium while on metolazone. If CO2 rises further on BMP, can add Diamox 500 mg daily x2 doses (prefer IV over po if available). Follow creatinine as his filling pressure appears only mildly elevated on ECHO and exam. Code(s): I50.33 - ACUTE ON CHRONIC DIASTOLIC (CONGESTIVE) HEART FAILURE (3) Alcohol abuse Current Visit: Yes Status: Acute Code(s): F10.10 - ALCOHOL ABUSE, UNCOMPLICATED - Encounter Encounter: "The entirety of this encounter was performed via Telemedicine using audio and visual " Permission granted by patient for this type of encounter Will follow with you. Will attempt to reach out to his building surveyor on Wednesday to obtain a better history of his atrial fibrillation. Heriberto Menjivar MD [facility] [phone]
--- NOTE | 2024-09-24 05:05 | PCM.NOTE ---
Date and Time: 09/24/24 0504 Subjective Assessment: is a 64 year old male with a complex cardiac and pulmonary history, including atrial fibrillation on Eliquis , COPD (RA at baseline),congestive heart failure, stroke, hypertension, insulin-dependent diabetes, CAD, obstructive sleep apnea, hyperlipidemia, gout, and peripheral neuropathy, who presented to the emergency department with progressive shortness of breath over the past three months but worse since yesterday. He also reports recent weight gain, abdominal distention, and BLE edema. 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 He additionally reports a non-productive cough. Upon arrival to ED, patient was tachypneic and tachycardic. EKG demonstrates atrial fibrillation with rapid ventricular response, with a ventricular rate of approximately 130 beats per minute without evidence of acute ischemia. Laboratory evaluation revealed leukocytosis with WBC of 11.1 and a left shift, elevated BNP at 1370 indicating volume overload and decompensated heart failure, and a mildly elevated anion gap at 16.8, suggestive of metabolic acidosis likely multifactorial from hypoperfusion, hypoxia, and possible diabetic ketosis. Imaging studies demonstrated COPD changes with bibasilar subsegmental atelectasis, bibasilar infiltrates, and an incidental left lower lung nodule on chest x-ray. CT chest without contrast revealed scattered bilateral ground-glass opacities concerning for infectious pneumonia versus pulmonary edema, in addition to minimal bilateral pleural effusions and multiple indeterminate age rib fractures. The patient was treated in the ED with IV furosemide and ceftriaxone. He is being admitted to the hospital for management of presumed acute decompensated congestive heart failure, AFIB RVR, and community-acquired pneumonia, with plans for non-invasive ventilatory support, diuresis, and empiric antibiotics. 09/21/24: Met with patient bedside. Endorses improvement of dyspnea. Remains on 5L oxygen with baseline of RA. BLE edema and abdominal distention with no improvement. Will increase diurectics to TID dosing. Plan for abdominal US today. Patient reported to nursing staff yesterday that he does smoke and drink alcohol daily. Will initiate CIWA protocol. 09/22/24: Patient was seen and evaluated at the bedside. He reports improvement in dyspnea, though remains dependent on 5L oxygen via nasal cannula. Diuretic regimen was intensified with furosemide increased to 40 mg three times daily. Abdominal ultrasound revealed no evidence of ascites. On physical examination, abdominal distention has improved compared to prior assessments. The patient has experienced a total weight loss of 9.3 pounds since admission. Heart rate remains well-controlled on the current medication regimen. Denies fever,cough, cp, abdominal pain, JADE, dizziness, N/V/D. 09/23/24: Met with patient bedside. Despite initial diuresis with furosemide 40 mg IV three times daily, the patient continues to exhibit significant bilateral lower extremity pitting edema, abdominal distention, and reported no change in dyspnea with sustained oxygen requirement at 5L via nasal cannula. Recent imaging revealed left pleural effusion, contributing to ongoing dyspnea. Diuretic regimen has been intensified, increasing furosemide to 60 mg IV three times daily, with the addition of metolazone 2.5 mg PO daily to potentiate diuresis. Cardiology has been re-consulted for further recommendations regarding volume management. 09/24/24: No overnight events noted. Diuretic response has improved significantly following titration of intravenous furosemide and the addition of adjunctive metolazone. Current net fluid balance is 3010 mL for the day, consistent with our therapeutic goal of 23 liters of negative balance daily to relieve volume overload. Clinically, the patient reports decreased dyspnea, and there is objective improvement in bilateral lower extremity edema. Of note, the patient was previously established on 6L home oxygen therapy and prescribed CPAP for presumed obstructive sleep apnea as of May. However, he reports that he discontinued home oxygen by returning the equipment due to insurance and continues to decline CPAP use. This raises concern for suboptimal long-term man agement of his underlying hypoxemia and possible untreated sleep-disordered breathing, which may contribute to recurrent volume overload or cardiopulmonary strain. Plan for continued diuresis. - Review of Systems Constitutional: No Symptoms Eyes: No Symptoms Ears, Nose, & Throat: No Symptoms Respiratory: Cough, Short Of Breath Cardiac: Edema (BLE +3 pitting) Abdominal/Gastrointestinal: No Symptoms Genitourinary Symptoms: No Symptoms Musculoskeletal: No Symptoms Skin: Skin Lesions (To abdomen, hair line, legs ? psoriasis ) Neurological: No Symptoms Psychological: No Symptoms Endocrine: No Symptoms Hematologic/Lymphatic: No Symptoms Immunological/Allergic: No Symptoms Objective Exam General Appearance: no apparent distress Neurologic Exam: alert, oriented x 3, cooperative Skin Exam: normal color Eye Exam: PERRL Ears, Nose, Throat Exam: normal ENT inspection Neck Exam: normal inspection Respiratory Exam: diminished breath sounds Cardiovascular Exam: irregular Gastrointestinal/Abdomen Exam: soft, normal bowel sounds, distention Extremity Exam: pedal edema, swelling (BLE +3 pitting edema) Back Exam: normal inspection Male Genitalia Exam: deferred Rectal Exam: deferred Objective Data Vital Signs: Vital Signs - 24 hr Temp Pulse Resp BP Pulse Ox 09/24/24 03:47 97.2 F 73 26 H 123/72 90 L 09/23/24 23:17 97.0 F 93 H 26 H 117/53 93 L 09/23/24 19:44 97.5 F 84 26 H 122/59 90 L 09/23/24 18:15 95 H 18 91 L 09/23/24 16:00 97.3 F 82 24 144/83 90 L 09/23/24 12:00 97.4 F 88 26 H 168/61 90 L 09/23/24 08:00 97.5 F 94 H 24 123/66 93 L 09/23/24 07:53 61 18 93 L Pain Assessment - Last Documented Pain Intensity 0 Intake and Output: Intake & Output 09/21/24 09/22/24 09/23/24 09/24/24 11:59 11:59 11:59 11:59 Intake Total 1560 2950 2060 1240 Output Total 3200 1200 1750 4350 Balance -1640 1750 310 -3110 Weight 164.79 kg 164.79 kg Lab Results: Lab Results-Last 24 Hours 09/23/24 09/23/24 09/23/24 Range/Units 06:09 06:09 06:12 WBC 9.5 H (4.23-9.07) x10^3/uL RBC 4.38 L (4.63-6.08) x10^6/uL Hgb 11.4 L (13.7-17.5) g/dL Hct 38.2 L (40.1-51.0) % MCV 87.2 (79.0-92.2) fL MCH 26.0 (25.7-32.2) pg MCHC 29.8 L (32.3-36.5) g/dL RDW 15.4 H (11.6-14.4) % Plt Count 251 (163-337) x10^3/uL MPV 12.0 (9.4-12.4) fL Gran % 68.0 H (34.0-67.9) % Immature Gran % (Auto) 0.4 (0.001-0.429) % Nucleat RBC Rel Count 0.0 (0.00-0.2) % Eos # (Auto) 0.20 (0.04-0.54) x10^3/uL Immature Gran # (Auto) 0.04 H (0.001-0.031) x10^3u/L Absolute Lymphs (auto) 2.09 (1.32-3.57) x10^3/uL Absolute Monos (auto) 0.65 (0.30-0.82) x10^3/uL Absolute Nucleated RBC 0.00 (0.00-0.012) x10^3u/L Lymphocytes % 22.1 (21.8-53.1) % Monocytes % 6.9 (5.3-12.2) % Eosinophils % 2.1 (0.8-7.0) % Basophils % 0.5 (0.2-1.2) % Absolute Granulocytes 6.42 H (1.78-5.38) x10^3/uL Basophils # 0.05 (0.01-0.08) x10^3/uL Sodium 133 L (135-145) mmol/L Potassium 4.4 (3.5-5.1) mmol/L Chloride 95 L (98-107) mmol/L Carbon Dioxide 35 H (22-30) mmol/L Anion Gap 7.9 (5-15) MEQ/L BUN 23 H (9-20) mg/dL Creatinine 0.89 (0.66-1.25) mg/dL Estimated GFR 96.3 ML/MIN Glucose 220 H (74-106) mg/dL Calcium 9.2 (8.4-10.2) mg/dL Total Bilirubin 0.50 (0.2-1.3) mg/dL AST 25 (17-59) U/L ALT 17 (0-50) U/L Alkaline Phosphatase 102 (38-126) U/L Serum Total Protein 6.5 (6.3-8.2) g/dL Albumin 3.7 (3.5-5.0) g/dL Procalcitonin 0.062 (0.030-0.080) ng/mL Radiology Exams: Radiology Procedures Category Date Time Status CHEST 1 VIEW (PORTABLE) Urgent Exams 09/23/24 07:00 Completed Medications: Medications Generic Name Dose Route Start Last Admin Trade Name Freq PRN Reason Stop Dose Admin Acetaminophen 650 mg 09/20/24 14:54 Acetaminophen 325 Mg Tablet PO 10/20/24 14:53 Q4H PRN PRN PAIN, FEVER, HEADACHE Allopurinol 300 mg 09/21/24 10:00 09/23/24 10:05 Allopurinol 300 Mg Tablet PO 10/21/24 09:59 300 mg DAILY DO Administration Amlodipine Besylate 10 mg 09/21/24 10:00 09/23/24 10:04 Amlodipine Besylate 5 Mg Tablet PO 10/21/24 09:59 10 mg DAILY DO Administration Apixaban 5 mg 09/21/24 10:00 09/23/24 21:59 Apixaban 2.5 Mg Tablet PO 10/21/24 09:59 5 mg BID DO Administration Aspirin 81 mg 09/21/24 10:00 09/23/24 10:05 Aspirin 81 Mg Tablet.Ec PO 10/21/24 09:59 81 mg DAILY DO Administration Calcium Carbonate 1 tab 09/20/24 22:00 09/23/24 22:00 Calcium Carbonate 500 Mg/Vitamin D 1 Tab Tablet PO 10/20/24 21:59 1 tab BID DO Administration Carvedilol 6.25 mg 09/21/24 10:00 09/23/24 22:00 Carvedilol 6.25 Mg Tablet PO 10/21/24 09:59 6.25 mg BID DO Administration Docusate Sodium 100 mg 09/21/24 10:00 09/23/24 10:05 Docusate Sodium 100 Mg Capsule PO 10/21/24 09:59 100 mg DAILY DO Administration Ezetimibe 10 mg 09/21/24 10:00 09/23/24 10:05 Ezetimibe 10 Mg Tab PO 10/21/24 09:59 10 mg DAILY DO Administration Ergocalciferol 50,000 unit 09/22/24 10:00 09/22/24 09:48 Ergocalciferol (Vitamin D2) 50,000 Unit Capsule PO 10/22/24 09:59 50,000 unit MoFr@1000 DO Administration Folic Acid 1 mg 09/21/24 10:00 09/23/24 10:05 Folic Acid 1 Mg Tablet PO 10/21/24 09:59 1 mg DAILY DO Administration Furosemide 60 mg 09/23/24 09:35 09/23/24 21:56 Furosemide 40 Mg/4 Ml Vial IV 10/21/24 13:59 60 mg Q8HT DO Administration Ceftriaxone Sodium 1 gm in 100 mls @ 200 mls/hr 09/21/24 10:00 09/23/24 10:46 Rocephin 1 Gm / 100 Ml Nacl IV 10/21/24 09:59 200 mls/hr Q24H10 DO Administration Insulin Glargine 20 unit 09/22/24 10:00 09/23/24 10:12 Insulin Glargine 1 Unit SQ 10/22/24 09:59 20 unit QAM DO Administration Insulin Human Lispro 0 unit 09/20/24 17:58 09/23/24 21:53 Insulin Lispro 1 Unit SQ 10/20/24 17:57 12 unit UD PRN Administration HYPERGLYCEMIA Insulin Human Lispro 20 unit 09/23/24 09:46 09/23/24 17:25 Insulin Lispro 1 Unit SQ 10/21/24 07:59 20 unit TIDWM DO Administration Levalbuterol HCl 1.25 mg 09/20/24 16:10 Levalbuterol Hcl 1.25 Mg/0.5 Ml Neb IH 10/20/24 16:09 Q4H PRN PRN SHORTNESS OF BREATH Lisinopril 20 mg 09/21/24 10:00 09/23/24 22:00 Lisinopril 20 Mg Tablet PO 10/21/24 09:59 20 mg BID DO Administration Lorazepam 1 mg 09/21/24 12:19 Lorazepam 2 Mg/1 Ml 2 Mg Vial IV 10/21/24 12:18 PRN PRN CIWA SCORE Lorazepam 0 mg 09/21/24 12:19 Lorazepam 2 Mg/1 Ml 2 Mg Vial IV 10/21/24 12:18 Q2H PRN PRN CIWA SCORE Protocol Magnesium Oxide 400 mg 09/20/24 22:00 09/23/24 22:00 Magnesium Oxide 400 Mg Tablet PO 10/20/24 21:59 400 mg BID DO Administration Metolazone 2.5 mg 09/23/24 10:00 09/23/24 10:21 Metolazone 2.5 Mg Tablet PO 10/23/24 09:59 2.5 mg QAM DO Administration Miscellaneous Information 1 each 09/21/24 07:30 Medication Intervention 1 Each Each 10/21/24 07:29 .RN TO CHECK DO Multivitamins Therapeutic 1 tab 09/21/24 10:00 09/23/24 10:20 Multivitamins,Therapeutic 1 Tab Tab PO 10/21/24 09:59 1 tab QAM DO Administration Nicotine 21 mg 09/20/24 16:15 09/23/24 10:22 Nicotine 21 Mg/Patch Patch TOP 10/20/24 16:14 Not Given DAILY DO Ondansetron HCl 4 mg 09/20/24 16:10 Ondansetron Hcl 4 Mg/2 Ml Vial IV 10/20/24 16:09 Q6H PRN PRN NAUSEA/VOMITING Pantoprazole Sodium 40 mg 09/23/24 10:00 09/23/24 10:04 Protonix (Pantoprazole) 40 Mg Tablet PO 10/23/24 09:59 40 mg DAILY DO Administration Potassium Chloride 20 meq 09/20/24 22:00 09/23/24 21:59 Potassium Chloride Tab 10 Meq Tab PO 10/20/24 21:59 20 meq BID DO Administration Simvastatin 20 mg 09/20/24 22:00 09/23/24 22:06 Simvastatin 20 Mg Tablet PO 10/20/24 21:59 20 mg HS DO Administration Thiamine HCl 100 mg 09/21/24 10:00 09/23/24 10:21 Thiamine Hcl 100 Mg Tablet PO 10/21/24 09:59 100 mg DAILY DO Administration Discontinued Medications Generic Name Dose Route Start Last Admin Trade Name Freq PRN Reason Stop Dose Admin Apixaban Confirm 09/20/24 21:12 Apixaban 2.5 Mg Tablet Administered 09/20/24 21:13 Dose 5 mg .ROUTE .STK-MED ONE Carvedilol 6.25 mg 09/20/24 17:45 09/20/24 17:57 Carvedilol 6.25 Mg Tablet PO 09/20/24 17:46 6.25 mg STAT ONE Administration Carvedilol 6.25 mg 09/20/24 22:00 09/20/24 21:18 Carvedilol 12.5 Mg Tablet PO 10/20/24 21:59 6.25 mg BID DO Administration Dabigatran 75 mg 09/20/24 22:00 09/20/24 21:18 Dabigatran Etexilate Mesylate 75 Mg Capsule PO 10/20/24 21:59 75 mg BID DO Administration Dabigatran Confirm 09/20/24 21:11 Dabigatran Etexilate Mesylate 75 Mg Capsule Administered 09/20/24 21:12 Dose 75 mg PO .STK-MED ONE Furosemide 40 mg 09/20/24 13:27 09/20/24 14:19 Furosemide 40 Mg/4 Ml Vial IV 09/20/24 13:28 40 mg STAT ONE Administration Furosemide Confirm 09/20/24 14:12 Furosemide 40 Mg/4 Ml Vial Administered 09/20/24 14:13 Dose 40 mg .ROUTE .STK-MED ONE Furosemide 40 mg 09/20/24 14:54 09/21/24 09:35 Furosemide 40 Mg/4 Ml Vial IV 10/20/24 14:53 40 mg Q12HT DO Administration Furosemide 40 mg 09/21/24 14:00 09/23/24 05:28 Furosemide 40 Mg/4 Ml Vial IV 10/21/24 13:59 40 mg Q8HT DO Administration Ceftriaxone Sodium 1 gm in 100 mls @ 200 mls/hr 09/20/24 13:26 09/20/24 14:19 Rocephin 1 Gm / 100 Ml Nacl IV 09/20/24 13:55 200 ml/hr STAT ONE 200 mls/hr Administration Ceftriaxone Sodium Confirm 09/20/24 14:12 Rocephin 1 Gm / 100 Ml Nacl Administered 09/20/24 14:13 Dose 1 gm in 100 mls @ ud IV .STK-MED ONE Azithromycin 500 mg/ Sodium 250 mls @ 250 mls/hr 09/20/24 16:00 09/23/24 09:30 Chloride IV 10/20/24 15:59 250 mls/hr Q24H10 DO Administration Insulin Human Lispro 0 unit 09/20/24 16:10 09/20/24 17:56 Insulin Lispro 1 Unit SQ 10/20/24 16:09 7 unit UD PRN Administration HYPERGLYCEMIA Insulin Human Lispro 10 unit 09/21/24 08:00 Insulin Lispro 1 Unit SQ 10/21/24 07:59 TIDWM DO Insulin Human Lispro 15 unit 09/21/24 08:00 09/21/24 17:00 Insulin Lispro 1 Unit SQ 10/21/24 07:59 15 unit TIDWM DO Administration Insulin Human Lispro 18 unit 09/22/24 05:33 09/23/24 08:29 Insulin Lispro 1 Unit SQ 10/21/24 07:59 18 unit TIDWM DO Administration Lisinopril 20 mg 09/20/24 22:00 09/20/24 21:25 Lisinopril 10 Mg Tablet PO 10/20/24 21:59 20 mg BID DO Administration Lisinopril Confirm 09/20/24 21:12 Lisinopril 20 Mg Tablet Administered 09/20/24 21:13 Dose 20 mg .ROUTE .STK-MED ONE Metoprolol Tartrate 5 mg 09/20/24 15:53 09/20/24 16:04 Metoprolol Tartrate 5 Mg/5 Ml Vial IV 09/20/24 15:54 5 mg STAT ONE Administration Non-Formulary Medication 5 mg 09/20/24 22:00 09/20/24 21:20 Apixaban [Eliquis] PO 10/20/24 21:59 5 mg BID DO Administration Non-Formulary Medication 20 meq 09/20/24 22:00 09/20/24 21:32 Potassium Chloride [Klor-Con M20] PO 10/20/24 21:59 20 meq BID DO Administration Non-Formulary Medication 20 mg 09/20/24 22:00 Pravastatin Sodium [Pravastatin Sodium] PO 10/20/24 21:59 HS [facility] Pantoprazole Sodium 40 mg 09/20/24 16:30 09/22/24 10:40 Pantoprazole 40 Mg Vial IV 10/20/24 16:29 40 mg DAILY DO Administration Potassium Chloride Confirm 09/20/24 21:12 Potassium Chloride Tab 10 Meq Tab Administered 09/20/24 21:13 Dose 20 meq .ROUTE .STK-MED ONE Simvastatin Confirm 09/20/24 21:13 Simvastatin 20 Mg Tablet Administered 09/20/24 21:14 Dose 20 mg .ROUTE .STK-MED ONE Multi-Disciplinary Progress Notes: Multi-Disciplinary Progress Notes 09/23/24 19:20 Respiratory Note by Mckenna Henderson Pt's SpO2 on 5L nasal cannula while pt was sleeping was 84%. RT suggested CPAP for JIA history, pt refused CPAP. RT suggested oxymask while sleeping, pt refused. Pt was placed on 6L oxymizer, SpO2 while awake on 6L oxymizer was 91%. Pt was educated on importance of CPAP for JIA but pt continued to refuse. RN was notified. Initialized on 09/23/24 19:20 - END OF NOTE Assessment/Plan (1) Pneumonia Current Visit: Yes Status: Acute Assessment & Plan: -Bibasilar infiltrates on CXR and CT chest -Ground-glass opacities on CT chest, which could represent infection versus pulmonary edema -Leukocytosis with left shift (WBC 11.1) -Continue ceftriaxone initiated in ED. Add azithromycin - Blood and sputum cultures ; adjust antibiotics based on results -Monitor for clinical improvement, consider repeat imaging if no improvement in 48-72 hours -Supplemental oxygen with goal spo2 > 91%- currently on 5L -RA at baseline -RT eval -Nebs/INH 09/21: -continue abx -CBC/CMP reviewed -continue oxygen at 5L- titrate to maintain spo2 >91% 09/23: -continue ceftriaxone, received full course of azithromycin- discontinue -Remains at 5L oxygen- titrate as appropriate to maintain spo2 > 91% -CMP/cbc reviewed -Blood and sputum cultures pending 09/24: -Continue ceftriaxone -Continue 5L oxygen- qualify for home oxygen - patient refuses cpap -Bcult with ngtd - sputum culture pending -CBC reviewed- WBC at 10- trend Code(s): J18.9 - PNEUMONIA, UNSPECIFIED ORGANISM (2) Atrial fibrillation with RVR Current Visit: Yes Status: Acute Assessment & Plan: -EKG with atrial fibrillation with rapid ventricular response. No signs of acute ischemia or injury are seen -most likely secondary to CHF exac/pneuomia -TSH -Continue Eliquis -Metoprolol 5mg IV given - continue to monitor consider cardizem/cardizem drip if appropriate -Most recent echo reviewed from 2023- obtain new echo -cardiology consulted appreciate recs -Patient follows with Dr. Winter OP - last OV yesterday 09/21: -TSH WNL -Cardiology consulted and recommended coreg 6.25 bid and discontinuation of pradaxa -HR now controlled 09/22: -No overnight events- HR controlled on current regimen- continue 09/24: -HR continues to be controlled with coreg at 6.5bid -Continue Eliquis -Cardiology following Code(s): I48.91 - UNSPECIFIED ATRIAL FIBRILLATION (3) Acute on chronic diastolic (congestive) heart failure Current Visit: No Status: Acute Assessment & Plan: -Elevated BNP at 1370 -Clinical signs of volume overload with dyspnea and bibasilar infiltrates/atelectasis on imaging -CT chest showing ground-glass opacities and minimal bilateral pleural effusions -Continue IV furosemide (Lasix) initiated in the ED, titrate to clinical response with strict I/O monitoring and daily weights -Monitor electrolytes and renal function daily 09/21: -BLE with no improvement- increase lasix to 40mg TID -CMP/CBC reviewed -Echo pending -Cardiology following 09/22: -Echocardiogram performed on 09/21/2024 revealed a mildly enlarged left atrium, likely reflective of chronic atrial fibrillation and/or underlying hypertension. Mild concentric left ventricular hypertrophy was noted, suggestive of pressure overload, however, overall left ventricular systolic function appears preserved with an estimated ejection fraction of 55%. Due to technical limitations and atrial fibrillation, assessment of diastolic function and focal wall motion abnormalities was inconclusive. Right ventricular function appears normal. Mild aortic sclerosis was identified without evidence of stenosis or significant valvular regurgitation. Estimation of pulmonary artery pressures was not possible; however, right atrial pressure was mildly elevated at 8 mmHg. No pericardial effusion was seen. Overall, findings are consistent with structural heart changes commonly seen in patients with chronic atrial fibrillation and hypertension, with preserved systolic function and no hemodynamically significant valvular disease. -Abdominal US with no ascites -Continue Lasix TID -Weight loss of 9.3 lbs 09/23: -CXR repeat showing left pleural effusion, mild cardiomegaly, and diffuse reticular opacities in bilateral lungs. -Oxygen requirements remain at 5L - titrate as appropriate -Increase lasix to 60 mg IV three times daily, with the addition of metolazone 2.5 mg PO daily to potentiate diuresis -Cardiology has been re-consulted for further recommendations regarding volume management and potential need for ultrafiltration - appreciate recs 09/24: -Diuretic response has improved significantly following titration of intravenous furosemide and the addition of adjunctive metolazone - continue -Current net fluid balance is 3010 mL for the day, consistent with our therapeutic goal of 23 liters of negative balance daily -Cardiology note reviewed - agree with plan -Optomize electrolytes with K>4, mg >2 -Potassium reviewed at 4.2, mag pending -Continue supplemental oxygen - most likely will need on discharge, 5L at 93% Code(s): I50.33 - ACUTE ON CHRONIC DIASTOLIC (CONGESTIVE) HEART FAILURE (4) HLD (hyperlipidemia) Current Visit: Yes Status: Acute Assessment & Plan: -Continue statin Code(s): E78.5 - HYPERLIPIDEMIA, UNSPECIFIED (5) HTN (hypertension) Current Visit: Yes Status: Acute Assessment & Plan: -continue home meds Code(s): I10 - ESSENTIAL (PRIMARY) HYPERTENSION (6) JIA (obstructive sleep apnea) Current Visit: Yes Status: Acute Assessment & Plan: -CPAP if agreeable - declines currently despite advisement Code(s): G47.33 - OBSTRUCTIVE SLEEP APNEA (ADULT) (PEDIATRIC) (7) Smoker Current Visit: Yes Status: Acute Assessment & Plan: -reports he quit 4 days ago- nicotine patch 09/21: -Advised Cessation- patient reports that he is smoking daily but ready to quit Code(s): F17.200 - NICOTINE DEPENDENCE, UNSPECIFIED, UNCOMPLICATED Alcohol abuse -Daily drinker -[facility] protocol initiated (8) Peripheral neuropathy Current Visit: Yes Status: Acute Assessment & Plan: -continue home meds Code(s): G62.9 - POLYNEUROPATHY, UNSPECIFIED (9) Pleural effusion Current Visit: Yes Status: Acute Assessment & Plan: -Continue lasix as stated above -consider repeat imaging if no improvement Code(s): J90 - PLEURAL EFFUSION, NOT ELSEWHERE CLASSIFIED (10) Acute respiratory failure with hypoxia Current Visit: No Status: Acute Assessment & Plan: -secondary to pneumonia/ chf see plan above Code(s): J96.01 - ACUTE RESPIRATORY FAILURE WITH HYPOXIA (11) Diabetes mellitus Current Visit: No Status: Acute Assessment & Plan: -ADA diet - ACHS accuchecks -SSI/meal time/glargine -A1c 9.13- uncontrolled 09/24: - to bring in RU 500 insulin - will resume home insulin tomorrow once received Code(s): E11.9 - TYPE 2 DIABETES MELLITUS WITHOUT COMPLICATIONS (12) Lung nodule seen on imaging study Current Visit: Yes Status: Acute Assessment & Plan: - Pulmonology referral for left lower lobe lung nodule -outpatient imaging follow-up arranged per guidelines Code(s): R91.1 - SOLITARY PULMONARY NODULE (13) Morbid obesity with BMI of 50.0-59.9, adult Current Visit: Yes Status: Acute Assessment & Plan: -Advised ADA diet and exercise VTE: Eliquis PPI: protonix Dispo: 1-3 days Code status: Full Code(s): J18.9 - PNEUMONIA, UNSPECIFIED ORGANISM (2) Atrial fibrillation with RVR Current Visit: Yes Status: Acute Code(s): I48.91 - UNSPECIFIED ATRIAL FIBRILLATION (3) Acute on chronic diastolic (congestive) heart failure Current Visit: Yes Status: Chronic Code(s): I50.33 - ACUTE ON CHRONIC DIASTOLIC (CONGESTIVE) HEART FAILURE (4) HLD (hyperlipidemia) Current Visit: Yes Status: Acute Code(s): E78.5 - HYPERLIPIDEMIA, UNSPECIFIED (5) HTN (hypertension) Current Visit: Yes Status: Acute Code(s): I10 - ESSENTIAL (PRIMARY) HYPERTENSION (6) JIA (obstructive sleep apnea) Current Visit: Yes Status: Acute Code(s): G47.33 - OBSTRUCTIVE SLEEP APNEA (ADULT) (PEDIATRIC) (7) Smoker Current Visit: Yes Status: Acute Code(s): F17.200 - NICOTINE DEPENDENCE, UNSPECIFIED, UNCOMPLICATED (8) Peripheral neuropathy Current Visit: Yes Status: Acute Code(s): G62.9 - POLYNEUROPATHY, UNSPECIFIED (9) Pleural effusion Current Visit: Yes Status: Acute Code(s): J90 - PLEURAL EFFUSION, NOT ELSEWHERE CLASSIFIED (10) Acute respiratory failure with hypoxia Current Visit: No Status: Acute Code(s): J96.01 - ACUTE RESPIRATORY FAILURE WITH HYPOXIA (11) Diabetes mellitus Current Visit: No Status: Acute Code(s): E11.9 - TYPE 2 DIABETES MELLITUS WITHOUT COMPLICATIONS (12) Lung nodule seen on imaging study Current Visit: Yes Status: Acute Code(s): R91.1 - SOLITARY PULMONARY NODULE (13) Morbid obesity with BMI of 50.0-59.9, adult Current Visit: Yes Status: Acute Code(s): E66.01 - MORBID (SEVERE) OBESITY DUE TO EXCESS CALORIES; Z68.43 - BODY MASS INDEX [BMI] 50.0-59.9, ADULT (14) Alcohol abuse Current Visit: Yes Status: Acute Code(s): F10.10 - ALCOHOL ABUSE, UNCOMPLICATED
[2024-09-24 05:49] LABS: Absolute Neutrophil Ct (ANC) 6.93 x10^3/uL (1.78-5.38); BASOPHIL % 0.5 % (0.2-1.2); Basophil (Absolute #) 0.05 x10^3/uL (0.01-0.08); Eosinophil % 1.7 % (0.8-7.0); Eosinophil (Absolute #) 0.17 x10^3/uL (0.04-0.54); Hematocrit 37.2 % (40.1-51.0); IMMATURE GRAN # 0.07 x10^3u/L (0.001-0.031); IMMATURE GRAN % 0.7 % (0.001-0.429); Lymphocyte (Absolute #) 1.96 x10^3/uL (1.32-3.57); Lymphocytes % 19.6 % (21.8-53.1); Mean Cell Volume 85.5 fL (79.0-92.2); Mean Corpuscular Hemoglobin 25.3 pg (25.7-32.2); Mean Corpuscular Hgb Concent. 29.6 g/dL (32.3-36.5); Mean Platelet Volume 11.9 fL (9.4-12.4); Monocyte (Absolute #) 0.81 x10^3/uL (0.30-0.82); Monocytes % 8.1 % (5.3-12.2); Neutrophil % 69.4 % (34.0-67.9); Platelet Count 246 x10^3/uL (163-337); Red Blood Count 4.35 x10^6/uL (4.63-6.08); Red Cell Distribution Width 15.2 % (11.6-14.4)
[2024-09-24 06:01] LABS: ALBUMIN 3.6 g/dL (3.5-5.0); ANION GAP 8.9 MEQ/L (5-15); BILIRUBIN,TOTAL 0.5 mg/dL (0.2-1.3); Calcium 9.2 mg/dL (8.4-10.2); Creatinine 1 0.87 mg/dL (0.66-1.25); Potassium 4.2 mmol/L (3.5-5.1); Total Protein 6.6 g/dL (6.3-8.2)
[2024-09-24] MEDS: HUMALOG SQ SCH (08:59)
[2024-09-24] MEDS: Lantus Insulin SQ SCH (10:19)
[2024-09-24] MEDS ORDERED: D50W 50 ml Abboject IV PRN (13:12)
[2024-09-24] MEDS ORDERED: GlucaGen 1 MG IM PRN (13:12)
[2024-09-24] MEDS ORDERED: Glutose 15 GM ORAL GEL PO PRN (13:12)
[2024-09-25 04:59] LABS: Absolute Neutrophil Ct (ANC) 7.68 x10^3/uL (1.78-5.38); BASOPHIL % 0.5 % (0.2-1.2); Basophil (Absolute #) 0.06 x10^3/uL (0.01-0.08); Eosinophil % 2.3 % (0.8-7.0); Eosinophil (Absolute #) 0.25 x10^3/uL (0.04-0.54); Hematocrit 37.2 % (40.1-51.0); IMMATURE GRAN # 0.06 x10^3u/L (0.001-0.031); IMMATURE GRAN % 0.5 % (0.001-0.429); Lymphocyte (Absolute #) 2.07 x10^3/uL (1.32-3.57); Lymphocytes % 18.9 % (21.8-53.1); Mean Cell Volume 85.9 fL (79.0-92.2); Mean Corpuscular Hemoglobin 25.4 pg (25.7-32.2); Mean Corpuscular Hgb Concent. 29.6 g/dL (32.3-36.5); Mean Platelet Volume 12.5 fL (9.4-12.4); Monocyte (Absolute #) 0.84 x10^3/uL (0.30-0.82); Monocytes % 7.7 % (5.3-12.2); Neutrophil % 70.1 % (34.0-67.9); Platelet Count 274 x10^3/uL (163-337); Red Blood Count 4.33 x10^6/uL (4.63-6.08); Red Cell Distribution Width 15.4 % (11.6-14.4)
[2024-09-25 05:20] LABS: ALBUMIN 3.6 g/dL (3.5-5.0); BILIRUBIN,TOTAL 0.4 mg/dL (0.2-1.3); Calcium 9.7 mg/dL (8.4-10.2); Creatinine 1 0.83 mg/dL (0.66-1.25); EST GLOMERULAR FILTRATION RATE 98.3 ML/MIN; MAGNESIUM 1.9 mg/dL (1.6-2.3); Potassium 4.1 mmol/L (3.5-5.1); Total Protein 6.5 g/dL (6.3-8.2)
[2024-09-25 05:29] LABS: ANION GAP 11.1 MEQ/L (5-15)
[2024-09-25 05:47] VITALS: RESP 16
[2024-09-25] MEDS: PATIENT OWN MEDICATION SQ SCH ×2 (08:18→16:15)
--- NOTE | 2024-09-25 12:41 | PCM.DS ---
Discharge Summary Date of Admission: 09/20/24 14:41 Date of Discharge: 09/25/24 Admitting Physician: LUPE DIETRICH MD Consults: Consults on Case 09/20/24 15:53 Consult Cardiology ROUTINE 09/21/24 13:22 [facility] Referral ROUTINE Primary Care Provider: KRISTINA MCCLELLAN Allergies Allergies cetirizine HCl [From Zyrtec] Allergy (Severe, Verified 09/20/24 10:54) Swelling of Face niacin Allergy (Intermediate, Verified 09/20/24 10:54) [facility] Summary - Hospital Course Hospital Course: Mr. Brice is a 64-year-old male with a complex medical history including atrial fibrillation on Eliquis, COPD, congestive heart failure, coronary artery disease, insulin-dependent diabetes, stroke, hypertension, hyperlipidemia, obstructive sleep apnea, gout, and peripheral neuropathy, who presented with progressive dyspnea, weight gain, abdominal distention, and lower extremity edema. He had recently been evaluated by cardiology and prescribed diuretics, which he had not yet initiated prior to arrival. In the ED, he was found to have AFib with RVR, elevated BNP (1370), leukocytosis, mild metabolic acidosis, and imaging findings suggestive of pneumonia, pulmonary edema, and volume overload. He was admitted for management of acute decompensated heart failure, AFib with RVR, and suspected community-acquired pneumonia. He was started on IV furosemide, ceftriaxone, and placed on 5L oxygen. Over the hospital course, his dyspnea and abdominal distention gradually improved with escalating diuretic therapy, including the addition of metolazone, resulting in a net negative fluid balance of over 3 liters. Edema improved, and he lost over 9 pounds since admission. Cardiology was consulted for volume management. An abdominal ultrasound showed no ascites, and oxygen requirements remained stable at 5L. He revealed recent alcohol and tobacco use, prompting initiation of the CIWA protocol. Notably, he had previously returned his home oxygen equipment and has been non-compliant with CPAP, raising concerns about unmanaged hypoxemia and contributing cardiopulmonary strain. By 09/25, the patient was resting in a chair, reported resolution of dyspnea and edema, and expressed a desire to discharge home. Respiratory therapy is evaluating his home oxygen needs; he is currently on 5L nasal cannula, improved from 6L at his last discharge. He remains non-compliant with CPAP and diet, with an A1C of 9.13. His brought in his U500 insulin, which was restarted. Given his history of poor adherence and likelihood of recurrent admissions, outpatient hospice may need to be considered if non-compliance continues. He will require close outpatient follow-up with primary care, cardiology, and pulmonology to avoid readmissions. He will continue antibiotics at home for pneumonia. - Vitals & Intake/Output Vital Signs: Vital Signs Temperature 97.7 F 09/25/24 11:38 Pulse Rate 83 09/25/24 11:38 Respiratory Rate 16 09/25/24 11:38 Blood Pressure 125/58 09/25/24 11:38 O2 Sat by Pulse Oximetry 93 L 09/25/24 11:38 Intake & Output: Intake & Output 09/23/24 09/24/24 09/25/24 09/26/24 11:59 11:59 11:59 11:59 Intake Total 2060 1580 1680 Output Total 1750 5550 2400 Balance 310 3970 -720 Weight 164.79 kg 163.6 kg 162.1 kg - Lab Result Diagrams: 09/25/24 04:52 09/25/24 04:52 Lab Results-Last 24 Hrs: Lab Results-Last 24 Hours 09/24/24 09/25/24 09/25/24 Range/Units 16:36 04:52 04:52 WBC 11.0 H (4.23-9.07) x10^3/uL RBC 4.33 L (4.63-6.08) x10^6/uL Hgb 11.0 L (13.7-17.5) g/dL Hct 37.2 L (40.1-51.0) % MCV 85.9 (79.0-92.2) fL MCH 25.4 L (25.7-32.2) pg MCHC 29.6 L (32.3-36.5) g/dL RDW 15.4 H (11.6-14.4) % Plt Count 274 (163-337) x10^3/uL MPV 12.5 H (9.4-12.4) fL Gran % 70.1 H (34.0-67.9) % Immature Gran % (Auto) 0.5 H (0.001-0.429) % Nucleat RBC Rel Count 0.0 (0.00-0.2) % Eos # (Auto) 0.25 (0.04-0.54) x10^3/uL Immature Gran # (Auto) 0.06 H (0.001-0.031) x10^3u/L Absolute Lymphs (auto) 2.07 (1.32-3.57) x10^3/uL Absolute Monos (auto) 0.84 H (0.30-0.82) x10^3/uL Absolute Nucleated RBC 0.00 (0.00-0.012) x10^3u/L Lymphocytes % 18.9 L (21.8-53.1) % Monocytes % 7.7 (5.3-12.2) % Eosinophils % 2.3 (0.8-7.0) % Basophils % 0.5 (0.2-1.2) % Absolute Granulocytes 7.68 H (1.78-5.38) x10^3/uL Basophils # 0.06 (0.01-0.08) x10^3/uL Sodium 132 L (135-145) mmol/L Potassium 4.1 (3.5-5.1) mmol/L Chloride 87 L (98-107) mmol/L Carbon Dioxide 38 H (22-30) mmol/L Anion Gap 11.1 (5-15) MEQ/L BUN 24 H (9-20) mg/dL Creatinine 0.83 (0.66-1.25) mg/dL Estimated GFR 98.3 ML/MIN Glucose 251 H (74-106) mg/dL POC Glucometer 233 H (74 to 106) mg/dL Calcium 9.7 (8.4-10.2) mg/dL Magnesium 1.9 (1.6-2.3) mg/dL Total Bilirubin 0.40 (0.2-1.3) mg/dL AST 26 (17-59) U/L ALT 19 (0-50) U/L Alkaline Phosphatase 102 (38-126) U/L NT-Pro-B Natriuret Pep (<300) pg/mL Serum Total Protein 6.5 (6.3-8.2) g/dL Albumin 3.6 (3.5-5.0) g/dL 09/25/24 Range/Units 04:52 WBC (4.23-9.07) x10^3/uL RBC (4.63-6.08) x10^6/uL Hgb (13.7-17.5) g/dL Hct (40.1-51.0) % MCV (79.0-92.2) fL MCH (25.7-32.2) pg MCHC (32.3-36.5) g/dL RDW (11.6-14.4) % Plt Count (163-337) x10^3/uL MPV (9.4-12.4) fL Gran % (34.0-67.9) % Immature Gran % (Auto) (0.001-0.429) % Nucleat RBC Rel Count (0.00-0.2) % Eos # (Auto) (0.04-0.54) x10^3/uL Immature Gran # (Auto) (0.001-0.031) x10^3u/L Absolute Lymphs (auto) (1.32-3.57) x10^3/uL Absolute Monos (auto) (0.30-0.82) x10^3/uL Absolute Nucleated RBC (0.00-0.012) x10^3u/L Lymphocytes % (21.8-53.1) % Monocytes % (5.3-12.2) % Eosinophils % (0.8-7.0) % Basophils % (0.2-1.2) % Absolute Granulocytes (1.78-5.38) x10^3/uL Basophils # (0.01-0.08) x10^3/uL Sodium (135-145) mmol/L Potassium (3.5-5.1) mmol/L Chloride (98-107) mmol/L Carbon Dioxide (22-30) mmol/L Anion Gap (5-15) MEQ/L BUN (9-20) mg/dL Creatinine (0.66-1.25) mg/dL Estimated GFR ML/MIN Glucose (74-106) mg/dL POC Glucometer (74 to 106) mg/dL Calcium (8.4-10.2) mg/dL Magnesium (1.6-2.3) mg/dL Total Bilirubin (0.2-1.3) mg/dL AST (17-59) U/L ALT (0-50) U/L Alkaline Phosphatase (38-126) U/L NT-Pro-B Natriuret Pep 631 (<300) pg/mL Serum Total Protein (6.3-8.2) g/dL Albumin (3.5-5.0) g/dL Micro Results-Entire Visit: Microbiology 09/20/24 11:25 Blood Culture - Final Blood 09/20/24 11:05 Blood Culture - Final Blood Accuchecks Date 09/25/24 Date 09/25/24 Time 11:39 Time 07:36 - Procedures and Test Procedures and Tests throughout Hospitalization: Therapy Orders & Screens 09/20/24 14:54 EKG REPEAT IN AM Comment: Oxygen Nasal Cannula 5 lpm Comment: Respiratory Therapy Consult ONCE Comment: Reason For Exam: 09/20/24 15:57 EKG ONCE Comment: Diagnosis: sob BLE edema 09/21/24 07:01 Respiratory Therapy Assessment DAILY Comment: Diagnosis: sob BLE edema 09/21/24 08:46 FLUTTER [Flutter Therapy] UD Comment: Diagnosis: sob BLE edema 09/23/24 05:15 Incentive Spirometry UD Comment: Diagnosis: PNEUMONIA, CHF, AFIB W/RVR Discharge Exam General Appearance: no apparent distress, alert, obese Neurologic Exam: alert, oriented x 3, cooperative, normal mood/affect, nml cerebellar function, sensation nml, No motor deficits Eye Exam: PERRL, EOMI, eyes nml inspection Ears, Nose, Throat Exam: normal ENT inspection, pharynx normal, moist mucous membranes Neck Exam: normal inspection, non-tender, supple, full range of motion Respiratory Exam: normal breath sounds, lungs clear, No respiratory distress Cardiovascular Exam: regular rate/rhythm, normal heart sounds Gastrointestinal/Abdomen Exam: soft, No tenderness, No mass Male Genitalia Exam: deferred Rectal Exam: deferred Back Exam: normal inspection, normal range of motion, No CVA tenderness, No vertebral tenderness Extremity Exam: normal inspection, normal range of motion Skin Exam: normal color, warm, dry Final Diagnosis/Problem List - Final Discharge Diagnosis/Problem (1) Pneumonia Current Visit: Yes Status: Acute Assessment & Plan: -Bibasilar infiltrates on CXR and CT chest -Ground-glass opacities on CT chest, which could represent infection versus pulmonary edema -RT eval for home O2 needs -Nebs/INH -continue abx -CBC/CMP reviewed -continue oxygen at 5L- titrate to maintain spo2 >91% -Bcult with ngtd - sputum culture pending Code(s): J18.9 - PNEUMONIA, UNSPECIFIED ORGANISM (2) Acute on chronic diastolic (congestive) heart failure Current Visit: Yes Status: Chronic Assessment & Plan: -Echocardiogram performed on 09/21/2024 revealed a mildly enlarged left atrium, likely reflective of chronic atrial fibrillation and/or underlying hypertension. Mild concentric left ventricular hypertrophy was noted, suggestive of pressure overload, however, overall left ventricular systolic function appears preserved with an estimated ejection fraction of 55%. Due to technical limitations and atrial fibrillation, assessment of diastolic function and focal wall motion abnormalities was inconclusive. Right ventricular function appears normal. Mild aortic sclerosis was identified without evidence of stenosis or significant valvular regurgitation. Estimation of pulmonary artery pressures was not possible; however, right atrial pressure was mildly elevated at 8 mmHg. No pericardial effusion was seen. Overall, findings are consistent with structural heart changes commonly seen in patients with chronic atrial fibrillation and hypertension, with preserved systolic function and no hemodynamically significant valvular disease. -Abdominal US with no ascites -Continue Lasix TID -CXR repeat showing left pleural effusion, mild cardiomegaly, and diffuse reticular opacities in bilateral lungs. -Oxygen requirements remain at 5L - titrate as appropriate -Cardiology note reviewed - agree with plan -Continue supplemental oxygen - most likely will need on discharge, 5L at 90%- RT eval for home O2 Code(s): I50.33 - ACUTE ON CHRONIC DIASTOLIC (CONGESTIVE) HEART FAILURE (3) Atrial fibrillation with RVR Current Visit: Yes Status: Acute Assessment & Plan: -HR continues to be controlled with coreg at 6.5bid - Continue Eliquis - Cardiology following - HR controlled a-fib - tele - EKG - TSH WNL - Patient follows with Dr. Ulloa OP Code(s): I48.91 - UNSPECIFIED ATRIAL FIBRILLATION (4) Pleural effusion Current Visit: Yes Status: Acute Assessment & Plan: -Continue lasix as stated above - Breathing improved since admission - Will need close OP f/u Code(s): J90 - PLEURAL EFFUSION, NOT ELSEWHERE CLASSIFIED (5) Acute respiratory failure with hypoxia Current Visit: No Status: Acute Assessment & Plan: - 2:2 pneumonia and CHF- see above plans Code(s): J96.01 - ACUTE RESPIRATORY FAILURE WITH HYPOXIA (6) Diabetes mellitus Current Visit: No Status: Chronic Assessment & Plan: - A1C 9.13- uncontrolled - U500 insulin brought in this AM - Non-compliant with ADA diet - Education provided on non-compliance and usp side effects. Code(s): E11.9 - TYPE 2 DIABETES MELLITUS WITHOUT COMPLICATIONS (7) Nicotine abuse Current Visit: No Status: Chronic Assessment & Plan: -Advised Cessation- patient reports that he is smoking daily but ready to quit - 1800QUIT- now information provided Code(s): Z72.0 - TOBACCO USE (8) Obstructive sleep apnea Current Visit: No Status: Chronic Assessment & Plan: - Non-compliant - Refuses to wear Cpap - Co2 38 - Repeated education provided on importance Code(s): G47.33 - OBSTRUCTIVE SLEEP APNEA (ADULT) (PEDIATRIC) (9) HLD (hyperlipidemia) Current Visit: Yes Status: Chronic Assessment & Plan: -Continue statin Code(s): E78.5 - HYPERLIPIDEMIA, UNSPECIFIED (10) Peripheral neuropathy Current Visit: Yes Status: Chronic Assessment & Plan: -continue home meds Code(s): G62.9 - POLYNEUROPATHY, UNSPECIFIED (11) Lung nodule seen on imaging study Current Visit: Yes Status: Acute Assessment & Plan: - F/U OP with Pulm as scheduled Code(s): R91.1 - SOLITARY PULMONARY NODULE (12) Morbid obesity with BMI of 50.0-59.9, adult Current Visit: Yes Status: Acute Assessment & Plan: - Advised ADA diet and exercise control - Recommended cardio- pulm rehab OP Code(s): E66.01 - MORBID (SEVERE) OBESITY DUE TO EXCESS CALORIES; Z68.43 - BODY MASS INDEX [BMI] 50.0-59.9, ADULT (13) Alcohol abuse Current Visit: Yes Status: Chronic Assessment & Plan: -Daily drinker -[facility] protocol Code(s): F10.10 - ALCOHOL ABUSE, UNCOMPLICATED (14) HTN (hypertension) Current Visit: Yes Status: Chronic Assessment & Plan: -continue home meds - BP stable Code(s): I10 - ESSENTIAL (PRIMARY) HYPERTENSION - Discharge Discharge Date: 09/25/24 Disposition: Home, Self-Care Condition: Fair Prescriptions: New levoFLOXacin [Levofloxacin] 750 mg PO DAILY 5 Days #5 tablet Continue Allopurinol 100 mg [Zyloprim 100 mg] 300 mg PO DAILY Lisinopril 10 mg [Zestril 10 MG] 20 mg PO BID Omeprazole [Prilosec] 40 mg PO DAILY Pravastatin Sodium 20 mg PO HS Carvedilol 12.5 mg [Coreg 12.5 mg] 6.25 mg PO BID Piroxicam 20 mg PO DAILY Amlodipine Besylate 10 mg PO DAILY Ezetimibe 10 mg PO DAILY hydroCHLOROthiazide [Hydrochlorothiazide] 25 mg PO DAILY Folic Acid 1 mg [Folate 1 mg] 1 mg PO DAILY Potassium Chloride [Klor-Con M20] 20 meq PO DAILY Apixaban [Eliquis] 5 mg PO BID Docusate Sodium 100 mg [Docusate Sodium 100 MG] 100 mg PO DAILY Ergocalciferol (Vitamin D2) [Vitamin D2] 1,250 mcg PO 2XW Calcium Carbonate/Vitamin D3 [[place] 500-Vit D3 200 Tablet] 1 each PO BID Aspirin EC 81 mg [Ecotrin 81 mg] 81 mg PO DAILY [place]-3/Dha/Epa/Fish Oil [Fish Oil 1,000 mg Softgel] 1 each PO DAILY Thiamine HCl 100 mg [Vitamin B-1 100 mg] 100 mg PO DAILY Insulin Regular, Human [Humulin R U-500 Kwikpen] 110 unit SQ 0730,1130 Magnesium Oxide 400 mg [Mag-Ox 400] 400 mg PO BID Dabigatran Etexilate Mesylate [Dabigatran Etexilate] 75 mg PO BID Torsemide 100 mg PO DAILY Insulin Regular, Human [Humulin R U-500 Kwikpen] 80 unit SQ 1630 Insulin Regular, Human [Humulin R U-500 Kwikpen] 10 unit SQ UD PRN PRN Reason: Hyperglycemia Discontinued Furosemide 40 mg [Lasix 40 MG] 40 mg PO BID Instructions: Oxygen therapy at home Additional Instructions: WEAR 5L/NC AT ALL TIMES CALL [facility] WHEN YOU LEAVE [facility] AT [phone] SO THEY CAN DELIVER YOUR HOME CONCENTRATOR A REFERRAL WAS SENT TO [facility] TO GET YOU ASSISTANCE WITH SMOKING CESSATION S/W YOUR PRIMARY CARE PROVIDER REGARDING THE COST OF YOUR MEDICATIONS TO SEE IF ANYTHING CAN BE ADJUSTED TO ASSIST YOU. Continue Torsemide and stop lasix. Follow up with Cardiology as to what you should be taking. Follow up with: ALEXANDR ULLOA [CONSULTING PHYSICIAN, CARDIOLOGY] - 10/11/24 10:00 am Referral Note: Will be seen in the [place] Office by Dr. Ulloa's patent legal assistant, DYLON Howell [ACTIVE STAFF, PULMONARY MEDICINE] - 10/11/24 4:00 pm KRISTINA MCCLELLAN NP [Primary Care Provider, UNKNOWN] - 09/29/24 11:00 am
[2024-09-25 16:09] VITALS: BP 121/58; PULSE 82; TEMP 97.9; O2SAT 92
[2024-09-25] MEDS: PATIENT OWN MEDICATION SQ PRN (16:19)
== END 2024-09-25 18:30 | disposition home or self-care (01) | DRG 193 ==
LOC: ED 10:36 → MED SURG 14:41 → OBSVTOIN 14:41
PROVIDERS: ADMIT Internal Medicine; ATTEND Internal Medicine
DX: J18.9 Pneumonia, unspecified organism (principal); I50.33 Acute on chronic diastolic (congestive) heart failure; J96.01 Acute respiratory failure with hypoxia; I48.20 Chronic atrial fibrillation, unspecified; J90 Pleural effusion, not elsewhere classified; Z68.43 Body mass index [BMI] 50.0-59.9, adult; I11.0 Hypertensive heart disease with heart failure; E11.9 Type 2 diabetes mellitus without complications; Z72.0 Tobacco use; G47.33 Obstructive sleep apnea (adult) (pediatric); E78.5 Hyperlipidemia, unspecified; G62.9 Polyneuropathy, unspecified; F10.10 Alcohol abuse, uncomplicated; R91.1 Solitary pulmonary nodule; E66.01 Morbid (severe) obesity due to excess calories; J44.9 Chronic obstructive pulmonary disease, unspecified; R60.0 Localized edema; D72.829 Elevated white blood cell count, unspecified; Z79.01 Long term (current) use of anticoagulants; Z79.899 Other long term (current) drug therapy; Z86.73 Personal history of transient ischemic attack (TIA), and cerebral infarction without residual deficits
CPT/HCPCS: 36415; 36600; 71045; 71250; 76705; 80053; 82375; 82803; 82947; 83036; 83605; 83735; 83880; 84145; 84443; 84484; 85025; 87040; 93005; 93306; 94667; 94668; 94760; 96374; 99285; J0456; J0696; J1817; J1938; Q3014; A9270-GY